=== PATIENT | male | born 1945 | race Caucasian/White ===

== ENCOUNTER 2017-04-10 13:54 | Inpatient (IN) | payer MEDICARE ==
[~2017-04-10] VITALS: Ht 175.3 cm; Wt 80.3 kg
--- NOTE | 2017-04-10 13:59 | Emergency Room Report ---
History of Present Illness General Chief Complaint: Dyspnea/Respdistress Source: Medical Record Present Illness HPI Patient has a history of liver and kidney transplant. Patient also has history of atrial fibrillation. Patient has history of diabetes and high blood pressure as well. Patient states that he hasn't been feeling well for the last couple days. He has had some cough but increasing shortness of breath some wheezing. He went to see his primary care physician and received albuterol treatments which did improve his breathing but causes heart rate to go up and him to have chest discomfort. Because of that he emesis contacted and patient was by her further evaluation. On arrival patient feels better and denies any definite chest pain but he still has very mild shortness of breath. Denies any leg pain leg swelling. States that he does not have a fever. No other complaints are noted. Symptoms noted to be moderate to severe when it occurred.No other modifying factors. No other associated signs and symptoms. No other complaints were noted. Allergies: Coded Allergies: IODINE (Verified Allergy, Unknown, 04/10/17) METHOCARBAMOL (Verified Allergy, Unknown, 04/10/17) Patient History Past Medical History: DM, HTN Past Surgical History: other - liver, kidney transplant Pertinent Family History: none Social History: Denies: smoking, alcohol use, drug use Reviewed Nursing Documentation: PMH: Agreed, PSxH: Agreed Nursing Documentation-PMH Hx Hypertension: Yes Hx Diabetes: Yes Review of Systems All Other Systems: negative except mentioned in HPI Physical Exam Vital Signs Date Time Temp Pulse Resp B/P (MAP) Pulse Ox O2 Delivery O2 Flow Rate FiO2 04/10/17 13:47 98.5 114 18 140/75 96 Room Air 98.4 Sp02 EP Interpretation: reviewed, normal General Appearance: alert, mild distress, other - anxious Head: atraumatic Eyes: bilateral eye normal inspection ENT: normal ENT inspection, hearing grossly normal, normal voice Neck: normal inspection, full range of motion, supple, no bony tend Respiratory: no respiratory distress, no retraction, wheezing - mild expiratory Cardiovascular #1: no edema, tachycardia, irregularly irregular Gastrointestinal: normal inspection, normal bowel sounds, non tender, soft, no guarding, no hernia Genitourinary: no CVA tenderness Musculoskeletal: normal inspection, back normal, normal range of motion Neurologic: normal inspection, alert, responsive, speech normal Psychiatric: normal inspection, judgement/insight normal, mood/affect normal Skin: normal inspection, normal color, no rash Medical Decision Making Diagnostic Impression: Primary Impression: CHF exacerbation Additional Impressions: Fluid overload Respiratory distress Atrial fibrillation ER Course Patient presents emergency department today complaining of shortness of breath. Patient differential considerations include acute arrhythmia, acute pneumonia acute CHF acute fluid overload just to name a few.Given the severity of the patient's presentation I felt this is a highly complex patient. This patient required extensive workup. Patient's laboratory workup shows evidence of CHF. Patient's chest ray confirms this. Patient was rate controlled. Patient was given Lasix for the elevated BNP and CHF. Patient will be admitted to telemetry for further treatment. Case was discussed with admitting physician. Labs Test 04/10/17 13:55 04/10/17 15:41 White Blood Count 9.2 K/UL (4.8-10.8) Red Blood Count 4.17 M/UL (4.70-6.10) Hemoglobin 13.4 G/DL (14.2-18.0) Hematocrit 41.5 % (42.0-52.0) Mean Corpuscular Volume 100 FL (80-99) Mean Corpuscular Hemoglobin 32.2 PG (27.0-31.0) Mean Corpuscular Hemoglobin Concent 32.3 G/DL (32.0-36.0) Red Cell Distribution Width 14.0 % (11.6-14.8) Platelet Count 198 K/UL (150-450) Mean Platelet Volume 8.0 FL (6.5-10.1) Neutrophils (%) (Auto) 73.4 % (45.0-75.0) Lymphocytes (%) (Auto) 13.1 % (20.0-45.0) Monocytes (%) (Auto) 10.4 % (1.0-10.0) Eosinophils (%) (Auto) 2.2 % (0.0-3.0) Basophils (%) (Auto) 0.8 % (0.0-2.0) Sodium Level 142 MMOL/L (136-145) Potassium Level 4.8 MMOL/L (3.5-5.1) Chloride Level 109 MMOL/L (98-107) Carbon Dioxide Level 25 MMOL/L (21-32) Anion Gap 8 mmol/L (5-15) Blood Urea Nitrogen 31 mg/dL (7-18) Creatinine 1.6 MG/DL (0.55-1.30) Estimat Glomerular Filtration Rate mL/min (>60) Glucose Level 132 MG/DL (74-106) Calcium Level 8.8 MG/DL (8.5-10.1) Total Bilirubin 0.7 MG/DL (0.2-1.0) Aspartate Amino Transf (AST/SGOT) 37 U/L (15-37) Alanine Aminotransferase (ALT/SGPT) 29 U/L (12-78) Alkaline Phosphatase 95 U/L (46-116) Total Creatine Kinase 218 U/L (26-308) Creatine Kinase MB 5.0 NG/ML (0.0-3.6) Creatine Kinase MB Relative Index 2.2 Troponin I 0.084 ng/mL (0.000-0.056) Pro-B-Type Natriuretic Peptide 63288 pg/mL (0-125) Total Protein 6.0 G/DL (6.4-8.2) Albumin 2.7 G/DL (3.4-5.0) Globulin 3.3 g/dL Albumin/Globulin Ratio 0.8 (1.0-2.7) Lipase 144 U/L (73-393) Urine Color Yellow Urine Appearance Slightly cloudy Urine pH 5 (4.5-8.0) Urine Specific [place] 1.020 (1.005-1.035) Urine Protein 4+ (NEGATIVE) Urine Glucose (UA) Negative (NEGATIVE) Urine Ketones Negative (NEGATIVE) Urine Occult Blood 1+ (NEGATIVE) Urine Nitrite Negative (NEGATIVE) Urine Bilirubin Negative (NEGATIVE) Urine Urobilinogen Normal MG/DL (0.0-1.0) Urine Leukocyte Esterase 1+ (NEGATIVE) Urine RBC 2-4 /HPF (0 - 0) Urine WBC 0-2 /HPF (0 - 0) Urine Squamous Epithelial Cells Occasional /LPF Urine Amorphous Sediment Few /LPF (NONE) Urine Bacteria Few /HPF (NONE) EKG Diagnostic Results Rate: tachycardiac Rhythm: other - a-fib Other Impression rbbb Rhythm Strip Diag. Results EP Interpretation: yes Rate: 115 Rhythm: no PVC's, other Chest X-Ray Diagnostic Results Chest X-Ray Diagnostic Results : Chest X-Ray Ordered: Yes # of Views/Limited/Complete: 1 View EP Interpretation: No Impression: Other - CHF Last Vital Signs Date Time Temp Pulse Resp B/P (MAP) Pulse Ox O2 Delivery O2 Flow Rate FiO2 04/10/17 13:47 98.5 114 18 140/75 96 Room Air 98.4 Status: improved Disposition: ADMITTED INPATIENT Condition: Serious HAY KEITA M.D. Apr 10, 2017 13:59
[2017-04-10 14:02] VITALS: BP 166/88
[2017-04-10 14:13] LABS: BASOPHILS % (AUTO) 0.8 % (0.0-2.0); EOSINOPHILS % (AUTO) 2.2 % (0.0-3.0); HEMATOCRIT 41.5 % (42.0-52.0); HEMOGLOBIN 13.4 G/DL (14.2-18.0); LYMPHOCYTES % (AUTO) 13.1 % (20.0-45.0); MEAN CORPUSCULAR VOLUME 100 FL (80-99); MONOCYTES % (AUTO) 10.4 % (1.0-10.0); NEUTROPHILS % (AUTO) 73.4 % (45.0-75.0); PLATELET COUNT 198 K/UL (150-450); RED BLOOD COUNT 4.17 M/UL (4.70-6.10); WHITE BLOOD COUNT 9.2 K/UL (4.8-10.8)
[2017-04-10] MEDS ORDERED: LEXAPRO10 MG ORAL (14:27)
[2017-04-10] MEDS ORDERED: RESTORIL15 MG ORAL (14:27)
[2017-04-10] MEDS ORDERED: PRADAXA150 MG ORAL (14:27)
[2017-04-10] MEDS ORDERED: DIGOXIN125 MCG ORAL (14:27)
[2017-04-10] MEDS ORDERED: ULORIC40 MG ORAL (14:27)
[2017-04-10] MEDS ORDERED: HUMULIN N100 UNIT/1 SUBQ (14:27)
[2017-04-10] MEDS ORDERED: FIBER CHOICE1.5 GM PO (14:27)
[2017-04-10] MEDS ORDERED: SENNA-DOCUSATE1 EACH PO (14:27)
[2017-04-10] MEDS ORDERED: PRILOSEC10 M1 ORAL (14:27)
[2017-04-10] MEDS ORDERED: COLCRYS0.6 M1 PO (14:27)
[2017-04-10] MEDS ORDERED: VITAMIN D400 INTLU ORAL (14:27)
[2017-04-10] MEDS ORDERED: SIMETHICONE80 MG ORAL (14:27)
[2017-04-10] MEDS ORDERED: GABAPENTIN300 MG ORAL (14:27)
[2017-04-10] MEDS ORDERED: PROAIR HFA8.5 GM INH (14:27)
[2017-04-10] MEDS ORDERED: TORSEMIDE10 MG PO (14:27)
[2017-04-10] MEDS ORDERED: CELLCEPT500 MG ORAL (14:27)
[2017-04-10] MEDS ORDERED: NOVOLOG100 UNIT/4 SQ (14:27)
[2017-04-10 14:34] LABS: ANION GAP 8 mmol/L (5-15); BLOOD UREA NITROGEN 31 mg/dL (7-18); CALCIUM 8.8 MG/DL (8.5-10.1); CARBON DIOXIDE 25 MMOL/L (21-32); CHLORIDE 109 MMOL/L (98-107); CREATININE 1.6 MG/DL (0.55-1.30); POTASSIUM 4.8 MMOL/L (3.5-5.1); SODIUM 142 MMOL/L (136-145)
--- NOTE | 2017-04-10 14:42 | Diagnostic Imaging Report ---
Indication: Dyspnea Comparison: None A single view chest radiograph was obtained. Findings: Mild vascular congestion with cardiomegaly demonstrated. PICC line is in good position. Sternotomy noted. The hilar vessels are prominent bilaterally. A small right pleural effusion is suspected. IMPRESSION: CHF/interstitial edema. Right pleural effusion suspected
[2017-04-10 14:46] LABS: ALANINE AMINOTRANSFERASE 29 U/L (12-78); ALBUMIN 2.7 G/DL (3.4-5.0); ALBUMIN/GLOBULIN RATIO 0.8 (1.0-2.7); ALKALINE PHOSPHATASE 95 U/L (46-116); ASPARTATE AMINO TRANSFERASE 37 U/L (15-37); BILIRUBIN,TOTAL 0.7 MG/DL (0.2-1.0); CREATINE KINASE 218 U/L (26-308)
[2017-04-10 15:00] VITALS: BP 154/90
[2017-04-10 16:08] LABS: APPEARANCE,URINE SLIGHTLY CLOUDY; BILIRUBIN, URINE NEGATIVE (NEGATIVE); GLUCOSE, URINE (UA) NEGATIVE (NEGATIVE); KETONES,URINE NEGATIVE (NEGATIVE); LEUKOCYTE ESTERASE ,URINE 1+ (NEGATIVE); NITRITE,URINE NEGATIVE (NEGATIVE); PH,URINE 5 (4.5-8.0); PROTEIN,URINE 4+ (NEGATIVE); UROBILINOGEN,URINE NORMAL MG/DL (0.0-1.0)
[2017-04-10 16:13] LABS: COLOR,URINE YELLOW
[2017-04-10 16:30] VITALS: BP 156/88
[2017-04-10] MEDS ORDERED: Miralax 17gm pkt ORAL PRN (17:45)
[2017-04-10] MEDS ORDERED: Albuterol/Ipratropium 3ml neb HHN PRN (17:45)
[2017-04-10] MEDS ORDERED: Metoprolol 5mg/5ml Inj IVP SCH (18:45)
[2017-04-10 20:00] VITALS: BP 139/73
[2017-04-10 22:00] VITALS: BP 163/84
[2017-04-10] MEDS: Metoprolol Tartrate 50mg tab ORAL SCH (22:01)
[2017-04-10] MEDS: NovoLOG Insulin Flexpen SUBQ SCH (22:08)
--- NOTE | 2017-04-10 23:15 | Consultation ---
DATE OF CONSULTATION: 04/10/2017 CARDIOLOGY CONSULTATION CONSULTING PHYSICIAN: Edwardo Guerin M.D. REFERRING PHYSICIAN: Giacomo Snyder D.O. REASON FOR CONSULTATION: Management of atrial fibrillation with rapid ventricular response. HISTORY OF PRESENT ILLNESS: The patient is a very unfortunate 71-year-old gentleman, who presents to the hospital with complaints of chest pain as well as palpitation. He states that his heart has been out of rhythm. He was seen in the emergency department where his blood pressure was 140/75 mmHg and heart rate was 114. A 12-lead electrocardiogram was significant for atrial fibrillation with rapid ventricular response. The patient was admitted to the telemetry unit for further evaluation and management of this condition. Cardiology consultation was made at the request of Dr. Snyder. The patient's cardiac history is significant for history of aortic valve replacement and history of paroxysmal atrial fibrillation. He was scheduled at [facility] for SID and cardioversion, which was canceled as the patient was thought to be in paroxysmal atrial fibrillation. He was out of atrial fibrillation at the time of the procedure. He was started on Pradaxa 75 mg twice daily. His record shows that he is also on digoxin for rate control. He is regularly seen by Dr. Arreola in Nephrology. His primary unloader is Dr. Roy. PAST MEDICAL HISTORY: Significant for: 1. History of falls in the past leading to head trauma. 2. 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 3. History of sepsis. 4. History of renal transplant following years of hemodialysis. 5. History of hypertension. 6. History of paroxysmal atrial fibrillation. 7. History of gastroesophageal reflux disease. 8. History of congestive heart failure. 9. History of aortic valve replacement. 10. History of diabetes mellitus type 2. 11. History of hypogonadism. 12. History of gout. MEDICATIONS: At home including alprazolam 1 mg half a tablet at bedtime as needed, insulin NovoLog 5 units subcutaneously twice daily, dabigatran 75 mg p.o. twice daily, vitamin D3 2000 units by mouth daily, Uloric 40 mg once daily, colchicine 0.6 mg once daily, Humulin insulin 35 units after meals as directed, simethicone 80 mg once daily as needed, Fiber Choice one tablet as needed, Prograf two capsules twice daily, Rapaflo 8 mg one capsule every evening with dinner, torsemide 10 mg p.o. daily, CellCept 500 mg two tablets twice daily, digoxin 1.25 mg p.o. daily, triamcinolone cream, gabapentin 300 mg two capsules at bedtime, clonidine 0.2 mg one tablet three times daily, omeprazole 20 mg p.o. twice daily, senna one tablet p.o. at bedtime as needed for constipation, trazodone 0.5 mg at bedtime as needed for insomnia, Dilaudid 4 mg by mouth daily as needed for pain, Colace 100 mg p.o. twice daily, and AndroGel cream 1%. PAST SURGICAL HISTORY: 1. Kidney transplantation. 2. Renal transplantation. 3. AV shunt placement. 4. Aortic valve replacement. ALLERGIES: To iodine and methocarbamol. FAMILY HISTORY: No premature coronary artery disease in first-degree relatives. SOCIAL HISTORY: Denies any tobacco, alcohol, or illicit drug use. REVIEW OF SYSTEMS: HEENT: Denies any headache, diplopia, or blurred vision. CONSTITUTIONAL: Denies any fever, chills, night sweats, or weight loss. CARDIOVASCULAR: Complains of palpitation, heart flutter. Had also complained of progressive worsening of dyspnea on exertion. Denies any chest pain, lower extremity edema, or syncope. PULMONARY: Denies any cough, hemoptysis, or wheezing. GASTROINTESTINAL: Denies any nausea, vomiting, diarrhea, constipation, abdominal pain, or GI bleed. GENITOURINARY: Status post kidney transplant prior to that was on dialysis. NEUROLOGY: Denies any motor dysfunction, sensory deficit, or altered speech. PHYSICAL EXAMINATION: VITAL SIGNS: Blood pressure was 140/75, respirations 18, pulse of 114, temperature 98.5 degrees Fahrenheit, and O2 saturation 96% on room air. GENERAL: The patient is a very pleasant 71-year-old gentleman, in no apparent respiratory distress. Alert and oriented x4. HEENT: Atraumatic, normocephalic. Anicteric. Pupils are equal, round, and reactive to light and accommodation. Extraocular muscles intact. NECK: JVP is less than 5 cm. No carotid bruits. Carotid upstrokes 2+ bilaterally. CARDIOVASCULAR: Normal S1 and S2. Irregularly irregular rhythm. No murmurs, gallops, or rubs. PMI is at the fourth intercostal space at the midclavicular line. LUNGS: Clear to auscultation bilaterally. ABDOMEN: Soft, nontender, and nondistended. No hepatosplenomegaly. Positive bowel sounds. EXTREMITIES: No evidence of edema, clubbing, or cyanosis. LABORATORY AND DIAGNOSTIC DATA: Laboratory findings, sodium 142, potassium is 4.8, chloride 109, bicarbonate 25, BUN of 31, creatinine 1.6, glucose 132, and calcium is 8.8. Troponin I was 0.084. ProBNP was 21,359. WBC is 9.2, hemoglobin of 13.4, hematocrit of 41.5, and platelet count is 198,000. A 12-lead electrocardiogram shows there is atrial fibrillation, rate of 116 with right bundle-branch block, no ST-T wave abnormalities suggestive of ischemia, ST-segment depression downsloping in leads V2 and V3 may suggest RV strain, and QT prolongation with 522 milliseconds. Chest x-ray shows mild pulmonary vascular congestion, bilateral hilar vessel prominence, and possible small right pleural effusion. ASSESSMENT AND PLAN: The patient is a very unfortunate 71-year-old gentleman, seen in Cardiology consultation at the request of Dr. Snyder. 1. Atrial fibrillation with rapid ventricular response, this is paroxysmal. I would like to start the patient on metoprolol 5 mg intravenous push x1 dose to be repeated in five minutes if the heart rate still above 90 with a goal of keeping the heart rate around 60. We will continue with digoxin. We will obtain digoxin level to ensure that there is no digoxin toxicity. Given the patient's paroxysmal nature of atrial fibrillation, there is no need for SID and cardioversion. The patient may benefit from antiarrhythmic medication. Drug interaction needs to be taken into consideration in details as the patient on both CellCept and Prograf. 2. Status post aortic valve replacement. We will obtain 2D echocardiography for assessment of the bioprosthetic aortic valve. 3. History of hypertension. 4. History of diabetes mellitus. 5. We will continue with Pradaxa 75 mg twice daily for thromboembolic preventive measures. 6. Further therapeutic and diagnostic decision will be based on the results of the echocardiography and his response to above treatment. I would like to thank, Dr. Snyder, for the courtesy of this consultation. Edwardo Guerin M.D. DR: KLEVER JOB#: [id number] CC:
[2017-04-11] VITALS: BP 129/87
[2017-04-11 04:00] VITALS: BP 137/67
[2017-04-11] MEDS: NovoLOG Insulin Flexpen SUBQ SCH ×4 (06:30→21:10)
[2017-04-11 08:00] VITALS: BP 153/73
[2017-04-11 08:05] LABS: BASOPHILS % (AUTO) 0.9 % (0.0-2.0); EOSINOPHILS % (AUTO) 3.9 % (0.0-3.0); HEMATOCRIT 39.2 % (42.0-52.0); HEMOGLOBIN 13.1 G/DL (14.2-18.0); MEAN CORPUSCULAR VOLUME 100 FL (80-99); MONOCYTES % (AUTO) 13.6 % (1.0-10.0); NEUTROPHILS % (AUTO) 66.6 % (45.0-75.0); PLATELET COUNT 179 K/UL (150-450); RED BLOOD COUNT 3.92 M/UL (4.70-6.10); RED CELL DISTRIBUTION WIDTH 13.9 % (11.6-14.8); WHITE BLOOD COUNT 7.7 K/UL (4.8-10.8)
--- NOTE | 2017-04-11 08:30 | Consultation ---
History of Present Illness General Date patient seen: Apr 11, 2017 Time patient seen: 08:00 Chief Complaint: Dyspnea/Respdistress Referring physician: dr Snyder Reason for Consultation: cough, resp distree Present Illness HPI 71 y/old male with PMH of A fib, DM, HTN, liver and kidney transplant, had not been feeling well for the last couple days. He had had some cough and shortness of breath , some wheezing. He received albuterol treatment from PMD in the office which did improve his breathing but caused high heart rate and chest discomfort On arrival to ED patient felt better and denied any definite chest pain , but still had mild shortness of breath. Denied any leg pain or leg swelling. Denied fevers, chills VS with tachycardia, BP stable, afebrile CXR with evidence fo CHF elevated troponin -0.084 pro [id number] evidence of chronic kidney disease BUN-31, creat-1.6 ECG with A fib with RVR Allergies: Coded Allergies: IODINE (Verified Allergy, Unknown, 04/10/17) METHOCARBAMOL (Verified Allergy, Unknown, 04/10/17) Medication History Scheduled Albuterol Sulfate* (Proair Hfa*), 2 PUFFS INH Q6H, (Reported) Colchicine (Colcrys), 0.6 MG PO DAILY, (Reported) Dabigatran Etexilate Mesylate* (Pradaxa*), 75 MG ORAL EVERY 12 HOURS, (Reported) Digoxin* (Digoxin*), 125 MCG ORAL DAILY, (Reported) Escitalopram Oxalate* (Lexapro*), 10 MG ORAL DAILY, (Reported) Febuxostat (Uloric), 40 MG ORAL DAILY, (Reported) Gabapentin* (Gabapentin*), 300 MG ORAL BEDTIME, (Reported) Inulin (Fiber Choice), 1.5 GM PO DAILY, (Reported) Mycophenolate Mofetil (Cellcept), 1,000 MG ORAL EVERY 12 HOURS, (Reported) Omeprazole Magnesium (Prilosec), 20 MG ORAL BID, (Reported) Sennosides/Docusate Sodium (Senna-Docusate Sodium Tablet), 1 EACH PO HS, ( Reported) Torsemide* (Demadex*), 10 MG PO DAILY, (Reported) Vitamin D (Vitamin D3), 2,000 UNITS ORAL DAILY, (Reported) Scheduled PRN Simethicone* (Simethicone*), 80 MG ORAL Q8H PRN for GAS PAIN, (Reported) Temazepam* (Restoril*), 15 MG ORAL BEDTIME PRN for Insomnia, (Reported) Miscellaneous Medications Insulin Aspart (Novolog), 100 UNIT SQ, (Reported) Nph, Human Insulin Isophane (Humulin N), 0 SUBQ, (Reported) Patient History Healthcare decision maker N Resuscitation status Full Code Advanced Directive on File Review of Systems Constitutional: Reports: weakness Eye: Reports: no symptoms ENT: Reports: no symptoms Respiratory: Reports: shortness of breath - occsional Cardiovascular: Reports: see HPI Gastrointestinal: Reports: other - liver transplant Genitourinary: Reports: other - renal transplant Musculoskeletal: Reports: muscle pain Skin: Reports: dryness Psychiatric: Reports: no symptoms Neurological: Reports: no symptoms Endocrine: Reports: no symptoms Hematologic/Lymphatic: Reports: no symptoms Physical Exam General Appearance: no apparent distress, alert Lines, tubes and drains: peripheral HEENT: normocephalic, atraumatic, anicteric, mucous membranes moist, PERRL Neck: non-tender, supple Respiratory/Chest: lungs clear, no respiratory distress, no accessory muscle use Cardiovascular/Chest: normal rate, irregularly irregular - A fib Abdomen: normal bowel sounds, non tender, soft Extremities: normal range of motion, non-tender, no calf tenderness Skin Exam: warm/dry Neurologic: alert, oriented x 3, responsive Musculoskeletal: normal muscle bulk Last 24 Hour Vital Signs Date Time Temp Pulse Resp B/P (MAP) Pulse Ox O2 Delivery O2 Flow Rate FiO2 04/11/17 06:53 83 18 Room Air 04/11/17 04:00 90 04/11/17 04:00 97.7 90 18 137/67 93 Room Air 97.7 04/11/17 00:00 97.2 85 22 129/87 92 Room Air 97.2 04/11/17 00:00 85 04/10/17 22:01 113 156/118 04/10/17 20:07 113 18 Room Air 04/10/17 20:00 97.3 118 20 139/73 96 Room Air 97.3 04/10/17 20:00 117 04/10/17 16:42 110 21 163/84 95 Room Air 04/10/17 16:30 98.0 113 20 156/88 97 Room Air 98.0 04/10/17 16:30 118 04/10/17 15:00 98.0 112 22 154/90 97 Room Air 98.0 04/10/17 14:08 27 04/10/17 14:02 98.0 110 18 166/88 96 Nasal Cannula 2.0 98.0 04/10/17 13:59 110 18 Nasal Cannula 2.0 04/10/17 13:47 98.5 114 18 140/75 96 Room Air 98.4 Intake and Output 04/10/17 04/11/17 19:00 07:00 Intake Total 60 ml 200 ml Output Total 250 ml Balance -190 ml 200 ml Intake Oral 60 ml 200 ml Output Urine Total 250 ml # Voids 2 Laboratory Tests Test 04/10/17 13:55 04/10/17 15:41 04/10/17 18:23 04/11/17 06:30 White Blood Count 9.2 K/UL (4.8-10.8) 7.7 K/UL (4.8-10.8) Red Blood Count 4.17 M/UL (4.70-6.10) L 3.92 M/UL (4.70-6.10) L Hemoglobin 13.4 G/DL (14.2-18.0) L 13.1 G/DL (14.2-18.0) L Hematocrit 41.5 % (42.0-52.0) L 39.2 % (42.0-52.0) L Mean Corpuscular Volume 100 FL (80-99) H 100 FL (80-99) H Mean Corpuscular Hemoglobin 32.2 PG (27.0-31.0) H 33.5 PG (27.0-31.0) H Mean Corpuscular Hemoglobin Concent 32.3 G/DL (32.0-36.0) 33.5 G/DL (32.0-36.0) Red Cell Distribution Width 14.0 % (11.6-14.8) 13.9 % (11.6-14.8) Platelet Count 198 K/UL (150-450) 179 K/UL (150-450) Mean Platelet Volume 8.0 FL (6.5-10.1) 7.3 FL (6.5-10.1) Neutrophils (%) (Auto) 73.4 % (45.0-75.0) 66.6 % (45.0-75.0) Lymphocytes (%) (Auto) 13.1 % (20.0-45.0) L 15.0 % (20.0-45.0) L Monocytes (%) (Auto) 10.4 % (1.0-10.0) H 13.6 % (1.0-10.0) H Eosinophils (%) (Auto) 2.2 % (0.0-3.0) 3.9 % (0.0-3.0) H Basophils (%) (Auto) 0.8 % (0.0-2.0) 0.9 % (0.0-2.0) Sodium Level 142 MMOL/L (136-145) Pending Potassium Level 4.8 MMOL/L (3.5-5.1) Pending Chloride Level 109 MMOL/L (98-107) H Pending Carbon Dioxide Level 25 MMOL/L (21-32) Pending Anion Gap 8 mmol/L (5-15) Blood Urea Nitrogen 31 mg/dL (7-18) H Pending Creatinine 1.6 MG/DL (0.55-1.30) H Pending Estimat Glomerular Filtration Rate mL/min (>60) Pending Glucose Level 132 MG/DL (74-106) H Pending Calcium Level 8.8 MG/DL (8.5-10.1) Pending Total Bilirubin 0.7 MG/DL (0.2-1.0) Pending Aspartate Amino Transf (AST/SGOT) 37 U/L (15-37) Pending Alanine Aminotransferase (ALT/SGPT) 29 U/L (12-78) Pending Alkaline Phosphatase 95 U/L (46-116) Pending Total Creatine Kinase 218 U/L (26-308) Creatine Kinase MB 5.0 NG/ML (0.0-3.6) H Creatine Kinase MB Relative Index 2.2 Troponin I 0.084 ng/mL (0.000-0.056) 0.045 ng/mL (0.000-0.056) Pending Pro-B-Type Natriuretic Peptide 93758 pg/mL (0-125) H Pending Total Protein 6.0 G/DL (6.4-8.2) L Pending Albumin 2.7 G/DL (3.4-5.0) L Pending Globulin 3.3 g/dL Pending Albumin/Globulin Ratio 0.8 (1.0-2.7) L Lipase 144 U/L (73-393) Urine Color Yellow Urine Appearance Slightly cloudy Urine pH 5 (4.5-8.0) Urine Specific [place] 1.020 (1.005-1.035) Urine Protein 4+ (NEGATIVE) H Urine Glucose (UA) Negative (NEGATIVE) Urine Ketones Negative (NEGATIVE) Urine Occult Blood 1+ (NEGATIVE) H Urine Nitrite Negative (NEGATIVE) Urine Bilirubin Negative (NEGATIVE) Urine Urobilinogen Normal MG/DL (0.0-1.0) Urine Leukocyte Esterase 1+ (NEGATIVE) H Urine RBC 2-4 /HPF (0 - 0) H Urine WBC 0-2 /HPF (0 - 0) Urine Squamous Epithelial Cells Occasional /LPF Urine Amorphous Sediment Few /LPF (NONE) H Urine Bacteria Few /HPF (NONE) Height (Feet): 5 Height (Inches): 9.00 Weight (Pounds): 140 Medications Current Medications Medications (Trade) Dose Ordered Sig/Uvaldo Route PRN Reason Start Time Stop Time Status Last Admin Dose Admin Acetaminophen (Tylenol) 650 mg Q4H PRN ORAL Fever 04/10/17 17:45 05/10/17 17:44 Albuterol/ Ipratropium (Albuterol/ Ipratropium) 3 ml EVERY 4 HOURS PRN HHN Shortness of Breath 04/10/17 17:45 04/15/17 17:44 Colchicine (Colchicine) 0.6 mg DAILY ORAL 04/11/17 09:00 05/11/17 08:59 Dabigatran (Pradaxa) 75 mg EVERY 12 HOURS ORAL 04/10/17 21:00 05/10/17 20:59 04/10/17 22:00 Dextrose (Dextrose 50%) STAT PRN IV Hypoglycemia 04/10/17 17:45 05/10/17 17:44 Digoxin (Lanoxin) 0.125 mg DAILY ORAL 04/11/17 09:00 05/11/17 08:59 Escitalopram Oxalate (Lexapro) 10 mg QHS ORAL 04/11/17 21:00 05/11/17 08:59 Furosemide (Lasix) 40 mg EVERY 8 HOURS IV 04/10/17 22:00 05/10/17 21:59 04/11/17 06:00 Gabapentin (Neurontin) 300 mg BEDTIME ORAL 04/10/17 21:00 05/10/17 20:59 04/10/17 22:01 Insulin Aspart (NovoLOG) BEFORE MEALS AND HS SUBQ 04/10/17 21:00 05/10/17 20:59 04/10/17 22:08 Metoprolol Tartrate (Lopressor) 50 mg Q12HR ORAL 04/10/17 21:00 05/10/17 20:59 04/10/17 22:01 Ondansetron HCl (Zofran) 4 mg Q6H PRN IVP Nausea & Vomiting 04/10/17 17:45 05/10/17 17:44 Polyethylene Glycol (Miralax) 17 gm DAILYPRN PRN ORAL Constipation 04/10/17 17:45 05/10/17 17:44 Temazepam (Restoril) 15 mg HSPRN PRN ORAL Insomnia 04/10/17 17:45 04/17/17 17:44 04/10/17 22:00 Torsemide (Demadex) 10 mg DAILY ORAL 04/11/17 09:00 05/11/17 08:59 Assessment/Plan Assessment/Plan ASSESSMENT acute resp distress A fib with RVR elevated troponin severe cardiomyopathy systolic and diastolic congestive heart failure HTN DM CKD RBBB s/p liver and kidney transplant PLAN OF CARE tele rate control with Digoxin and BB a/coag with Pradaxa, watch for any signs of bleeding diuresis, monitor volumes and cardiorenal parameters trend pro BNP and fup with CXR ECHO with EF 25% and RVSP of 29 , significant diastolic dysfunction, and moderate MR cardio follows medical management of SHF- pre cardio recs serial troponin venous Duplex O2 titrate pulm toilet nephro follows monitor renal parameters, correct lyts as needed, avoid nephrotoxics case discussed and evaluated by supervising physician Hope Calloway NP ([place]) Apr 11, 2017 08:30
[2017-04-11 08:37] LABS: ALANINE AMINOTRANSFERASE 22 U/L (12-78); ALBUMIN 2.3 G/DL (3.4-5.0); ALBUMIN/GLOBULIN RATIO 0.7 (1.0-2.7); ALKALINE PHOSPHATASE 79 U/L (46-116); ANION GAP 8 mmol/L (5-15); ASPARTATE AMINO TRANSFERASE 25 U/L (15-37); BILIRUBIN,TOTAL 0.8 MG/DL (0.2-1.0); BLOOD UREA NITROGEN 29 mg/dL (7-18); CALCIUM 8.6 MG/DL (8.5-10.1); CARBON DIOXIDE 29 MMOL/L (21-32); CHLORIDE 108 MMOL/L (98-107); CREATININE 1.5 MG/DL (0.55-1.30); POTASSIUM 4.2 MMOL/L (3.5-5.1); SODIUM 145 MMOL/L (136-145)
[2017-04-11] MEDS: Digoxin 0.125mg tab ORAL SCH (09:34)
[2017-04-11] MEDS: Torsemide 10mg tab ORAL SCH (09:34)
[2017-04-11] MEDS: Metoprolol Tartrate 50mg tab ORAL SCH ×2 (09:34→21:04)
[2017-04-11 12:00] VITALS: BP 145/83
--- NOTE | 2017-04-11 14:04 | General Progress Note ---
Progress Note Progress Note [id number] full consult dictated ELEAZAR NGO Apr 11, 2017 14:04
[2017-04-11 14:45] LABS: APPEARANCE,URINE CLEAR; BILIRUBIN, URINE NEGATIVE (NEGATIVE); COLOR,URINE PALE YELLOW; GLUCOSE, URINE (UA) NEGATIVE (NEGATIVE); KETONES,URINE NEGATIVE (NEGATIVE); LEUKOCYTE ESTERASE ,URINE NEGATIVE (NEGATIVE); NITRITE,URINE NEGATIVE (NEGATIVE); PH,URINE 5 (4.5-8.0); PROTEIN,URINE 2+ (NEGATIVE); UROBILINOGEN,URINE NORMAL MG/DL (0.0-1.0)
[2017-04-11 16:00] VITALS: BP 150/69
--- NOTE | 2017-04-11 16:30 | History and Physical Report ---
DATE OF ADMISSION: 04/10/2017 ATTENDING PHYSICIAN: Giacomo Snyder D.O. CONSULTANTS: 1. Edwardo Guerin M.D. 2. Christen Moraes M.D. 3. Regina Conner M.D. CHIEF COMPLAINT: Shortness of breath and congestive heart failure. BRIEF HISTORY: This is a 71-year-old male, who lives at home, presents with increased shortness of breath x2 weeks. He does have a history of hypertension, diabetes, and CHF and apparently is getting worse. The patient came into ER, diagnosed with the above, admitted to [facility] for further care. Currently calm in bed, slight shortness of breath. No complaint. REVIEW OF SYSTEMS: No chest pain. Slight shortness of breath. No nausea, vomiting, or diarrhea. PAST MEDICAL HISTORY: CHF, hypertension, and diabetes. PAST SURGICAL HISTORY: Liver transplant and kidney transplant. MEDICATIONS: , colchicine, digoxin, furosemide, gabapentin, insulin, metoprolol, and temazepam. ALLERGIES: Iodine and methocarbamol. SOCIAL HISTORY: No smoking. Occasional alcohol. No intravenous drug abuse. FAMILY HISTORY: Noncontributory. PHYSICAL EXAMINATION: GENERAL: Calm in bed, oriented x3, in no acute distress. VITAL SIGNS: Temperature is 96, pulse 102, respirations 18, blood pressure 153/73. CARDIOVASCULAR: No murmur. LUNGS: Poor air exchange. ABDOMEN: Bowel sounds distant. EXTREMITIES: No cyanosis or edema. NEUROLOGIC: The patient moves all extremities, but slightly weak. LABORATORY DATA: Hemoglobin 13, otherwise, CBC is normal. BMP shows chloride 108, BUN and creatinine 29 and 1.5, otherwise BMP is normal. Troponin 0.084 and 0.089. BNP is 18,131. Albumin 2.3. Urinalysis shows 1+ occult blood, 1+ leukocyte esterase. ASSESSMENT: 1. Shortness of breath. 2. Congestive heart failure exacerbation. 3. Hypertension. 4. Diabetes. 5. Urinary tract infection. 6. Hypoalbumin. PLAN: 1. Continue premedications. 2. O2, pulmonary treatment, and diuresis. 3. Antibiotic per Infectious Disease. 4. Blood pressure and blood sugar control. 5. Dietary followup. 6. OT, PT, and dietary evaluation. 7. CBC and BMP in the morning. Giacomo Snyder D.O. DR: Eitan JOB#: [id number] CC:
[2017-04-11 20:00] VITALS: BP 161/88
--- NOTE | 2017-04-11 22:18 | Cardiology Progress Note ---
Assessment/Plan Assessment/Plan 1. Paroxysmal atrial fibrillation with controlled ventricular response, switch to carvedilol, continue digoxin and Pradaxa 75 mg. 2. Dilated cardiomyopathy with LVEF ~20%, cannot rule out ischemia, continue guide line medical therapy at this time. 3. Status post aortic valve replacement. 4. History of hypertension. 5. History of diabetes mellitus. Subjective Cardiovascular: Reports: no symptoms, irregular heart rate Respiratory: Reports: no symptoms Gastrointestinal/Abdominal: Reports: no symptoms Genitourinary: Reports: no symptoms Subjective Atrial fibrillation at 97. Objective Last 24 Hour Vital Signs Date Time Temp Pulse Resp B/P (MAP) Pulse Ox O2 Delivery O2 Flow Rate FiO2 04/11/17 21:04 108 161/88 04/11/17 16:00 97 04/11/17 16:00 97.3 91 19 150/69 93 Room Air 97.3 91 04/11/17 12:00 96.3 89 19 145/83 95 Room Air 96.3 89 04/11/17 12:00 91 04/11/17 09:34 100 153/73 04/11/17 09:34 100 04/11/17 08:00 100 04/11/17 08:00 96.3 102 18 153/73 95 Room Air 96.3 04/11/17 06:53 83 18 Room Air 04/11/17 04:00 90 04/11/17 04:00 97.7 90 18 137/67 93 Room Air 97.7 04/11/17 00:00 97.2 85 22 129/87 92 Room Air 97.2 04/11/17 00:00 85 Intake and Output 04/10/17 04/11/17 19:00 07:00 Intake Total 60 ml 200 ml Output Total 250 ml Balance -190 ml 200 ml Intake Oral 60 ml 200 ml Output Urine Total 250 ml # Voids 2 2D Echo: EF ~25%,Global LV HK, Mild MR, Mild AR, RHONDA 1.6 cm2,Grade III LVDD, RVSP 29 Laboratory Tests Test 04/11/17 06:30 04/11/17 12:05 White Blood Count 7.7 K/UL (4.8-10.8) Red Blood Count 3.92 M/UL (4.70-6.10) L Hemoglobin 13.1 G/DL (14.2-18.0) L Hematocrit 39.2 % (42.0-52.0) L Mean Corpuscular Volume 100 FL (80-99) H Mean Corpuscular Hemoglobin 33.5 PG (27.0-31.0) H Mean Corpuscular Hemoglobin Concent 33.5 G/DL (32.0-36.0) Red Cell Distribution Width 13.9 % (11.6-14.8) Platelet Count 179 K/UL (150-450) Mean Platelet Volume 7.3 FL (6.5-10.1) Neutrophils (%) (Auto) 66.6 % (45.0-75.0) Lymphocytes (%) (Auto) 15.0 % (20.0-45.0) L Monocytes (%) (Auto) 13.6 % (1.0-10.0) H Eosinophils (%) (Auto) 3.9 % (0.0-3.0) H Basophils (%) (Auto) 0.9 % (0.0-2.0) Sodium Level 145 MMOL/L (136-145) Potassium Level 4.2 MMOL/L (3.5-5.1) Chloride Level 108 MMOL/L (98-107) H Carbon Dioxide Level 29 MMOL/L (21-32) Anion Gap 8 mmol/L (5-15) Blood Urea Nitrogen 29 mg/dL (7-18) H Creatinine 1.5 MG/DL (0.55-1.30) H Estimat Glomerular Filtration Rate mL/min (>60) Glucose Level 102 MG/DL (74-106) Calcium Level 8.6 MG/DL (8.5-10.1) Total Bilirubin 0.8 MG/DL (0.2-1.0) Aspartate Amino Transf (AST/SGOT) 25 U/L (15-37) Alanine Aminotransferase (ALT/SGPT) 22 U/L (12-78) Alkaline Phosphatase 79 U/L (46-116) Troponin I 0.089 ng/mL (0.000-0.056) Pro-B-Type Natriuretic Peptide 58337 pg/mL (0-125) H Total Protein 5.4 G/DL (6.4-8.2) L Albumin 2.3 G/DL (3.4-5.0) L Globulin 3.1 g/dL Albumin/Globulin Ratio 0.7 (1.0-2.7) L Urine Color Pale yellow Urine Appearance Clear Urine pH 5 (4.5-8.0) Urine Specific [place] 1.010 (1.005-1.035) Urine Protein 2+ (NEGATIVE) H Urine Glucose (UA) Negative (NEGATIVE) Urine Ketones Negative (NEGATIVE) Urine Occult Blood 1+ (NEGATIVE) H Urine Nitrite Negative (NEGATIVE) Urine Bilirubin Negative (NEGATIVE) Urine Urobilinogen Normal MG/DL (0.0-1.0) Urine Leukocyte Esterase Negative (NEGATIVE) Urine RBC 0-2 /HPF (0 - 0) H Urine WBC 0-2 /HPF (0 - 0) Urine Squamous Epithelial Cells Moderate /LPF (NONE/OCC) H Urine Bacteria Occasional /HPF (NONE) Urine Eosinophils None seen Urine Random Creatinine Pending Urine Random Microalbumin Pending Urine Random Total Protein 36 MG/DL (< 11.9) H Urine Random Sodium 118 mmol/L (20-110) H Urine Creatinine 12.5 MG/DL (30.0-125.0) L Urine Microalbumin/Creatinine Ratio Pending Objective GENERAL: The patient is a very pleasant 71-year-old gentleman, in no apparent respiratory distress. Alert and oriented x4. HEENT: Atraumatic, normocephalic. Anicteric. Pupils are equal, round, and reactive to light and accommodation. Extraocular muscles intact. NECK: JVP is less than 5 cm. No carotid bruits. Carotid upstrokes 2+ bilaterally. CARDIOVASCULAR: Normal S1 and S2. Irregularly irregular rhythm. No murmurs, gallops, or rubs. PMI is at the fourth intercostal space at the midclavicular line. LUNGS: Clear to auscultation bilaterally. ABDOMEN: Soft, nontender, and nondistended. No hepatosplenomegaly. Positive bowel sounds. EXTREMITIES: No evidence of edema, clubbing, or cyanosis. GERARDO CANCHOLA Apr 11, 2017 22:18
--- NOTE | 2017-04-11 22:30 | Consultation ---
DATE OF CONSULTATION: 04/11/2017 REASON FOR CONSULTATION: Renal and liver transplant. HISTORY OF PRESENT ILLNESS: The patient is a 71-year-old male with past medical history significant for history of hepatitis C. As a result of that, the patient required liver transplant. His first liver transplant was failed and the patient required liver and renal transplant. His baseline creatinine was 1.3. He has seen an outpatient pile driver operator barge mounted and his creatinine has been stable. The patient was found to have an atrial fibrillation and supposed to have SID and cardioversion at [facility], which was cancelled. The patient presented to [facility] with complaint of increasing of shortness of breath. In the ER, the patient found to be in atrial fibrillation at a rate of 117. The patient was started on Pradaxa. His creatinine found to be elevated more than his baseline to 1.6. I was called for management of renal disease and electrolyte imbalance. PAST MEDICAL HISTORY: Includin. History of end-stage renal disease, was on dialysis for one year. 2. History of liver and renal transplant due to hepatitis C. 3. History of sepsis. 4. History of hypertension. 5. History of atrial fibrillation. 6. History of gastroesophageal reflux disease. 7. History of congestive heart failure. 8. History of aortic valve replacement. 9. History of diabetes. 10. History of hypogonadism. 11. History of gout. MEDICATIONS: Home medications are includin. Alprazolam 1 mg half a tablet at bedtime. 2. Insulin NovoLog 5 units subcutaneously twice a day. 3. Dabigatran 75 mg by mouth twice a day. 4. Vitamin D one tablet p.o. daily. 5. Uloric 40 mg p.o. daily. 6. Colchicine 0.6 mg once a day. 7. Simethicone 80 milligram by mouth daily. 8. Torsemide 10 mg p.o. daily. 9. CellCept 500 mg p.o. twice a day. 10. Digoxin mg by mouth daily. 11. Carboplatin 300 mg at bedtime. 12. Clonidine 0.2 mg three times a day. 13. Omeprazole 20 mg daily. 14. Senna by mouth at bedtime. 15. Trazodone 0.5 mg p.o. as needed. 16. Dilaudid 4 mg by mouth as needed. 17. Colace 100 mg p.o. daily. 18. Prograf 1 mg by mouth twice a day. 19. Rapaflo 8 mg at night. 20. AndroGel cream 1%. 21. Triamcinolone cream as needed. PAST SURGICAL HISTORY: 1. History of liver and kidney transplant. 2. History of liver transplant. 3. History of AV fistula placement. 4. History of aortic valve replacement. ALLERGIES: The patient is allergic to methocarbamol. FAMILY HISTORY: Negative for history of premature heart disease. SOCIAL HISTORY: Denies any current history of tobacco, alcohol, or drug use. REVIEW OF SYSTEMS: GENERAL: He complained of generalized weakness. Denied any fever, chills, or night sweats. HEAD AND NECK: Denies any dysphagia, odynophagia, blurry vision, headache, or neck stiffness. PULMONARY: Mild shortness of breath. No cough. No sputum. CARDIOVASCULAR: Denies any chest pain, but had shortness of breath, [place]. Denies any palpitation. Denies any lower extremity swelling. GASTROINTESTINAL: Denies any nausea, vomiting. Had decreased appetite . GENITOURINARY: Denies any dysuria, frequency, or hematuria. MUSCULOSKELETAL: Complained of generalized weakness. Denies any localized weakness or numbness. PHYSICAL EXAMINATION: VITAL SIGNS: The patient has a temperature of 98 degrees, blood pressure of 140/70, pulse rate of 80, and respiratory rate of 18. HEAD AND NECK: No JVP. No LAD. No thyromegaly. Extraocular movements are intact. Pupils are reactive to light and accommodation. LUNGS: Clear to auscultation. CARDIAC: Regular rate and rhythm. S1 and S2. No murmur. No rub. ABDOMEN: Soft, nontender, and nondistended. EXTREMITIES: Trace edema. No clubbing. No cyanosis. NEUROLOGIC: Cranial nerves II through XII within normal limits. Upper and lower extremities are grossly intact. LABORATORY AND DIAGNOSTIC DATA: Lab values revealed WBC count of 7.7, hemoglobin of 13, hematocrit of 39, and platelet count of 179. Chemistry reveals sodium of 145, potassium 4.2, 108 chloride, 29 bicarbonate, BUN of 29, creatinine of 1.5, and glucose of 106. Calcium 8.6. AST of 25, ALT of 22, and alkaline phosphatase of 79. His troponin is mildly elevated at 0.089. BNP is 18,131. Total protein of 5.4. Albumin of 2.3. UA revealed specific gravity of 1.020, protein 4+, blood 1+, leukocyte esterase 1+, RBC of 2 to 4, and WBC 0 to 2. ASSESSMENT: 1. Acute on chronic renal failure. 2. Proteinuria. 3. Hematuria. 4. Urinary tract infection. 5. History of cadaveric renal transplant. 6. Atrial fibrillation with rapid ventricular response. PLAN: Plan for the patient to repeat the UA. Check the random urine protein creatinine ratio to calculate the proteinuria. Check the urine sodium and creatinine to calculate fractional excretion of sodium. I would do an ultrasound of the transplanted kidney. I will check the Prograf level. I would treat the patient definitely for the urinary tract infection and I would avoid any NSAID or nephrotoxics. Again, I would like to thank, Dr. Giacomo Snyder, for allowing me to participate in the care of this patient. Regina Conner M.D. DR: DILIP JOB#: [id number] CC:
--- NOTE | 2017-04-11 23:42 | Consultation ---
Consult Note Consult Note [id number] ARNOLD MARINO M.D. Apr 11, 2017 23:42
[2017-04-11] MEDS: Carvedilol 6.25mg Tab ORAL SCH (23:45)
[2017-04-12] VITALS (7 sets, daily range): BP systolic 122–156; BP diastolic 51–74
--- NOTE | 2017-04-12 03:45 | Consultation ---
DATE OF CONSULTATION: 04/12/2017 INFECTIOUS DISEASE CONSULTATION CONSULTING PHYSICIAN: Zac Romo M.D. REFERRING PHYSICIAN: Giacomo Snyder D.O. REASON FOR CONSULTATION: Evaluation of the patient for pneumonia and antibiotic management. HISTORY OF PRESENT ILLNESS: The patient is a 71-year-old male with multiple medical problems as listed below, who was admitted to this medical center due to shortness of breath and cough that has been worsening. The patient has history of liver and kidney transplant. Infectious Disease consultation has been requested for further evaluation of the patient's antibiotic management. PAST MEDICAL HISTORY: 1. Congestive heart failure. 2. Hypertension. 3. Diabetes. 4. Kidney and kidney transplant. ALLERGIES: Methocarbamol. MEDICATIONS: Levaquin. SOCIAL HISTORY: Negative for alcohol, drug abuse, or smoking. FAMILY HISTORY: Not contributing. REVIEW OF SYSTEMS: A 10-point review was done except what is mentioned has been negative. PHYSICAL EXAMINATION: VITAL SIGNS: Pulse 86, respiratory rate 18, and blood pressure 162/88. HEENT: No pale conjunctivae. No icterus. NECK: No lymphadenopathy. CHEST: Coarse breathing sounds. HEART: S1, S2. ABDOMEN: Soft. EXTREMITIES: No cyanosis at this time. NEUROLOGIC: Awake. LABORATORY DATA: White blood cells 7, hemoglobin 13, and platelets 179. UA unremarkable. BUN 29, creatinine 1.5. ALT, AST, and alkaline phosphatase unremarkable. Troponin 0.089. ASSESSMENT: The patient is a 71-year-old with: 1. Pneumonia versus congestive heart failure exacerbation. 2. Shortness of breath. 3. Afebrile. 4. Normal white blood cells. PLAN: 1. We will start the patient on Levaquin. 2. Monitor CBC. 3. Monitor BMP. 4. Monitor cultures (blood, sputum, and urine). 5. Monitor chest x-ray. 6. Based on the patient's clinical course and laboratories, we do further recommendations. Thank you, Dr. Giacomo Snyder, for allowing me to participate in the care of this patient. I will follow the patient with you during this hospitalization. Zac Romo M.D. DR: SUZANNE JOB#: [id number] CC:
[2017-04-12] MEDS: NovoLOG Insulin Flexpen SUBQ SCH ×4 (06:27→20:54)
[2017-04-12] MEDS: Torsemide 10mg tab ORAL SCH (08:38)
[2017-04-12] MEDS: Digoxin 0.125mg tab ORAL SCH (08:38)
[2017-04-12] MEDS: Carvedilol 6.25mg Tab ORAL SCH ×2 (08:38→20:45)
[2017-04-12 09:17] LABS: BASOPHILS % (AUTO) 0.8 % (0.0-2.0); EOSINOPHILS % (AUTO) 5.1 % (0.0-3.0); HEMATOCRIT 44.2 % (42.0-52.0); HEMOGLOBIN 14.6 G/DL (14.2-18.0); LYMPHOCYTES % (AUTO) 12.5 % (20.0-45.0); MEAN CORPUSCULAR VOLUME 99 FL (80-99); MONOCYTES % (AUTO) 10.8 % (1.0-10.0); NEUTROPHILS % (AUTO) 70.8 % (45.0-75.0); PLATELET COUNT 186 K/UL (150-450); RED BLOOD COUNT 4.47 M/UL (4.70-6.10); RED CELL DISTRIBUTION WIDTH 13.7 % (11.6-14.8); WHITE BLOOD COUNT 9.5 K/UL (4.8-10.8)
--- NOTE | 2017-04-12 09:17 | General Progress Note ---
Assessment/Plan Problem List: (1) SOB (shortness of breath) ICD Codes: R06.02 - Shortness of breath SNOMED: 850293667 (2) UTI (urinary tract infection) ICD Codes: N39.0 - Urinary tract infection, site not specified SNOMED: 77037758 (3) Diabetes ICD Codes: E11.9 - Type 2 diabetes mellitus without complications SNOMED: 34797713 (4) Hypoalbuminemia ICD Codes: E88.09 - Other disorders of plasma-protein metabolism, not elsewhere classified SNOMED: 587089351 (5) Respiratory distress ICD Codes: R06.03 - Acute respiratory distress SNOMED: 112627165 (6) CHF exacerbation ICD Codes: I50.9 - Heart failure, unspecified SNOMED: 96478650 Status: unchanged Assessment/Plan ot pt diet abx bp bs control cbc bmp am Subjective Constitutional: Reports: weakness Allergies: Coded Allergies: IODINE (Verified Allergy, Unknown, 04/10/17) METHOCARBAMOL (Verified Allergy, Unknown, 04/10/17) All Systems: reviewed and negative except above Subjective calm in bed Objective Last 24 Hour Vital Signs Date Time Temp Pulse Resp B/P (MAP) Pulse Ox O2 Delivery O2 Flow Rate FiO2 04/12/17 08:38 90 130/58 04/12/17 08:38 90 04/12/17 08:00 97.3 90 20 130/58 93 Room Air 97.3 04/12/17 04:00 91 04/12/17 04:00 97.9 105 19 122/51 94 Room Air 97.9 96 04/12/17 02:39 105 19 Room Air 21 04/12/17 00:00 91 04/12/17 00:00 97.7 105 17 126/53 94 Room Air 97.7 89 04/11/17 21:04 108 161/88 04/11/17 20:00 104 04/11/17 20:00 96.6 105 19 161/88 94 96.6 04/11/17 16:00 97 04/11/17 16:00 97.3 91 19 150/69 93 Room Air 97.3 91 04/11/17 12:00 96.3 89 19 145/83 95 Room Air 96.3 89 04/11/17 12:00 91 04/11/17 09:34 100 153/73 04/11/17 09:34 100 Intake and Output 04/11/17 04/12/17 19:00 07:00 Intake Total 502 ml 480 ml Output Total 600 ml 1400 ml Balance -98 ml -920 ml Intake Oral 352 ml 480 ml IV Total 150 ml Output Urine Total 600 ml 1400 ml # Voids 7 Laboratory Tests 04/11/17 12:05: Urine Color Pale yellow, Urine Appearance Clear, Urine pH 5, Urine Specific [place] 1.010, Urine Protein 2+H, Urine Glucose (UA) Negative, Urine Ketones Negative, Urine Occult Blood 1+H, Urine Nitrite Negative, Urine Bilirubin Negative, Urine Urobilinogen Normal, Urine Leukocyte Esterase Negative, Urine RBC 0-2H, Urine WBC 0-2, Urine Squamous Epithelial Cells ModerateH, Urine Bacteria Occasional, Urine Eosinophils None seen, Urine Random Creatinine [ Pending], Urine Random Microalbumin [Pending], Urine Random Total Protein 36H, Urine Random Sodium 118H, Urine Creatinine 12.5L, Urine Microalbumin/Creatinine Ratio [Pending] 04/11/17 23:58: Digoxin Level < 0.2L 04/12/17 07:50: White Blood Count [Pending], Red Blood Count [Pending], Hemoglobin [Pending], Hematocrit [Pending], Mean Corpuscular Volume [Pending], Mean Corpuscular Hemoglobin [Pending], Mean Corpuscular Hemoglobin Concent [Pending], Red Cell Distribution Width [Pending], Platelet Count [Pending], Mean Platelet Volume [ Pending], Neutrophils (%) (Auto) [Pending], Lymphocytes (%) (Auto) [Pending], Monocytes (%) (Auto) [Pending], Eosinophils (%) (Auto) [Pending], Basophils (%) (Auto) [Pending], Sodium Level [Pending], Potassium Level [Pending], Chloride Level [Pending], Carbon Dioxide Level [Pending], Blood Urea Nitrogen [Pending], Creatinine [Pending], Estimat Glomerular Filtration Rate [Pending], Glucose Level [Pending], Calcium Level [Pending] Height (Feet): 5 Height (Inches): 9.00 Weight (Pounds): 177 General Appearance: lethargic EENT: normal ENT inspection Neck: normal alignment Cardiovascular: normal peripheral pulses, normal rate, regular rhythm Respiratory/Chest: chest wall non-tender, lungs clear, normal breath sounds Abdomen: normal bowel sounds, non tender, soft Extremities: normal inspection Edema: no edema noted Arm (L), no edema noted Arm (R), no edema noted Leg (L), no edema noted Leg (R), no edema noted Pedal (L), no edema noted Pedal (R), no edema noted Generalized Neurologic: motor weakness Skin: normal pigmentation, warm/dry LEXY JO Apr 12, 2017 09:17
[2017-04-12 09:41] LABS: ANION GAP 11 mmol/L (5-15); BLOOD UREA NITROGEN 30 mg/dL (7-18); CALCIUM 8.3 MG/DL (8.5-10.1); CARBON DIOXIDE 28 MMOL/L (21-32); CHLORIDE 102 MMOL/L (98-107); CREATININE 1.4 MG/DL (0.55-1.30); POTASSIUM 3.7 MMOL/L (3.5-5.1); SODIUM 141 MMOL/L (136-145)
--- NOTE | 2017-04-12 12:15 | Diagnostic Imaging Report ---
Indication: Dyspnea Comparison: 04/10/2017 A single view chest radiograph was obtained. Findings: Right pleural effusion is present. Cardiomegaly is stable. Mild vascular congestion is stable. IMPRESSION: No casino change attendant the last day
--- NOTE | 2017-04-12 15:01 | Pulmonology Progress Note ---
Assessment/Plan Assessment/Plan ASSESSMENT acute resp distress A fib with RVR elevated troponin dilated cardiomyopathy systolic and diastolic congestive heart failure HTN DM CKD RBBB s/p liver and kidney transplant PLAN OF CARE tele rate control with Digoxin and BB a/coag with Pradaxa, watch for any signs of bleeding diuresis, monitor volumes and cardiorenal parameters trend pro BNP and fup with CXR ECHO with EF 25% and RVSP of 29 , significant diastolic dysfunction, and moderate MR cardio follows medical management of SHF- per cardio recs will eventually need stress test and likely AICD serial troponin venous Duplex O2 titrate pulm toilet empiric abx, ID follows repeat CXR this am and probably dc abx nephro follows monitor renal parameters, correct lytes as needed, avoid nephrotoxics discussed findings and care with patient's and two daughters at the bedside will need scripts for cardiac meds on dc case discussed and evaluated by supervising physician Subjective Allergies: Coded Allergies: IODINE (Verified Allergy, Unknown, 04/10/17) METHOCARBAMOL (Verified Allergy, Unknown, 04/10/17) Subjective denies chest araya, SOB Objective Last 24 Hour Vital Signs Date Time Temp Pulse Resp B/P (MAP) Pulse Ox O2 Delivery O2 Flow Rate FiO2 04/12/17 12:00 97.2 90 20 138/72 93 Room Air 97.2 04/12/17 08:38 90 130/58 04/12/17 08:38 90 04/12/17 08:00 96 04/12/17 08:00 97.3 90 20 130/58 93 Room Air 97.3 04/12/17 04:00 91 04/12/17 04:00 97.9 105 19 122/51 94 Room Air 97.9 96 04/12/17 02:39 105 19 Room Air 21 04/12/17 00:00 91 04/12/17 00:00 97.7 105 17 126/53 94 Room Air 97.7 89 04/11/17 21:04 108 161/88 04/11/17 20:00 104 04/11/17 20:00 96.6 105 19 161/88 94 96.6 04/11/17 16:00 97 04/11/17 16:00 97.3 91 19 150/69 93 Room Air 97.3 91 Intake and Output 3/3/18 3/4/18 19:00 07:00 Intake Total 502 ml 480 ml Output Total 600 ml 1400 ml Balance -98 ml -920 ml Intake Oral 352 ml 480 ml IV Total 150 ml Output Urine Total 600 ml 1400 ml # Voids 7 Objective General Appearance: no apparent distress, alert Lines, tubes and drains: peripheral HEENT: normocephalic, atraumatic, anicteric, mucous membranes moist, PERRL Neck: non-tender, supple Respiratory/Chest: lungs clear, no respiratory distress, no accessory muscle use Cardiovascular/Chest: normal rate, irregularly irregular - A fib Abdomen: normal bowel sounds, non tender, soft Extremities: normal range of motion, non-tender, no calf tenderness Skin Exam: warm/dry Neurologic: alert, oriented x 3, responsive Musculoskeletal: normal muscle bulk Microbiology Date/Time Source Procedure Growth Status 04/11/17 12:05 Urine,Clean Catch Urine Culture - Preliminary Resulted 04/10/17 18:58 Back Gram Stain - Final Resulted 04/10/17 18:58 Back Wound Culture - Preliminary NO GROWTH Resulted Laboratory Tests 04/11/17 23:58: Digoxin Level < 0.2L 04/12/17 07:50: White Blood Count 9.5, Red Blood Count 4.47L, Hemoglobin 14.6, Hematocrit 44.2, Mean Corpuscular Volume 99, Mean Corpuscular Hemoglobin 32.6H, Mean Corpuscular Hemoglobin Concent 33.0, Red Cell Distribution Width 13.7, Platelet Count 186, Mean Platelet Volume 8.1, Neutrophils (%) (Auto) 70.8, Lymphocytes (%) (Auto) 12.5L, Monocytes (%) (Auto) 10.8H, Eosinophils (%) (Auto) 5.1H, Basophils (%) ( Auto) 0.8, Sodium Level 141, Potassium Level 3.7, Chloride Level 102, Carbon Dioxide Level 28, Anion Gap 11, Blood Urea Nitrogen 30H, Creatinine 1.4H, Estimat Glomerular Filtration Rate , Glucose Level 99, Calcium Level 8.3L Current Medications Medications (Trade) Dose Ordered Sig/Uvaldo Route PRN Reason Start Time Stop Time Status Last Admin Dose Admin Acetaminophen (Tylenol) 650 mg Q4H PRN ORAL Fever 04/10/17 17:45 05/10/17 17:44 Albuterol/ Ipratropium (Albuterol/ Ipratropium) 3 ml EVERY 4 HOURS PRN HHN Shortness of Breath 04/10/17 17:45 04/15/17 17:44 Carvedilol (Coreg) 6.25 mg EVERY 12 HOURS ORAL 04/11/17 23:45 05/11/17 23:44 04/12/17 08:38 Colchicine (Colchicine) 0.6 mg DAILY ORAL 04/11/17 09:00 05/11/17 08:59 04/12/17 08:38 Dabigatran (Pradaxa) 75 mg EVERY 12 HOURS ORAL 04/10/17 21:00 05/10/17 20:59 04/12/17 08:38 Dextrose (Dextrose 50%) STAT PRN IV Hypoglycemia 04/10/17 17:45 05/10/17 17:44 Digoxin (Lanoxin) 0.125 mg DAILY ORAL 04/11/17 09:00 05/11/17 08:59 04/12/17 08:38 Escitalopram Oxalate (Lexapro) 10 mg QHS ORAL 04/11/17 21:00 05/11/17 08:59 04/11/17 21:03 Gabapentin (Neurontin) 300 mg BEDTIME ORAL 04/10/17 21:00 05/10/17 20:59 04/11/17 21:03 Insulin Aspart (NovoLOG) BEFORE MEALS AND HS SUBQ 04/10/17 21:00 05/10/17 20:59 04/12/17 11:54 Levofloxacin 150 ml @ 100 mls/hr Q24H IVPB 04/11/17 11:00 04/18/17 10:59 04/12/17 11:52 Lorazepam (Ativan) 1 mg Q6H PRN ORAL For Anxiety 04/12/17 04:45 04/19/17 04:44 Ondansetron HCl (Zofran) 4 mg Q6H PRN IVP Nausea & Vomiting 04/10/17 17:45 05/10/17 17:44 Polyethylene Glycol (Miralax) 17 gm DAILYPRN PRN ORAL Constipation 04/10/17 17:45 05/10/17 17:44 Temazepam (Restoril) 15 mg HSPRN PRN ORAL Insomnia 04/10/17 17:45 04/17/17 17:44 04/11/17 21:02 Torsemide (Demadex) 10 mg DAILY ORAL 04/11/17 09:00 05/11/17 08:59 04/12/17 08:38 Brodie ([facility])Hope NP Apr 12, 2017 15:00
--- NOTE | 2017-04-12 15:21 | Infectious Diseases Prog Note ---
Assessment/Plan Assessment/Plan ASSESSMENT: The patient is a 71-year-old with: Pneumonia versus congestive heart failure exacerbation. Shortness of breath. Afebrile. Normal white blood cells. History of end-stage renal disease, was on dialysis for one year. 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 twice a day. AND Prograf 1 mg by mouth twice a day HTN Atrial fibrillation GERD CHF History of aortic valve replacement DM History of gout PLAN: cont patient on Levaquin d# 2 / 5 Monitor CBC. Monitor BMP. Monitor cultures (blood, sputum, and urine). Monitor chest x-ray. Subjective Allergies: Coded Allergies: IODINE (Verified Allergy, Unknown, 04/10/17) METHOCARBAMOL (Verified Allergy, Unknown, 04/10/17) Objective Vital Signs Last 24 Hour Vital Signs Date Time Temp Pulse Resp B/P (MAP) Pulse Ox O2 Delivery O2 Flow Rate FiO2 04/12/17 12:00 97.2 90 20 138/72 93 Room Air 97.2 04/12/17 08:38 90 130/58 04/12/17 08:38 90 04/12/17 08:00 96 04/12/17 08:00 97.3 90 20 130/58 93 Room Air 97.3 04/12/17 04:00 91 04/12/17 04:00 97.9 105 19 122/51 94 Room Air 97.9 96 04/12/17 02:39 105 19 Room Air 21 04/12/17 00:00 91 04/12/17 00:00 97.7 105 17 126/53 94 Room Air 97.7 89 04/11/17 21:04 108 161/88 04/11/17 20:00 104 04/11/17 20:00 96.6 105 19 161/88 94 96.6 04/11/17 16:00 97 04/11/17 16:00 97.3 91 19 150/69 93 Room Air 97.3 91 Height (Feet): 5 Height (Inches): 9.00 Weight (Pounds): 177 Microbiology Date/Time Source Procedure Growth Status 04/11/17 12:05 Urine,Clean Catch Urine Culture - Preliminary Resulted 04/10/17 18:58 Back Gram Stain - Final Resulted 04/10/17 18:58 Back Wound Culture - Preliminary NO GROWTH Resulted Laboratory Tests Test 04/11/17 23:58 04/12/17 07:50 Digoxin Level < 0.2 NG/ML (0.5-2.0) L White Blood Count 9.5 K/UL (4.8-10.8) Red Blood Count 4.47 M/UL (4.70-6.10) L Hemoglobin 14.6 G/DL (14.2-18.0) Hematocrit 44.2 % (42.0-52.0) Mean Corpuscular Volume 99 FL (80-99) Mean Corpuscular Hemoglobin 32.6 PG (27.0-31.0) H Mean Corpuscular Hemoglobin Concent 33.0 G/DL (32.0-36.0) Red Cell Distribution Width 13.7 % (11.6-14.8) Platelet Count 186 K/UL (150-450) Mean Platelet Volume 8.1 FL (6.5-10.1) Neutrophils (%) (Auto) 70.8 % (45.0-75.0) Lymphocytes (%) (Auto) 12.5 % (20.0-45.0) L Monocytes (%) (Auto) 10.8 % (1.0-10.0) H Eosinophils (%) (Auto) 5.1 % (0.0-3.0) H Basophils (%) (Auto) 0.8 % (0.0-2.0) Sodium Level 141 MMOL/L (136-145) Potassium Level 3.7 MMOL/L (3.5-5.1) Chloride Level 102 MMOL/L (98-107) Carbon Dioxide Level 28 MMOL/L (21-32) Anion Gap 11 mmol/L (5-15) Blood Urea Nitrogen 30 mg/dL (7-18) H Creatinine 1.4 MG/DL (0.55-1.30) H Estimat Glomerular Filtration Rate mL/min (>60) Glucose Level 99 MG/DL (74-106) Calcium Level 8.3 MG/DL (8.5-10.1) L Current Medications Medications (Trade) Dose Ordered Sig/Uvaldo Route PRN Reason Start Time Stop Time Status Last Admin Dose Admin Acetaminophen (Tylenol) 650 mg Q4H PRN ORAL Fever 04/10/17 17:45 05/10/17 17:44 Albuterol/ Ipratropium (Albuterol/ Ipratropium) 3 ml EVERY 4 HOURS PRN HHN Shortness of Breath 04/10/17 17:45 04/15/17 17:44 Carvedilol (Coreg) 6.25 mg EVERY 12 HOURS ORAL 04/11/17 23:45 05/11/17 23:44 04/12/17 08:38 Colchicine (Colchicine) 0.6 mg DAILY ORAL 04/11/17 09:00 05/11/17 08:59 04/12/17 08:38 Dabigatran (Pradaxa) 75 mg EVERY 12 HOURS ORAL 04/10/17 21:00 05/10/17 20:59 04/12/17 08:38 Dextrose (Dextrose 50%) STAT PRN IV Hypoglycemia 04/10/17 17:45 05/10/17 17:44 Digoxin (Lanoxin) 0.125 mg DAILY ORAL 04/11/17 09:00 05/11/17 08:59 04/12/17 08:38 Escitalopram Oxalate (Lexapro) 10 mg QHS ORAL 04/11/17 21:00 05/11/17 08:59 04/11/17 21:03 Gabapentin (Neurontin) 300 mg BEDTIME ORAL 04/10/17 21:00 05/10/17 20:59 04/11/17 21:03 Insulin Aspart (NovoLOG) BEFORE MEALS AND HS SUBQ 04/10/17 21:00 05/10/17 20:59 04/12/17 11:54 Levofloxacin 150 ml @ 100 mls/hr Q24H IVPB 04/11/17 11:00 04/18/17 10:59 04/12/17 11:52 Lorazepam (Ativan) 1 mg Q6H PRN ORAL For Anxiety 04/12/17 04:45 04/19/17 04:44 Ondansetron HCl (Zofran) 4 mg Q6H PRN IVP Nausea & Vomiting 04/10/17 17:45 05/10/17 17:44 Polyethylene Glycol (Miralax) 17 gm DAILYPRN PRN ORAL Constipation 04/10/17 17:45 05/10/17 17:44 Temazepam (Restoril) 15 mg HSPRN PRN ORAL Insomnia 04/10/17 17:45 04/17/17 17:44 04/11/17 21:02 Torsemide (Demadex) 10 mg DAILY ORAL 04/11/17 09:00 05/11/17 08:59 04/12/17 08:38 ARNOLD MARINO M.D. Apr 12, 2017 15:21
--- NOTE | 2017-04-12 15:59 | Cardiology Report ---
APPROVED REPORT EXAM: Two-dimensional and M-mode echocardiogram with Doppler and color Doppler. INDICATION LV FUNCTION M-Mode DIMENSIONS IVSd1.9 (0.7-1.1cm)Left Atrium (MM)5.8 (1.6-4.0cm) LVDd4.3 (3.5-5.6cm)Aortic Root3.8 (2.0-3.7cm) PWd1.3 (0.7-1.1cm)Aortic Cusp Exc.1.3 (1.5-2.0cm) IVSs2.4 cm LVDs3.8 (2.5-4.0cm) PWs1.4 cm Mild Global left ventricular hypokinesis. Normal left ventricular chamber size . Left ventricular ejection fraction estimated to be 40 %. Mild left ventricular hypertrophy by 2-D. No evidence of pericardial effusion Mild bi-Atrial enlargements . Right ventricular chamber is within normal limits. Heavy Focal aortic valve sclerosis . Heavy Thickened mitral valve leaflets . Mitral annulus and aortic root calcification. Pulmonic valve not well visualized. Normal tricuspid valve structure. IVC at normal size with physiologic collapse. . A color flow and spectral Doppler study was performed and revealed: Mild aortic regurgitation. Peak aortic valve gradient of 20 mm Hg and a mean of 14 mmHg. Aortic valve area 1.6 cm2 calculated by continuity equation. Mild to moderate mitral regurgitation. Mitral inflow indicates restrictive pattern, implying severely elevated left atrial pressure (Grade III ). Mild tricuspid regurgitation. Tricuspid systolic velocities suggests peak right ventricular systolic pressure of 29 mmHg Mild Pulmonic regurgitation present.
--- NOTE | 2017-04-12 21:16 | Nephrology Progress Note ---
Assessment/Plan Assessment 1. Acute on chronic renal failure.improving (hx of renal transplant ) 2. Proteinuria.(with 3 gr of proteinuria) 3. Hematuria. 4. Urinary tract infection. 5. History of cadaveric renal transplant. 6. Atrial fibrillation with rapid ventricular response. Plan Plan to continue current meds monitoring renal function closely may need to start on DEEDEE when creatinine is stable avoid NSAID replace electrolyte as need it Subjective Constitutional: Reports: no symptoms HEENT: Reports: no symptoms Genitourinary: Reports: no symptoms Neurologic/Psychiatric: Reports: no symptoms Objective Objective Last 24 Hour Vital Signs Date Time Temp Pulse Resp B/P (MAP) Pulse Ox O2 Delivery O2 Flow Rate FiO2 04/12/17 20:45 93 156/74 04/12/17 20:31 Room Air 04/12/17 20:31 97.9 93 18 156/74 96 97.9 04/12/17 16:00 97.3 96 20 148/70 97 Room Air 97.3 04/12/17 16:00 107 04/12/17 12:00 97.2 90 20 138/72 93 Room Air 97.2 04/12/17 12:00 87 04/12/17 08:38 90 130/58 04/12/17 08:38 90 04/12/17 08:00 96 04/12/17 08:00 97.3 90 20 130/58 93 Room Air 97.3 04/12/17 04:00 91 04/12/17 04:00 97.9 105 19 122/51 94 Room Air 97.9 96 04/12/17 02:39 105 19 Room Air 21 04/12/17 00:00 91 04/12/17 00:00 97.7 105 17 126/53 94 Room Air 97.7 89 Intake and Output 04/11/17 04/12/17 19:00 07:00 Intake Total 502 ml 480 ml Output Total 600 ml 1400 ml Balance -98 ml -920 ml Intake Oral 352 ml 480 ml IV Total 150 ml Output Urine Total 600 ml 1400 ml # Voids 7 Laboratory Tests 04/11/17 23:58: Digoxin Level < 0.2L 04/12/17 07:50: White Blood Count 9.5, Red Blood Count 4.47L, Hemoglobin 14.6, Hematocrit 44.2, Mean Corpuscular Volume 99, Mean Corpuscular Hemoglobin 32.6H, Mean Corpuscular Hemoglobin Concent 33.0, Red Cell Distribution Width 13.7, Platelet Count 186, Mean Platelet Volume 8.1, Neutrophils (%) (Auto) 70.8, Lymphocytes (%) (Auto) 12.5L, Monocytes (%) (Auto) 10.8H, Eosinophils (%) (Auto) 5.1H, Basophils (%) ( Auto) 0.8, Sodium Level 141, Potassium Level 3.7, Chloride Level 102, Carbon Dioxide Level 28, Anion Gap 11, Blood Urea Nitrogen 30H, Creatinine 1.4H, Estimat Glomerular Filtration Rate , Glucose Level 99, Calcium Level 8.3L 04/12/17 17:30: Troponin I 0.074H Height (Feet): 5 Height (Inches): 9.00 Weight (Pounds): 177 Objective HEAD AND NECK: No JVP. No LAD. No thyromegaly. Extraocular movements are intact. Pupils are reactive to light and accommodation. LUNGS: Clear to auscultation. CARDIAC: Regular rate and rhythm. S1 and S2. No murmur. No rub. ABDOMEN: Soft, nontender, and nondistended. EXTREMITIES: Trace edema. No clubbing. No cyanosis. NEUROLOGIC: Cranial nerves II through XII within normal limits. Upper and lower extremities are grossly intact. ELEAZAR NGO Apr 12, 2017 21:16
[2017-04-12] MEDS: LORazepam 1mg tab ORAL PRN (22:38)
--- NOTE | 2017-04-12 23:45 | Consultation ---
DATE OF CONSULTATION: 04/12/2017 INITIAL PSYCHIATRIC CONSULTATION CONSULTING PHYSICIAN: Frnace Francisco M.D. REQUESTING PHYSICIAN: Giacomo Snyder D.O. HISTORY OF PRESENT ILLNESS: This is a 71-year-old male patient, who is admitted to the hospital. This patient was admitted to the hospital complaining of confusion, disorganized thought process, and mood lability worsened by the stress of his medical illness. That is why he does require acute psychiatric inpatient treatment at this time. He is very confused and disorganized. His mood is labile. He has no logical plan for his own self-care. The reason for his admission into the hospital into [place] is because of shortness of breath and congestive heart failure, but he does have a history of multiple other medical complications. He lives at home, but he has increased anxiety and depression worsened by the stress of his medical illness. That is why his attending physician has requested daily psychiatric consultation. MEDICAL HISTORY: Hypertension, diabetes, congestive heart failure, and shortness of breath. SUBSTANCE ABUSE HISTORY: Denies any recent drug and alcohol use. ALLERGIES: To iodine and methocarbamol. SOCIAL HISTORY: He lives at home with his family. Financially supported by [employer] and Medicare. PSYCHIATRIC HISTORY: Depression and generalized anxiety disorder. MENTAL STATUS EXAMINATION: The patient is a 71-year-old male. Appearance is disheveled. Attitude, irritable and agitated. Affect is guarded and restricted. Motor activity, psychomotor agitation. Mood is depressed. Intellect fair. Insight and judgment is fair. Denies suicidal or homicidal thoughts. Denies auditory or visual hallucinations or delusions. Orientation x3. DIAGNOSES: Major depressive disorder, mild recurrent, without psychotic features, rule out generalized anxiety disorder. Medical problems include congestive heart failure, gout, hypertension, and psychosocial stresses, financial. PLAN: For this patient, I am going to continue to treat this patient with Lexapro 10 mg at bedtime and also for anxiety, Neurontin at a dose of 300 mg p.o. at bedtime and also Ativan 1 mg q.6 h. p.r.n. anxiety and agitation. A 15-20 minutes supportive therapy provided. Encourage him to interact appropriately with staff. Chart was reviewed and discussed with staff. The patient was seen and assessed at bedside. He will continue to be followed by Psychiatry throughout his hospital course. I would like to thank Dr. Giacomo Snyder for this interesting consultation. [place] Francisco M.D. DR: ANISH JOB#: [id number] CC:
[2017-04-13 04:03] VITALS: BP 142/74
[2017-04-13] MEDS: NovoLOG Insulin Flexpen SUBQ SCH ×2 (06:33→12:07)
[2017-04-13 08:00] VITALS: BP 135/74
[2017-04-13] MEDS: Torsemide 10mg tab ORAL SCH (08:57)
[2017-04-13] MEDS: Carvedilol 6.25mg Tab ORAL SCH (08:57)
[2017-04-13] MEDS: LORazepam 1mg tab ORAL PRN (08:58)
[2017-04-13] MEDS: Digoxin 0.125mg tab ORAL SCH (08:58)
--- NOTE | 2017-04-13 09:00 | Nephrology Progress Note ---
Assessment/Plan Assessment 1. Acute on chronic renal failure.improving (hx of renal transplant )going back to his baseline 2. Proteinuria.(with 3 gr of proteinuria) 3. Hematuria. 4. Urinary tract infection. 5. History of cadaveric renal transplant. 6. Atrial fibrillation with rapid ventricular response. Plan Plan to continue current meds monitoring renal function closely may need to start on DEEDEE when creatinine is stable avoid NSAID replace electrolyte as need it Subjective Constitutional: Reports: no symptoms HEENT: Reports: no symptoms Genitourinary: Reports: no symptoms Neurologic/Psychiatric: Reports: no symptoms Subjective alert and awake denies any complaints Objective Objective Last 24 Hour Vital Signs Date Time Temp Pulse Resp B/P (MAP) Pulse Ox O2 Delivery O2 Flow Rate FiO2 04/13/17 04:13 96 20 Room Air 21 04/13/17 04:03 Room Air 04/13/17 04:03 97.4 96 20 142/74 97 97.4 04/13/17 04:00 86 04/13/17 00:00 91 04/12/17 23:46 Room Air 04/12/17 23:46 97.7 91 17 144/69 96 97.7 04/12/17 20:45 93 156/74 04/12/17 20:31 Room Air 04/12/17 20:31 97.9 93 18 156/74 96 97.9 04/12/17 20:00 91 04/12/17 16:00 97.3 96 20 148/70 97 Room Air 97.3 04/12/17 16:00 107 04/12/17 12:00 97.2 90 20 138/72 93 Room Air 97.2 04/12/17 12:00 87 Intake and Output 04/12/17 04/13/17 19:00 07:00 Intake Total 386 ml 596 ml Output Total 500 ml 400 ml Balance -114 ml 196 ml Intake Oral 236 ml 596 ml IV Total 150 ml Output Urine Total 500 ml 400 ml # Voids 1 Laboratory Tests 04/12/17 17:30: Troponin I 0.074H Height (Feet): 5 Height (Inches): 9.00 Weight (Pounds): 177 Objective HEAD AND NECK: No JVP. No LAD. No thyromegaly. Extraocular movements are intact. Pupils are reactive to light and accommodation. LUNGS: Clear to auscultation. CARDIAC: Regular rate and rhythm. S1 and S2. No murmur. No rub. ABDOMEN: Soft, nontender, and nondistended. EXTREMITIES: Trace edema. No clubbing. No cyanosis. NEUROLOGIC: Cranial nerves II through XII within normal limits. Upper and lower extremities are grossly intact. ELEAZAR NGO Apr 13, 2017 09:00
--- NOTE | 2017-04-13 09:13 | Cardiology Progress Note ---
Assessment/Plan Assessment/Plan 1. Paroxysmal atrial fibrillation with controlled ventricular response, increase carvedilol to 12.5 mg bid, continue digoxin and Pradaxa 75 mg. 2. Dilated cardiomyopathy with LVEF ~20%, cannot rule out ischemia, continue guide line medical therapy at this time. 3. Status post aortic valve replacement. 4. History of hypertension. 5. History of diabetes mellitus. 6. Slight elevation of troponin level likely due to atrial fibrillation. No ischemic features on the ECG. Subjective Subjective Atrial fibrillation at 94. Objective Last 24 Hour Vital Signs Date Time Temp Pulse Resp B/P (MAP) Pulse Ox O2 Delivery O2 Flow Rate FiO2 04/13/17 08:58 94 04/13/17 08:57 96 142/74 04/13/17 04:13 96 20 Room Air 21 04/13/17 04:03 Room Air 04/13/17 04:03 97.4 96 20 142/74 97 97.4 04/13/17 04:00 86 04/13/17 00:00 91 04/12/17 23:46 Room Air 04/12/17 23:46 97.7 91 17 144/69 96 97.7 04/12/17 20:45 93 156/74 04/12/17 20:31 Room Air 04/12/17 20:31 97.9 93 18 156/74 96 97.9 04/12/17 20:00 91 04/12/17 16:00 97.3 96 20 148/70 97 Room Air 97.3 04/12/17 16:00 107 04/12/17 12:00 97.2 90 20 138/72 93 Room Air 97.2 04/12/17 12:00 87 Intake and Output 04/12/17 04/13/17 19:00 07:00 Intake Total 386 ml 596 ml Output Total 500 ml 400 ml Balance -114 ml 196 ml Intake Oral 236 ml 596 ml IV Total 150 ml Output Urine Total 500 ml 400 ml # Voids 1 2D Echo: EF ~25%,Global LV HK, Mild MR, Mild AR, RHONDA 1.6 cm2,Grade III LVDD, RVSP 29 Laboratory Tests Test 04/12/17 17:30 Troponin I 0.074 ng/mL (0.000-0.056) Microbiology Date/Time Source Procedure Growth Status 04/11/17 11:30 Blood Blood Culture - Preliminary NO GROWTH AFTER 24 HOURS Resulted 04/11/17 11:25 Blood Blood Culture - Preliminary NO GROWTH AFTER 24 HOURS Resulted 04/11/17 12:05 Urine,Clean Catch Urine Culture - Preliminary Mixed Gram Positive Organism Resulted 04/10/17 18:58 Back Gram Stain - Final Resulted 3 18:58 Back Wound Culture - Preliminary NO GROWTH Resulted Objective GENERAL: The patient is a very pleasant 71-year-old gentleman, in no apparent respiratory distress. Alert and oriented x4. HEENT: Atraumatic, normocephalic. Anicteric. Pupils are equal, round, and reactive to light and accommodation. Extraocular muscles intact. NECK: JVP is less than 5 cm. No carotid bruits. Carotid upstrokes 2+ bilaterally. CARDIOVASCULAR: Normal S1 and S2. Irregularly irregular rhythm. No murmurs, gallops, or rubs. PMI is at the fourth intercostal space at the midclavicular line. LUNGS: Clear to auscultation bilaterally. ABDOMEN: Soft, nontender, and nondistended. No hepatosplenomegaly. Positive bowel sounds. EXTREMITIES: No evidence of edema, clubbing, or cyanosis. GERARDO CANCHOLA Apr 13, 2017 09:13
[2017-04-13 09:20] LABS: BASOPHILS % (AUTO) 0.9 % (0.0-2.0); EOSINOPHILS % (AUTO) 5.2 % (0.0-3.0); HEMATOCRIT 43.7 % (42.0-52.0); HEMOGLOBIN 14.4 G/DL (14.2-18.0); LYMPHOCYTES % (AUTO) 10.6 % (20.0-45.0); MEAN CORPUSCULAR VOLUME 99 FL (80-99); MONOCYTES % (AUTO) 11.8 % (1.0-10.0); NEUTROPHILS % (AUTO) 71.6 % (45.0-75.0); PLATELET COUNT 195 K/UL (150-450); RED BLOOD COUNT 4.43 M/UL (4.70-6.10); RED CELL DISTRIBUTION WIDTH 14.1 % (11.6-14.8); WHITE BLOOD COUNT 9.5 K/UL (4.8-10.8)
[2017-04-13 09:34] LABS: ANION GAP 7 mmol/L (5-15); BLOOD UREA NITROGEN 31 mg/dL (7-18); CARBON DIOXIDE 31 MMOL/L (21-32); CHLORIDE 104 MMOL/L (98-107); CREATININE 1.5 MG/DL (0.55-1.30); POTASSIUM 3.8 MMOL/L (3.5-5.1); SODIUM 142 MMOL/L (136-145)
[2017-04-13] MEDS ORDERED: Spironolactone 25mg tab ORAL SCH (10:00)
[2017-04-13 12:00] VITALS: BP 145/67
--- NOTE | 2017-04-13 12:46 | Diagnostic Imaging Report ---
Indication: Shortness of breath Technique: One view of the chest Comparison: 04/11/2017 Findings: The right hemidiaphragm is elevated, unchanged from previously. There is some associated right basilar atelectasis. Right arm PICC remains. There is some atelectasis in the left costophrenic sulcus. Left lung and pleural space otherwise clear. Impression: Elevated right hemidiaphragm, probably due to subpulmonic pleural effusion, unchanged Left lateral basilar atelectasis
--- NOTE | 2017-04-13 14:01 | Pulmonology Progress Note ---
Assessment/Plan Problems: (1) Respiratory distress (2) Atrial fibrillation (3) Anxiety (4) Diabetes (5) CHF exacerbation Assessment/Plan respiratory status improving titrate fio2 to pulse ox of 92% heart rate controlled cxr much clearer, from today Subjective ROS Limited/Unobtainable: No Constitutional: Reports: no symptoms HEENT: Repors: no symptoms Respiratory: Reports: no symptoms Cardiovascular: Reports: no symptoms Gastrointestinal/Abdominal: Reports: no symptoms Allergies: Coded Allergies: IODINE (Verified Allergy, Unknown, 04/10/17) METHOCARBAMOL (Verified Allergy, Unknown, 04/10/17) Objective Last 24 Hour Vital Signs Date Time Temp Pulse Resp B/P (MAP) Pulse Ox O2 Delivery O2 Flow Rate FiO2 04/13/17 12:00 97.5 89 18 145/67 96 Room Air 97.5 04/13/17 08:58 94 04/13/17 08:57 96 142/74 04/13/17 08:00 96 04/13/17 08:00 97.7 90 18 135/74 97 97.7 04/13/17 04:13 96 20 Room Air 21 04/13/17 04:03 Room Air 04/13/17 04:03 97.4 96 20 142/74 97 97.4 04/13/17 04:00 86 04/13/17 00:00 91 04/12/17 23:46 Room Air 04/12/17 23:46 97.7 91 17 144/69 96 97.7 04/12/17 20:45 93 156/74 04/12/17 20:31 Room Air 04/12/17 20:31 97.9 93 18 156/74 96 97.9 04/12/17 20:00 91 04/12/17 16:00 97.3 96 20 148/70 97 Room Air 97.3 04/12/17 16:00 107 Intake and Output 04/12/17 04/13/17 19:00 07:00 Intake Total 386 ml 596 ml Output Total 500 ml 400 ml Balance -114 ml 196 ml Intake Oral 236 ml 596 ml IV Total 150 ml Output Urine Total 500 ml 400 ml # Voids 1 General Appearance: WD/WN HEENT: normocephalic, atraumatic Respiratory/Chest: chest wall non-tender, lungs clear Cardiovascular: normal peripheral pulses, normal rate Abdomen: normal bowel sounds, soft, non tender, no organomegaly Genitourinary: normal external genitalia Extremities: no cyanosis Neurologic/Psychiatric: box lidder II-XII grossly normal Lymphatic: no neck adenopathy Microbiology Date/Time Source Procedure Growth Status 04/11/17 11:30 Blood Blood Culture - Preliminary NO GROWTH AFTER 24 HOURS Resulted 04/11/17 11:25 Blood Blood Culture - Preliminary NO GROWTH AFTER 24 HOURS Resulted 04/11/17 12:05 Urine,Clean Catch Urine Culture - Preliminary Mixed Gram Positive Organism Resulted 04/10/17 18:58 Back Gram Stain - Final Resulted 04/10/17 18:58 Back Wound Culture - Preliminary Resulted Laboratory Tests 04/12/17 17:30: Troponin I 0.074H 04/13/17 08:25: White Blood Count 9.5, Red Blood Count 4.43L, Hemoglobin 14.4, Hematocrit 43.7, Mean Corpuscular Volume 99, Mean Corpuscular Hemoglobin 32.5H, Mean Corpuscular Hemoglobin Concent 32.9, Red Cell Distribution Width 14.1, Platelet Count 195, Mean Platelet Volume 7.7, Neutrophils (%) (Auto) 71.6, Lymphocytes (%) (Auto) 10.6L, Monocytes (%) (Auto) 11.8H, Eosinophils (%) (Auto) 5.2H, Basophils (%) ( Auto) 0.9, Sodium Level 142, Potassium Level 3.8, Chloride Level 104, Carbon Dioxide Level 31, Anion Gap 7, Blood Urea Nitrogen 31H, Creatinine 1.5H, Estimat Glomerular Filtration Rate , Glucose Level 134H, Calcium Level 8.0L Current Medications Medications (Trade) Dose Ordered Sig/Uvaldo Route PRN Reason Start Time Stop Time Status Last Admin Dose Admin Acetaminophen (Tylenol) 650 mg Q4H PRN ORAL Fever 04/10/17 17:45 05/10/17 17:44 Albuterol/ Ipratropium (Albuterol/ Ipratropium) 3 ml EVERY 4 HOURS PRN HHN Shortness of Breath 04/10/17 17:45 04/15/17 17:44 Bisacodyl (Dulcolax) 10 mg BIDPRN PRN RECTAL Constipation 04/13/17 13:00 05/13/17 12:59 Carvedilol (Coreg) 12.5 mg EVERY 12 HOURS ORAL 04/13/17 21:00 05/13/17 20:59 Colchicine (Colchicine) 0.6 mg DAILY ORAL 04/11/17 09:00 05/11/17 08:59 04/13/17 08:58 Dabigatran (Pradaxa) 75 mg EVERY 12 HOURS ORAL 04/10/17 21:00 05/10/17 20:59 04/13/17 08:58 Dextrose (Dextrose 50%) STAT PRN IV Hypoglycemia 04/10/17 17:45 05/10/17 17:44 Digoxin (Lanoxin) 0.125 mg DAILY ORAL 04/11/17 09:00 05/11/17 08:59 04/13/17 08:58 Escitalopram Oxalate (Lexapro) 10 mg QHS ORAL 04/11/17 21:00 05/11/17 08:59 04/12/17 20:46 Gabapentin (Neurontin) 300 mg BEDTIME ORAL 04/10/17 21:00 05/10/17 20:59 04/12/17 20:46 Insulin Aspart (NovoLOG) BEFORE MEALS AND HS SUBQ 04/10/17 21:00 05/10/17 20:59 04/13/17 12:07 Levofloxacin 150 ml @ 100 mls/hr Q24H IVPB 04/11/17 11:00 04/18/17 10:59 04/13/17 10:35 Lorazepam (Ativan) 1 mg Q6H PRN ORAL For Anxiety 04/12/17 04:45 04/19/17 04:44 04/13/17 08:58 Ondansetron HCl (Zofran) 4 mg Q6H PRN IVP Nausea & Vomiting 04/10/17 17:45 05/10/17 17:44 Polyethylene Glycol (Miralax) 17 gm DAILYPRN PRN ORAL Constipation 04/10/17 17:45 05/10/17 17:44 04/12/17 16:46 Spironolactone (Aldactone) 25 mg DAILY ORAL 04/13/17 10:00 05/13/17 09:59 04/13/17 10:34 Temazepam (Restoril) 15 mg HSPRN PRN ORAL Insomnia 04/10/17 17:45 04/17/17 17:44 04/12/17 20:46 Torsemide (Demadex) 10 mg DAILY ORAL 04/11/17 09:00 05/11/17 08:59 04/13/17 08:57 HOLLY LINARES Apr 13, 2017 14:01
--- NOTE | 2017-04-13 14:04 | Cardiology Progress Note ---
Assessment/Plan Assessment/Plan 1. Persistent atrial fibrillation with controlled ventricular response, continue digoxin, carvedilol and Pradaxa. 2. Dilated cardiomyopathy with LVEF ~20%, cannot rule out ischemia, optimizing heart failure medication, Entresto as an outpatient. 3. Status post aortic valve replacement. 4. History of hypertension. 5. History of diabetes mellitus. 6. Slight elevation of troponin level likely due to atrial fibrillation. No ischemic features on the ECG. Clear from the cardiac standpoint for downgrading level of care. Subjective Subjective Atrial fibrillation with rate of 85 BPM.. Objective Last 24 Hour Vital Signs Date Time Temp Pulse Resp B/P (MAP) Pulse Ox O2 Delivery O2 Flow Rate FiO2 04/13/17 12:00 97.5 89 18 145/67 96 Room Air 97.5 04/13/17 08:58 94 04/13/17 08:57 96 142/74 04/13/17 08:00 96 04/13/17 08:00 97.7 90 18 135/74 97 97.7 04/13/17 04:13 96 20 Room Air 21 04/13/17 04:03 Room Air 04/13/17 04:03 97.4 96 20 142/74 97 97.4 04/13/17 04:00 86 04/13/17 00:00 91 04/12/17 23:46 Room Air 04/12/17 23:46 97.7 91 17 144/69 96 97.7 04/12/17 20:45 93 156/74 04/12/17 20:31 Room Air 04/12/17 20:31 97.9 93 18 156/74 96 97.9 04/12/17 20:00 91 04/12/17 16:00 97.3 96 20 148/70 97 Room Air 97.3 04/12/17 16:00 107 Intake and Output 04/12/17 04/13/17 19:00 07:00 Intake Total 386 ml 596 ml Output Total 500 ml 400 ml Balance -114 ml 196 ml Intake Oral 236 ml 596 ml IV Total 150 ml Output Urine Total 500 ml 400 ml # Voids 1 Laboratory Tests Test 04/12/17 17:30 04/13/17 08:25 Troponin I 0.074 ng/mL (0.000-0.056) White Blood Count 9.5 K/UL (4.8-10.8) Red Blood Count 4.43 M/UL (4.70-6.10) L Hemoglobin 14.4 G/DL (14.2-18.0) Hematocrit 43.7 % (42.0-52.0) Mean Corpuscular Volume 99 FL (80-99) Mean Corpuscular Hemoglobin 32.5 PG (27.0-31.0) H Mean Corpuscular Hemoglobin Concent 32.9 G/DL (32.0-36.0) Red Cell Distribution Width 14.1 % (11.6-14.8) Platelet Count 195 K/UL (150-450) Mean Platelet Volume 7.7 FL (6.5-10.1) Neutrophils (%) (Auto) 71.6 % (45.0-75.0) Lymphocytes (%) (Auto) 10.6 % (20.0-45.0) L Monocytes (%) (Auto) 11.8 % (1.0-10.0) H Eosinophils (%) (Auto) 5.2 % (0.0-3.0) H Basophils (%) (Auto) 0.9 % (0.0-2.0) Sodium Level 142 MMOL/L (136-145) Potassium Level 3.8 MMOL/L (3.5-5.1) Chloride Level 104 MMOL/L (98-107) Carbon Dioxide Level 31 MMOL/L (21-32) Anion Gap 7 mmol/L (5-15) Blood Urea Nitrogen 31 mg/dL (7-18) H Creatinine 1.5 MG/DL (0.55-1.30) H Estimat Glomerular Filtration Rate mL/min (>60) Glucose Level 134 MG/DL (74-106) H Calcium Level 8.0 MG/DL (8.5-10.1) L Microbiology Date/Time Source Procedure Growth Status 04/11/17 11:30 Blood Blood Culture - Preliminary NO GROWTH AFTER 24 HOURS Resulted 04/11/17 11:25 Blood Blood Culture - Preliminary NO GROWTH AFTER 24 HOURS Resulted 04/11/17 12:05 Urine,Clean Catch Urine Culture - Preliminary Mixed Gram Positive Organism Resulted 04/10/17 18:58 Back Gram Stain - Final Resulted 04/10/17 18:58 Back Wound Culture - Preliminary Resulted Objective GENERAL: The patient is a very pleasant 71-year-old gentleman, in no apparent respiratory distress. Alert and oriented x4. HEENT: Atraumatic, normocephalic. Anicteric. Pupils are equal, round, and reactive to light and accommodation. Extraocular muscles intact. NECK: JVP is less than 5 cm. No carotid bruits. Carotid upstrokes 2+ bilaterally. CARDIOVASCULAR: Normal S1 and S2. Irregularly irregular rhythm. No murmurs, gallops, or rubs. PMI is at the fourth intercostal space at the midclavicular line. LUNGS: Clear to auscultation bilaterally. ABDOMEN: Soft, nontender, and nondistended. No hepatosplenomegaly. Positive bowel sounds. EXTREMITIES: No evidence of edema, clubbing, or cyanosis. GERARDO CANCHOLA Apr 13, 2017 14:04
--- NOTE | 2017-04-13 14:10 | General Progress Note ---
Assessment/Plan Problem List: (1) SOB (shortness of breath) ICD Codes: R06.02 - Shortness of breath SNOMED: 015513612 (2) UTI (urinary tract infection) ICD Codes: N39.0 - Urinary tract infection, site not specified SNOMED: 19521701 (3) Diabetes ICD Codes: E11.9 - Type 2 diabetes mellitus without complications SNOMED: 24135395 (4) Hypoalbuminemia ICD Codes: E88.09 - Other disorders of plasma-protein metabolism, not elsewhere classified SNOMED: 280028292 (5) Respiratory distress ICD Codes: R06.03 - Acute respiratory distress SNOMED: 333613100 (6) CHF exacerbation ICD Codes: I50.9 - Heart failure, unspecified SNOMED: 36417429 Status: stable, progressing, tolerating diet Assessment/Plan ot pt diet abx bp bs control dc if clear Subjective Constitutional: Reports: weakness Allergies: Coded Allergies: IODINE (Verified Allergy, Unknown, 04/10/17) METHOCARBAMOL (Verified Allergy, Unknown, 04/10/17) All Systems: reviewed and negative except above Subjective calm in bed Objective Last 24 Hour Vital Signs Date Time Temp Pulse Resp B/P (MAP) Pulse Ox O2 Delivery O2 Flow Rate FiO2 04/13/17 12:00 97.5 89 18 145/67 96 Room Air 97.5 04/13/17 08:58 94 04/13/17 08:57 96 142/74 04/13/17 08:00 96 04/13/17 08:00 97.7 90 18 135/74 97 97.7 04/13/17 04:13 96 20 Room Air 21 04/13/17 04:03 Room Air 04/13/17 04:03 97.4 96 20 142/74 97 97.4 04/13/17 04:00 86 04/13/17 00:00 91 04/12/17 23:46 Room Air 04/12/17 23:46 97.7 91 17 144/69 96 97.7 04/12/17 20:45 93 156/74 04/12/17 20:31 Room Air 04/12/17 20:31 97.9 93 18 156/74 96 97.9 04/12/17 20:00 91 04/12/17 16:00 97.3 96 20 148/70 97 Room Air 97.3 04/12/17 16:00 107 Intake and Output 04/12/17 04/13/17 18:59 06:59 Intake Total 386 ml 596 ml Output Total 500 ml 400 ml Balance -114 ml 196 ml Intake Oral 236 ml 596 ml IV Total 150 ml Output Urine Total 500 ml 400 ml # Voids 1 Laboratory Tests 04/12/17 17:30: Troponin I 0.074H 04/13/17 08:25: White Blood Count 9.5, Red Blood Count 4.43L, Hemoglobin 14.4, Hematocrit 43.7, Mean Corpuscular Volume 99, Mean Corpuscular Hemoglobin 32.5H, Mean Corpuscular Hemoglobin Concent 32.9, Red Cell Distribution Width 14.1, Platelet Count 195, Mean Platelet Volume 7.7, Neutrophils (%) (Auto) 71.6, Lymphocytes (%) (Auto) 10.6L, Monocytes (%) (Auto) 11.8H, Eosinophils (%) (Auto) 5.2H, Basophils (%) ( Auto) 0.9, Sodium Level 142, Potassium Level 3.8, Chloride Level 104, Carbon Dioxide Level 31, Anion Gap 7, Blood Urea Nitrogen 31H, Creatinine 1.5H, Estimat Glomerular Filtration Rate , Glucose Level 134H, Calcium Level 8.0L Height (Feet): 5 Height (Inches): 9.00 Weight (Pounds): 177 General Appearance: lethargic EENT: normal ENT inspection Neck: normal alignment Cardiovascular: normal peripheral pulses, normal rate, regular rhythm Respiratory/Chest: chest wall non-tender, lungs clear, normal breath sounds Abdomen: normal bowel sounds, non tender, soft Extremities: normal inspection Edema: no edema noted Arm (L), no edema noted Arm (R), no edema noted Leg (L), no edema noted Leg (R), no edema noted Pedal (L), no edema noted Pedal (R), no edema noted Generalized Neurologic: motor weakness Skin: normal pigmentation, warm/dry LEXY JO Apr 13, 2017 14:10
--- NOTE | 2017-04-13 15:12 | Wound Care Consultation ---
Wound Assessment Wound Assessment #1: Wound Number: 1 Wound Present on Admission: Yes New Wound: No Status Change of Wound: No Wound Location Body Site Modif: right, lower Wound Location Body Site: leg - extending to dorsal foot Wound Type: other - scattered scabs and per patient self inflicted scratches. Bertrand Test: Does not Bertrand Wound Thickness: Partial Thickness Percent of Wound Overly/Red: 50 Percent of Wound Black/Brown: 50 Wound Drainage Description: Serosanguineous Wound Drainage Amount: Scant Wound Drainage Odor: None/Absent Tissue Surrounding Wound: Erythemic Wound General Appearance: Reddened, Blackened - scabs Wound Assessment #2: Wound Number: 2 Wound Present on Admission: Yes New Wound: No Status Change of Wound: No Wound Location Body Site Modif: left, lower Wound Location Body Site: leg - extending to dorsal foot Wound Type: other - scattered scabs with self inflicted scratches Bertrand Test: Does not Bertrand Wound Thickness: Partial Thickness Percent of Wound Overly/Red: 50 Percent of Wound Black/Brown: 50 Wound Drainage Description: Serosanguineous Wound Drainage Amount: Scant Wound Drainage Odor: None/Absent Tissue Surrounding Wound: Erythemic Wound General Appearance: Reddened, Blackened - scabs Wound Assessment #3: Wound Number: 3 Wound Present on Admission: Yes New Wound: No Status Change of Wound: No Wound Location Body Site Modif: left Wound Location Body Site: heel Wound Type: pressure ulcer Bertrand Test: Does not Bertrand Pressure Ulcer Stage: Unstageable Wound Thickness: Full Thickness Wound Length: 2.0 Wound Width: 2.0 Wound Depth: utd Percent of Wound Black/Brown: 100 - thick necrotic scab/tender Wound Drainage Amount: None Wound Drainage Odor: None/Absent Tissue Surrounding Wound: Erythemic Wound General Appearance: Blackened, Necrotic - necrotic scab over bony prominence Wound Comment #1 Left and right lower legs extending to dorsal feet scattered scabs /self inflicted scratches. #2 Left heel unstageable pressure ulcer. Recommedation -local wound care as ordered. -Keep clean and dry. -Turn and repsition. - pressure reducing mattress. -Heel protectors -Offload affected sites. -Assess and notify MD for any further change of condition to skin noted. per patient scattered scabs and scratches are self inflicted, asked patient if i was able to assess his posterior side of body refused per pt he doesnt have anything there explained risks and benefits. JALIL GOMEZ Apr 13, 2017 15:12
[2017-04-13] MEDS ORDERED: COREG12.5 MG ORAL (15:26)
[2017-04-13] MEDS ORDERED: Carvedilol 12.5mg tab ORAL SCH (21:00)
--- NOTE | 2017-04-13 21:00 | Progress Note ---
DATE: 04/13/2017 HISTORY: The patient is a 71-year-old male patient with acute coronary syndrome. The patient admitted to the hospital looking very confused, disorganized, mood labile, he has depression and anxiety that has been very high, worsened by stresses of medical illness, so his attending has requested daily psychiatric consultation. MENTAL STATUS EXAMINATION: The patient is a 71-year-old male with psychomotor retardation. Mood is depressed and anxious. Affect guarded and restricted. Intellect poor. Motor activity, psychomotor agitation. Insight and judgment poor. DIAGNOSES: 1. Major depressive disorder, mild, recurrent, without psychotic features. 2. Generalized anxiety disorder. PLAN: Treat him with Lexapro 10 mg at bedtime, Neurontin 300 mg at bedtime, but also treat this patient with Vistaril twice a day to reduce anxiety and agitation. Next week Vistaril 50 mg q.6 h. p.r.n. anxiety and agitation. About 15 to 20 minutes of supportive therapy provided. Seen and assessed at bedside. Chart is reviewed. Discussed with staff. Seen and assessed in his room. [place] Francisco M.D. DR: ANISH JOB#: [id number] CC:
--- NOTE | 2017-04-14 03:45 | Consultation ---
DATE OF CONSULTATION: 04/12/2017 PSYCHOTHERAPY CONSULTATION PROGRESS NOTE TREATING ATTENDING PHYSICIAN: Giacomo Snyder D.O. CONSULTING PHYSICIAN: Sarah Brower PsyD. HISTORY OF PRESENT ILLNESS: The patient is a 71-year-old male patient, who was brought in to the hospital for acute coronary syndrome. The patient was initially admitted to the hospital, was confused and disorganized. His mood was unstable. He is unable to care for his basic needs and for this reason, he is referred for psychotherapeutic services. When this clinician assessed the patient, the patient's mood has been labile. The patient has been very agitated, irritable, and helpless. No logical or viable plan for his self-care prior to hospitalization with stabilization of symptoms. The patient requires redirection and reality orientation and has been very helpless. There is no indication of auditory or visual hallucination. There is no indication of suicidal or homicidal thoughts of ideation at this time. PAST MEDICAL HISTORY: Includes history of congestive heart failure, diabetes, and hypertension. ALLERGIES: The patient is allergic to methocarbamol and iodine. SUBSTANCE ABUSE HISTORY: There is no indication of alcohol use, illicit substance use, or smoking cigarettes. PSYCHIATRIC HISTORY: The patient has a history of anxiety and depression. SOCIAL HISTORY: The patient is a 71-year-old male patient financially sustained through [employer]. MENTAL STATUS EXAMINATION: The patient is alert and oriented to person, place, and time. Mood is irritable. Affect is labile. Thought process, disorganized. Thought content, anxious, focused on anxiety. The patient has poor attention and concentration. DIAGNOSES: Major depressive disorder, recurrent, moderate without psychotic features and generalized anxiety disorder. PLAN: This clinician assessed this patient. Assessed the patient's mental status. Provided the patient with reality orientation, provided the patient with supportive psychotherapy. Encouraging the patient to participate in treatment milieu, working on increasing compliance with treatment coping skills. Continue with behavioral management. The clinician has reviewed the patient's chart and discussed the treatment with treatment team. Sarah Brower PsyD. DR: Jazz JOB#: [id number] CC:
--- NOTE | 2017-04-14 10:51 | Diagnostic Imaging Report ---
APPROVED REPORT CPT Code: 12514 Present Symptoms Comments: R/O DVT BILATERAL: Imaging reveals a patent deep venous system bilaterally. There is no evidence of thrombus within the femoral, popliteal or tibial segments. The greater saphenous veins are also within normal limits. Doppler indicates normal spontaneous flow within these segments.
--- NOTE | 2017-04-16 11:02 | Discharge Summary ---
Discharge Summary Hospital Course Date of Admission Apr 10, 2017 at 14:50 Date of Discharge Apr 13, 2017 at 17:03 Admitting Diagnosis Acute Coronary syndrome HPI Andrea Velásquez is a 71 year old male who was admitted on Apr 10, 2017 at 14:50 for Acute Coronary Syndrome Hospital Course dc summary #[id number] Discharge Medications Continued Medications: Carvedilol (Coreg) 12.5 Mg Tablet 12.5 MG ORAL EVERY 12 HOURS, TAB Colchicine (Colcrys) 0.6 Mg Tablet 0.6 MG PO DAILY, TAB Dabigatran Etexilate Mesylate* (Pradaxa*) 150 Mg Capsule 75 MG ORAL EVERY 12 HOURS, CAP Digoxin* (Digoxin*) 125 Mcg Tablet 125 MCG ORAL DAILY, TAB Escitalopram Oxalate* (Lexapro*) 10 Mg Tablet 10 MG ORAL DAILY, TAB Gabapentin* (Gabapentin*) 300 Mg Capsule 300 MG ORAL BEDTIME, CAP Torsemide* (Demadex*) 10 Mg Tablet 10 MG PO DAILY, TAB Discharge Condition Upon Discharge: stable Discharge Disposition Patient was discharged to Home with Home Health(06) Discharge Diagnoses: Brodie (Jaydon)Hope NP Apr 16, 2017 11:02
--- NOTE | 2017-04-16 22:15 | Discharge Summary 2 SIG ---
DATE OF ADMISSION: 04/10/2017 DATE OF DISCHARGE: 04/13/2017 REASON FOR ADMISSION: 71 years old male with past medical history of atrial fibrillation, diabetes, hypertension, liver and kidney transplant, had not been feeling well for the last couple of days. He developed cough and shortness of breath with some wheezing. He received albuterol treatment from his primary care provider in the office, which did improve his breathing, but caused him high heart rate and chest discomfort. On arrival to the emergency department, the patient felt better and denied any definite chest pain, but still had mild shortness of breath. He denied leg pain or leg swelling. No fever. No chills. Vital signs revealed tachycardia, the patient was afebrile with stable blood pressure. Chest x-ray revealed evidence of congestive heart failure. Elevated troponin- 0.084. Pro BNP- 21,359. Evidence of chronic kidney disease with BUN -31 and creatinine -1.6. EKG showed atrial fibrillation with rapid ventricular response. The patient was admitted with diagnoses of acute respiratory distress, atrial fibrillation with rapid ventricular response, elevated troponin, hypertension, diabetes, chronic kidney disease, right bundle-branch block, status post liver and kidney transplant. HOSPITAL COURSE: The patient admitted to the telemetry floor. Rate was controlled with digoxin and beta-edilberto. Cardiology consult was requested along with Pulmonology, ID, and Nephrology consults. Atrial fibrillation persist on the telemetry, but ventricular rate was controlled . Echocardiogram revealed ejection fraction of 25% and right ventricular systolic pressure of 29 with significant diastolic dysfunction and moderate mitral regurgitation. The patient was started on medical management of heart failure: beta-edilberto. Aldactone, digoxin, and Pradaxa (as anticoagulation for atrial fibrillation was continued). Recommended to start Entresto as outpatient after following up with accounts supervisor. The patient was diagnosed with dilated cardiomyopathy. Scrap Carrier could not rule out ischemia. Recommended stress test as an outpatient, Serial troponin were monitored. Serial troponin with minimal elevation, no peak no fidel. According to accounts supervisor, troponin elevation was likely secondary to atrial fibrillation. No ischemic changes on ECG. Stress test as outpatient was advised. Supplemental oxygen and pulmonary toilet provided as needed. Initially started ob empiric antibiotic for possible pneumonia, which subsequently stopped. Venous duplex bilateral lower extremities revealed no evidence of acute DVT. Followup chest x-ray revealed improvement in congestion. Creatinine remained in the baseline. Electrolytes were closely monitored and corrected as needed. Nephrotoxics were avoided. With diuresis, cardiorenal parameters and volumes were closely monitored. Lab Asst closely followed. Blood sugar was managed with sliding scale of insulin. The finding of the cardiomyopathy was new for this patient. The new findings were discussed extensively with the patient and the family and need to follow up with the accounts supervisor as outpatient. The patient eventually will need a stress test, and possibly ICD. The patient was stable for discharge home. FINAL DIAGNOSES: 1. Atrial fibrillation( persistent) with rapid ventricular response, resolved. 2. Dilated cardiomyopathy ( EF 25%), newly diagnosed . 3. Systolic and diastolic congestive heart failure. 4. Elevated troponin ( likely due to atrial fibrillation). 5. Acute respiratory distress (likely secondary to atrial fibrillation with rapid ventricular response and congestive heart failure exacerbation). 6. Status post aortic valve replacement. 7. Hypertension 8. Diabetes 9. Right bundle-branch block. 10. Chronic kidney disease. 11. History of liver and kidney transplant. DISCHARGE MEDICATIONS: See medication reconciliation list. DISCHARGE INSTRUCTIONS: The patient was discharged home with home health services. The patient to follow up with primary care provider and qm nurse with referral to accounts supervisor for outpatient workup. Giacomo Snyder D.O. Hope SchmidtEllis Island Immigrant HospitalViki N.PGareth DR: ISHA JOB#: [id number] CC: TAYLOR
--- NOTE | 2017-04-21 15:31 | Diagnostic Imaging Report ---
Indication: Acute renal failure, history of renal transplant Technique: Grayscale and duplex images of the kidneys, retroperitoneum, and bladder were obtained. Comparison: none Findings: Kidneys labeled right and left are scanned. No mention is made in the annotations of having scans of the transplanted kidney. It was requested a patient be rescanned, the patient was discharged prior to rescanning, so this exam is extremely limited Right kidney measures 8.9 cm in length. Left kidney measures 11.2 cm in length. Both kidneys, clinically the left, demonstrate increased echogenicity. No hydronephrosis. Of bilateral renal cysts. Normal inferior vena cava. Bladder is distended despite the presence of a Imranda catheter. Impression: Nondiagnostic for evaluation of transplant kidney as this apparently was not scanned and patient could not be successfully rescanned Negative for hydronephrosis of the galena kidneys Increased echogenicity of the galena kidneys, consistent with known history of chronic renal disease Incidental finding of bilateral renal cysts Distended bladder. Technologist reports presence of a Miranda catheter, although it is not visualized; if present, bladder is distended despite this.
== END 2017-04-13 17:03 | disposition home health service (06) | DRG 291 ==
LOC: EDBD 13:54 → EMR 14:25 → 2E 14:50 → EDBEDREQ 15:43 → 2E 04-11 19:33
DX: I13.0 Hypertensive heart and chronic kidney disease with heart failure and stage 1 through stage 4 chronic kidney disease, or unspecified chronic kidney disease (principal); I50.43 Acute on chronic combined systolic (congestive) and diastolic (congestive) heart failure; N17.9 Acute kidney failure, unspecified; R06.03 Acute respiratory distress; Z94.4 Liver transplant status; Z94.0 Kidney transplant status; N39.0 Urinary tract infection, site not specified; E11.22 Type 2 diabetes mellitus with diabetic chronic kidney disease; N18.9 Chronic kidney disease, unspecified; I48.0 Paroxysmal atrial fibrillation; I45.10 Unspecified right bundle-branch block; E11.9 Type 2 diabetes mellitus without complications; Z88.8 Allergy status to other drugs, medicaments and biological substances; I42.9 Cardiomyopathy, unspecified; Z86.19 Personal history of other infectious and parasitic diseases; K21.9 Gastro-esophageal reflux disease without esophagitis; Z79.4 Long term (current) use of insulin; F32.9 Major depressive disorder, single episode, unspecified; F41.1 Generalized anxiety disorder
CPT/HCPCS: 36415; 71045; 76770; 80048; 80053; 80162; 81001; 81003; 82043; 82044; 82550; 82553; 82570; 82962; 83690; 83880; 84300; 84484; 85025; 87040; 87070; 87086; 87205; 89050; 93005; 93306; 93970; 94664; 99285; J1815

== ENCOUNTER 2020-01-10 19:44 | Inpatient (IN) | payer MEDICARE ==
[~2020-01-10] VITALS: Ht 180.3 cm; Wt 59.6 kg
[~2020-01-10 19:44] MED LIST: CELLCEPT500 MG ORAL; COLCRYS0.6 M1 PO; COREG12.5 MG ORAL; DIGOXIN125 MCG ORAL; FIBER CHOICE1.5 GM PO; GABAPENTIN300 MG ORAL; HUMULIN N100 UNIT/1 SUBQ; LEXAPRO10 MG ORAL; NOVOLOG100 UNIT/4 SQ; PRADAXA150 MG ORAL; PRILOSEC10 M1 ORAL; PROAIR HFA8.5 GM INH; RESTORIL15 MG ORAL; SENNA-DOCUSATE1 EACH PO; SIMETHICONE80 MG ORAL; TORSEMIDE10 MG PO; ULORIC40 MG ORAL; VITAMIN D400 INTLU ORAL
--- NOTE | 2020-01-10 19:55 | NUR ---
ED Nurse Note: Patient taken to CT.
--- NOTE | 2020-01-10 20:07 | Emergency Room Report ---
History of Present Illness General Chief Complaint: Lower Extremity Injury Source: Patient, EMS Present Illness HPI Disclaimer: Please note that this report is being documented using DRAGON technology. This can lead to erroneous entry secondary to incorrect interpretation by the dictating instrument. HPI: 74-year-old male with history of atrial fibrillation on Eliquis, hypertension, diabetes, CKD, liver and kidney transplant presents from nursing facility for evaluation of femur fracture. The patient reportedly fell of his wheelchair yesterday onto his left side. Imaging of the left hip down to the left foot was obtained today showing acute comminuted and displaced intertrochanteric left femur fracture. No fracture identified in the knee, tibia, fibula or foot. No imaging of the head accompanies the patient. He believes he struck his head. He has an abrasion of the left ear. Denies headache, changes in vision, nausea, vomiting. He is a poor historian. Says pain right now is 5/10. Manageable and located over the left hip. PMH: Atrial fibrillation, hypertension, diabetes, CKD, liver and kidney transplant PSH: Liver and kidney transplant, aortic valve placement Allergies: Iodine, methocarbamol Social Hx: Denied Allergies: Coded Allergies: IODINE (Verified Allergy, Unknown, 04/10/17) METHOCARBAMOL (Verified Allergy, Unknown, 04/10/17) COVID-19 Screening Contact w/high risk pt: No Experienced COVID-19 symptoms?: No COVID-19 Testing performed RARE/ENDANGERED SPECIES SPECIALIST: No Nursing Documentation-PMH Hx Cardiac Problems: Yes - CHF, a-fib, gout Hx Hypertension: Yes Hx Diabetes: Yes Hx Cancer: No Hx Gastrointestinal Problems: Yes Hx Neurological Problems: Yes Hx Head Trauma: Yes Review of Systems All Other Systems: negative except mentioned in HPI Physical Exam Vital Signs Date Time Temp Pulse Resp B/P (MAP) Pulse Ox O2 Delivery O2 Flow Rate FiO2 01/10/20 19:40 98.2 68 16 112/64 (80) 98 Room Air General: Awake and alert, no acute distress HEENT: NC/AT. No scalp or face hematomas, lacerations or abrasions. EOMI. PERRLA. No tenderness over the mandible. Cardiovascular: Irregularly irregular rhythm. Normal rate. Resp: Normal work of breathing. No cough, wheezing or crackles appreciated Abdomen: Abdomen is soft, nondistended. Nontender Skin: Intact. Abrasion over the left earlobe. MSK: Normal tone and bulk. Deformity over the left pelvis. Tender palpation. Left leg is shortened Neuro: Awake and alert. At times responds appropriately but is a poor historian Medical Decision Making Diagnostic Impression: Primary Impression: Intertrochanteric fracture Additional Impressions: Fecal impaction CKD (chronic kidney disease) ER Course 74-year-old male on anticoagulants for atrial fibrillation presents after a fall yesterday. Diagnosed with intertrochanteric displaced left femur fracture by imaging. Will obtain CT head imaging giving the reported trauma. Will require preop work-up. CT scan of the head unremarkable for acute injury. CT scan of the pelvis confirms a comminuted intratrochanteric fracture. Fecal impaction also shown on CT. Patient be admitted to panel physician, Dr. Snyder. Orthopedic surgery consulted and requested an AP view of the pelvis and hip which was ordered. Laboratory Tests Test 01/10/20 20:20 White Blood Count 10.8 K/UL (4.8-10.8) Red Blood Count 2.57 M/UL (4.70-6.10) L Hemoglobin 8.1 G/DL (14.2-18.0) L Hematocrit 25.0 % (42.0-52.0) L Mean Corpuscular Volume 97 FL (80-99) Mean Corpuscular Hemoglobin 31.4 PG (27.0-31.0) H Mean Corpuscular Hemoglobin Concent 32.3 G/DL (32.0-36.0) Red Cell Distribution Width 14.1 % (11.6-14.8) Platelet Count 88 K/UL (150-450) L Mean Platelet Volume 7.6 FL (6.5-10.1) Neutrophils (%) (Auto) 73.7 % (45.0-75.0) Lymphocytes (%) (Auto) 15.4 % (20.0-45.0) L Monocytes (%) (Auto) 9.8 % (1.0-10.0) Eosinophils (%) (Auto) 0.6 % (0.0-3.0) Basophils (%) (Auto) 0.5 % (0.0-2.0) Prothrombin Time 14.7 SEC (9.30-11.50) H Prothrombin Time INR 1.4 (0.9-1.1) H Activated Partial Thromboplast Time 45 SEC (23-33) H Sodium Level 142 MMOL/L (136-145) Potassium Level 5.0 MMOL/L (3.5-5.1) Chloride Level 108 MMOL/L (98-107) H Carbon Dioxide Level 25 MMOL/L (21-32) Anion Gap 9 mmol/L (5-15) Blood Urea Nitrogen 54 mg/dL (7-18) H Creatinine 2.5 MG/DL (0.55-1.30) H Estimated Glomerular Filtration Rate 25.3 mL/min (>60) Glucose Level 191 MG/DL (74-106) H Calcium Level 8.6 MG/DL (8.5-10.1) Total Bilirubin 0.5 MG/DL (0.2-1.0) Aspartate Amino Transferase (AST) 36 U/L (15-37) Alanine Aminotransferase (ALT) 28 U/L (12-78) Alkaline Phosphatase 113 U/L (46-116) Troponin I 0.032 ng/mL (0.000-0.056) Total Protein 6.4 G/DL (6.4-8.2) Albumin 3.0 G/DL (3.4-5.0) L Globulin 3.4 g/dL Albumin/Globulin Ratio 0.9 (1.0-2.7) L Microbiology Date/Time Source Procedure Growth Status 01/10/20 20:04 Nasopharynx SARS-CoV-2 RdRp Gene Assay - Final Complete EKG Diagnostic Results Troponin ordered: Yes When was troponin ordered?: Jan 10, 2020 EKG Time: 20:18 Rate: normal Rhythm: NSR ST Segments: no acute changes Other Impression Sinus rhythm first-degree AV block however baseline difficult to interpret due to motion artifact. Right bundle branch block pattern V3, V4 Rhythm Strip Diag. Results Rhythm Strip Time: 20:18 EP Interpretation: yes Rate: 60s Rhythm: NSR, no PVC's, no ectopy Other X-Ray Diagnostic Results Other X-Ray Diagnostic Results : X-Ray ordered: And pelvis # of Views/Limited Vs Complete: Complete Indication: Pain Interpretation: no dislocation, no soft tissue swelling, other - Acute intertrochanteric fracture left femur Impression: Other - Acute intertrochanteric fracture left femur Electronically Signed by: Electronically signed by Dr. Blake Cárdenas MD CT/MRI/US Diagnostic Results CT/MRI/US Diagnostic Results : Impression CT HEAD IMPRESSION: 1. Age-related atrophy and small vessel disease of aging. 2. 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 3. No abnormal extra axial collection. 4. If there is concern for etiology such as early acute lacunar infarcts, magnetic resonance imaging of the brain with diffusion-weighted sequences should be performed for follow-up. Dictated By: Ariella Wells M.D. Electronically Signed By:Ariella Wells M.D. Signed Date/Time01/10/202028 IMPRESSION: 1. Comminuted intertrochanteric fracture of the proximal left femur with varus angulation. 2. Fecal impaction. Dictated By: Ariella Wells M.D. Electronically Signed By:Ariella Wells M.D. Signed Date/Time 01/10/202034 Last Vital Signs Date Time Temp Pulse Resp B/P (MAP) Pulse Ox O2 Delivery O2 Flow Rate FiO2 01/10/20 19:40 98.2 68 16 112/64 (80) 98 Room Air Disposition: ADMITTED INPATIENT Condition: Stable Blake Cárdenas MD Jan 10, 2020 20:07
--- NOTE | 2020-01-10 20:12 | NUR ---
NANCY [phone]
--- NOTE | 2020-01-10 20:29 | Diagnostic Imaging Report ---
EXAM: CT Head Without Intravenous Contrast CLINICAL HISTORY: INJ TECHNIQUE: Axial computed tomography images of the head/brain without intravenous contrast. CTDI is 53.4 mGy and DLP is 1077.8 mGy-cm. One or more of the following dose reduction techniques were used: automated exposure control, adjustment of the mA and/or kV according to patient size, use of iterative reconstruction technique. COMPARISON: No previous studies. FINDINGS: Brain: Area of chronic encephalomalacia posterior right frontal lobe. Small area of chronic encephalomalacia left frontal lobe posteriorly. No abnormal extra-axial collection. No hemorrhage. Ventricles: There is prominence of the ventricular system, cortical sulci, basilar cisterns, compatible with age related atrophy. Bones/joints: Calvarium is within normal limits. No acute fracture. Soft tissues: Unremarkable. Sinuses: Visualized sinuses are unremarkable. Mastoid air cells: Mastoid air cells are well pneumatized. IMPRESSION: 1. Age-related atrophy and small vessel disease of aging. 2. 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 3. No abnormal extra axial collection. 4. If there is concern for etiology such as early acute lacunar infarcts, magnetic resonance imaging of the brain with diffusion-weighted sequences should be performed for follow-up.
--- NOTE | 2020-01-10 20:30 | NUR ---
ED Nurse Note: Patient brought into ED by CHRISTIANE Wheatley from [facility] and care for femur fracture. Per patient, he states he fell out of his wheelchair at the facility. Facility had imaging done and noted he has a L femure fracture. Patient is unable to state if he hit his head or lost consciousness. He is awake and alert/verbally responsive and able to answer questions, but does have periods of confusion. Breathing is normal and unlabored. He reports severe pain in his bilat hip area. No cough, SOB, fever noted. Patient connected to equipment monitor phototypesetting. Safety measures in place. No open wound noted to either hip or head.
--- NOTE | 2020-01-10 20:35 | Diagnostic Imaging Report ---
EXAM: CT Left Lower Extremity Without Intravenous Contrast, Hip CLINICAL HISTORY: INJ TECHNIQUE: Axial computed tomography images of the left hip without intravenous contrast. CTDI is 5 mGy and DLP is 173.8 mGy-cm. One or more of the following dose reduction techniques were used: automated exposure control, adjustment of the mA and/or kV according to patient size, use of iterative reconstruction technique. COMPARISON: No previous studies for comparison. FINDINGS: Bones/joints: Moderate to severe osteoarthritic changes about the sacroiliac joints. Acute comminuted intertrochanteric fracture of the proximal left femur. The left hip joint is intact. Proximal left femur is unremarkable. Left superior and inferior pubic rami are unremarkable. The right superior and inferior pubic rami are unremarkable. The right hip joint is intact. No dislocation. Soft tissues: Soft tissue swelling and small hematomas about the fracture site proximal left femur. Vasculature: Atherosclerotic disease. Bowel: There is distention of the rectosigmoid with stool. The rectosigmoid measures 8.3 x 7.8 x 10.9 cm compatible with fecal impaction. Reproductive: Penile prosthesis is noted in place. IMPRESSION: 1. Comminuted intertrochanteric fracture of the proximal left femur with varus angulation. 2. Fecal impaction.
[2020-01-10] MEDS ORDERED: Morphine Sulfate 4mg/ml Inj (IV USE ONLY) IVP ONE (20:45)
[2020-01-10 20:55] LABS: HEMOGLOBIN 8.1 G/DL (14.2-18.0); MEAN CORPUSCULAR VOLUME 97 FL (80-99); PLATELET COUNT 88 K/UL (150-450); RED BLOOD COUNT 2.57 M/UL (4.70-6.10); RED CELL DISTRIBUTION WIDTH 14.1 % (11.6-14.8); WHITE BLOOD COUNT 10.8 K/UL (4.8-10.8)
[2020-01-10 20:56] LABS: BASOPHILS % (AUTO) 0.5 % (0.0-2.0); EOSINOPHILS % (AUTO) 0.6 % (0.0-3.0); LYMPHOCYTES % (AUTO) 15.4 % (20.0-45.0); MONOCYTES % (AUTO) 9.8 % (1.0-10.0); NEUTROPHILS % (AUTO) 73.7 % (45.0-75.0)
[2020-01-10 21:06] LABS: CALCIUM 8.6 MG/DL (8.5-10.1); CREATININE 2.5 MG/DL (0.55-1.30)
[2020-01-10 21:11] LABS: ALBUMIN/GLOBULIN RATIO 0.9 (1.0-2.7); BILIRUBIN,TOTAL 0.5 MG/DL (0.2-1.0)
[2020-01-10 21:16] LABS: INR 1.4 (0.9-1.1)
[2020-01-10 21:30] VITALS: BP 114/57
--- NOTE | 2020-01-10 22:00 | NUR ---
ED Nurse Note: Patient is resting in bed, no acute distress at this time. Breathing is normal. Patient repositioned for comfort.
[2020-01-10] MEDS ORDERED: AMLODIPINE BESYL5 MG ORAL (22:29)
[2020-01-10] MEDS ORDERED: CRESTOR10 M2 ORAL (22:29)
[2020-01-10] MEDS ORDERED: ELIQUIS5 MG ORAL (22:29)
[2020-01-10] MEDS ORDERED: ADALAT20 MG ORAL (22:29)
[2020-01-10] MEDS ORDERED: TEMAZEPAM30 MG ORAL (22:29)
[2020-01-10] MEDS ORDERED: LEXAPRO10 MG ORAL (22:29)
[2020-01-10] MEDS ORDERED: TACROLIMUS1 MG PO (22:29)
[2020-01-10] MEDS ORDERED: MYCOPHENOLATE500 MG PO (22:29)
[2020-01-10] MEDS ORDERED: HYDRALAZINE HCL25 M1 ORAL (22:29)
[2020-01-10] MEDS ORDERED: OLANZAPINE ODT10 MG PO (22:29)
[2020-01-10] MEDS ORDERED: Morphine Sulfate 2mg/ml Inj(IV/IM USE ONLY) IVP PRN (22:30)
[2020-01-10] MEDS ORDERED: Morphine Sulfate 4mg/ml Inj (IV USE ONLY) IVP PRN (22:30)
--- NOTE | 2020-01-10 22:30 | NUR ---
ED Nurse Note: Report given to MELODY Brian.
--- NOTE | 2020-01-10 22:38 | NUR ---
NURSE NOTES: Received telephone report from Ofelia OLIVER.
--- NOTE | 2020-01-10 22:40 | NUR ---
ED Nurse Note: Patient is stable for transfer to Med surg unit at this time. He is awake and alert, verbally responsive. No change in mental status. VSS. Patient taken to unit via gurney by tech. IV is patent and intact. No belongings noted. Family informed of patient admission to hospital. Transferred to MS unit w/o complication.
--- NOTE | 2020-01-10 22:43 | NUR ---
NURSE NOTES: Received patient from ER by suhail. A/O x4. Patient is on room air. Skin is intact. Sacral area is reddened. Applied optiform on sacral area and bilateral heels. Condom cath applied. Patient is on bedrest. No belongings. Oriented patient to hospital facility. IV is intact on right upper arm 20g. Bed low and locked. call light within reach. Will call Dr. Snyder for admission orders.
[2020-01-10 23:19] VITALS: BP 138/62
[2020-01-11 05:00] VITALS: BP 113/83
[2020-01-11] MEDS: D5 1/2NS 1,000 ML IV SCH ×2 (06:19→20:36)
[2020-01-11] MEDS: NovoLOG Insulin Flexpen SUBQ SCH ×4 (06:31→20:59)
--- NOTE | 2020-01-11 06:52 | NUR ---
NURSE HAND-OFF: Important Events on Shift: New admit Patient Status: Stable Diet: NPO Pending Orders: N/A Pending Results/Labs:N/A Pending MD notification: aware of Hgb and Plt. Latest Vital Signs: Temperature 98.4 , Pulse 76 , B/P 113 /83 , Respiratory Rate 16 , O2 SAT 93 , Room Air, O2 Flow Rate . Vital Sign Comment: Latest Willis Fall Score: 70 Fall Risk: High Risk Safety Measures: Call light Within Reach, Bed Alarm , Side Rails Side Rails x2, Bed position Low and Locked. Fall Precautions: Yellow Socks Patient Fall Education Report will be given to Maggie Malloy RN.
--- NOTE | 2020-01-11 07:02 | Consultation ---
History of Present Illness General Chief Complaint: Lower Extremity Injury Present Illness Allergies: Coded Allergies: IODINE (Verified Allergy, Unknown, 04/10/17) METHOCARBAMOL (Verified Allergy, Unknown, 04/10/17) Medication History Scheduled Albuterol Sulfate* (Proair Hfa*), 2 PUFFS INH Q6H, (Reported) Amlodipine Besylate* (Amlodipine Besylate*), 5 MG ORAL BID, (Reported) Apixaban (Eliquis*), 5 MG ORAL BID, (Reported) Carvedilol (Coreg), 12.5 MG ORAL EVERY 12 HOURS, (Reported) Escitalopram Oxalate* (Lexapro*), 10 MG ORAL DAILY, (Reported) Escitalopram Oxalate* (Lexapro*), 10 MG ORAL DAILY, (Reported) Hydralazine Hcl* (Hydralazine Hcl*), 25 MG ORAL BID, (Reported) Mycophenolate Mofetil (Mycophenolate Mofetil), 500 MG PO BID, (Reported) Nifedipine (Nifedipine*), 60 MG ORAL DAILY, (Reported) Olanzapine (Olanzapine Odt), 10 MG PO HS, (Reported) Rosuvastatin Calcium* (Crestor*), 10 MG ORAL HS, (Reported) Tacrolimus (Tacrolimus), 1 MG PO BID, (Reported) Temazepam* (Restoril*), 15 MG ORAL BEDTIME, (Reported) Vitamin D (Vitamin D3), 2,000 UNITS ORAL DAILY, (Reported) Scheduled PRN Temazepam* (Temazepam*), 15 MG ORAL BEDTIME PRN for Insomnia, (Reported) Discontinued Medications Colchicine (Colcrys), 0.6 MG PO DAILY, (Reported) Discontinued Reason: Pt stopped taking med Dabigatran Etexilate Mesylate* (Pradaxa*), 75 MG ORAL EVERY 12 HOURS, (Reported) Discontinued Reason: Pt stopped taking med Digoxin* (Digoxin*), 125 MCG ORAL DAILY, (Reported) Discontinued Reason: Pt stopped taking med Febuxostat (Uloric), 40 MG ORAL DAILY, (Reported) Discontinued Reason: Pt stopped taking med Gabapentin* (Gabapentin*), 300 MG ORAL BEDTIME, (Reported) Discontinued Reason: Pt stopped taking med Insulin Aspart (Novolog), 100 UNIT SQ, (Reported) Discontinued Reason: Pt stopped taking med Inulin (Fiber Choice), 1.5 GM PO DAILY, (Reported) Discontinued Reason: Pt stopped taking med Mycophenolate Mofetil (Cellcept), 1,000 MG ORAL EVERY 12 HOURS, (Reported) Discontinued Reason: Pt stopped taking med Nph, Human Insulin Isophane (Humulin N), 0 SUBQ, (Reported) Discontinued Reason: Pt stopped taking med Omeprazole Magnesium (Prilosec), 20 MG ORAL BID, (Reported) Discontinued Reason: Pt stopped taking med Sennosides/Docusate Sodium (Senna-Docusate Sodium Tablet), 1 EACH PO HS, (Reported) Discontinued Reason: Pt stopped taking med Simethicone* (Simethicone*), 80 MG ORAL Q8H PRN for GAS PAIN, (Reported) Discontinued Reason: Pt stopped taking med Torsemide* (Demadex*), 10 MG PO DAILY, (Reported) Discontinued Reason: Pt stopped taking med Patient History Healthcare decision maker Resuscitation status Advanced Directive on File Physical Exam Last 24 Hour Vital Signs Date Time Temp Pulse Resp B/P (MAP) Pulse Ox O2 Delivery O2 Flow Rate FiO2 01/11/20 05:00 98.4 16 113/83 (93) 93 01/10/20 23:19 97.1 76 18 138/62 (87) 98 01/10/20 23:18 Room Air 01/10/20 22:40 98.3 73 18 114/84 100 Room Air 01/10/20 22:40 70 18 Room Air 01/10/20 21:30 98.2 70 18 114/57 96 Room Air 01/10/20 21:08 98.2 01/10/20 19:40 98.2 68 16 112/64 (80) 98 Room Air Intake and Output 01/10/20 01/11/20 19:00 07:00 Intake Total 0 ml Balance 0 ml Intake Oral 0 ml # Voids 1 # Bowel Movements 1 Laboratory Tests Test 01/10/20 20:20 01/11/20 06:13 White Blood Count 10.8 K/UL (4.8-10.8) Red Blood Count 2.57 M/UL (4.70-6.10) L Hemoglobin 8.1 G/DL (14.2-18.0) L Hematocrit 25.0 % (42.0-52.0) L Mean Corpuscular Volume 97 FL (80-99) Mean Corpuscular Hemoglobin 31.4 PG (27.0-31.0) H Mean Corpuscular Hemoglobin Concent 32.3 G/DL (32.0-36.0) Red Cell Distribution Width 14.1 % (11.6-14.8) Platelet Count 88 K/UL (150-450) L Mean Platelet Volume 7.6 FL (6.5-10.1) Neutrophils (%) (Auto) 73.7 % (45.0-75.0) Lymphocytes (%) (Auto) 15.4 % (20.0-45.0) L Monocytes (%) (Auto) 9.8 % (1.0-10.0) Eosinophils (%) (Auto) 0.6 % (0.0-3.0) Basophils (%) (Auto) 0.5 % (0.0-2.0) Prothrombin Time 14.7 SEC (9.30-11.50) H Prothromb Time International Ratio 1.4 (0.9-1.1) H Activated Partial Thromboplast Time 45 SEC (23-33) H Sodium Level 142 MMOL/L (136-145) Potassium Level 5.0 MMOL/L (3.5-5.1) Chloride Level 108 MMOL/L (98-107) H Carbon Dioxide Level 25 MMOL/L (21-32) Anion Gap 9 mmol/L (5-15) Blood Urea Nitrogen 54 mg/dL (7-18) H Creatinine 2.5 MG/DL (0.55-1.30) H Estimat Glomerular Filtration Rate 25.3 mL/min (>60) Glucose Level 191 MG/DL (74-106) H Calcium Level 8.6 MG/DL (8.5-10.1) Total Bilirubin 0.5 MG/DL (0.2-1.0) Aspartate Amino Transf (AST/SGOT) 36 U/L (15-37) Alanine Aminotransferase (ALT/SGPT) 28 U/L (12-78) Alkaline Phosphatase 113 U/L (46-116) Troponin I 0.032 ng/mL (0.000-0.056) Total Protein 6.4 G/DL (6.4-8.2) Albumin 3.0 G/DL (3.4-5.0) L Globulin 3.4 g/dL Albumin/Globulin Ratio 0.9 (1.0-2.7) L POC Whole Blood Glucose 150 MG/DL (74-106) H Microbiology Date/Time Source Procedure Growth Status 01/10/20 21:30 Rectal Mucosa Received 01/10/20 20:04 Nasopharynx SARS-CoV-2 RdRp Gene Assay - Final Complete Height (Feet): 5 Height (Inches): 11.00 Weight (Pounds): 165 Medications Current Medications Medications (Trade) Dose Ordered Sig/Uvaldo Route PRN Reason Start Time Stop Time Status Last Admin Dose Admin Amlodipine Besylate (Norvasc) 5 mg BID@0900,2099 ORAL 01/11/20 09:00 02/10/20 08:59 Apixaban (Eliquis) 2.5 mg BID ORAL 01/11/20 09:00 04/10/20 08:59 Atorvastatin Calcium (Lipitor) 20 mg BEDTIME ORAL 01/11/20 21:00 04/10/20 20:59 Carvedilol (Coreg) 12.5 mg EVERY 12 HOURS ORAL 01/11/20 09:00 02/10/20 08:59 Dextrose (Dextrose 50%) 25 ml Q30M PRN IV Hypoglycemia 01/11/20 05:15 04/10/20 05:14 Dextrose (Dextrose 50%) 50 ml Q30M PRN IV Hypoglycemia 01/11/20 05:15 04/10/20 05:14 Dextrose/Sodium Chloride 1,000 ml @ 60 mls/hr [id number] IV 01/11/20 06:00 02/10/20 05:59 01/11/20 06:19 Escitalopram Oxalate (Lexapro) 10 mg DAILY ORAL 01/11/20 09:00 02/10/20 08:59 Hydralazine HCl (Apresoline) 25 mg BID@0900,2100 ORAL 01/11/20 09:00 04/10/20 08:59 Insulin Aspart (NovoLOG) BEFORE MEALS AND HS SUBQ 01/11/20 06:30 04/10/20 06:29 01/11/20 06:31 Morphine Sulfate (Morphine Sulfate) 2 mg Q4H PRN IVP For Pain (4-10) 01/11/20 05:15 01/18/20 05:14 Mycophenolate Mofetil (Cellcept) 500 mg BID ORAL 01/11/20 09:00 04/10/20 08:59 Non-Formulary Medication (Non-Formulary Med) 1 ea DAILY ORAL 01/11/20 09:00 02/10/20 08:59 UNV Olanzapine (ZyPREXA Zydis) 10 mg BEDTIME ORAL 01/11/20 21:00 02/25/20 20:59 Tacrolimus (Prograf) 1 mg BID ORAL 01/11/20 09:00 04/10/20 08:59 Temazepam (Restoril) 15 mg BEDTIME ORAL 01/11/20 21:00 01/18/20 20:59 Assessment/Plan Assessment/Plan: Hematology Consultation REQ MD: Giacomo Snyder DOS: 01/11/2020 RFC: Coagulopathy and Anemia HPI: 74-year-old male with history of atrial fibrillation on Eliquis, hypertension, diabetes, CKD, liver and kidney transplant presents from nursing facility for evaluation of femur fracture. The patient reportedly fell of his wheelchair yesterday onto his left side. Imaging of the left hip down to the left foot was obtained today showing acute comminuted and displaced intertrochanteric left femur fracture. No fracture identified in the knee, tibia, fibula or foot. No imaging of the head accompanies the patient. He believes he struck his head. He has an abrasion of the left ear. Denies headache, changes in vision, nausea, vomiting. He is a poor historian. Says pain right now is 5/10. Manageable and located over the left hip. PMH: Atrial fibrillation, hypertension, diabetes, CKD, liver and kidney transplant PSH: Liver and kidney transplant, aortic valve placement Allergies: Iodine, methocarbamol Social Hx: Denied Allergies: IODINE (Verified Allergy, Unknown, 04/10/17) METHOCARBAMOL (Verified Allergy, Unknown, 04/10/17) COVID-19 Screening Contact w/high risk pt: No Experienced COVID-19 symptoms?: No COVID-19 Testing performed HALL WORKER: No Nursing Documentation-PMH Hx Cardiac Problems: Yes - CHF, a-fib, gout Hx Hypertension: Yes Hx Diabetes: Yes Hx Cancer: No Hx Gastrointestinal Problems: Yes Hx Neurological Problems: Yes Hx Head Trauma: Yes Review of Systems All Other Systems: negative except mentioned in HPI Physical Exam General: Awake and alert, no acute distress HEENT: NC/AT. No scalp or face hematomas, lacerations or abrasions Cardiovascular: Irregularly irregular rhythm. Normal rate. Resp: Normal work of breathing. No cough, wheezing or crackles appreciated Abdomen: Abdomen is soft, nondistended. Nontender Skin: Intact. Abrasion over the left earlobe. MSK: Normal tone and bulk. Deformity over the left pelvis Neuro: Awake and alert. At times responds appropriately but is a poor historian Labs: reviewed Meds: noted Assessment and recs # Anemia r/o iron deficiency --> anemia panel has been noted, occult ordered --> no hemolysis is seen at this time --> transfuse as prn basis as needed --> hgb 8.2 # Coagulopathy consistent with liver disease --> us abd ordered # Hypercoag disorder was on anticoag before --> per cards, given potential surg coming up # Intertrochanteric fracture --> ortho consulted # Fecal impaction --> stool softeners # CKD (chronic kidney disease) --> per renal Appreciate consultation and dw Chuy Huff MD Jan 11, 2020 07:02
[2020-01-11 08:00] VITALS: BP 109/67
--- NOTE | 2020-01-11 08:08 | NUR ---
NURSE NOTES: Received report from MELODY Chery. Rounding done with outgoing nurse. Pt a/o x 4, confused. Pt is NPO for USG abd. Denies any pain at this time. Bed in lowest position, call light within reach. Will continue to monitor.
[2020-01-11] MEDS: Carvedilol 12.5mg tab ORAL SCH ×2 (09:00→20:41)
[2020-01-11] MEDS ORDERED: Heparin 5000 units/ml inj SUBQ SCH (09:00)
[2020-01-11] MEDS ORDERED: HydrALAZINE 25mg tab ORAL SCH (09:00)
--- NOTE | 2020-01-11 09:00 | NUR ---
NURSE NOTES: Verified for Nifedipine and amlodipine with Dr. Snyder. said that will use both of them. Spoke with Devang, Pharmacist.
--- NOTE | 2020-01-11 09:06 | NUR ---
PT NOTE Received MD order for PT evaluation. PT evaluation deferred until patient seen for ortho consult, will follow.
--- NOTE | 2020-01-11 09:10 | NUR ---
NURSE NOTES: Dr. Snyder ordered [facility](Medium) diet. Noted and carried out.
--- NOTE | 2020-01-11 09:40 | Consultation ---
Consult Note Consult Note 74 yo wheelchair bound, [facility] resident with fall from wheelchair sustaining badly comminuted left IT fx. PMH: CKD, A fib, HTN, DM, liver transplant, kidney transplant, aortic valve replacement currently anticoagulated on Eliquis Xray/CT: badly comminuted left hip IT fracture Assessment/Plan PE: Pt contracted with significant LE disuse atrophy Plan: Given pt's significant comorbid conditions and high surgical risk, would recommend transfer to a tertiary facility for higher level of care with a fellowship trained traumatologist to address hip fx. pt will likely be high risk post operatively as well from a medical standpoint and therefore needs higher level of care Yahaira Huynh Jan 11, 2020 09:40
[2020-01-11] MEDS: Mycophenolate 250mg cap ORAL SCH ×2 (09:45→17:54)
[2020-01-11] MEDS: Eliquis 2.5mg tablet ORAL SCH ×2 (09:46→17:54)
--- NOTE | 2020-01-11 09:59 | Consultation ---
Consult Note Consult Note I am asked to evaluate the patient at the request of for renal failure Chief Complaint: Lower Extremity Injurystrument. HPI: 74-year-old male with history of atrial fibrillation on Eliquis, hypertension, diabetes, CKD, liver and kidney transplant presents from nursing facility for evaluation of femur fracture. The patient reportedly fell of his wheelchair yesterday onto his left side. Imaging of the left hip down to the left foot was obtained today showing acute comminuted and displaced intertrochanteric left femur fracture. No fracture identified in the knee, tibia, fibula or foot. No imaging of the head accompanies the patient. He believes he struck his head. He has an abrasion of the left ear. Denies headache, changes in vision, nausea, vomiting. He is a poor historian. Says pain right now is 5/10. Manageable and located over the left hip. PMH: Atrial fibrillation, hypertension, diabetes, CKD, liver and kidney transplant PSH: Liver and kidney transplant, aortic valve placement Allergies: Iodine, methocarbamol Social Hx: Denied Allergies: Coded Allergies: IODINE (Verified Allergy, Unknown, 04/10/17) METHOCARBAMOL (Verified Allergy, Unknown, 04/10/17) COVID-19 Screening Contact w/high risk pt: No Experienced COVID-19 symptoms?: No COVID-19 Testing performed BRAKE LINER: No Hx Cardiac Problems: Yes - CHF, a-fib, gout Hx Hypertension: Yes Hx Diabetes: Yes Hx Gastrointestinal Problems: Yes Hx Neurological Problems: Yes Hx Head Trauma: Yes Vital Signs Date Time Temp Pulse Resp B/P (MAP) Pulse Ox O2 Delivery O2 Flow Rate FiO2 01/10/20 19:40 98.2 68 16 112/64 (80) 98 Room Air General: Awake and alert, no acute distress HEENT: NC/AT. No scalp or face hematomas, lacerations or abrasions. EOMI. PERRLA. No tenderness over the mandible. Cardiovascular: Irregularly irregular rhythm. Normal rate. Resp: Normal work of breathing. No cough, wheezing or crackles appreciated Abdomen: Abdomen is soft, nondistended. Nontender Skin: Intact. Abrasion over the left earlobe. MSK: Normal tone and bulk. Deformity over the left pelvis. Tender palpation. Left leg is shortened Neuro: Awake and alert. At times responds appropriately but is a poor historian Assessment/Plan Intertrochanteric fracture Fecal impaction CKD (chronic kidney disease) DM HTN Miranda Urine studies Anemia jacobs Adjust blood pressure medication avoid nephrotoxics 2D echocardiogram Kidney ultrasound Per orders Young Mcdonald MD Jan 11, 2020 09:59
[2020-01-11] MEDS ORDERED: HydrALAZINE 25mg tab ORAL PRN (10:00)
--- NOTE | 2020-01-11 10:30 | History and Physical Report ---
DATE OF ADMISSION: 01/10/2020 TIME SEEN: 01/11/2020 at 9 a.m. CONSULTANTS: 1. Michael Perea MD. 2. Dr. Jade. 3. Edwardo Wilhelm MD. 4. Moises Pratt MD. CHIEF COMPLAINT: Fall, left femur fracture. BRIEF HISTORY: This is a 74-year-old male from [facility]. He apparently had a fall yesterday, came to [facility], diagnosed with left femur fracture and admitted to medical floor. Currently, calm in bed, slightly confused, slight tremors, no complaint. REVIEW OF SYSTEMS: No chest pain. No shortness of breath. No nausea or vomiting. PAST MEDICAL HISTORY: Includes diabetes, anxiety, CKD as per chart. PAST SURGICAL HISTORY: Unknown. MEDICATIONS: Atorvastatin, temazepam, olanzapine, nifedipine, hydralazine, , carvedilol, apixaban, amlodipine, insulin. ALLERGIES: Iodine, methocarbamol. SOCIAL HISTORY: No smoking. Positive alcohol. No intravenous drug abuse. FAMILY HISTORY: Noncontributory. PHYSICAL EXAMINATION: GENERAL: Calm in bed, oriented x1, in no acute distress, slight tremors. VITAL SIGNS: Temperature is 98 degrees, pulse 81, respiratory rate 16, blood pressure 109/67. CARDIOVASCULAR: No murmur. LUNGS: Poor air exchange. ABDOMEN: Bowel sounds distant. EXTREMITIES: No cyanosis, clubbing, or edema. NEUROLOGIC: The patient moves all extremities, slightly weak. Bilateral hand slight tremors. LABORATORY AND DIAGNOSTIC DATA: Labs at this time show hemoglobin and hematocrit 8.1/25, platelets 88,000. BMP shows chloride 108, BUN and creatinine 54/2.5. INR is 1.4 and PTT 45. ASSESSMENT: 1. Left femur fracture status post fall. 2. Atrial fibrillation. 3. Renal failure. 4. Tremor. 5. Anemia. 6. Thrombocytopenia. 7. Diabetes. 8. Ascites. 9. CKD. PLAN: 1. Resume home medications. 2. Blood pressure, blood sugar, pain control. 3. Dietary followup. 4. We will add nephrology, Dr. Mcdonald. 5. PT and dietary evaluation. 6. CBC and BMP in the morning. Giacomo Snyder D.O. DR: Ariana JOB#: [id number] CC:
[2020-01-11 10:57] LABS: APPEARANCE,URINE CLOUDY; BILIRUBIN, URINE NEGATIVE (NEGATIVE); COLOR,URINE YELLOW; GLUCOSE, URINE (UA) NEGATIVE (NEGATIVE); KETONES,URINE NEGATIVE (NEGATIVE); LEUKOCYTE ESTERASE ,URINE 3+ (NEGATIVE); NITRITE,URINE POSITIVE (NEGATIVE); PH,URINE 5 (4.5-8.0); PROTEIN,URINE 3+ (NEGATIVE); UROBILINOGEN,URINE NORMAL MG/DL (0.0-1.0)
--- NOTE | 2020-01-11 11:01 | Consultation ---
DATE OF CONSULTATION: 01/11/2020 REASON FOR CONSULTATION: Consult was called by Dr. Giacomo Snyder for concerns of left hip fracture. HISTORY OF PRESENT ILLNESS: The patient is a 74-year-old wheelchair bound long term resident who had a fall from his wheelchair sustaining a badly comminuted left hip intertrochanteric fracture. Orthopedic consult was called to see him. PHYSICAL EXAMINATION: The patient was seen at bedside. He has significant bilateral lower extremity disuse atrophy. He is also contracted in the lower extremities. Any movement of the left leg causes him to have pain. PAST MEDICAL HISTORY: Chronic kidney disease, atrial fibrillation, hypertension, diabetes, prior liver transplant, prior kidney transplant, prior aortic valve replacement. The patient is currently on Eliquis. ALLERGIES: Iodine, methocarbamol. MEDICATIONS: See chart. IMAGING: Hip CT and pelvis x-rays are reviewed, left hip comminuted intertrochanteric fracture. IMPRESSION: Left hip comminuted intertrochanteric fracture in a very high risk patient with multiple comorbid conditions. DISCUSSION: At this time, I discussed with the patient and nursing my findings. The patient has a badly comminuted fracture and significant comorbid conditions making him very high risk for surgical intervention as well as postop care. He is currently anticoagulated on Eliquis and has anemia with chronic kidney disease and ongoing liver issues. Given his multiple comorbid conditions and the risky nature of the surgery and postoperative period, I would recommend that the patient be transferred to a tertiary facility for higher level of care. The patient requires a fellowship trained traumatologist to address the left hip concerns and certainly will need higher level of care from a medical standpoint given his significant comorbid conditions. We would recommend transfer care to tertiary center to receive treatment by the appropriate specialist including orthopedic Trauma specialist. This was discussed with Dr. Snyder and Patient brother who is a physician who agreed. Patient brother indicated that his preference is to transfer patient to [facility] due to the fact that he has had extensive treatment there in the past and his medical records and physicians are at [facility]. We asked Case management and Dr. Snyder to coordinate the transfer and I will be available to discuss the orthopedic care of the patient with the orthopedic specialists. Michael Perea M.D. Coni Comer DR: Ayde JOB#: [id number] CC: TAYLOR
[2020-01-11] MEDS: Docusate 100mg cap ORAL SCH ×2 (11:02→17:54)
[2020-01-11 11:13] LABS: HEMATOCRIT 23.7 % (42.0-52.0); HEMOGLOBIN 7.8 G/DL (14.2-18.0); MEAN CORPUSCULAR VOLUME 97 FL (80-99); PLATELET COUNT 104 K/UL (150-450); RED BLOOD COUNT 2.45 M/UL (4.70-6.10); RED CELL DISTRIBUTION WIDTH 14.1 % (11.6-14.8); WHITE BLOOD COUNT 10.4 K/UL (4.8-10.8)
[2020-01-11 11:36] LABS: CALCIUM 8.2 MG/DL (8.5-10.1); POTASSIUM 4.5 MMOL/L (3.5-5.1)
[2020-01-11 11:37] LABS: ALBUMIN 2.9 G/DL (3.4-5.0); BILIRUBIN,TOTAL 0.5 MG/DL (0.2-1.0); PHOSPHORUS 4.4 MG/DL (2.5-4.9)
[2020-01-11 11:45] LABS: LACTATE DEHYDROGENASE 302 U/L (81-234)
[2020-01-11 12:00] VITALS: BP 116/75
--- NOTE | 2020-01-11 12:21 | NUR ---
NURSE NOTES: Hgb is 7.[address] Jade. No new order.
[2020-01-11 12:39] LABS: % IRON SATURATION 7 % (15-50); IRON 13 ug/dL (50-175); TOTAL IRON BINDING CAPACITY 176 ug/dL (250-450)
--- NOTE | 2020-01-11 13:44 | NUR ---
CASE MANAGEMENT:INITIAL REVIEW 74 YR OLD MALE ANDREW FROM [facility] CC;LOWER EXTREMITY INJURY SI;LEFT FEMUR FRACTURE 98.3 73 18 114/57 96% ON RA H/H 8.1/25.0 PLT 88 BUN 54 CR 2.5 BG 191 ALB 3.0 PT 14.7 INR 1.4 APTT 45 UA+ PROTEIN, BLOOD, NITRITE, LEUKOCYTE ESTERASE, RBC, WBC, BACTERIA COVID RAPID ~ NEGATIVE HEAD CT ~ 1. Age-related atrophy and small vessel disease of aging. 2. 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 3. No abnormal extra axial collection. 4. If there is concern for etiology such as early acute lacunar infarcts, magnetic resonance imaging of the brain with diffusion-weighted sequences should be performed for follow-up. LT HIP CT ~ 1. Comminuted intertrochanteric fracture of the proximal left femur with varus angulation. 2. Fecal impaction. IS;MORPHINE SULFATE IV IVF NS ADMITTED TO MED SURG MED SURG STATUS
--- NOTE | 2020-01-11 15:05 | Cardiac Electrophysiology PN ---
Subjective Subjective [facility] records reviewed. S/P OLT 2005 S/P Liver/kidney tx 2008 S/P Aortic dissection repair and bioprosthetic AVR 06/2005 S/P Biotronic VVI Pacer 2018 Objective Last 24 Hour Vital Signs Date Time Temp Pulse Resp B/P (MAP) Pulse Ox O2 Delivery O2 Flow Rate FiO2 01/11/20 12:00 98.5 79 16 116/75 (89) 93 01/11/20 09:09 81 109/67 01/11/20 09:00 109/67 01/11/20 09:00 81 109/67 01/11/20 09:00 81 109/67 01/11/20 09:00 Room Air 01/11/20 08:00 98.4 81 16 109/67 (81) 96 01/11/20 05:00 98.4 16 113/83 (93) 93 01/10/20 23:19 97.1 76 18 138/62 (87) 98 01/10/20 23:18 Room Air 01/10/20 22:40 98.3 73 18 114/84 100 Room Air 01/10/20 22:40 70 18 Room Air 01/10/20 21:30 98.2 70 18 114/57 96 Room Air 01/10/20 21:08 98.2 01/10/20 19:40 98.2 68 16 112/64 (80) 98 Room Air Intake and Output 01/10/20 01/11/20 19:00 07:00 Intake Total 0 ml Balance 0 ml Intake Oral 0 ml # Voids 1 # Bowel Movements 1 Laboratory Tests Test 01/10/20 20:20 01/11/20 06:13 01/11/20 09:40 01/11/20 09:48 White Blood Count 10.8 K/UL (4.8-10.8) 10.4 K/UL (4.8-10.8) Red Blood Count 2.57 M/UL (4.70-6.10) L 2.45 M/UL (4.70-6.10) L Hemoglobin 8.1 G/DL (14.2-18.0) L 7.8 G/DL (14.2-18.0) L Hematocrit 25.0 % (42.0-52.0) L 23.7 % (42.0-52.0) L Mean Corpuscular Volume 97 FL (80-99) 97 FL (80-99) Mean Corpuscular Hemoglobin 31.4 PG (27.0-31.0) H 32.0 PG (27.0-31.0) H Mean Corpuscular Hemoglobin Concent 32.3 G/DL (32.0-36.0) 33.1 G/DL (32.0-36.0) Red Cell Distribution Width 14.1 % (11.6-14.8) 14.1 % (11.6-14.8) Platelet Count 88 K/UL (150-450) L 104 K/UL (150-450) L Mean Platelet Volume 7.6 FL (6.5-10.1) 8.4 FL (6.5-10.1) Neutrophils (%) (Auto) 73.7 % (45.0-75.0) % (45.0-75.0) Lymphocytes (%) (Auto) 15.4 % (20.0-45.0) L % (20.0-45.0) Monocytes (%) (Auto) 9.8 % (1.0-10.0) % (1.0-10.0) Eosinophils (%) (Auto) 0.6 % (0.0-3.0) % (0.0-3.0) Basophils (%) (Auto) 0.5 % (0.0-2.0) % (0.0-2.0) Prothrombin Time 14.7 SEC (9.30-11.50) H Prothromb Time International Ratio 1.4 (0.9-1.1) H Activated Partial Thromboplast Time 45 SEC (23-33) H Sodium Level 142 MMOL/L (136-145) 145 MMOL/L (136-145) Potassium Level 5.0 MMOL/L (3.5-5.1) 4.5 MMOL/L (3.5-5.1) Chloride Level 108 MMOL/L (98-107) H 111 MMOL/L (98-107) H Carbon Dioxide Level 25 MMOL/L (21-32) 23 MMOL/L (21-32) Anion Gap 9 mmol/L (5-15) 11 mmol/L (5-15) Blood Urea Nitrogen 54 mg/dL (7-18) H 59 mg/dL (7-18) H Creatinine 2.5 MG/DL (0.55-1.30) H 2.0 MG/DL (0.55-1.30) H Estimat Glomerular Filtration Rate 25.3 mL/min (>60) 32.7 mL/min (>60) Glucose Level 191 MG/DL (74-106) H 132 MG/DL (74-106) H Calcium Level 8.6 MG/DL (8.5-10.1) 8.2 MG/DL (8.5-10.1) L Total Bilirubin 0.5 MG/DL (0.2-1.0) 0.5 MG/DL (0.2-1.0) Aspartate Amino Transf (AST/SGOT) 36 U/L (15-37) 39 U/L (15-37) H Alanine Aminotransferase (ALT/SGPT) 28 U/L (12-78) 29 U/L (12-78) Alkaline Phosphatase 113 U/L (46-116) 105 U/L (46-116) Troponin I 0.032 ng/mL (0.000-0.056) Total Protein 6.4 G/DL (6.4-8.2) 5.8 G/DL (6.4-8.2) L Albumin 3.0 G/DL (3.4-5.0) L 2.9 G/DL (3.4-5.0) L Globulin 3.4 g/dL 2.9 g/dL Albumin/Globulin Ratio 0.9 (1.0-2.7) L 1.0 (1.0-2.7) POC Whole Blood Glucose 150 MG/DL (74-106) H Differential Total Cells Counted 100 Neutrophils % (Manual) 80 % (45-75) H Lymphocytes % (Manual) 10 % (20-45) L Monocytes % (Manual) 9 % (1-10) Eosinophils % (Manual) 1 % (0-3) Basophils % (Manual) 0 % (0-2) Band Neutrophils 0 % (0-8) Platelet Estimate Decreased L Platelet Morphology Normal Hypochromasia 1+ Anisocytosis 1+ Uric Acid 7.8 MG/DL (2.6-7.2) H Phosphorus Level 4.4 MG/DL (2.5-4.9) Magnesium Level 2.2 MG/DL (1.8-2.4) Reticulocyte Count 0.7 % (0.5-2.0) PTT Mixing Study Pending APTT Patient/Control Mix Pending Mix PTT Incubation Time Pending Mix PTT Normal/Saline 1:1 Immediate Pending Thrombin Time Normal Plasma Pending Hemoglobin A1c 5.8 % (4.3-6.0) Iron Level 13 ug/dL (50-175) L Total Iron Binding Capacity 176 ug/dL (250-450) L Percent Iron Saturation 7 % (15-50) L Unsaturated Iron Binding 163 ug/dL (112-346) Ferritin 386 NG/ML (8-388) Lactate Dehydrogenase 302 U/L (81-234) H Carcinoembryonic Antigen Pending Vitamin B12 Level 692 PG/ML (193-986) Folate 8.3 NG/ML (8.6-58.9) L Thyroid Stimulating Hormone (TSH) 3.254 uiU/mL (0.358-3.740) Test 01/11/20 10:30 01/11/20 11:50 Urine Color Yellow Urine Appearance Cloudy Urine pH 5 (4.5-8.0) Urine Specific Parsons 1.015 (1.005-1.035) Urine Protein 3+ (NEGATIVE) H Urine Glucose (UA) Negative (NEGATIVE) Urine Ketones Negative (NEGATIVE) Urine Blood 3+ (NEGATIVE) H Urine Nitrite Positive (NEGATIVE) H Urine Bilirubin Negative (NEGATIVE) Urine Urobilinogen Normal MG/DL (0.0-1.0) Urine Leukocyte Esterase 3+ (NEGATIVE) H Urine RBC 2-4 /HPF (0 - 0) H Urine WBC Tntc /HPF (0 - 0) H Urine Squamous Epithelial Cells Occasional /LPF Urine Bacteria Many /HPF (NONE) H Urine Random Sodium 18 mmol/L (20-110) L POC Whole Blood Glucose 168 MG/DL (74-106) H Microbiology Date/Time Source Procedure Growth Status 01/10/20 21:30 Rectal Mucosa Received 01/10/20 20:04 Nasopharynx SARS-CoV-2 RdRp Gene Assay - Final Complete Edwardo Wilhelm MD Jan 11, 2020 15:05
--- NOTE | 2020-01-11 15:16 | Diagnostic Imaging Report ---
Indication: Abdominal pain, abnormal renal function tests, anemia Technique: [place]-scale and duplex images of the upper abdomen were obtained Comparison: Renal ultrasound dated 04/11/2017 Findings: Exam is limited due to history of recent hip fracture, contracture, inability to mobilize, considerable overlying bowel gas Gallbladder is unremarkable, without stones, wall thickening, nor pericholecystic fluid. Images somewhat unusual in appearance, appearing considerably folded Sonographic Roque's sign is negative. Common bile duct measures 8 mm in diameter. No intrahepatic biliary ductal dilatation. Liver demonstrates normal echogenicity, no focal abnormality. It is reportedly a transplant liver Portal vein and hepatic veins are patent. Pancreas is obscured by bowel gas. The spleen is mildly enlarged, measuring 13.9 cm long axis dimension there is a left renal allograft. This measures 9.3 cm in length. The intrarenal arteries demonstrate somewhat low systolic velocities and elevated resistive indices which measured between 0.8 and 1. A stent is seen within the bladder. The [place] kidneys are atrophic and echogenic, both demonstrating cysts. An old right renal allograft is barely visible. Non-aneurysmal abdominal aorta . Impression: Unremarkable appearing transplant liver Negative for gallstones. There is mild ectasia of the common bile duct. This may be baseline for this patient or could indicate downstream obstruction. Correlate with liver function tests Mild splenomegaly High resistive indices and low intrarenal systolic velocities in left renal allograft. Intrinsic renal disease possible. Correlate with renal function tests Stent seen within the bladder. No definite allograft hydronephrosis Atrophic bilateral [place] kidneys and right old transplant Incidental finding of bilateral renal cysts
[2020-01-11 16:00] VITALS: BP 114/99
--- NOTE | 2020-01-11 16:15 | Consultation ---
DATE OF CONSULTATION: 01/11/2020 CARDIOLOGY CONSULTATION CONSULTING PHYSICIAN: Edwardo Wilhelm MD REFERRING PHYSICIAN: Gicaomo Snyder DO REASON FOR CONSULTATION: Management of hypertension, atrial fibrillation, and preoperative clearance. HISTORY OF PRESENT ILLNESS: Patient is a 74-year-old gentleman with history of hypertension, diabetes, chronic kidney disease as well as history of chronic atrial fibrillation on Eliquis as well as history of liver and kidney transplant, who was brought to nursing facility for evaluation of the femur fracture. Patient reported fell out of his wheelchair on his left side and imaging of left hip showed comminuted and displaced intertrochanteric left femur fracture. Patient also had abrasion of the left ear. Patient is a very poor historian admitted and a Cardiology consultation was obtained for further evaluation. REVIEW OF SYSTEMS: Negative other than what was mentioned in the history of present illness. PAST MEDICAL HISTORY: 1. Hypertension. 2. Atrial fibrillation. 3. Aortic valve replacement. 4. History of liver and kidney transplant. 5. History of pacemaker placement. PHYSICAL EXAMINATION: VITAL SIGNS: Show blood pressure of 116/75, pulse 79, respirations 18, temperature 98.5. HEAD AND NECK: Showed no JVD. LUNGS: Coarse rhonchi. CARDIOVASCULAR: Shows regular S1 and S2 with no gallop. Pacemaker is in left subclavian. The sternotomy scar is intact. ABDOMEN: Soft. EXTREMITIES: No pitting edema. Has left hip fracture. LABORATORY AND DIAGNOSTIC DATA: Labs show white count 10.4, hemoglobin 7.8, hematocrit of 23.2, and platelet count of 104. Sodium 135, potassium 4.4, BUN of , creatinine 2.0, glucose of 132. His first troponin is negative. ASSESSMENT AND PLAN: 1. Atrial fibrillation. The rate is currently controlled on Coreg 12.5 mg b.i.d. and is on anticoagulation with Eliquis 2.5 mg b.i.d. Decision for surgery has not been made yet, but when decision is made, Eliquis needs to be discontinued in preparation for surgery. 2. Hypertension, on Coreg 12.5 b.i.d. and Procardia XL 60 mg daily. 3. Hyperlipidemia, on Lipitor. 4. Status post pacemaker. Patient does not know the brand. There is no chest x-ray. We will try to find the brand of the pacemaker for interrogation. 5. Status post aortic valve replacement. 6. Status post liver and kidney transplant, on Prograf. 7. Diabetes, on insulin. 8. Left hip fracture. We will transfer the patient to telemetry. Get EKG and echocardiogram for further evaluation. I will try to obtain patient's records at [facility]. Thank you very much for allowing me to participate in the care of this patient. Please do not hesitate to contact me for any questions regarding my evaluation. Edwardo Wilhelm M.D. DR: LIVIER JOB#: [id number] CC:
--- NOTE | 2020-01-11 17:10 | NUR ---
NURSE NOTES: Patient a/o x 4, in bed rest. Rt upper arm IV is patent. Pt transferred to room 209-1 in stable condition. Report was given to KURT Sykes.
[2020-01-11 17:15] VITALS: BP 128/60
--- NOTE | 2020-01-11 17:15 | NUR ---
NURSE NOTES: RECEIVED PATIENT A/A/OX4, ABLE TO MAKE NEEDS KNOWN WITH HYPEREXTENSION OF THE NECK. ADMITTED DUE TO LEFT FEMUR FRACTURE. AWAITING FOR ORTHO TO EVAL PATIENT. PATIENT APPEARED TO BE CONGESTED. ORAL SUCTIONED RENDERED. KEPT HOB ELEVATED FOR ADEQUATE VENTILATION. WOUND PHOTO TAKEN ON SACRAL REDNESS AND TREATED. PERSONAL BELONGINGS NOTED. PIV PATENT AND INTACT. IVF INFUSING WELL. F/C PATENT AND DRAINS WITH YELLOW COLORED URINE. VSS TAKEN AND RECORDED. KEPT BED IN THE LOWEST POSITION. SIDERAILS ARE UPX3, CALL LIGHT IS WITHIN REACH. BED BRAKES AND LOCK ENGAGED. WILL CONT TO MONITOR.
--- NOTE | 2020-01-11 17:38 | Diagnostic Imaging Report ---
Indication: Pain, trauma Technique: 2 views of the left hip, one view the pelvis Comparison: none Findings: There is a comminuted left hip intertrochanteric fracture. This is angulated. There is a penile prosthesis. The right hip is intact. The pelvis is intact Impression: Positive for left hip intertrochanteric fracture
--- NOTE | 2020-01-11 19:29 | NUR ---
NURSE HAND-OFF REPORT: Important Events on Shift:[suctioned orally; wound care phot and treatment done; kept hob elevated. ] Patient Status: high risk for aspiration precaution] Diet: [ccho med] Pending Orders: [labs] Pending Results/Labs:[in am] Pending MD notification:[] Latest Vital Signs: Temperature 98.9 , Pulse 85 , B/P 128 /60 , Respiratory Rate 19 , O2 SAT 95 , Room Air, O2 Flow Rate . Vital Sign Comment: [] EKG Rhythm: Atrial Fibrillation Rhythm change?: MD Notified?: - MD Response: Latest Willis Fall Score: 70 Fall Risk: High Risk Safety Measures: Call light Within Reach, Bed Alarm Zone 2, Side Rails Side Rails x2, Bed position Low and Locked. Fall Precautions: Yellow Socks Patient Fall Education Report given to [yessenia].
--- NOTE | 2020-01-11 19:55 | NUR ---
NURSE NOTES: Patient received from Mony OLIVER. Patient is alert and oriented x2-3. No s/s of distress. c/o pain on the left femur area will reassess later on and give PRN pain medication. IV site patent and intact on rthe Right upper arm gauge 20 running D6 1/2 NS @ 75mls/hr. Miranda catheter patent and intact for retention, draining well to gravity. Saturating well on room air. Bed in lowest position and locked, bed alarm on. Call light and bedside table within reach. Will continue plan of care. Addendum: 01/12/20 at 0028 by Jay Garcia RN A&o x 3-4
[2020-01-11 20:00] VITALS: BP 129/64
[2020-01-11] MEDS: Morphine Sulfate 2mg/ml Inj(IV/IM USE ONLY) IVP PRN (20:23)
[2020-01-11] MEDS: Atorvastatin 20mg tab ORAL SCH (20:29)
[2020-01-11] MEDS ORDERED: ZyPREXA Zydis 10mg tab ORAL SCH (21:00)
[2020-01-11] MEDS ORDERED: D5 1/2NS 1000ml IV ONE (21:05)
--- NOTE | 2020-01-11 23:21 | Psychiatry Consultation ---
Psychiatry Consultation Psychiatry Consultation Chief Complaint: Lower Extremity Injury Allergies: Coded Allergies: IODINE (Verified Allergy, Unknown, 04/10/17) METHOCARBAMOL (Verified Allergy, Unknown, 04/10/17) Medication History Scheduled Albuterol Sulfate* (Proair Hfa*), 2 PUFFS INH Q6H, (Reported) Amlodipine Besylate* (Amlodipine Besylate*), 5 MG ORAL BID, (Reported) Apixaban (Eliquis*), 5 MG ORAL BID, (Reported) Carvedilol (Coreg), 12.5 MG ORAL EVERY 12 HOURS, (Reported) Escitalopram Oxalate* (Lexapro*), 10 MG ORAL DAILY, (Reported) Escitalopram Oxalate* (Lexapro*), 10 MG ORAL DAILY, (Reported) Hydralazine Hcl* (Hydralazine Hcl*), 25 MG ORAL BID, (Reported) Mycophenolate Mofetil (Mycophenolate Mofetil), 500 MG PO BID, (Reported) Nifedipine (Nifedipine*), 60 MG ORAL DAILY, (Reported) Olanzapine (Olanzapine Odt), 10 MG PO HS, (Reported) Rosuvastatin Calcium* (Crestor*), 10 MG ORAL HS, (Reported) Tacrolimus (Tacrolimus), 1 MG PO BID, (Reported) Temazepam* (Restoril*), 15 MG ORAL BEDTIME, (Reported) Vitamin D (Vitamin D3), 2,000 UNITS ORAL DAILY, (Reported) Scheduled PRN Temazepam* (Temazepam*), 15 MG ORAL BEDTIME PRN for Insomnia, (Reported) Discontinued Medications Colchicine (Colcrys), 0.6 MG PO DAILY, (Reported) Discontinued Reason: Pt stopped taking med Dabigatran Etexilate Mesylate* (Pradaxa*), 75 MG ORAL EVERY 12 HOURS, (Reported) Discontinued Reason: Pt stopped taking med Digoxin* (Digoxin*), 125 MCG ORAL DAILY, (Reported) Discontinued Reason: Pt stopped taking med Febuxostat (Uloric), 40 MG ORAL DAILY, (Reported) Discontinued Reason: Pt stopped taking med Gabapentin* (Gabapentin*), 300 MG ORAL BEDTIME, (Reported) Discontinued Reason: Pt stopped taking med Insulin Aspart (Novolog), 100 UNIT SQ, (Reported) Discontinued Reason: Pt stopped taking med Inulin (Fiber Choice), 1.5 GM PO DAILY, (Reported) Discontinued Reason: Pt stopped taking med Mycophenolate Mofetil (Cellcept), 1,000 MG ORAL EVERY 12 HOURS, (Reported) Discontinued Reason: Pt stopped taking med Nph, Human Insulin Isophane (Humulin N), 0 SUBQ, (Reported) Discontinued Reason: Pt stopped taking med Omeprazole Magnesium (Prilosec), 20 MG ORAL BID, (Reported) Discontinued Reason: Pt stopped taking med Sennosides/Docusate Sodium (Senna-Docusate Sodium Tablet), 1 EACH PO HS, (Reported) Discontinued Reason: Pt stopped taking med Simethicone* (Simethicone*), 80 MG ORAL Q8H PRN for GAS PAIN, (Reported) Discontinued Reason: Pt stopped taking med Torsemide* (Demadex*), 10 MG PO DAILY, (Reported) Discontinued Reason: Pt stopped taking med Objective Data Height (Feet): 5 Height (Inches): 11.00 Weight (Pounds): 165 Moises Pratt MD Jan 11, 2020 23:21
[2020-01-12] VITALS: BP 145/56
[2020-01-12 04:00] VITALS: BP 133/67
[2020-01-12] MEDS: NovoLOG Insulin Flexpen SUBQ SCH ×4 (05:55→22:21)
--- NOTE | 2020-01-12 06:30 | Hematology/Onc Progress Note ---
Assessment/Plan Assessment/Plan Assessment and recs # Anemia r/o iron deficiency --> anemia panel has been noted, occult ordered --> no hemolysis is seen at this time --> transfuse as prn basis as needed --> hgb 8.2-->7.8 --> anemia panel again reviewed # Coagulopathy consistent with liver disease, has a hx of liver transplant --> us abd ordered-->reviewed --> persistent elevated inr/ptt --> likely ffp and vit k pre surgery # Intertrochanteric fracture --> ortho consulted, will need tx to [facility] ([facility]) # Fecal impaction --> stool softeners # CKD (chronic kidney disease) --> per renal # Aortic valve replacement. --> eliquis before, now changed to lovenox # History of liver and kidney transplant. --> cellcept and prograf # History of pacemaker placement. -> lovenx 40mg sq ppx dose v full dose per cards Appreciate consultation and dw Rn Subjective Constitutional: Denies: no symptoms, chills, fever, malaise, weakness, other HEENT: Denies: no symptoms, eye pain, blurred vision, tearing, double vision, ear pain, ear discharge, nose pain, nose congestion, throat pain, throat swelling, mouth pain, mouth swelling, other Cardiovascular: Denies: no symptoms, chest pain, edema, irregular heart rate, lightheadedness, palpitations, syncope, other Respiratory: Denies: no symptoms, cough, shortness of breath, SOB with excertion, SOB at rest, sputum, wheezing, other Gastrointestinal/Abdominal: Denies: no symptoms, abdomen distended, abdominal pain, black stools, tarry stools, blood in stool, constipated, diarrhea, difficulty swallowing, nausea, poor appetite, poor fluid intake, rectal bleeding, vomiting, other Genitourinary: Denies: no symptoms, burning, discharge, frequency, flank pain, hematuria, incontinence, pain, urgency, other Endocrine: Denies: no symptoms, excessive sweating, flushing, intolerance to cold, intolerance to heat, increased hunger, increased thirst, increased urine, unexplained weight gain, unexplained weight loss, other Hematologic/Lymphatic: Denies: no symptoms, anemia, easy bleeding, easy bruising, adenopathy, other Allergies: Coded Allergies: IODINE (Verified Allergy, Unknown, 3/2/18) METHOCARBAMOL (Verified Allergy, Unknown, 04/10/17) Subjective 01/11 remains confused overnight, no bleeding, eliquis stopped, on lovenox now Objective Objective Current Medications Medications (Trade) Dose Ordered Sig/Uvaldo Route PRN Reason Start Time Stop Time Status Last Admin Dose Admin Apixaban (Eliquis) 2.5 mg BID ORAL 01/11/20 09:00 04/10/20 08:59 01/11/20 09:46 Atorvastatin Calcium (Lipitor) 20 mg BEDTIME ORAL 01/11/20 21:00 04/10/20 20:59 01/11/20 20:29 Carvedilol (Coreg) 12.5 mg EVERY 12 HOURS ORAL 01/11/20 09:00 02/10/20 08:59 01/11/20 20:41 Dextrose (Dextrose 50%) 25 ml Q30M PRN IV Hypoglycemia 01/11/20 05:15 04/10/20 05:14 Dextrose (Dextrose 50%) 50 ml Q30M PRN IV Hypoglycemia 01/11/20 05:15 04/10/20 05:14 Dextrose/Sodium Chloride 1,000 ml @ 75 mls/hr [id number] IV 01/11/20 06:00 02/10/20 05:59 01/11/20 20:36 Docusate Sodium (Colace) 100 mg TWICE A DAY ORAL 01/11/20 10:00 02/10/20 09:59 01/11/20 17:54 Escitalopram Oxalate (Lexapro) 10 mg DAILY ORAL 01/11/20 09:00 02/10/20 08:59 01/11/20 09:44 Folic Acid (Folate) 1 mg DAILY ORAL 01/11/20 13:30 02/10/20 13:29 01/11/20 13:43 Hydralazine HCl (Apresoline) 25 mg Q4H PRN ORAL bp over 160 syst 01/11/20 10:00 04/10/20 09:59 Insulin Aspart (NovoLOG) BEFORE MEALS AND HS SUBQ 01/11/20 06:30 04/10/20 06:29 01/12/20 05:55 Morphine Sulfate (Morphine Sulfate) 2 mg Q4H PRN IVP For Pain (4-10) 12/2/20 05:15 01/18/20 05:14 01/11/20 20:23 Mycophenolate Mofetil (Cellcept) 500 mg BID ORAL 01/11/20 09:00 04/10/20 08:59 01/11/20 17:54 Nifedipine (Procardia XL) 60 mg DAILY ORAL 01/11/20 09:09 02/10/20 09:08 Olanzapine (ZyPREXA Zydis) 10 mg BEDTIME ORAL 01/11/20 21:00 02/25/20 20:59 01/11/20 20:30 Pantoprazole (Protonix) 40 mg DAILY ORAL 01/11/20 10:00 02/10/20 09:59 01/11/20 11:02 Tacrolimus (Prograf) 1 mg BID ORAL 01/11/20 09:00 04/10/20 08:59 01/11/20 17:54 Temazepam (Restoril) 15 mg BEDTIME ORAL 01/11/20 21:00 01/18/20 20:59 01/11/20 20:29 Last 24 Hour Vital Signs Date Time Temp Pulse Resp B/P (MAP) Pulse Ox O2 Delivery O2 Flow Rate FiO2 01/12/20 04:00 72 01/12/20 00:00 78 01/12/20 00:00 98.1 78 24 145/56 (85) 97 01/11/20 21:00 Room Air 01/11/20 20:41 85 129/64 01/11/20 20:00 92 01/11/20 20:00 98.9 88 24 129/64 (85) 95 01/11/20 17:15 98.9 85 19 128/60 (82) 95 01/11/20 16:00 98.4 82 16 114/99 (104) 94 01/11/20 12:00 98.5 79 16 116/75 (89) 93 01/11/20 09:09 81 109/67 01/11/20 09:00 109/67 01/11/20 09:00 81 109/67 01/11/20 09:00 81 109/67 01/11/20 09:00 Room Air 01/11/20 08:00 98.4 81 16 109/67 (81) 96 01/11/20 05:00 98.4 16 113/83 (93) 93 12/1/20 23:19 97.1 76 18 138/62 (87) 98 01/10/20 23:18 Room Air 01/10/20 22:40 98.3 73 18 114/84 100 Room Air 01/10/20 22:40 70 18 Room Air 01/10/20 21:30 98.2 70 18 114/57 96 Room Air 01/10/20 21:08 98.2 01/10/20 19:40 98.2 68 16 112/64 (80) 98 Room Air Intake and Output 01/11/20 01/12/20 19:00 07:00 Intake Total 580 ml Output Total 300 ml Balance 280 ml Intake Oral 100 ml IV Total 480 ml Output Urine Total 300 ml Labs Test 01/10/20 20:20 01/11/20 06:13 01/11/20 09:40 01/11/20 09:48 White Blood Count 10.8 K/UL (4.8-10.8) 10.4 K/UL (4.8-10.8) Red Blood Count 2.57 M/UL (4.70-6.10) 2.45 M/UL (4.70-6.10) Hemoglobin 8.1 G/DL (14.2-18.0) 7.8 G/DL (14.2-18.0) Hematocrit 25.0 % (42.0-52.0) 23.7 % (42.0-52.0) Mean Corpuscular Volume 97 FL (80-99) 97 FL (80-99) Mean Corpuscular Hemoglobin 31.4 PG (27.0-31.0) 32.0 PG (27.0-31.0) Mean Corpuscular Hemoglobin Concent 32.3 G/DL (32.0-36.0) 33.1 G/DL (32.0-36.0) Red Cell Distribution Width 14.1 % (11.6-14.8) 14.1 % (11.6-14.8) Platelet Count 88 K/UL (150-450) 104 K/UL (150-450) Mean Platelet Volume 7.6 FL (6.5-10.1) 8.4 FL (6.5-10.1) Neutrophils (%) (Auto) 73.7 % (45.0-75.0) % (45.0-75.0) Lymphocytes (%) (Auto) 15.4 % (20.0-45.0) % (20.0-45.0) Monocytes (%) (Auto) 9.8 % (1.0-10.0) % (1.0-10.0) Eosinophils (%) (Auto) 0.6 % (0.0-3.0) % (0.0-3.0) Basophils (%) (Auto) 0.5 % (0.0-2.0) % (0.0-2.0) Prothrombin Time 14.7 SEC (9.30-11.50) Prothromb Time International Ratio 1.4 (0.9-1.1) Activated Partial Thromboplast Time 45 SEC (23-33) Sodium Level 142 MMOL/L (136-145) 145 MMOL/L (136-145) Potassium Level 5.0 MMOL/L (3.5-5.1) 4.5 MMOL/L (3.5-5.1) Chloride Level 108 MMOL/L (98-107) 111 MMOL/L (98-107) Carbon Dioxide Level 25 MMOL/L (21-32) 23 MMOL/L (21-32) Anion Gap 9 mmol/L (5-15) 11 mmol/L (5-15) Blood Urea Nitrogen 54 mg/dL (7-18) 59 mg/dL (7-18) Creatinine 2.5 MG/DL (0.55-1.30) 2.0 MG/DL (0.55-1.30) Estimat Glomerular Filtration Rate 25.3 mL/min (>60) 32.7 mL/min (>60) Glucose Level 191 MG/DL (74-106) 132 MG/DL (74-106) Calcium Level 8.6 MG/DL (8.5-10.1) 8.2 MG/DL (8.5-10.1) Total Bilirubin 0.5 MG/DL (0.2-1.0) 0.5 MG/DL (0.2-1.0) Aspartate Amino Transf (AST/SGOT) 36 U/L (15-37) 39 U/L (15-37) Alanine Aminotransferase (ALT/SGPT) 28 U/L (12-78) 29 U/L (12-78) Alkaline Phosphatase 113 U/L (46-116) 105 U/L (46-116) Troponin I 0.032 ng/mL (0.000-0.056) Total Protein 6.4 G/DL (6.4-8.2) 5.8 G/DL (6.4-8.2) Albumin 3.0 G/DL (3.4-5.0) 2.9 G/DL (3.4-5.0) Globulin 3.4 g/dL 2.9 g/dL Albumin/Globulin Ratio 0.9 (1.0-2.7) 1.0 (1.0-2.7) POC Whole Blood Glucose 150 MG/DL (74-106) Differential Total Cells Counted 100 Neutrophils % (Manual) 80 % (45-75) Lymphocytes % (Manual) 10 % (20-45) Monocytes % (Manual) 9 % (1-10) Eosinophils % (Manual) 1 % (0-3) Basophils % (Manual) 0 % (0-2) Band Neutrophils 0 % (0-8) Platelet Estimate Decreased Platelet Morphology Normal Hypochromasia 1+ Anisocytosis 1+ Uric Acid 7.8 MG/DL (2.6-7.2) Phosphorus Level 4.4 MG/DL (2.5-4.9) Magnesium Level 2.2 MG/DL (1.8-2.4) Reticulocyte Count 0.7 % (0.5-2.0) Hemoglobin A1c 5.8 % (4.3-6.0) Iron Level 13 ug/dL (50-175) Total Iron Binding Capacity 176 ug/dL (250-450) Percent Iron Saturation 7 % (15-50) Unsaturated Iron Binding 163 ug/dL (112-346) Ferritin 386 NG/ML (8-388) Lactate Dehydrogenase 302 U/L (81-234) Vitamin B12 Level 692 PG/ML (193-986) Folate 8.3 NG/ML (8.6-58.9) Thyroid Stimulating Hormone (TSH) 3.254 uiU/mL (0.358-3.740) Test 01/11/20 10:30 01/11/20 11:50 01/11/20 16:33 01/12/20 05:51 Urine Color Yellow Urine Appearance Cloudy Urine pH 5 (4.5-8.0) Urine Specific [place] 1.015 (1.005-1.035) Urine Protein 3+ (NEGATIVE) Urine Glucose (UA) Negative (NEGATIVE) Urine Ketones Negative (NEGATIVE) Urine Blood 3+ (NEGATIVE) Urine Nitrite Positive (NEGATIVE) Urine Bilirubin Negative (NEGATIVE) Urine Urobilinogen Normal MG/DL (0.0-1.0) Urine Leukocyte Esterase 3+ (NEGATIVE) Urine RBC 2-4 /HPF (0 - 0) Urine WBC Tntc /HPF (0 - 0) Urine Squamous Epithelial Cells Occasional /LPF Urine Bacteria Many /HPF (NONE) Urine Random Sodium 18 mmol/L (20-110) POC Whole Blood Glucose 168 MG/DL (74-106) 141 MG/DL (74-106) 226 MG/DL (74-106) Height (Feet): 5 Height (Inches): 11.00 Weight (Pounds): 165 Objective Physical Exam General: Awake and alert, no acute distress HEENT: NC/AT. No scalp or face hematomas, lacerations or abrasions Cardiovascular: Irregularly irregular rhythm. Normal rate. Resp: Normal work of breathing. No cough, wheezing or crackles appreciated Abdomen: Abdomen is soft, nondistended. Nontender Skin: Intact. Abrasion over the left earlobe. MSK: Normal tone and bulk. Deformity over the left pelvis Neuro: Awake and alert. At times responds appropriately but is a poor historian Chuy Jade MD Jan 12, 2020 06:30
--- NOTE | 2020-01-12 07:00 | NUR ---
NURSE NOTES: Notified Dr. Snyder and Dr. Madden for patient's latest H&H. Ordered for 2 units PRBCs.
[2020-01-12 07:17] LABS: HEMATOCRIT 19.9 % (42.0-52.0); MEAN CORPUSCULAR VOLUME 94 FL (80-99); PLATELET COUNT 95 K/UL (150-450); RED BLOOD COUNT 2.12 M/UL (4.70-6.10); RED CELL DISTRIBUTION WIDTH 15.9 % (11.6-14.8); WHITE BLOOD COUNT 6.6 K/UL (4.8-10.8)
[2020-01-12 07:21] LABS: HEMOGLOBIN 6.7 G/DL (14.2-18.0)
[2020-01-12 08:00] VITALS: BP 114/64
[2020-01-12 08:05] LABS: ALBUMIN 2.5 G/DL (3.4-5.0); ALBUMIN/GLOBULIN RATIO 0.8 (1.0-2.7); BILIRUBIN,TOTAL 0.4 MG/DL (0.2-1.0); CALCIUM 8.1 MG/DL (8.5-10.1); CREATININE 2.1 MG/DL (0.55-1.30); POTASSIUM 4.2 MMOL/L (3.5-5.1)
--- NOTE | 2020-01-12 08:13 | NUR ---
NURSE HAND-OFF REPORT: Important Events on Shift:[None] Patient Status: [FC] Diet: [[facility] MED] Pending Orders: [] Pending Results/Labs:[] Pending MD notification:[Notified Dr. Madden and Dr Snyder of patient's H&H] Latest Vital Signs: Temperature 98.0 , Pulse 70 , B/P 133 /67 , Respiratory Rate 24 , O2 SAT 97 , Room Air, O2 Flow Rate . Vital Sign Comment: [] EKG Rhythm: SR c BBB Rhythm change?: N MD Notified?: - MD Response: Latest Willis Fall Score: 70 Fall Risk: High Risk Safety Measures: Call light Within Reach, Bed Alarm Zone 2, Side Rails Side Rails x2, Bed position Low and Locked. Fall Precautions: Yellow Socks Patient Fall Education Report given to [Jesús RN].
[2020-01-12 08:24] LABS: PHOSPHORUS 3.9 MG/DL (2.5-4.9)
[2020-01-12] MEDS ORDERED: Enoxaparin 40mg Inj SUBQ SCH (09:00)
--- NOTE | 2020-01-12 09:00 | NUR ---
NURSE NOTES: Dr. Chuy Jade notified hemoglobin=6.7.
[2020-01-12] MEDS: Docusate 100mg cap ORAL SCH ×3 (09:49→18:44)
[2020-01-12] MEDS: Carvedilol 12.5mg tab ORAL SCH ×2 (09:49→21:48)
[2020-01-12] MEDS: Mycophenolate 250mg cap ORAL SCH ×2 (09:50→18:44)
[2020-01-12] MEDS: D5 1/2NS 1,000 ML IV SCH (09:50)
--- NOTE | 2020-01-12 10:05 | NUR ---
PT NOTE Per Shelly Woodall. "given his multiple comorbid conditions and the risky nature of the surgery and postoperative period, I would recommend that the patient be transferred to a tertiary facility for higher level of care." Will discharge patient from PT as surgery for hip fracture not scheduled at this time, Jesús OLIVER notified.
--- NOTE | 2020-01-12 10:19 | Nephrology Progress Note ---
Assessment/Plan Problem List: (1) CKD (chronic kidney disease) (2) Diabetes (3) SOB (shortness of breath) (4) Hypoalbuminemia (5) Fecal impaction (6) Intertrochanteric fracture Assessment Intertrochanteric fracture Fecal impaction CKD (chronic kidney disease) DM HTN Plan January 11: Patient due for transfusion 2 units of packed RBCs. Serum creatinine lowering. Will decrease IV fluid to 50 cc an hour. Continue to monitor renal parameters. Continue per consultants. Discussed with MELODY Espinosa. Previously: Miranda Urine studies Anemia jacobs Adjust blood pressure medication avoid nephrotoxics 2D echocardiogram Kidney ultrasound Per orders Subjective ROS Limited/Unobtainable: No Constitutional: Reports: malaise, weakness Objective Objective Last 24 Hour Vital Signs Date Time Temp Pulse Resp B/P (MAP) Pulse Ox O2 Delivery O2 Flow Rate FiO2 01/12/20 09:49 78 114/64 01/12/20 09:49 78 114/64 01/12/20 08:00 98.4 78 22 114/64 (81) 95 01/12/20 04:00 98.0 70 24 133/67 (89) 97 01/12/20 04:00 72 01/12/20 00:00 78 01/12/20 00:00 98.1 78 24 145/56 (85) 97 01/11/20 21:00 Room Air 01/11/20 20:41 85 129/64 01/11/20 20:00 92 01/11/20 20:00 98.9 88 24 129/64 (85) 95 01/11/20 17:15 98.9 85 19 128/60 (82) 95 01/11/20 16:00 98.4 82 16 114/99 (104) 94 01/11/20 12:00 98.5 79 16 116/75 (89) 93 Intake and Output 01/11/20 01/12/20 19:00 07:00 Intake Total 580 ml Output Total 300 ml 100 ml Balance 280 ml -100 ml Intake Oral 100 ml IV Total 480 ml Output Urine Total 300 ml 100 ml Current Medications Medications (Trade) Dose Ordered Sig/Uvaldo Route PRN Reason Start Time Stop Time Status Last Admin Dose Admin Atorvastatin Calcium (Lipitor) 20 mg BEDTIME ORAL 01/11/20 21:00 04/10/20 20:59 01/11/20 20:29 Carvedilol (Coreg) 12.5 mg EVERY 12 HOURS ORAL 01/11/20 09:00 02/10/20 08:59 01/12/20 09:49 Dextrose (Dextrose 50%) 25 ml Q30M PRN IV Hypoglycemia 01/11/20 05:15 04/10/20 05:14 Dextrose (Dextrose 50%) 50 ml Q30M PRN IV Hypoglycemia 01/11/20 05:15 04/10/20 05:14 Dextrose/Sodium Chloride 1,000 ml @ 75 mls/hr [id number] IV 01/11/20 06:00 02/10/20 05:59 01/12/20 09:50 Docusate Sodium (Colace) 100 mg TWICE A DAY ORAL 01/11/20 10:00 02/10/20 09:59 01/12/20 09:49 Enoxaparin Sodium (Lovenox) 40 mg DAILY SUBQ 01/12/20 09:00 04/11/20 08:59 UNV Escitalopram Oxalate (Lexapro) 10 mg DAILY ORAL 01/11/20 09:00 02/10/20 08:59 01/12/20 09:49 Folic Acid (Folate) 1 mg DAILY ORAL 01/11/20 13:30 02/10/20 13:29 01/12/20 09:50 Hydralazine HCl (Apresoline) 25 mg Q4H PRN ORAL bp over 160 syst 01/11/20 10:00 04/10/20 09:59 Insulin Aspart (NovoLOG) BEFORE MEALS AND HS SUBQ 01/11/20 06:30 04/10/20 06:29 01/12/20 05:55 Morphine Sulfate (Morphine Sulfate) 2 mg Q4H PRN IVP For Pain (4-10) 01/11/20 05:15 01/18/20 05:14 01/11/20 20:23 Mycophenolate Mofetil (Cellcept) 500 mg BID ORAL 01/11/20 09:00 04/10/20 08:59 01/12/20 09:50 Nifedipine (Procardia XL) 60 mg DAILY ORAL 01/11/20 09:09 02/10/20 09:08 01/12/20 09:49 Olanzapine (ZyPREXA Zydis) 10 mg BEDTIME ORAL 01/11/20 21:00 02/25/20 20:59 12/2/20 20:30 Pantoprazole (Protonix) 40 mg DAILY ORAL 01/11/20 10:00 02/10/20 09:59 01/12/20 09:49 Tacrolimus (Prograf) 1 mg BID ORAL 01/11/20 09:00 04/10/20 08:59 01/12/20 09:49 Temazepam (Restoril) 15 mg BEDTIME ORAL 01/11/20 21:00 01/18/20 20:59 01/11/20 20:29 Laboratory Tests 01/11/20 10:30: Urine Color Yellow, Urine Appearance Cloudy, Urine pH 5, Urine Specific [place] 1.015, Urine Protein 3+H, Urine Glucose (UA) Negative, Urine Ketones Negative, Urine Blood 3+H, Urine Nitrite PositiveH, Urine Bilirubin Negative, Urine Urobilinogen Normal, Urine Leukocyte Esterase 3+H, Urine RBC 2-4H, Urine WBC TntcH, Urine Squamous Epithelial Cells Occasional, Urine Bacteria ManyH, Urine Random Sodium 18L 01/11/20 11:50: POC Whole Blood Glucose 168H 01/11/20 16:33: POC Whole Blood Glucose 141H 01/12/20 05:51: POC Whole Blood Glucose 226H 01/12/20 06:30: White Blood Count 6.6, Red Blood Count 2.12L, Hemoglobin 6.7*L, Hematocrit 19.9L , Mean Corpuscular Volume 94, Mean Corpuscular Hemoglobin 31.8H, Mean Corpuscular Hemoglobin Concent 33.8, Red Cell Distribution Width 15.9H, Platelet Count 95L, Mean Platelet Volume 8.4, Neutrophils (%) (Auto) , Lymphocytes (%) (Auto) , Monocytes (%) (Auto) , Eosinophils (%) (Auto) , Basophils (%) (Auto) , Neutrophils % (Manual) [Pending], Lymphocytes % (Manual) [Pending], Platelet Estimate [Pending], Platelet Morphology [Pending], Sodium Level 144, Potassium Level 4.2, Chloride Level 112H, Carbon Dioxide Level 23, Anion Gap 9, Blood Urea Nitrogen 50H, Creatinine 2.1H, Estimat Glomerular Filtration Rate 30.9, Glucose Level 224H, Uric Acid 8.0H, Calcium Level 8.1L, Phosphorus Level 3.9, Magnesium Level 2.1, Total Bilirubin 0.4, Aspartate Amino Transf (AST/SGOT) 28, Alanine Aminotransferase (ALT/SGPT) 24, Alkaline Phosphatase 90, Troponin I 0.047, C- Reactive Protein, Quantitative 21.8H, Pro-B-Type Natriuretic Peptide 7508H, Total Protein 5.8L, Albumin 2.5L, Globulin 3.3, Albumin/Globulin Ratio 0.8L Height (Feet): 5 Height (Inches): 11.00 Weight (Pounds): 165 General Appearance: lethargic Cardiovascular: normal rate Respiratory/Chest: decreased breath sounds Abdomen: distended Young Mcdonald MD Jan 12, 2020 10:19
--- NOTE | 2020-01-12 11:23 | NUR ---
TRANSFER UPDATE A PHYSICIAN MUST CALL [facility] TO PLACE THE PATIENT ON THE LIST FOR TRANSFER [facility] T: [phone]
[2020-01-12 12:00] VITALS: BP 115/64
[2020-01-12] MEDS: Morphine Sulfate 2mg/ml Inj(IV/IM USE ONLY) IVP PRN (12:08)
--- NOTE | 2020-01-12 12:14 | NUR ---
[employer] DEVELOPER NOTE SW was informed by assigned RN that pt's wants pt's brother, Dr. Simba Velásquez [phone] to make medical decision/provide consent. SW and assigned RN met w/ pt, explaining the 's wish. PT reports having two adult children as well. Pt verbally provided consent that the team can release information to his brother, Dr. Velásquez and can also make decision for him. SW left a vm to the , Leslie Didier [phone] for call back to discuss healthcare POA document.
--- NOTE | 2020-01-12 12:34 | General Progress Note ---
Subjective Constitutional: Reports: weakness Allergies: Coded Allergies: IODINE (Verified Allergy, Unknown, 04/10/17) METHOCARBAMOL (Verified Allergy, Unknown, 04/10/17) All Systems: reviewed and negative except above Subjective sleepy calm Objective Last 24 Hour Vital Signs Date Time Temp Pulse Resp B/P (MAP) Pulse Ox O2 Delivery O2 Flow Rate FiO2 01/12/20 09:49 78 114/64 01/12/20 09:49 78 114/64 01/12/20 08:00 98.4 78 22 114/64 (81) 95 01/12/20 08:00 71 01/12/20 04:00 98.0 70 24 133/67 (89) 97 01/12/20 04:00 72 01/12/20 00:00 78 01/12/20 00:00 98.1 78 24 145/56 (85) 97 01/11/20 21:00 Room Air 01/11/20 20:41 85 129/64 01/11/20 20:00 92 01/11/20 20:00 98.9 88 24 129/64 (85) 95 01/11/20 17:15 98.9 85 19 128/60 (82) 95 01/11/20 16:00 98.4 82 16 114/99 (104) 94 Intake and Output 01/11/20 01/12/20 19:00 07:00 Intake Total 580 ml Output Total 300 ml 100 ml Balance 280 ml -100 ml Intake Oral 100 ml IV Total 480 ml Output Urine Total 300 ml 100 ml Laboratory Tests 01/11/20 16:33: POC Whole Blood Glucose 141H 01/12/20 05:51: POC Whole Blood Glucose 226H 01/12/20 06:30: White Blood Count 6.6, Red Blood Count 2.12L, Hemoglobin 6.7*L, Hematocrit 19.9L , Mean Corpuscular Volume 94, Mean Corpuscular Hemoglobin 31.8H, Mean Corpuscular Hemoglobin Concent 33.8, Red Cell Distribution Width 15.9H, Platelet Count 95L, Mean Platelet Volume 8.4, Neutrophils (%) (Auto) , Lymphocytes (%) (Auto) , Monocytes (%) (Auto) , Eosinophils (%) (Auto) , Basophils (%) (Auto) , Differential Total Cells Counted 100, Neutrophils % (Manual) 80H, Lymphocytes % (Manual) 11L, Monocytes % (Manual) 9, Eosinophils % (Manual) 0, Basophils % (Manual) 0, Band Neutrophils 0, Platelet Estimate DecreasedL, Platelet Morphology Normal, Hypochromasia 1+, Anisocytosis 1+, Sodium Level 144, Potassium Level 4.2, Chloride Level 112H, Carbon Dioxide Level 23, Anion Gap 9, Blood Urea Nitrogen 50H, Creatinine 2.1H, Estimat Glomerular Filtration Rate 30.9, Glucose Level 224H, Uric Acid 8.0H, Calcium Level 8.1L, Phosphorus Level 3.9, Magnesium Level 2.1, Total Bilirubin 0.4, Aspartate Amino Transf (AST/SGOT) 28, Alanine Aminotransferase (ALT/SGPT) 24, Alkaline Phosphatase 90, Troponin I 0.047, C-Reactive Protein, Quantitative 21.8H, Pro-B-Type Natriuretic Peptide 7508H, Total Protein 5.8L, Albumin 2.5L, Globulin 3.3, Albumin/Globulin Ratio 0.8L 01/12/20 11:53: POC Whole Blood Glucose 233H Height (Feet): 5 Height (Inches): 11.00 Weight (Pounds): 165 General Appearance: lethargic EENT: normal ENT inspection Neck: normal alignment Cardiovascular: normal peripheral pulses, normal rate, regular rhythm Respiratory/Chest: chest wall non-tender, lungs clear, normal breath sounds Abdomen: normal bowel sounds, non tender, soft Extremities: normal inspection Edema: no edema noted Arm (L), no edema noted Arm (R), no edema noted Leg (L), no edema noted Leg (R), no edema noted Pedal (L), no edema noted Pedal (R), no edema noted Generalized Neurologic: motor weakness Skin: normal pigmentation, warm/dry Assessment/Plan Problem List: (1) Anemia ICD Codes: D64.9 - Anemia, unspecified SNOMED: 431070515 (2) Renal failure ICD Codes: N19 - Unspecified kidney failure SNOMED: 41047679 (3) Afib ICD Codes: I48.91 - Unspecified atrial fibrillation SNOMED: 22245326 (4) Diabetes ICD Codes: E11.9 - Type 2 diabetes mellitus without complications SNOMED: 41716483 (5) Intertrochanteric fracture ICD Codes: S72.143A - Displaced intertrochanteric fracture of unspecified femur, initial encounter for closed fracture SNOMED: 855445482 Status: unchanged Assessment/Plan: pain control pt diet transuse prn ortho cardio f/u cbc bmp am transfer to Giacomo Iyer DO Jan 12, 2020 12:34
--- NOTE | 2020-01-12 12:51 | NUR ---
TRANSFER UPDATE CALLED [facility] AND THEY CONFIRMED PATIENT WAS ON THE LIST FOR TRANSFER [facility] HAS THE NUMBER TO OUR NURSES STATION AND WILL CALL WHEN BED AVAILABLE [facility] T: [phone]
--- NOTE | 2020-01-12 15:18 | Diagnostic Imaging Report ---
Indication: Cough, Status post pacemaker Technique: One view of the chest Comparison: 04/13/2017 Findings: Interim placement of a left chest in a focal pacemaker. No pneumothorax is noted. Median sternotomy sutures are again demonstrated. Interim placement of a percutaneous aortic valve. Right arm catheter is again demonstrated. There is better aeration of the right lung. There is some atelectasis at the left lung base. Impression: Left chest pacemaker in good position. No radiographically evident complication Left basilar atelectasis Other findings as noted
--- NOTE | 2020-01-12 15:21 | Cardiac Electrophysiology PN ---
Assessment/Plan Assessment/Plan 1. Atrial fibrillation. On Coreg 12.5 mg b.i.d. and is off anticoagulation (was on Eliquis 2.5 mg b.i.d) in preparation for surgery and severe anemia. 2. Hypertension, on Coreg 12.5 b.i.d. and Procardia XL 60 mg daily. 3. Hyperlipidemia, on Lipitor. 4. S/P Biotronic VVI Pacer 2017 5. S/P Aortic dissection repair and bioprosthetic AVR 06/2005 6. 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 Diabetes, on insulin. 8. Left hip fracture. Awaiting transfer to 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 Awaiting transfer to [facility] for surgery Objective Last 24 Hour Vital Signs Date Time Temp Pulse Resp B/P (MAP) Pulse Ox O2 Delivery O2 Flow Rate FiO2 01/12/20 13:38 Room Air 01/12/20 12:38 98.4 01/12/20 12:00 89 01/12/20 09:49 78 114/64 01/12/20 09:49 78 114/64 01/12/20 08:00 98.4 78 22 114/64 (81) 95 01/12/20 08:00 71 01/12/20 04:00 98.0 70 24 133/67 (89) 97 01/12/20 04:00 72 01/12/20 00:00 78 01/12/20 00:00 98.1 78 24 145/56 (85) 97 01/11/20 21:00 Room Air 01/11/20 20:41 85 129/64 01/11/20 20:00 92 01/11/20 20:00 98.9 88 24 129/64 (85) 95 01/11/20 17:15 98.9 85 19 128/60 (82) 95 01/11/20 16:00 98.4 82 16 114/99 (104) 94 Intake and Output 01/11/20 01/12/20 19:00 07:00 Intake Total 580 ml Output Total 300 ml 100 ml Balance 280 ml -100 ml Intake Oral 100 ml IV Total 480 ml Output Urine Total 300 ml 100 ml Laboratory Tests Test 01/11/20 16:33 01/12/20 05:51 01/12/20 06:30 01/12/20 11:53 POC Whole Blood Glucose 141 MG/DL (74-106) H 226 MG/DL (74-106) H 233 MG/DL (74-106) H White Blood Count 6.6 K/UL (4.8-10.8) Red Blood Count 2.12 M/UL (4.70-6.10) L Hemoglobin 6.7 G/DL (14.2-18.0) *L Hematocrit 19.9 % (42.0-52.0) L Mean Corpuscular Volume 94 FL (80-99) Mean Corpuscular Hemoglobin 31.8 PG (27.0-31.0) H Mean Corpuscular Hemoglobin Concent 33.8 G/DL (32.0-36.0) Red Cell Distribution Width 15.9 % (11.6-14.8) H Platelet Count 95 K/UL (150-450) L Mean Platelet Volume 8.4 FL (6.5-10.1) Neutrophils (%) (Auto) % (45.0-75.0) Lymphocytes (%) (Auto) % (20.0-45.0) Monocytes (%) (Auto) % (1.0-10.0) Eosinophils (%) (Auto) % (0.0-3.0) Basophils (%) (Auto) % (0.0-2.0) Differential Total Cells Counted 100 Neutrophils % (Manual) 80 % (45-75) H Lymphocytes % (Manual) 11 % (20-45) L Monocytes % (Manual) 9 % (1-10) Eosinophils % (Manual) 0 % (0-3) Basophils % (Manual) 0 % (0-2) Band Neutrophils 0 % (0-8) Platelet Estimate Decreased L Platelet Morphology Normal Hypochromasia 1+ Anisocytosis 1+ Sodium Level 144 MMOL/L (136-145) Potassium Level 4.2 MMOL/L (3.5-5.1) Chloride Level 112 MMOL/L (98-107) H Carbon Dioxide Level 23 MMOL/L (21-32) Anion Gap 9 mmol/L (5-15) Blood Urea Nitrogen 50 mg/dL (7-18) H Creatinine 2.1 MG/DL (0.55-1.30) H Estimat Glomerular Filtration Rate 30.9 mL/min (>60) Glucose Level 224 MG/DL (74-106) H Uric Acid 8.0 MG/DL (2.6-7.2) H Calcium Level 8.1 MG/DL (8.5-10.1) L Phosphorus Level 3.9 MG/DL (2.5-4.9) Magnesium Level 2.1 MG/DL (1.8-2.4) Total Bilirubin 0.4 MG/DL (0.2-1.0) Aspartate Amino Transf (AST/SGOT) 28 U/L (15-37) Alanine Aminotransferase (ALT/SGPT) 24 U/L (12-78) Alkaline Phosphatase 90 U/L (46-116) Troponin I 0.047 ng/mL (0.000-0.056) C-Reactive Protein, Quantitative 21.8 mg/dL (0.00-0.90) H Pro-B-Type Natriuretic Peptide 7508 pg/mL (0-125) H Total Protein 5.8 G/DL (6.4-8.2) L Albumin 2.5 G/DL (3.4-5.0) L Globulin 3.3 g/dL Albumin/Globulin Ratio 0.8 (1.0-2.7) L Microbiology Date/Time Source Procedure Growth Status 01/11/20 10:30 Urine,Clean Catch Urine Culture - Preliminary Gram Negative Vicente Resulted 01/10/20 21:30 Rectal Mucosa Received 01/10/20 21:30 Nasal Nares MRSA Culture - Final NO METHICILLIN RESISTANT STAPH AUREUS... Complete 01/10/20 20:04 Nasopharynx SARS-CoV-2 RdRp Gene Assay - Final Complete Objective HEAD AND NECK: no JVD. LUNGS: Coarse rhonchi. CARDIOVASCULAR: regular S1 and S2 with no gallop. Pacemaker is in left subclavian. The sternotomy scar is intact. ABDOMEN: Soft. EXTREMITIES: No pitting edema. Has left hip fracture. Edwardo Wilhelm MD Jan 12, 2020 15:21
[2020-01-12 16:00] VITALS: BP 139/65
[2020-01-12] MEDS ORDERED: NIFEDIPINE ER60 M3 ORAL (18:41)
[2020-01-12 20:00] VITALS: BP 124/77
--- NOTE | 2020-01-12 20:00 | NUR ---
NURSE NOTES: Notified Nnamdi of pt desatting and needing non-rebreather mask, HTN, and fever. Received new order for non-rebreather mask and tylenol. Will continue to monitor closely.
--- NOTE | 2020-01-12 20:18 | NUR ---
NURSE HAND-OFF REPORT: Important Events on Shift:Patient's hemoglobin=6/7. transfused 2 units PRBC's, blood pressure is now elevated, patient has a fever, patient's O2Sat went down to 81, called RT, patient placed with Venturi Mask at 30 percent, then to 40 percent, still low 90's, patient switched to non-rebreather mask, O2 Sat is 95%, notified Dr. Giacomo Snyder and Dr. Oswaldo Coto added as consult. Endorsing Marlys Brown RN, to call Dr. Oswaldo Coto, endorsed to ask for tylenol for fever with Dr. Giacomo Snyder, endorsing OB stool collection, no stool today. Patient still waiting for Bed at [facility] (for transfer). Leslie Velásquez () said that the brother Dr. Cottrell Didier could sign for consent and make medical decision. Contacted Chargem[employer] Analyst to begin Advance Directive process, Sports Editor came to room and we asked the patient if it was OK. Andrea Velásquez said, "Yes." Patient has a fever, endorsing Albertina Brown RN to call Dr. Giacomo Snyder for tylenol. Patient Status: Stable Diet: CCHO medium, 1:1, crush medications. Pending Orders: EKG, Albertina Brown RN will follow up. Pending Results/Labs:CBC, CMP, Mg. Phos., CRP, BNP. Pending MD notification:Dr. Oswaldo Coto to be contacted by Albertina Brown RN for update on respiratory history today. Latest Vital Signs: Temperature 98.7 , Pulse 82 , B/P 139 /65 , Respiratory Rate 20 , O2 SAT 97 , Room Air, O2 Flow Rate . Vital Sign Comment: Stable, elevated blood pressure, reported to Dr. Giacomo Snyder. EKG Rhythm: SR c BBB, 1AVB Rhythm change?: N MD Notified?: Y - MD Response: Latest Willis Fall Score: 70 Fall Risk: High Risk Safety Measures: Call light Within Reach, Bed Alarm Zone 2, Side Rails Side Rails x2, Bed position Low and Locked. Fall Precautions: Yellow Socks Patient Fall Education Report given to Albertina Brown RN.
[2020-01-12] MEDS: Benztropine 1mg tab ORAL SCH (21:45)
[2020-01-12] MEDS: ZyPREXA Zydis 5mg tab ORAL SCH (21:47)
[2020-01-12] MEDS: Atorvastatin 20mg tab ORAL SCH (21:49)
[2020-01-13] VITALS: BP 114/66
--- NOTE | 2020-01-13 | Consultation ---
DATE OF CONSULTATION: 01/12/2020 CONSULTING PHYSICIAN: Moises Pratt MD HISTORY OF PRESENT ILLNESS: Patient is a 74-year-old male with a history of multiple medical comorbidities, who has seen admitted due to left femur fracture. Patient has a history of anxiety disorder, dementia, diabetes, anemia, renal failure. Patient constantly attempting to come out of the bed and is confused and has episodes of agitation. PAST PSYCHIATRIC HISTORY: Anxiety disorder, dementia. PAST MEDICAL HISTORY: As above. ALLERGIES: No known drug allergies. SUBSTANCE ABUSE HISTORY: No known history of illicit drug use or alcohol. MENTAL STATUS EXAMINATION: Patient is alert, oriented times self, place. Some insight into the situation. He did not know the date. Mood is the agitated. Affect is blunted, congruent with mood. Thought process is concrete. Thought content, there is no suicidal or homicidal ideation. Cognition is impaired. Insight and judgment is impaired. ASSESSMENT: 1. Cognitive impairment. 2. Anxiety disorder. PLAN: 1. Continue to follow and readjust the medications. 2. Discussed with the nurse. Moises Prtat M.D. DR: CJ JOB#: [id number] CC:
[2020-01-13 04:00] VITALS: BP 124/83
[2020-01-13] MEDS: D5 1/2NS 1,000 ML IV SCH (05:01)
[2020-01-13] MEDS: NovoLOG Insulin Flexpen SUBQ SCH ×4 (06:35→21:53)
[2020-01-13 07:07] LABS: BASOPHILS % (AUTO) 0.5 % (0.0-2.0); EOSINOPHILS % (AUTO) 0.1 % (0.0-3.0); HEMATOCRIT 33.7 % (42.0-52.0); HEMOGLOBIN 11.1 G/DL (14.2-18.0); LYMPHOCYTES % (AUTO) 8.3 % (20.0-45.0); MEAN CORPUSCULAR VOLUME 94 FL (80-99); MONOCYTES % (AUTO) 6.6 % (1.0-10.0); NEUTROPHILS % (AUTO) 84.6 % (45.0-75.0); PLATELET COUNT 130 K/UL (150-450); RED BLOOD COUNT 3.57 M/UL (4.70-6.10); RED CELL DISTRIBUTION WIDTH 16.8 % (11.6-14.8); WHITE BLOOD COUNT 15.2 K/UL (4.8-10.8)
[2020-01-13 07:27] LABS: ALBUMIN 2.7 G/DL (3.4-5.0); ALBUMIN/GLOBULIN RATIO 0.7 (1.0-2.7); BILIRUBIN,TOTAL 0.8 MG/DL (0.2-1.0); CALCIUM 8.8 MG/DL (8.5-10.1); CREATININE 2.2 MG/DL (0.55-1.30); PHOSPHORUS 3.8 MG/DL (2.5-4.9); POTASSIUM 4.6 MMOL/L (3.5-5.1)
--- NOTE | 2020-01-13 07:31 | NUR ---
NURSE HAND-OFF REPORT: Important Events on Shift: Pt had sudden onset of Afib/ Aflutter sustained. Pt is asymptmatic. Will endorse to AM shift to notify MD. Patient Status: stable Diet: CCHO M, crush meds, 1:1 feed Pending Orders: EKG Pending Results/Labs: none Pending MD notification: afib/aflutter Latest Vital Signs: Temperature 97.7 , Pulse 95 , B/P 124 /83 , Respiratory Rate 22 , O2 SAT 95 , Non-Rebreather, O2 Flow Rate 10.0 . Vital Sign Comment: EKG Rhythm: Sinus Rhythm Rhythm change?: N MD Notified?: Y  Response: Latest Willis Fall Score: 85 Fall Risk: High Risk Safety Measures: Call light Within Reach, Bed Alarm Zone 2, Side Rails Side Rails x3, Bed position Low and Locked. Fall Precautions: YES Yellow Socks YES Patient Fall Education YES Report given to Vicenta Ho RN.
--- NOTE | 2020-01-13 07:48 | NUR ---
CASE MANAGEMENT:REVIEW 01/13/20 SI: AFIB. LT HIP FRACTURE *NEW RESPIRATORY DISTRESS 97.7 95 22 124/83 95% ON 10L NRB WBC+15.2 BUN+59 CR+2.2 BNP+58819 IS: COGENTIN PO QHS ZYPREXA PO QHS FOLATE PO QD PROTONIX PO QD PROCARDIA XL PO QD CELLCEPT PO BID PROGRAF PO BID LEXAPRO PO QD COREG PO Q12 IVF@50/HR IV MORPHINE Q4HRS PRN : TELEMETRY STATUS DCP: FROM [facility].....TRANSFER TO [facility] UNDER CARE OF DR GUARDADO PLAN: AWAITING TRANSFER TO [facility] FOR SURGERY BY DR GUARDADO TRANSFUSED YESTERDAY
[2020-01-13 08:00] VITALS: BP 100/69
--- NOTE | 2020-01-13 08:45 | Consultation ---
DATE OF CONSULTATION: 01/13/2020 PULMONARY CONSULTATION CONSULTING PHYSICIAN: Oswaldo Coto MD HISTORY OF PRESENT ILLNESS: This is a 74-year-old male with a history of hypertension, diabetes mellitus, CKD, and atrial fibrillation as well as a previous history of liver and kidney transplant, was brought to the hospital with a femur fracture. Patient apparently fell out of his wheelchair. He is a senior care resident. Patient is admitted to the hospital for management and care. Patient was found to have a left hip comminuted intertrochanteric fracture. He is noted to be a high risk for surgical intervention and he is currently also on Eliquis. He was seen by Orthopedics and a higher level of care transfer was recommended. Overnight, the patient was found to be hypoxic as well. This morning, he is noted to be on nonrebreather mask with 100% FiO2 saturating 97%. He has also been acutely anemic with a hemoglobin yesterday of 6.7 and a creatinine of 2.1 also noted. Patient underwent imaging studies and is noted to have left basilar atelectasis and a left pacemaker. REVIEW OF SYSTEMS: Unreliable. PAST MEDICAL HISTORY: Liver and kidney transplant, hypertension, diabetes mellitus, prior aortic valve replacement, permanent pacemaker, CKD, atrial fibrillation, acute anemia, hypertension, diabetes mellitus. CURRENT MEDICATIONS: Include Lipitor, Cogentin, Coreg, Colace, Lexapro, folic acid, morphine, CellCept. PHYSICAL EXAMINATION: GENERAL: Reveals a 74-year-old male. HEENT: Unremarkable. CHEST: Clear breath sounds bilaterally with few basilar crackles. HEART: Sounds are normal. ABDOMEN: Soft. VITAL SIGNS: Blood pressure is 114/60, heart rate 84, respirations 18, O2 saturation 99% on nonrebreather mask. LABORATORY DATA: Lab testing as discussed above. IMAGING: X-ray chest as discussed above. IMPRESSION: 1. Atelectasis. 2. Hypoxemia. 3. Anemia. 4. Hip fracture. 5. Liver and kidney transplant. 6. Immunosuppression. 7. Hypertension. 8. CKD. 9. Diabetes mellitus. DISCUSSION: The concern is that of a pulmonary embolism. Given his risk factors, I would order a V/Q scan as he cannot have a CT angio. We will recommend anticoagulation if cleared by Hematology. I note acute anemia as well. He may be a candidate for IVC filter if he is found to have a PE. We will follow carefully. Oswaldo Coto M.D. DR: MARIANA JOB#: [id number] CC:
--- NOTE | 2020-01-13 08:56 | NUR ---
NURSE NOTES: Report received from Letha Brown RN. Patient seen on rounds, awake and up in bed, on O2 at 10lpm via NRM with no signs of distress. Nurse reports patient had low grade fever last night, relieved with Tylenol. Also had 1 episode of Afib/Alutter, asymptomatic. Will notify Dr. Wilhelm. PIV on right upper arm patent and infusing IVF as ordered. Miranda secured and draining well. Bed low and locked, siderails up x2, call light placed within reach and instructed to call nurse for assistance. Will continue to monitor.
--- NOTE | 2020-01-13 09:00 | Hematology/Onc Progress Note ---
Assessment/Plan Assessment/Plan Assessment and recs # Anemia r/o iron deficiency --> anemia panel has been noted, occult ordered --> no hemolysis is seen at this time --> transfuse as prn basis as needed --> hgb 8.2-->7.8--.11 --> anemia panel again reviewed # Coagulopathy consistent with liver disease, has a hx of liver transplant --> us abd ordered-->reviewed --> persistent elevated inr/ptt --> likely ffp and vit k pre surgery # Leukocytosis is likely related to infection/trauma --> wbc 14 --> OFF abx # Intertrochanteric fracture --> ortho consulted, will need tx to [facility] ([facility]) # Fecal impaction --> stool softeners # CKD (chronic kidney disease) --> per renal # Aortic valve replacement. --> eliquis before, now changed to lovenox # History of liver and kidney transplant. --> cellcept and prograf # History of pacemaker placement. -> before lovenox-->Scds # Disop transfer to higher level of care Appreciate consultation and dw Rn Subjective Constitutional: Denies: no symptoms, chills, fever, malaise, weakness, other HEENT: Denies: no symptoms, eye pain, blurred vision, tearing, double vision, ear pain, ear discharge, nose pain, nose congestion, throat pain, throat swel ling, mouth pain, mouth swelling, other Respiratory: Denies: no symptoms, cough, shortness of breath, SOB with excertion, SOB at rest, sputum, wheezing, other Gastrointestinal/Abdominal: Denies: no symptoms, abdomen distended, abdominal pain, black stools, tarry stools, blood in stool, constipated, diarrhea, difficulty swallowing, nausea, poor appetite, poor fluid intake, rectal bleeding, vomiting, other Genitourinary: Denies: no symptoms, burning, discharge, frequency, flank pain, hematuria, incontinence, pain, urgency, other Endocrine: Denies: no symptoms, excessive sweating, flushing, intolerance to cold, intolerance to heat, increased hunger, increased thirst, increased urine, unexplained weight gain, unexplained weight loss, other Hematologic/Lymphatic: Denies: no symptoms, anemia, easy bleeding, easy bruising, adenopathy, other Allergies: Coded Allergies: IODINE (Verified Allergy, Unknown, 04/10/17) METHOCARBAMOL (Verified Allergy, Unknown, 04/10/17) Subjective 01/11 remains confused overnight, no bleeding, eliquis stopped, on lovenox now 01/12 is to get v/q scan, seen by pulm, hgb markedly improved, scds Objective Objective Current Medications Medications (Trade) Dose Ordered Sig/Uvaldo Route PRN Reason Start Time Stop Time Status Last Admin Dose Admin Acetaminophen (Tylenol) 650 mg Q4H PRN ORAL Mild Pain 0-4/Temp >100.4 01/13/20 07:15 02/12/20 07:14 Atorvastatin Calcium (Lipitor) 20 mg BEDTIME ORAL 01/11/20 21:00 04/10/20 20:59 01/12/20 21:49 Benztropine Mesylate (Cogentin) 1 mg BEDTIME ORAL 01/12/20 21:00 02/11/20 20:59 01/12/20 21:45 Carvedilol (Coreg) 12.5 mg EVERY 12 HOURS ORAL 01/11/20 09:00 02/10/20 08:59 01/12/20 21:48 Dextrose (Dextrose 50%) 25 ml Q30M PRN IV Hypoglycemia 01/11/20 05:15 04/10/20 05:14 Dextrose (Dextrose 50%) 50 ml Q30M PRN IV Hypoglycemia 01/11/20 05:15 04/10/20 05:14 Dextrose/Sodium Chloride 1,000 ml @ 50 mls/hr Q20H IV 01/11/20 06:00 02/10/20 05:59 01/13/20 05:01 Docusate Sodium (Colace) 100 mg TID ORAL 01/12/20 13:00 02/10/20 09:59 01/12/20 18:44 Escitalopram Oxalate (Lexapro) 10 mg DAILY ORAL 01/11/20 09:00 02/10/20 08:59 01/12/20 09:49 Folic Acid (Folate) 1 mg DAILY ORAL 01/11/20 13:30 02/10/20 13:29 01/12/20 09:50 Hydralazine HCl (Apresoline) 25 mg Q4H PRN ORAL bp over 160 syst 01/11/20 10:00 3/2/21 09:59 Insulin Aspart (NovoLOG) BEFORE MEALS AND HS SUBQ 01/11/20 06:30 04/10/20 06:29 01/13/20 06:35 Morphine Sulfate (Morphine Sulfate) 2 mg Q4H PRN IVP For Pain (4-10) 01/11/20 05:15 01/18/20 05:14 01/12/20 12:08 Mycophenolate Mofetil (Cellcept) 500 mg BID ORAL 01/11/20 09:00 04/10/20 08:59 01/12/20 18:44 Nifedipine (Procardia XL) 60 mg DAILY ORAL 01/11/20 09:09 02/10/20 09:08 01/12/20 09:49 Olanzapine (ZyPREXA Zydis) 15 mg BEDTIME ORAL 01/12/20 21:00 02/26/20 20:59 01/12/20 21:47 Pantoprazole (Protonix) 40 mg DAILY ORAL 01/11/20 10:00 02/10/20 09:59 01/12/20 09:49 Tacrolimus (Prograf) 1 mg BID ORAL 01/11/20 09:00 04/10/20 08:59 01/12/20 18:44 Temazepam (Restoril) 15 mg BEDTIME ORAL 01/11/20 21:00 01/18/20 20:59 01/12/20 21:49 Last 24 Hour Vital Signs Date Time Temp Pulse Resp B/P (MAP) Pulse Ox O2 Delivery O2 Flow Rate FiO2 01/13/20 04:00 87 01/13/20 04:00 97.7 95 22 124/83 (97) 95 01/13/20 00:00 89 01/13/20 00:00 98.1 82 20 114/66 (82) 99 01/12/20 21:48 87 124/77 01/12/20 21:00 Non-Rebreather 10.0 01/12/20 20:00 89 01/12/20 20:00 99.9 87 20 124/77 (93) 97 01/12/20 16:00 82 01/12/20 16:00 98.7 78 20 139/65 (89) 97 01/12/20 13:38 Room Air 01/12/20 12:38 98.4 01/12/20 12:00 98.1 87 21 115/64 (81) 96 01/12/20 12:00 89 01/12/20 09:49 78 114/64 01/12/20 09:49 78 114/64 01/12/20 09:00 Room Air 01/12/20 08:00 98.4 78 22 114/64 (81) 95 01/12/20 08:00 71 01/12/20 04:00 98.0 70 24 133/67 (89) 97 01/12/20 04:00 72 01/12/20 00:00 78 01/12/20 00:00 98.1 78 24 145/56 (85) 97 01/11/20 21:00 Room Air 01/11/20 20:41 85 129/64 01/11/20 20:00 92 01/11/20 20:00 98.9 88 24 129/64 (85) 95 01/11/20 17:15 98.9 85 19 128/60 (82) 95 01/11/20 16:00 98.4 82 16 114/99 (104) 94 01/11/20 12:00 98.5 79 16 116/75 (89) 93 01/11/20 09:09 81 109/67 01/11/20 09:00 109/67 01/11/20 09:00 81 109/67 01/11/20 09:00 81 109/67 01/11/20 09:00 Room Air Intake and Output 01/12/20 01/13/20 19:00 07:00 Intake Total 1208.33 ml 400 ml Output Total 750 ml 600 ml Balance 458.33 ml -200 ml Intake Oral 150 ml IV Total 558.33 ml Blood Product 500 ml Other 400 ml Output Urine Total 750 ml 600 ml Labs Test 01/10/20 20:20 01/11/20 06:13 01/11/20 09:40 01/11/20 09:48 White Blood Count 10.8 K/UL (4.8-10.8) 10.4 K/UL (4.8-10.8) Red Blood Count 2.57 M/UL (4.70-6.10) 2.45 M/UL (4.70-6.10) Hemoglobin 8.1 G/DL (14.2-18.0) 7.8 G/DL (14.2-18.0) Hematocrit 25.0 % (42.0-52.0) 23.7 % (42.0-52.0) Mean Corpuscular Volume 97 FL (80-99) 97 FL (80-99) Mean Corpuscular Hemoglobin 31.4 PG (27.0-31.0) 32.0 PG (27.0-31.0) Mean Corpuscular Hemoglobin Concent 32.3 G/DL (32.0-36.0) 33.1 G/DL (32.0-36.0) Red Cell Distribution Width 14.1 % (11.6-14.8) 14.1 % (11.6-14.8) Platelet Count 88 K/UL (150-450) 104 K/UL (150-450) Mean Platelet Volume 7.6 FL (6.5-10.1) 8.4 FL (6.5-10.1) Neutrophils (%) (Auto) 73.7 % (45.0-75.0) % (45.0-75.0) Lymphocytes (%) (Auto) 15.4 % (20.0-45.0) % (20.0-45.0) Monocytes (%) (Auto) 9.8 % (1.0-10.0) % (1.0-10.0) Eosinophils (%) (Auto) 0.6 % (0.0-3.0) % (0.0-3.0) Basophils (%) (Auto) 0.5 % (0.0-2.0) % (0.0-2.0) Prothrombin Time 14.7 SEC (9.30-11.50) Prothromb Time International Ratio 1.4 (0.9-1.1) Activated Partial Thromboplast Time 45 SEC (23-33) Sodium Level 142 MMOL/L (136-145) 145 MMOL/L (136-145) Potassium Level 5.0 MMOL/L (3.5-5.1) 4.5 MMOL/L (3.5-5.1) Chloride Level 108 MMOL/L (98-107) 111 MMOL/L (98-107) Carbon Dioxide Level 25 MMOL/L (21-32) 23 MMOL/L (21-32) Anion Gap 9 mmol/L (5-15) 11 mmol/L (5-15) Blood Urea Nitrogen 54 mg/dL (7-18) 59 mg/dL (7-18) Creatinine 2.5 MG/DL (0.55-1.30) 2.0 MG/DL (0.55-1.30) Estimat Glomerular Filtration Rate 25.3 mL/min (>60) 32.7 mL/min (>60) Glucose Level 191 MG/DL (74-106) 132 MG/DL (74-106) Calcium Level 8.6 MG/DL (8.5-10.1) 8.2 MG/DL (8.5-10.1) Total Bilirubin 0.5 MG/DL (0.2-1.0) 0.5 MG/DL (0.2-1.0) Aspartate Amino Transf (AST/SGOT) 36 U/L (15-37) 39 U/L (15-37) Alanine Aminotransferase (ALT/SGPT) 28 U/L (12-78) 29 U/L (12-78) Alkaline Phosphatase 113 U/L (46-116) 105 U/L (46-116) Troponin I 0.032 ng/mL (0.000-0.056) Total Protein 6.4 G/DL (6.4-8.2) 5.8 G/DL (6.4-8.2) Albumin 3.0 G/DL (3.4-5.0) 2.9 G/DL (3.4-5.0) Globulin 3.4 g/dL 2.9 g/dL Albumin/Globulin Ratio 0.9 (1.0-2.7) 1.0 (1.0-2.7) POC Whole Blood Glucose 150 MG/DL (74-106) Differential Total Cells Counted 100 Neutrophils % (Manual) 80 % (45-75) Lymphocytes % (Manual) 10 % (20-45) Monocytes % (Manual) 9 % (1-10) Eosinophils % (Manual) 1 % (0-3) Basophils % (Manual) 0 % (0-2) Band Neutrophils 0 % (0-8) Platelet Estimate Decreased Platelet Morphology Normal Hypochromasia 1+ Anisocytosis 1+ Uric Acid 7.8 MG/DL (2.6-7.2) Phosphorus Level 4.4 MG/DL (2.5-4.9) Magnesium Level 2.2 MG/DL (1.8-2.4) Reticulocyte Count 0.7 % (0.5-2.0) Hemoglobin A1c 5.8 % (4.3-6.0) Iron Level 13 ug/dL (50-175) Total Iron Binding Capacity 176 ug/dL (250-450) Percent Iron Saturation 7 % (15-50) Unsaturated Iron Binding 163 ug/dL (112-346) Ferritin 386 NG/ML (8-388) Lactate Dehydrogenase 302 U/L (81-234) Carcinoembryonic Antigen 2.7 ng/mL (0.0-4.7) Vitamin B12 Level 692 PG/ML (193-986) Folate 8.3 NG/ML (8.6-58.9) Thyroid Stimulating Hormone (TSH) 3.254 uiU/mL (0.358-3.740) Test 01/11/20 10:30 01/11/20 11:50 01/11/20 16:33 01/12/20 05:51 Urine Color Yellow Urine Appearance Cloudy Urine pH 5 (4.5-8.0) Urine Specific [place] 1.015 (1.005-1.035) Urine Protein 3+ (NEGATIVE) Urine Glucose (UA) Negative (NEGATIVE) Urine Ketones Negative (NEGATIVE) Urine Blood 3+ (NEGATIVE) Urine Nitrite Positive (NEGATIVE) Urine Bilirubin Negative (NEGATIVE) Urine Urobilinogen Normal MG/DL (0.0-1.0) Urine Leukocyte Esterase 3+ (NEGATIVE) Urine RBC 2-4 /HPF (0 - 0) Urine WBC Tntc /HPF (0 - 0) Urine Squamous Epithelial Cells Occasional /LPF Urine Bacteria Many /HPF (NONE) Urine Random Sodium 18 mmol/L (20-110) POC Whole Blood Glucose 168 MG/DL (74-106) 141 MG/DL (74-106) 226 MG/DL (74-106) Test 01/12/20 06:30 01/12/20 11:53 01/13/20 06:04 White Blood Count 6.6 K/UL (4.8-10.8) 15.2 K/UL (4.8-10.8) Red Blood Count 2.12 M/UL (4.70-6.10) 3.57 M/UL (4.70-6.10) Hemoglobin 6.7 G/DL (14.2-18.0) 11.1 G/DL (14.2-18.0) Hematocrit 19.9 % (42.0-52.0) 33.7 % (42.0-52.0) Mean Corpuscular Volume 94 FL (80-99) 94 FL (80-99) Mean Corpuscular Hemoglobin 31.8 PG (27.0-31.0) 31.2 PG (27.0-31.0) Mean Corpuscular Hemoglobin Concent 33.8 G/DL (32.0-36.0) 33.0 G/DL (32.0-36.0) Red Cell Distribution Width 15.9 % (11.6-14.8) 16.8 % (11.6-14.8) Platelet Count 95 K/UL (150-450) 130 K/UL (150-450) Mean Platelet Volume 8.4 FL (6.5-10.1) 8.4 FL (6.5-10.1) Neutrophils (%) (Auto) % (45.0-75.0) 84.6 % (45.0-75.0) Lymphocytes (%) (Auto) % (20.0-45.0) 8.3 % (20.0-45.0) Monocytes (%) (Auto) % (1.0-10.0) 6.6 % (1.0-10.0) Eosinophils (%) (Auto) % (0.0-3.0) 0.1 % (0.0-3.0) Basophils (%) (Auto) % (0.0-2.0) 0.5 % (0.0-2.0) Differential Total Cells Counted 100 Neutrophils % (Manual) 80 % (45-75) Lymphocytes % (Manual) 11 % (20-45) Monocytes % (Manual) 9 % (1-10) Eosinophils % (Manual) 0 % (0-3) Basophils % (Manual) 0 % (0-2) Band Neutrophils 0 % (0-8) Platelet Estimate Decreased Platelet Morphology Normal Hypochromasia 1+ Anisocytosis 1+ Sodium Level 144 MMOL/L (136-145) 146 MMOL/L (136-145) Potassium Level 4.2 MMOL/L (3.5-5.1) 4.6 MMOL/L (3.5-5.1) Chloride Level 112 MMOL/L (98-107) 112 MMOL/L (98-107) Carbon Dioxide Level 23 MMOL/L (21-32) 22 MMOL/L (21-32) Anion Gap 9 mmol/L (5-15) 12 mmol/L (5-15) Blood Urea Nitrogen 50 mg/dL (7-18) 59 mg/dL (7-18) Creatinine 2.1 MG/DL (0.55-1.30) 2.2 MG/DL (0.55-1.30) Estimat Glomerular Filtration Rate 30.9 mL/min (>60) 29.3 mL/min (>60) Glucose Level 224 MG/DL (74-106) 217 MG/DL (74-106) Uric Acid 8.0 MG/DL (2.6-7.2) Calcium Level 8.1 MG/DL (8.5-10.1) 8.8 MG/DL (8.5-10.1) Phosphorus Level 3.9 MG/DL (2.5-4.9) 3.8 MG/DL (2.5-4.9) Magnesium Level 2.1 MG/DL (1.8-2.4) 2.3 MG/DL (1.8-2.4) Total Bilirubin 0.4 MG/DL (0.2-1.0) 0.8 MG/DL (0.2-1.0) Aspartate Amino Transf (AST/SGOT) 28 U/L (15-37) 32 U/L (15-37) Alanine Aminotransferase (ALT/SGPT) 24 U/L (12-78) 23 U/L (12-78) Alkaline Phosphatase 90 U/L (46-116) 107 U/L (46-116) Troponin I 0.047 ng/mL (0.000-0.056) C-Reactive Protein, Quantitative 21.8 mg/dL (0.00-0.90) 23.8 mg/dL (0.00-0.90) Pro-B-Type Natriuretic Peptide 7508 pg/mL (0-125) 65300 pg/mL (0-125) Total Protein 5.8 G/DL (6.4-8.2) 6.5 G/DL (6.4-8.2) Albumin 2.5 G/DL (3.4-5.0) 2.7 G/DL (3.4-5.0) Globulin 3.3 g/dL 3.8 g/dL Albumin/Globulin Ratio 0.8 (1.0-2.7) 0.7 (1.0-2.7) POC Whole Blood Glucose 233 MG/DL (74-106) Height (Feet): 5 Height (Inches): 11.00 Weight (Pounds): 165 Objective Physical Exam General: Awake and alert, no acute distress HEENT: NC/AT. No scalp or face hematomas, lacerations or abrasions Cardiovascular: Irregularly irregular rhythm. Normal rate. Resp: Normal work of breathing. No cough, wheezing or crackles appreciated Abdomen: Abdomen is soft, nondistended. Nontender Skin: Intact. Abrasion over the left earlobe. MSK: Normal tone and bulk. Deformity over the left pelvis Neuro: Awake and alert. is a poor historian Chuy Jade MD Jan 13, 2020 09:00
--- NOTE | 2020-01-13 09:16 | General Progress Note ---
Subjective Constitutional: Reports: weakness Allergies: Coded Allergies: IODINE (Verified Allergy, Unknown, 04/10/17) METHOCARBAMOL (Verified Allergy, Unknown, 04/10/17) All Systems: reviewed and negative except above Subjective sleepy calm Objective Last 24 Hour Vital Signs Date Time Temp Pulse Resp B/P (MAP) Pulse Ox O2 Delivery O2 Flow Rate FiO2 01/13/20 04:00 87 01/13/20 04:00 97.7 95 22 124/83 (97) 95 01/13/20 00:00 89 01/13/20 00:00 98.1 82 20 114/66 (82) 99 01/12/20 21:48 87 124/77 01/12/20 21:00 Non-Rebreather 10.0 01/12/20 20:00 89 01/12/20 20:00 99.9 87 20 124/77 (93) 97 01/12/20 16:00 82 01/12/20 16:00 98.7 78 20 139/65 (89) 97 01/12/20 13:38 Room Air 01/12/20 12:38 98.4 01/12/20 12:00 98.1 87 21 115/64 (81) 96 01/12/20 12:00 89 01/12/20 09:49 78 114/64 01/12/20 09:49 78 114/64 Intake and Output 01/12/20 01/13/20 19:00 07:00 Intake Total 1208.33 ml 400 ml Output Total 750 ml 600 ml Balance 458.33 ml -200 ml Intake Oral 150 ml IV Total 558.33 ml Blood Product 500 ml Other 400 ml Output Urine Total 750 ml 600 ml Laboratory Tests 01/12/20 11:53: POC Whole Blood Glucose 233H 01/13/20 06:04: White Blood Count 15.2#H, Red Blood Count 3.57L, Hemoglobin 11.1#L, Hematocrit 33.7#L, Mean Corpuscular Volume 94, Mean Corpuscular Hemoglobin 31.2H, Mean Corpuscular Hemoglobin Concent 33.0, Red Cell Distribution Width 16.8H, Platelet Count 130L, Mean Platelet Volume 8.4, Neutrophils (%) (Auto) 84.6H, Lymphocytes (%) (Auto) 8.3L, Monocytes (%) (Auto) 6.6, Eosinophils (%) (Auto) 0.1, Basophils (%) (Auto) 0.5, Sodium Level 146H, Potassium Level 4.6, Chloride Level 112H, Carbon Dioxide Level 22, Anion Gap 12, Blood Urea Nitrogen 59H, Creatinine 2.2H, Estimat Glomerular Filtration Rate 29.3, Glucose Level 217H, Calcium Level 8.8, Phosphorus Level 3.8, Magnesium Level 2.3, Total Bilirubin 0.8, Aspartate Amino Transf (AST/SGOT) 32, Alanine Aminotransferase (ALT/SGPT) 23, Alkaline Phosphatase 107, C-Reactive Protein, Quantitative 23.8H, Pro-B-Type Natriuretic Peptide 61728S, Total Protein 6.5, Albumin 2.7L, Globulin 3.8, Albumin/Globulin Ratio 0.7L Height (Feet): 5 Height (Inches): 11.00 Weight (Pounds): 165 General Appearance: lethargic EENT: normal ENT inspection Neck: normal alignment Cardiovascular: normal peripheral pulses, normal rate, regular rhythm Respiratory/Chest: chest wall non-tender, lungs clear, normal breath sounds Abdomen: normal bowel sounds, non tender, soft Extremities: normal inspection Edema: no edema noted Arm (L), no edema noted Arm (R), no edema noted Leg (L), no edema noted Leg (R), no edema noted Pedal (L), no edema noted Pedal (R), no edema noted Generalized Neurologic: motor weakness Skin: normal pigmentation, warm/dry Assessment/Plan Problem List: (1) Anemia ICD Codes: D64.9 - Anemia, unspecified SNOMED: 832665556 (2) Renal failure ICD Codes: N19 - Unspecified kidney failure SNOMED: 25208489 (3) Afib ICD Codes: I48.91 - Unspecified atrial fibrillation SNOMED: 08425844 (4) Diabetes ICD Codes: E11.9 - Type 2 diabetes mellitus without complications SNOMED: 17572382 (5) Intertrochanteric fracture ICD Codes: S72.143A - Displaced intertrochanteric fracture of unspecified femur, initial encounter for closed fracture SNOMED: 188058004 Status: unchanged Assessment/Plan: pain control pt diet transuse prn ortho cardio f/u cbc bmp am id eval transfer to Giacomo Iyer DO Jan 13, 2020 09:16
--- NOTE | 2020-01-13 09:35 | Consultation ---
History of Present Illness General Date patient seen: Jan 13, 2020 Time patient seen: 12:30 Chief Complaint: Lower Extremity Injury Referring physician: Dr. Snyder Reason for Consultation: UTI Present Illness HPI 74yo M s/p OLT/DDRT who p/w fall, found to have L femur fracture, also with worsening leukocytosis and UTI for which ID is consulted. Pt is awake, slow to respond but interactive. Denies any fevers/chills. Reports ongoing abd pain, mild about the same as prior, not improving. No other pain. Can't really say how his breathing is. On NRB mask Miranda in place Allergies: Coded Allergies: IODINE (Verified Allergy, Unknown, 04/10/17) METHOCARBAMOL (Verified Allergy, Unknown, 04/10/17) Medication History Scheduled Amlodipine Besylate* (Amlodipine Besylate*), 5 MG ORAL BID, (Reported) Apixaban (Eliquis*), 5 MG ORAL BID, (Reported) Carvedilol (Coreg), 12.5 MG ORAL EVERY 12 HOURS, (Reported) Escitalopram Oxalate* (Lexapro*), 10 MG ORAL DAILY, (Reported) Hydralazine Hcl* (Hydralazine Hcl*), 25 MG ORAL BID, (Reported) Mycophenolate Mofetil (Mycophenolate Mofetil), 1,000 MG PO BID, (Reported) Nifedipine Er* (Nifedipine Er*), 60 MG ORAL DAILY, (Reported) Olanzapine (Olanzapine Odt), 10 MG PO HS, (Reported) Rosuvastatin Calcium* (Crestor*), 10 MG ORAL HS, (Reported) Tacrolimus (Tacrolimus), 1 MG PO BID, (Reported) Temazepam* (Restoril*), 15 MG ORAL BEDTIME, (Reported) Discontinued Medications Albuterol Sulfate* (Proair Hfa*), 2 PUFFS INH Q6H, (Reported) Discontinued Reason: Therapy completed Colchicine (Colcrys), 0.6 MG PO DAILY, (Reported) Discontinued Reason: Pt stopped taking med Dabigatran Etexilate Mesylate* (Pradaxa*), 75 MG ORAL EVERY 12 HOURS, (Reported) Discontinued Reason: Pt stopped taking med Digoxin* (Digoxin*), 125 MCG ORAL DAILY, (Reported) Discontinued Reason: Pt stopped taking med Febuxostat (Uloric), 40 MG ORAL DAILY, (Reported) Discontinued Reason: Pt stopped taking med Gabapentin* (Gabapentin*), 300 MG ORAL BEDTIME, (Reported) Discontinued Reason: Pt stopped taking med Insulin Aspart (Novolog), 100 UNIT SQ, (Reported) Discontinued Reason: Pt stopped taking med Inulin (Fiber Choice), 1.5 GM PO DAILY, (Reported) Discontinued Reason: Pt stopped taking med Mycophenolate Mofetil (Cellcept), 1,000 MG ORAL EVERY 12 HOURS, (Reported) Discontinued Reason: Pt stopped taking med Nifedipine (Nifedipine*), 60 MG ORAL DAILY, (Reported) Discontinued Reason: Prescription changed Nph, Human Insulin Isophane (Humulin N), 0 SUBQ, (Reported) Discontinued Reason: Pt stopped taking med Omeprazole Magnesium (Prilosec), 20 MG ORAL BID, (Reported) Discontinued Reason: Pt stopped taking med Sennosides/Docusate Sodium (Senna-Docusate Sodium Tablet), 1 EACH PO HS, (Reported) Discontinued Reason: Pt stopped taking med Simethicone* (Simethicone*), 80 MG ORAL Q8H PRN for GAS PAIN, (Reported) Discontinued Reason: Pt stopped taking med Torsemide* (Demadex*), 10 MG PO DAILY, (Reported) Discontinued Reason: Pt stopped taking med Vitamin D (Vitamin D3), 2,000 UNITS ORAL DAILY, (Reported) Discontinued Reason: Therapy completed Patient History Limited by: age, medical condition Healthcare decision maker Resuscitation status Advanced Directive on File Review of Systems ROS Narrative 10-point ROS neg except as noted in HPI Physical Exam Physical Exam Narrative Gen: NAD in bed HEENT: NCAT, EOMI, PERRL CV: RRR Pulm: Rhonchi BL anteriorly Abd: Soft, NTND Ext: No c/c/e Neuro: Awake, interactive Lines: Miranda Last 24 Hour Vital Signs Date Time Temp Pulse Resp B/P (MAP) Pulse Ox O2 Delivery O2 Flow Rate FiO2 01/13/20 04:00 87 01/13/20 04:00 97.7 95 22 124/83 (97) 95 01/13/20 00:00 89 01/13/20 00:00 98.1 82 20 114/66 (82) 99 01/12/20 21:48 87 124/77 01/12/20 21:00 Non-Rebreather 10.0 01/12/20 20:00 89 12/3/20 20:00 99.9 87 20 124/77 (93) 97 01/12/20 16:00 82 01/12/20 16:00 98.7 78 20 139/65 (89) 97 01/12/20 13:38 Room Air 01/12/20 12:38 98.4 01/12/20 12:00 98.1 87 21 115/64 (81) 96 01/12/20 12:00 89 01/12/20 09:49 78 114/64 01/12/20 09:49 78 114/64 Intake and Output 01/12/20 01/13/20 19:00 07:00 Intake Total 1208.33 ml 400 ml Output Total 750 ml 600 ml Balance 458.33 ml -200 ml Intake Oral 150 ml IV Total 558.33 ml Blood Product 500 ml Other 400 ml Output Urine Total 750 ml 600 ml Laboratory Tests Test 01/12/20 11:53 01/13/20 06:04 POC Whole Blood Glucose 233 MG/DL (74-106) H White Blood Count 15.2 K/UL (4.8-10.8) #H Red Blood Count 3.57 M/UL (4.70-6.10) L Hemoglobin 11.1 G/DL (14.2-18.0) #L Hematocrit 33.7 % (42.0-52.0) #L Mean Corpuscular Volume 94 FL (80-99) Mean Corpuscular Hemoglobin 31.2 PG (27.0-31.0) H Mean Corpuscular Hemoglobin Concent 33.0 G/DL (32.0-36.0) Red Cell Distribution Width 16.8 % (11.6-14.8) H Platelet Count 130 K/UL (150-450) L Mean Platelet Volume 8.4 FL (6.5-10.1) Neutrophils (%) (Auto) 84.6 % (45.0-75.0) H Lymphocytes (%) (Auto) 8.3 % (20.0-45.0) L Monocytes (%) (Auto) 6.6 % (1.0-10.0) Eosinophils (%) (Auto) 0.1 % (0.0-3.0) Basophils (%) (Auto) 0.5 % (0.0-2.0) Sodium Level 146 MMOL/L (136-145) H Potassium Level 4.6 MMOL/L (3.5-5.1) Chloride Level 112 MMOL/L (98-107) H Carbon Dioxide Level 22 MMOL/L (21-32) Anion Gap 12 mmol/L (5-15) Blood Urea Nitrogen 59 mg/dL (7-18) H Creatinine 2.2 MG/DL (0.55-1.30) H Estimat Glomerular Filtration Rate 29.3 mL/min (>60) Glucose Level 217 MG/DL (74-106) H Calcium Level 8.8 MG/DL (8.5-10.1) Phosphorus Level 3.8 MG/DL (2.5-4.9) Magnesium Level 2.3 MG/DL (1.8-2.4) Total Bilirubin 0.8 MG/DL (0.2-1.0) Aspartate Amino Transf (AST/SGOT) 32 U/L (15-37) Alanine Aminotransferase (ALT/SGPT) 23 U/L (12-78) Alkaline Phosphatase 107 U/L (46-116) C-Reactive Protein, Quantitative 23.8 mg/dL (0.00-0.90) H Pro-B-Type Natriuretic Peptide 89163 pg/mL (0-125) H Total Protein 6.5 G/DL (6.4-8.2) Albumin 2.7 G/DL (3.4-5.0) L Globulin 3.8 g/dL Albumin/Globulin Ratio 0.7 (1.0-2.7) L Height (Feet): 5 Height (Inches): 11.00 Weight (Pounds): 165 Medications Current Medications Medications (Trade) Dose Ordered Sig/Uvaldo Route PRN Reason Start Time Stop Time Status Last Admin Dose Admin Acetaminophen (Tylenol) 650 mg Q4H PRN ORAL Mild Pain 0-4/Temp >100.4 01/13/20 07:15 02/12/20 07:14 Atorvastatin Calcium (Lipitor) 20 mg BEDTIME ORAL 01/11/20 21:00 04/10/20 20:59 01/12/20 21:49 Benztropine Mesylate (Cogentin) 1 mg BEDTIME ORAL 01/12/20 21:00 02/11/20 20:59 01/12/20 21:45 Carvedilol (Coreg) 12.5 mg EVERY 12 HOURS ORAL 01/11/20 09:00 02/10/20 08:59 01/12/20 21:48 Dextrose (Dextrose 50%) 25 ml Q30M PRN IV Hypoglycemia 01/11/20 05:15 04/10/20 05:14 Dextrose (Dextrose 50%) 50 ml Q30M PRN IV Hypoglycemia 01/11/20 05:15 04/10/20 05:14 Dextrose/Sodium Chloride 1,000 ml @ 50 mls/hr Q20H IV 01/11/20 06:00 02/10/20 05:59 01/13/20 05:01 Docusate Sodium (Colace) 100 mg TID ORAL 01/12/20 13:00 02/10/20 09:59 01/12/20 18:44 Escitalopram Oxalate (Lexapro) 10 mg DAILY ORAL 01/11/20 09:00 02/10/20 08:59 01/12/20 09:49 Folic Acid (Folate) 1 mg DAILY ORAL 01/11/20 13:30 02/10/20 13:29 01/12/20 09:50 Hydralazine HCl (Apresoline) 25 mg Q4H PRN ORAL bp over 160 syst 01/11/20 10:00 04/10/20 09:59 Insulin Aspart (NovoLOG) BEFORE MEALS AND HS SUBQ 01/11/20 06:30 04/10/20 06:29 01/13/20 06:35 Morphine Sulfate (Morphine Sulfate) 2 mg Q4H PRN IVP For Pain (4-10) 01/11/20 05:15 01/18/20 05:14 01/12/20 12:08 Mycophenolate Mofetil (Cellcept) 500 mg BID ORAL 01/11/20 09:00 04/10/20 08:59 01/12/20 18:44 Nifedipine (Procardia XL) 60 mg DAILY ORAL 01/11/20 09:09 02/10/20 09:08 01/12/20 09:49 Olanzapine (ZyPREXA Zydis) 15 mg BEDTIME ORAL 01/12/20 21:00 02/26/20 20:59 01/12/20 21:47 Pantoprazole (Protonix) 40 mg DAILY ORAL 12/2/20 10:00 02/10/20 09:59 01/12/20 09:49 Tacrolimus (Prograf) 1 mg BID ORAL 01/11/20 09:00 04/10/20 08:59 01/12/20 18:44 Temazepam (Restoril) 15 mg BEDTIME ORAL 01/11/20 21:00 01/18/20 20:59 01/12/20 21:49 Assessment/Plan Assessment/Plan: 74yo M with: Afebrile Leukocytosis to 15 Lymphopenia UTI 2/2 E.coli and ESBL Proteus Hypoxia on NRB mask Pneumonia vs PE R/o COVID 01/09 Rapid COVID Ag neg MRSA nares neg 01/10 UA+, UCx +E.coli (araya-S) and ESBL Proteus mirabilis (S-bactrim) 01/11 CXR: Interim placement of a left chest in a focal pacemaker. No pneumothorax is noted. Median sternotomy sutures are again demonstrated. Interim placement of a percutaneous aortic valve. Right arm catheter is again demonstrated. There is better aeration of the right lung. There is some atelectasis at the left lung base. Impression: Left basilar atelectasis 01/12 COVID PCR ordered CKD, Cr 2.2 L femur fx 01/09 CT: 1. Comminuted intertrochanteric fracture of the proximal left femur with varus angulation. 2. Fecal impaction. Fecal impaction, noted on admission imaging S/p OLT, DDRT - on tacro, cellcept PMH: S/p AVR S/p PPM HTN DM2 Afib Plan: Start meropenem #1 for ESBL UTI, possible pna COVID PCR given hypoxia, lymphopenia and from SNF F/u V/Q scan to r/o PE Ensure ongoing stool output given fecal impaction on CT A/P from admission Trend WBC Trend resp status Monitor CBC/CMP Monitor temp curve, hemodynamics Monitor resp status D/w RN Thank you for this consult. [facility] will continue to follow. Margaret De Jesus M.D. Jan 13, 2020 09:35
[2020-01-13] MEDS: Carvedilol 12.5mg tab ORAL SCH ×2 (10:18→21:40)
[2020-01-13] MEDS: Mycophenolate 250mg cap ORAL SCH ×2 (10:18→17:50)
[2020-01-13] MEDS: Docusate 100mg cap ORAL SCH ×3 (10:18→17:50)
--- NOTE | 2020-01-13 10:47 | NUR ---
NURSE NOTES: Pt taken down to nuclear medicine for VQ scan. Off tele order entered.
[2020-01-13] MEDS: Meropenem 1 GM in NS 55 ML IVPB SCH ×2 (11:30→21:54)
[2020-01-13 12:00] VITALS: BP 105/65
--- NOTE | 2020-01-13 12:02 | Cardiology Report ---
APPROVED REPORT EXAM: Two-dimensional and M-mode echocardiogram with Doppler and color Doppler. INDICATION Congestive Heart Failure M-Mode DIMENSIONS IVSd1.3 (0.7-1.1cm)Left Atrium (MM)5.0 (1.6-4.0cm) LVDd3.0 (3.5-5.6cm)Aortic Root3.0 (2.0-3.7cm) PWd1.0 (0.7-1.1cm)Aortic Cusp Exc.1.5 (1.5-2.0cm) IVSs1.1 cm LVDs1.8 (2.5-4.0cm) PWs1.2 cm <Conclusion> Technically limited &difficult study due to poor acoustical windows & pts contracted arm. Normal left ventricular chamber size, systolic function and wall motion to extent visualized. Left ventricular ejection fraction estimated to be 55%. Mild ventricular hypertrophy by 2-D. Anterior Echo-free space, may be due to pericardial fat or effusion. Calcification of aortic valve with adequate cusp excursion, patient has history of heart surgery. Thickened mitral valve leaflets . Mitral annulus and aortic root calcification. Pulmonic valve not well visualized. Normal tricuspid valve structure. IVC not obtainable. Pacemaker wire present in the right side chambers. A color flow and spectral Doppler study was performed and revealed: No aortic regurgitation. Trace mitral regurgitation. Mild tricuspid regurgitation. Tricuspid systolic velocities suggests peak right ventricular systolic pressure of 21mmHg.
--- NOTE | 2020-01-13 12:59 | Cardiology Report ---
APPROVED REPORT EKG Measurement Heart [id number] <Conclusion> Sinus rhythm with 1st degree AV block Right bundle branch block Abnormal ECG
--- NOTE | 2020-01-13 13:19 | Nephrology Progress Note ---
Assessment/Plan Problem List: (1) CKD (chronic kidney disease) (2) Diabetes (3) SOB (shortness of breath) (4) Hypoalbuminemia (5) Fecal impaction (6) Intertrochanteric fracture Assessment Intertrochanteric fracture Fecal impaction CKD (chronic kidney disease) DM HTN Plan January 12: Patient transfused. Hemoglobin higher. Serum creatinine 2.2 unchanged. Continue per consultants. Remains stable from renal standpoint of view. January 11: Patient due for transfusion 2 units of packed RBCs. Serum creatinine lowering. Will decrease IV fluid to 50 cc an hour. Continue to monitor renal parameters. Continue per consultants. Discussed with MELODY Espinosa. Previously: Miranda Urine studies Anemia jacobs Adjust blood pressure medication avoid nephrotoxics 2D echocardiogram Kidney ultrasound Per orders Subjective ROS Limited/Unobtainable: Yes Objective Objective Last 24 Hour Vital Signs Date Time Temp Pulse Resp B/P (MAP) Pulse Ox O2 Delivery O2 Flow Rate FiO2 01/13/20 10:18 86 100/69 01/13/20 09:00 86 100/69 01/13/20 04:00 87 01/13/20 04:00 97.7 95 22 124/83 (97) 95 01/13/20 00:00 89 01/13/20 00:00 98.1 82 20 114/66 (82) 99 01/12/20 21:48 87 124/77 01/12/20 21:00 Non-Rebreather 10.0 01/12/20 20:00 89 01/12/20 20:00 99.9 87 20 124/77 (93) 97 01/12/20 16:00 82 01/12/20 16:00 98.7 78 20 139/65 (89) 97 01/12/20 13:38 Room Air Intake and Output 01/12/20 01/13/20 19:00 07:00 Intake Total 1208.33 ml 400 ml Output Total 750 ml 600 ml Balance 458.33 ml -200 ml Intake Oral 150 ml IV Total 558.33 ml Blood Product 500 ml Other 400 ml Output Urine Total 750 ml 600 ml Current Medications Medications (Trade) Dose Ordered Sig/Uvaldo Route PRN Reason Start Time Stop Time Status Last Admin Dose Admin Acetaminophen (Tylenol) 650 mg Q4H PRN ORAL Mild Pain 0-4/Temp >100.4 01/13/20 07:15 02/12/20 07:14 Atorvastatin Calcium (Lipitor) 20 mg BEDTIME ORAL 01/11/20 21:00 04/10/20 20:59 01/12/20 21:49 Benztropine Mesylate (Cogentin) 1 mg BEDTIME ORAL 01/12/20 21:00 02/11/20 20:59 01/12/20 21:45 Carvedilol (Coreg) 12.5 mg EVERY 12 HOURS ORAL 01/11/20 09:00 02/10/20 08:59 01/13/20 10:18 Dextrose (Dextrose 50%) 25 ml Q30M PRN IV Hypoglycemia 01/11/20 05:15 04/10/20 05:14 Dextrose (Dextrose 50%) 50 ml Q30M PRN IV Hypoglycemia 01/11/20 05:15 04/10/20 05:14 Dextrose/Sodium Chloride 1,000 ml @ 50 mls/hr Q20H IV 01/11/20 06:00 02/10/20 05:59 01/13/20 05:01 Docusate Sodium (Colace) 100 mg TID ORAL 01/12/20 13:00 02/10/20 09:59 01/13/20 12:27 Escitalopram Oxalate (Lexapro) 10 mg DAILY ORAL 01/11/20 09:00 02/10/20 08:59 01/13/20 10:17 Folic Acid (Folate) 1 mg DAILY ORAL 01/11/20 13:30 02/10/20 13:29 01/13/20 10:18 Hydralazine HCl (Apresoline) 25 mg Q4H PRN ORAL bp over 160 syst 01/11/20 10:00 04/10/20 09:59 Insulin Aspart (NovoLOG) BEFORE MEALS AND HS SUBQ 01/11/20 06:30 04/10/20 06:29 01/13/20 12:27 Meropenem 1 gm/ Sodium Chloride 55 ml @ 110 mls/hr Q12HR IVPB 01/13/20 10:30 01/18/20 10:29 01/13/20 11:30 Morphine Sulfate (Morphine Sulfate) 2 mg Q4H PRN IVP For Pain (4-10) 01/11/20 05:15 01/18/20 05:14 01/12/20 12:08 Mycophenolate Mofetil (Cellcept) 500 mg BID ORAL 01/11/20 09:00 04/10/20 08:59 01/13/20 10:18 Nifedipine (Procardia XL) 60 mg DAILY ORAL 01/11/20 09:09 02/10/20 09:08 01/12/20 09:49 Olanzapine (ZyPREXA Zydis) 15 mg BEDTIME ORAL 01/12/20 21:00 02/26/20 20:59 01/12/20 21:47 Pantoprazole (Protonix) 40 mg DAILY ORAL 01/11/20 10:00 02/10/20 09:59 01/13/20 10:18 Tacrolimus (Prograf) 1 mg BID ORAL 01/11/20 09:00 04/10/20 08:59 01/13/20 10:17 Temazepam (Restoril) 15 mg BEDTIME ORAL 01/11/20 21:00 01/18/20 20:59 01/12/20 21:49 Laboratory Tests 01/13/20 06:04: White Blood Count 15.2#H, Red Blood Count 3.57L, Hemoglobin 11.1#L, Hematocrit 33.7#L, Mean Corpuscular Volume 94, Mean Corpuscular Hemoglobin 31.2H, Mean Corpuscular Hemoglobin Concent 33.0, Red Cell Distribution Width 16.8H, Platelet Count 130L, Mean Platelet Volume 8.4, Neutrophils (%) (Auto) 84.6H, Lymphocytes (%) (Auto) 8.3L, Monocytes (%) (Auto) 6.6, Eosinophils (%) (Auto) 0.1, Basophils (%) (Auto) 0.5, Sodium Level 146H, Potassium Level 4.6, Chloride Level 112H, Carbon Dioxide Level 22, Anion Gap 12, Blood Urea Nitrogen 59H, Creatinine 2.2H, Estimat Glomerular Filtration Rate 29.3, Glucose Level 217H, Calcium Level 8.8, Phosphorus Level 3.8, Magnesium Level 2.3, Total Bilirubin 0.8, Aspartate Amino Transf (AST/SGOT) 32, Alanine Aminotransferase (ALT/SGPT) 23, Alkaline Phosphata se 107, C-Reactive Protein, Quantitative 23.8H, Pro-B-Type Natriuretic Peptide 41376P, Total Protein 6.5, Albumin 2.7L, Globulin 3.8, Albumin/Globulin Ratio 0.7L Height (Feet): 5 Height (Inches): 11.00 Weight (Pounds): 165 General Appearance: lethargic Cardiovascular: normal rate Respiratory/Chest: decreased breath sounds Abdomen: distended Young Mcdonald MD Jan 13, 2020 13:19
--- NOTE | 2020-01-13 13:52 | Cardiac Electrophysiology PN ---
Assessment/Plan Assessment/Plan 1. Atrial fibrillation. On Coreg 12.5 mg b.i.d. and is off anticoagulation (was on Eliquis 2.5 mg b.i.d) in preparation for surgery and severe anemia. 2. Hypertension, on Coreg 12.5 b.i.d. and Procardia XL 60 mg daily. 3. Hyperlipidemia, on Lipitor. 4. S/P Biotronic VVI Pacer 2017 5. S/P Aortic dissection repair and bioprosthetic AVR 06/2005 6. 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 Diabetes, on insulin. 8. Left hip fracture. Awaiting transfer to [facility] for surgery by Dr Escalante 9. Fever , Now is being ruled ouit fopr Covid by ID DW patients brother Dr. Tony in [place] at [phone] extensively Subjective Subjective S/P OLT 2005 S/P Liver/kidney tx 2008 S/P Aortic dissection repair and bioprosthetic AVR 06/2005 S/P Biotronic VVI Pacer 2017 S/P PRBC x2 for Hb 6.7 yesterday Awaiting transfer to [facility] for surgery Developed fever and now is being ruled out for COVID Objective Last 24 Hour Vital Signs Date Time Temp Pulse Resp B/P (MAP) Pulse Ox O2 Delivery O2 Flow Rate FiO2 01/13/20 10:18 86 100/69 01/13/20 09:00 86 100/69 01/13/20 04:00 87 01/13/20 04:00 97.7 95 22 124/83 (97) 95 01/13/20 00:00 89 01/13/20 00:00 98.1 82 20 114/66 (82) 99 01/12/20 21:48 87 124/77 01/12/20 21:00 Non-Rebreather 10.0 01/12/20 20:00 89 01/12/20 20:00 99.9 87 20 124/77 (93) 97 01/12/20 16:00 82 01/12/20 16:00 98.7 78 20 139/65 (89) 97 Intake and Output 0 01/12/20 01/13/20 19:00 07:00 Intake Total 1208.33 ml 400 ml Output Total 750 ml 600 ml Balance 458.33 ml -200 ml Intake Oral 150 ml IV Total 558.33 ml Blood Product 500 ml Other 400 ml Output Urine Total 750 ml 600 ml Laboratory Tests Test 01/13/20 06:04 White Blood Count 15.2 K/UL (4.8-10.8) #H Red Blood Count 3.57 M/UL (4.70-6.10) L Hemoglobin 11.1 G/DL (14.2-18.0) #L Hematocrit 33.7 % (42.0-52.0) #L Mean Corpuscular Volume 94 FL (80-99) Mean Corpuscular Hemoglobin 31.2 PG (27.0-31.0) H Mean Corpuscular Hemoglobin Concent 33.0 G/DL (32.0-36.0) Red Cell Distribution Width 16.8 % (11.6-14.8) H Platelet Count 130 K/UL (150-450) L Mean Platelet Volume 8.4 FL (6.5-10.1) Neutrophils (%) (Auto) 84.6 % (45.0-75.0) H Lymphocytes (%) (Auto) 8.3 % (20.0-45.0) L Monocytes (%) (Auto) 6.6 % (1.0-10.0) Eosinophils (%) (Auto) 0.1 % (0.0-3.0) Basophils (%) (Auto) 0.5 % (0.0-2.0) Sodium Level 146 MMOL/L (136-145) H Potassium Level 4.6 MMOL/L (3.5-5.1) Chloride Level 112 MMOL/L (98-107) H Carbon Dioxide Level 22 MMOL/L (21-32) Anion Gap 12 mmol/L (5-15) Blood Urea Nitrogen 59 mg/dL (7-18) H Creatinine 2.2 MG/DL (0.55-1.30) H Estimat Glomerular Filtration Rate 29.3 mL/min (>60) Glucose Level 217 MG/DL (74-106) H Calcium Level 8.8 MG/DL (8.5-10.1) Phosphorus Level 3.8 MG/DL (2.5-4.9) Magnesium Level 2.3 MG/DL (1.8-2.4) Total Bilirubin 0.8 MG/DL (0.2-1.0) Aspartate Amino Transf (AST/SGOT) 32 U/L (15-37) Alanine Aminotransferase (ALT/SGPT) 23 U/L (12-78) Alkaline Phosphatase 107 U/L (46-116) C-Reactive Protein, Quantitative 23.8 mg/dL (0.00-0.90) H Pro-B-Type Natriuretic Peptide 12474 pg/mL (0-125) H Total Protein 6.5 G/DL (6.4-8.2) Albumin 2.7 G/DL (3.4-5.0) L Globulin 3.8 g/dL Albumin/Globulin Ratio 0.7 (1.0-2.7) L Microbiology Date/Time Source Procedure Growth Status 01/11/20 10:30 Urine,Clean Catch Urine Culture - Preliminary Escherichia Coli Proteus Mirabilis Resulted 01/10/20 21:30 Rectum - Final NO CARBAPENEM-RESISTANT ENTEROBACTERI... Complete 01/10/20 21:30 Rectal Mucosa VRE Culture - Final NO VANCOMYCIN RESISTANT ENTEROCOCCUS ... Complete 01/10/20 21:30 Nasal Nares MRSA Culture - Final NO METHICILLIN RESISTANT STAPH AUREUS... Complete 01/10/20 20:04 Nasopharynx SARS-CoV-2 RdRp Gene Assay - Final Complete Objective HEAD AND NECK: no JVD. LUNGS: Coarse rhonchi. CARDIOVASCULAR: regular S1 and S2 with no gallop. Pacemaker is in left subclavian. The sternotomy scar is intact. ABDOMEN: Soft. EXTREMITIES: No pitting edema. Has left hip fracture. Edwardo Wilhelm MD Jan 13, 2020 13:52
--- NOTE | 2020-01-13 14:55 | NUR ---
NURSE NOTES: Covid swab done on right nares and specimen sent down to lab.
[2020-01-13 16:00] VITALS: BP 110/68
--- NOTE | 2020-01-13 16:07 | NUR ---
TRANSFER UPDATE RECEIVED CALL FROM EUGENE WITH [facility] STATING PATIENT HAS BEEN ACCEPTED AND THEY HAVE A BED HOWEVER THEY NEED TO WAIT FOR MD TO MD CONVERSATION BEFORE THEY WILL GIVE US THE ROOM NUMBER [facility] HAS REACHED OUT TO SANDRO LINN MD TO MD CONVERSATION ONCE CONVERSATION HAS TAKEN PLACE SHAMAARS WITH CALL THE TELEMETRY NURSES STATION AND PROVIDE ALL NECESSARY INFORMATION NURSING IS TO CALL [facility] AND ARRANGE TRANSPORTATION [facility] T: [phone]
--- NOTE | 2020-01-13 16:16 | Diagnostic Imaging Report ---
Indications: Shortness of breath Technique: IV administration 0.5 mCi 99m technetium macroaggregated albumin. Images obtained over the lungs in multiple projections. Aerosol images not obtained, due to patient being COVID positive. Images obtained over the lungs in multiple projections Comparison: Reference made to chest radiograph dated 01/12/2020 Findings: Tracer distribution is heterogeneous, but no definite segmental or subsegmental perfusion defects are demonstrated. Impression: Unable to assign probability, due to lack of aerosol images. However, ventilation images demonstrate no findings suspicious for pulmonary embolus
--- NOTE | 2020-01-13 16:43 | NUR ---
STEEL CONSTRUCTION WORKER NOTES RECEIVE A CALL FROM BREANNA FROM THE TRANSFER CENTER AT [facility], PT ACCEPTED TO [address] [facility] ROOM [id number].ACCEPTING , DR. ELIZABETH CAARBALLO. NURSE TO CALL REPORT TO [phone] @ [phone]. NURSE MADE AWARE.
[2020-01-13] MEDS ORDERED: LIPITOR20 MG ORAL (17:14)
[2020-01-13] MEDS ORDERED: TYLENOL325 MG ORAL (17:14)
[2020-01-13] MEDS ORDERED: BENZTROPINE MESY1 MG ORAL (17:15)
[2020-01-13] MEDS ORDERED: FOLIC ACID1 MG ORAL (17:16)
[2020-01-13] MEDS ORDERED: HYDRALAZINE HCL25 M1 ORAL (17:17)
[2020-01-13] MEDS ORDERED: CELLCEPT500 MG ORAL (17:18)
[2020-01-13] MEDS ORDERED: MERREM1 GM IV (17:19)
[2020-01-13] MEDS ORDERED: ZYPREXA10 MG ORAL (17:19)
[2020-01-13] MEDS ORDERED: PROTONIX40 MG ORAL (17:20)
[2020-01-13] MEDS ORDERED: MORPHINE SU2 MG/1 M2 IV (17:21)
[2020-01-13] MEDS ORDERED: INSULIN AS100 UNIT/3 SQ (17:22)
[2020-01-13] MEDS ORDERED: [UNRECOGNIZED DRUG - OTHER] IV (17:26)
[2020-01-13] MEDS ORDERED: DOCUSATE SODIU100 MG ORAL (17:26)
[2020-01-13] MEDS ORDERED: DEXTROSE 50%-WA50 M1 IV ×2 (17:28→17:29)
--- NOTE | 2020-01-13 17:45 | NUR ---
NURSE NOTES: Transportation arranged with [facility] for transfer to [facility]. ETA 6:45 PM per Mario Alberto.
--- NOTE | 2020-01-13 18:20 | NUR ---
NURSE NOTES: Spoke with Ja from [facility] would like to hold transfer for now due to patient's increased oxygen requirements. Notified rifle case repairer, will notify Dr. Snyder.
--- NOTE | 2020-01-13 19:38 | NUR ---
NURSE HAND-OFF REPORT: Important Events on Shift: Dr. Snyder notified of urine culture results, and episode of low grade fever. ID consult ordered. IV Merrem started. Transfer to [facility] on hold due to increased oxygen requirements, case mngr, charge nurse and MD notified. Respiratory therapist called to reassess. Patient Status: Pending transfer Diet: CCHO med Pending Orders: N Pending Results/Labs: N Pending MD notification:N Latest Vital Signs: Temperature 99.0 , Pulse 94 , B/P 110 /68 , Respiratory Rate 22 , O2 SAT 99 , Non-Rebreather, O2 Flow Rate 15.0 . Vital Sign Comment: EKG Rhythm: Afib w/ BBB Rhythm change?: N MD Notified?: Y -Dr. angeline FERNANDO Response: Latest Willis Fall Score: 85 Fall Risk: High Risk Safety Measures: Call light Within Reach, Bed Alarm Zone 2, Side Rails Side Rails x3, Bed position Low and Locked. Fall Precautions: Yellow Socks Patient Fall Education Report given to Alayna OLIVER.
--- NOTE | 2020-01-13 19:40 | NUR ---
NURSE NOTES: Patient received from MELODY Yadav. Patient is A/O x 2. Patient is noted to have a pacemaker on his left upper chest. Patient is currently on nonrebreather at 15 L satting at 94% with no signs of acute respiratory distress noted. Patient has a govea catheter 16 chinese, patent and well draining. Patient has a right 20 gauge on his upper arm, patent and flushed. Patient has no complaints as of the moment. Bed is in lowest position, call light within reach. Will continue to monitor.
[2020-01-13 20:00] VITALS: BP 130/78
--- NOTE | 2020-01-13 20:18 | Psychiatric Progress Note ---
Psychiatry Progress Note Psychiatry Progress Note Medications Current Medications Medications (Trade) Dose Ordered Sig/Uvaldo Route PRN Reason Start Time Stop Time Status Last Admin Dose Admin Acetaminophen (Tylenol) 650 mg Q4H PRN ORAL Mild Pain 0-4/Temp >100.4 01/13/20 07:15 02/12/20 07:14 Atorvastatin Calcium (Lipitor) 20 mg BEDTIME ORAL 01/11/20 21:00 04/10/20 20:59 01/12/20 21:49 Benztropine Mesylate (Cogentin) 1 mg BEDTIME ORAL 01/12/20 21:00 02/11/20 20:59 01/12/20 21:45 Carvedilol (Coreg) 12.5 mg EVERY 12 HOURS ORAL 01/11/20 09:00 02/10/20 08:59 01/13/20 10:18 Dextrose (Dextrose 50%) 25 ml Q30M PRN IV Hypoglycemia 01/11/20 05:15 04/10/20 05:14 Dextrose (Dextrose 50%) 50 ml Q30M PRN IV Hypoglycemia 01/11/20 05:15 04/10/20 05:14 Dextrose/Sodium Chloride 1,000 ml @ 50 mls/hr Q20H IV 01/11/20 06:00 02/10/20 05:59 01/13/20 05:01 Docusate Sodium (Colace) 100 mg TID ORAL 01/12/20 13:00 02/10/20 09:59 01/13/20 17:50 Escitalopram Oxalate (Lexapro) 10 mg DAILY ORAL 01/11/20 09:00 02/10/20 08:59 01/13/20 10:17 Folic Acid (Folate) 1 mg DAILY ORAL 01/11/20 13:30 02/10/20 13:29 01/13/20 10:18 Hydralazine HCl (Apresoline) 25 mg Q4H PRN ORAL bp over 160 syst 01/11/20 10:00 04/10/20 09:59 Insulin Aspart (NovoLOG) BEFORE MEALS AND HS SUBQ 01/11/20 06:30 04/10/20 06:29 01/13/20 17:48 Meropenem 1 gm/ Sodium Chloride 55 ml @ 110 mls/hr Q12HR IVPB 01/13/20 10:30 01/18/20 10:29 01/13/20 11:30 Morphine Sulfate (Morphine Sulfate) 2 mg Q4H PRN IVP For Pain (4-10) 01/11/20 05:15 01/18/20 05:14 01/12/20 12:08 Mycophenolate Mofetil (Cellcept) 500 mg BID ORAL 01/11/20 09:00 04/10/20 08:59 01/13/20 17:50 Nifedipine (Procardia XL) 60 mg DAILY ORAL 01/11/20 09:09 02/10/20 09:08 01/12/20 09:49 Olanzapine (ZyPREXA Zydis) 15 mg BEDTIME ORAL 01/12/20 21:00 02/26/20 20:59 01/12/20 21:47 Pantoprazole (Protonix) 40 mg DAILY ORAL 01/11/20 10:00 02/10/20 09:59 01/13/20 10:18 Tacrolimus (Prograf) 1 mg BID ORAL 01/11/20 09:00 04/10/20 08:59 01/13/20 17:51 Temazepam (Restoril) 15 mg BEDTIME ORAL 01/11/20 21:00 01/18/20 20:59 01/12/20 21:49 Neurological/Psychiatric: Reports: anxiety, depressed, emotional problems Allergies: Coded Allergies: IODINE (Verified Allergy, Unknown, 04/10/17) METHOCARBAMOL (Verified Allergy, Unknown, 04/10/17) Objective Data Height (Feet): 5 Height (Inches): 11.00 Weight (Pounds): 165 General Appearance: alert, agitated Additional Comments: anxiety, difficulty sleeping, hopelessness. PAST PSYCHIATRIC HISTORY: Anxiety disorder. PAST MEDICAL HISTORY: As above. MENTAL STATUS EXAMINATION: Patient is awake, oriented to self, place, . Mood is anxious. Affect is blunted, congruent with mood. Thought process is concrete. Thought content, no suicidal or homicidal ideation. Cognition is intact. Insight and judgment is fair. ASSESSMENT: 1. Anxiety disorder. 2. Cognitive impairment. PLAN: 1. We will start the patient on Remeron. 2. Provide the patient with reality orientation. Discussed with the nurse. Assessment/Plan Status: unchanged Moises Pratt MD Jan 13, 2020 20:18
[2020-01-13] MEDS: Atorvastatin 20mg tab ORAL SCH (21:39)
[2020-01-13] MEDS: Benztropine 1mg tab ORAL SCH (21:40)
[2020-01-13] MEDS: ZyPREXA Zydis 5mg tab ORAL SCH (21:54)
[2020-01-14] VITALS: BP 102/69
[2020-01-14] MEDS: D5 1/2NS 1,000 ML IV SCH (01:47)
[2020-01-14 04:00] VITALS: BP 118/74
[2020-01-14] MEDS: NovoLOG Insulin Flexpen SUBQ SCH ×4 (07:14→21:00)
--- NOTE | 2020-01-14 07:15 | NUR ---
NURSE HAND-OFF REPORT: Important Events on Shift:[Patient positive for ESBL in urine. Notified Dr. Landa. Patient desaturate when non-rebreather is off] Patient Status: [Stable] Diet: [CCHO Medium] Pending Orders: [] Pending Results/Labs:[] Pending MD notification:[] Latest Vital Signs: Temperature 97.7 , Pulse 93 , B/P 118 /74 , Respiratory Rate 28 , O2 SAT 100 , Non-Rebreather, O2 Flow Rate 15.0 . Vital Sign Comment: [] EKG Rhythm: Afib/Aflutter Rhythm change?: N MD Notified?: N -Dr. angeline FERNANDO Response: Latest Willis Fall Score: 85 Fall Risk: High Risk Safety Measures: Call light Within Reach, Bed Alarm Zone 2, Side Rails Side Rails x3, Bed position Low and Locked. Fall Precautions: Yellow Socks Patient Fall Education Report given to [MELODY Canales].
--- NOTE | 2020-01-14 07:16 | NUR ---
NURSE NOTES: Received hand-off report from Tulio Levine RN. Patient noncompliant with nonrebreather and needs constant supervision and reinforcement. Will titrate oxygen for pending discharge, currently at 14L oxygen. Able to answer yes and no questions, alert and oriented x3. Bed in lowest and locked position, bed alarm on, cardiac rn on.
[2020-01-14 07:32] LABS: BASOPHILS % (AUTO) 0.5 % (0.0-2.0); EOSINOPHILS % (AUTO) 0.1 % (0.0-3.0); HEMATOCRIT 28.6 % (42.0-52.0); HEMOGLOBIN 9.5 G/DL (14.2-18.0); LYMPHOCYTES % (AUTO) 9.9 % (20.0-45.0); MEAN CORPUSCULAR VOLUME 93 FL (80-99); MONOCYTES % (AUTO) 7.3 % (1.0-10.0); NEUTROPHILS % (AUTO) 82.1 % (45.0-75.0); PLATELET COUNT 108 K/UL (150-450); RED BLOOD COUNT 3.08 M/UL (4.70-6.10); RED CELL DISTRIBUTION WIDTH 16.7 % (11.6-14.8); WHITE BLOOD COUNT 10.9 K/UL (4.8-10.8)
--- NOTE | 2020-01-14 07:32 | NUR ---
RD ASSESSMENT & RECOMMENDATIONS SEE CARE ACTIVITY FOR COMPLETE ASSESSMENT DAILY ESTIMATED NEEDS: Needs based on cardiac, pulmonary, wasting (60kg) 25-35 kcals/kg 6595-7489 total kcals 1-1.5 g protein/kg 60-90 g total protein Per MD mL/kg total fluid mLs NUTRITION DIAGNOSIS: Altered nutrition related lab values r/t CKD, cardiac hx, h/o DM as evidenced by elev creat (2.2), elev BNP (79711), elev BGs (217, 224) CURRENT DIET:CCHO MED PO DIET RECOMMENDATIONS: Liberalized regular w/ poor PO (Texture per [employer]) ADDITIONAL RECOMMENDATIONS: 1) Daily calibrated bedscale wts 2) Monitor PO intake and tolerance: many refusing meals, now on NRB mask 3) Glucerna BID for now, monitor tolerance/acceptance, increase as needed 4) WC eval for sacral wound photo add MVI x 1 5) Consider appetite stimulant w/ consistently poor PO
[2020-01-14 07:55] LABS: ALBUMIN 2.4 G/DL (3.4-5.0); ALBUMIN/GLOBULIN RATIO 0.6 (1.0-2.7); BILIRUBIN,TOTAL 0.7 MG/DL (0.2-1.0); CALCIUM 8.9 MG/DL (8.5-10.1); CREATININE 2.3 MG/DL (0.55-1.30); POTASSIUM 4.1 MMOL/L (3.5-5.1)
[2020-01-14 08:00] VITALS: BP 116/64
[2020-01-14 08:05] LABS: PHOSPHORUS 3.9 MG/DL (2.5-4.9)
[2020-01-14] MEDS: Meropenem 1 GM in NS 55 ML IVPB SCH ×2 (09:26→21:10)
[2020-01-14] MEDS: Docusate 100mg cap ORAL SCH ×3 (09:27→18:29)
[2020-01-14] MEDS: Mycophenolate 250mg cap ORAL SCH ×2 (09:27→18:29)
[2020-01-14] MEDS: Carvedilol 12.5mg tab ORAL SCH ×2 (10:05→21:00)
--- NOTE | 2020-01-14 10:06 | General Progress Note ---
Subjective Constitutional: Reports: weakness Respiratory: Reports: shortness of breath Allergies: Coded Allergies: IODINE (Verified Allergy, Unknown, 04/10/17) METHOCARBAMOL (Verified Allergy, Unknown, 04/10/17) All Systems: reviewed and negative except above Subjective o2mask sleepy calm Objective Last 24 Hour Vital Signs Date Time Temp Pulse Resp B/P (MAP) Pulse Ox O2 Delivery O2 Flow Rate FiO2 01/14/20 09:27 86 116/64 01/14/20 08:00 97.2 86 20 116/64 (81) 98 01/14/20 04:00 97.7 94 28 118/74 (89) 100 01/14/20 04:00 93 01/14/20 00:00 99.0 90 26 102/69 (80) 100 01/14/20 00:00 90 01/13/20 21:40 89 130/78 01/13/20 21:00 Non-Rebreather 15.0 01/13/20 20:00 99.3 89 24 130/78 (95) 100 01/13/20 20:00 84 01/13/20 19:08 99 Non-Rebreather 15.0 100 01/13/20 16:00 94 01/13/20 16:00 99.0 93 22 110/68 (82) 93 01/13/20 12:00 104 01/13/20 12:00 99.5 88 24 105/65 (78) 90 01/13/20 10:18 86 100/69 Intake and Output 01/13/20 01/14/20 19:00 07:00 Intake Total 200 ml Output Total 800 ml 500 ml Balance -600 ml -500 ml Intake Oral 200 ml Output Urine Total 800 ml 500 ml # Bowel Movements 1 1 Laboratory Tests 01/13/20 16:00: Stool Occult Blood Negative 01/13/20 21:36: POC Whole Blood Glucose [Pending] 01/14/20 07:11: White Blood Count 10.9H, Red Blood Count 3.08L, Hemoglobin 9.5L, Hematocrit 28.6L, Mean Corpuscular Volume 93, Mean Corpuscular Hemoglobin 30.8, Mean Corpuscular Hemoglobin Concent 33.2, Red Cell Distribution Width 16.7H, Platelet Count 108L, Mean Platelet Volume 7.5, Neutrophils (%) (Auto) 82.1H, Lymphocytes (%) (Auto) 9.9L, Monocytes (%) (Auto) 7.3, Eosinophils (%) (Auto) 0.1, Basophils (%) (Auto) 0.5, Sodium Level 150H, Potassium Level 4.1, Chloride Level 116H, Carbon Dioxide Level 21, Anion Gap 13, Blood Urea Nitrogen 67H, Creatinine 2.3H, Estimat Glomerular Filtration Rate 27.9, Glucose Level 236H, Calcium Level 8.9, Phosphorus Level 3.9, Magnesium Level 2.4, Total Bilirubin 0.7, Aspartate Amino Transf (AST/SGOT) 33, Alanine Aminotransferase (ALT/SGPT) 22, Alkaline Phosphatase 97, C-Reactive Protein, Quantitative 32.4H, Total Protein 6.1L, Albumin 2.4L, Globulin 3.7, Albumin/Globulin Ratio 0.6L Height (Feet): 5 Height (Inches): 11.00 Weight (Pounds): 165 General Appearance: lethargic EENT: normal ENT inspection Neck: normal alignment Cardiovascular: normal peripheral pulses, normal rate, regular rhythm Respiratory/Chest: chest wall non-tender, lungs clear, normal breath sounds Abdomen: normal bowel sounds, non tender, soft Extremities: normal inspection Edema: no edema noted Arm (L), no edema noted Arm (R), no edema noted Leg (L), no edema noted Leg (R), no edema noted Pedal (L), no edema noted Pedal (R), no edema noted Generalized Neurologic: motor weakness Skin: normal pigmentation, warm/dry Assessment/Plan Problem List: (1) Anemia ICD Codes: D64.9 - Anemia, unspecified SNOMED: 890413559 (2) Renal failure ICD Codes: N19 - Unspecified kidney failure SNOMED: 14193302 (3) Afib ICD Codes: I48.91 - Unspecified atrial fibrillation SNOMED: 02961412 (4) Diabetes ICD Codes: E11.9 - Type 2 diabetes mellitus without complications SNOMED: 38017325 (5) Intertrochanteric fracture ICD Codes: S72.143A - Displaced intertrochanteric fracture of unspecified femur, initial encounter for closed fracture SNOMED: 301240490 Status: unchanged Assessment/Plan: pain control pt diet transuse prn ortho cardio f/u cbc bmp am id eval transfer to Giacomo Iyer DO Jan 14, 2020 10:06
[2020-01-14 12:00] VITALS: BP 122/79
--- NOTE | 2020-01-14 12:59 | NUR ---
NURSE NOTES: Per [facility] will not accept patient if on current oxygen amount.
--- NOTE | 2020-01-14 14:01 | Pulmonology Progress Note ---
Subjective ROS Limited/Unobtainable: Yes Interval Events: Switched from non-rebreather to Venturi mask Allergies: Coded Allergies: IODINE (Verified Allergy, Unknown, 04/10/17) METHOCARBAMOL (Verified Allergy, Unknown, 04/10/17) All Systems: reviewed and negative except above Objective Last 24 Hour Vital Signs Date Time Temp Pulse Resp B/P (MAP) Pulse Ox O2 Delivery O2 Flow Rate FiO2 01/14/20 10:05 90 129/83 01/14/20 09:27 86 116/64 01/14/20 09:00 Non-Rebreather 15.0 01/14/20 08:00 97.2 86 20 116/64 (81) 98 01/14/20 08:00 93 01/14/20 04:00 97.7 94 28 118/74 (89) 100 01/14/20 04:00 93 01/14/20 00:00 99.0 90 26 102/69 (80) 100 01/14/20 00:00 90 01/13/20 21:40 89 130/78 01/13/20 21:00 Non-Rebreather 15.0 01/13/20 20:00 99.3 89 24 130/78 (95) 100 01/13/20 20:00 84 01/13/20 19:08 99 Non-Rebreather 15.0 100 01/13/20 16:00 94 01/13/20 16:00 99.0 93 22 110/68 (82) 93 Intake and Output 01/13/20 01/14/20 19:00 07:00 Intake Total 200 ml Output Total 800 ml 500 ml Balance -600 ml -500 ml Intake Oral 200 ml Output Urine Total 800 ml 500 ml # Bowel Movements 1 1 Objective 01/14/2020 Pt lying in bed; lethargic General Appearance: no acute distress HEENT: normocephalic Respiratory: chest wall non-tender Cardiovascular: normal rate, regular rhythm Abdomen: distended Microbiology Date/Time Source Procedure Growth Status 01/13/20 14:46 Nasopharynx Coronavirus COVID-19 PCR ([facility]) - Final Complete Laboratory Tests 01/13/20 16:00: Stool Occult Blood Negative 01/13/20 21:36: POC Whole Blood Glucose [Pending] 01/14/20 07:11: White Blood Count 10.9H, Red Blood Count 3.08L, Hemoglobin 9.5L, Hematocrit 28.6L, Mean Corpuscular Volume 93, Mean Corpuscular Hemoglobin 30.8, Mean Corpuscular Hemoglobin Concent 33.2, Red Cell Distribution Width 16.7H, Platelet Count 108L, Mean Platelet Volume 7.5, Neutrophils (%) (Auto) 82.1H, Lymphocytes (%) (Auto) 9.9L, Monocytes (%) (Auto) 7.3, Eosinophils (%) (Auto) 0.1, Basophils (%) (Auto) 0.5, Sodium Level 150H, Potassium Level 4.1, Chloride Level 116H, Carbon Dioxide Level 21, Anion Gap 13, Blood Urea Nitrogen 67H, Creatinine 2.3H, Estimat Glomerular Filtration Rate 27.9, Glucose Level 236H, Calcium Level 8.9, Phosphorus Level 3.9, Magnesium Level 2.4, Total Bilirubin 0.7, Aspartate Amino Transf (AST/SGOT) 33, Alanine Aminotransferase (ALT/SGPT) 22, Alkaline Phosphatase 97, C-Reactive Protein, Quantitative 32.4H, Total Protein 6.1L, Albumin 2.4L, Globulin 3.7, Albumin/Globulin Ratio 0.6L Current Medications Medications (Trade) Dose Ordered Sig/Uvaldo Route PRN Reason Start Time Stop Time Status Last Admin Dose Admin Acetaminophen (Tylenol) 650 mg Q4H PRN ORAL Mild Pain 0-4/Temp >100.4 01/13/20 07:15 02/12/20 07:14 Atorvastatin Calcium (Lipitor) 20 mg BEDTIME ORAL 01/11/20 21:00 04/10/20 20:59 01/13/20 21:39 Benztropine Mesylate (Cogentin) 1 mg BEDTIME ORAL 01/12/20 21:00 02/11/20 20:59 01/13/20 21:40 Carvedilol (Coreg) 12.5 mg EVERY 12 HOURS ORAL 01/11/20 09:00 02/10/20 08:59 01/14/20 10:05 Dextrose (Dextrose 50%) 25 ml Q30M PRN IV Hypoglycemia 01/11/20 05:15 04/10/20 05:14 Dextrose (Dextrose 50%) 50 ml Q30M PRN IV Hypoglycemia 01/11/20 05:15 04/10/20 05:14 Docusate Sodium (Colace) 100 mg TID ORAL 01/12/20 13:00 02/10/20 09:59 01/14/20 13:09 Escitalopram Oxalate (Lexapro) 10 mg DAILY ORAL 01/11/20 09:00 02/10/20 08:59 01/14/20 09:27 Folic Acid (Folate) 1 mg DAILY ORAL 01/11/20 13:30 02/10/20 13:29 01/14/20 09:27 Hydralazine HCl (Apresoline) 25 mg Q4H PRN ORAL bp over 160 syst 01/11/20 10:00 04/10/20 09:59 Insulin Aspart (NovoLOG) BEFORE MEALS AND HS SUBQ 01/11/20 06:30 04/10/20 06:29 01/14/20 11:59 Meropenem 1 gm/ Sodium Chloride 55 ml @ 110 mls/hr Q12HR IVPB 01/13/20 10:30 01/18/20 10:29 01/14/20 09:26 Morphine Sulfate (Morphine Sulfate) 2 mg Q4H PRN IVP For Pain (4-10) 01/11/20 05:15 01/18/20 05:14 01/12/20 12:08 Mycophenolate Mofetil (Cellcept) 500 mg BID ORAL 01/11/20 09:00 04/10/20 08:59 01/14/20 09:27 Nifedipine (Procardia XL) 60 mg DAILY ORAL 01/11/20 09:09 02/10/20 09:08 01/14/20 09:27 Olanzapine (ZyPREXA Zydis) 15 mg BEDTIME ORAL 01/12/20 21:00 02/26/20 20:59 01/13/20 21:54 Pantoprazole (Protonix) 40 mg DAILY ORAL 01/11/20 10:00 02/10/20 09:59 01/14/20 09:27 Sodium Chloride 1,000 ml @ 50 mls/hr Q20H IV 01/14/20 09:30 02/13/20 09:29 01/14/20 09:28 Tacrolimus (Prograf) 1 mg BID ORAL 01/11/20 09:00 04/10/20 08:59 01/14/20 09:27 Temazepam (Restoril) 15 mg BEDTIME ORAL 01/11/20 21:00 12/9/20 20:59 01/13/20 21:39 Assessment/Plan Assessment/Plan 1. Atelectasis. - CXR 01/12/2020 shows left basilar atelectasis 2. Hypoxemia. - Switched to Venturi mask 10 lpm; currently saturating 97% - Titrate down further to keep saturations greater than 92% - Once pt on low flow oxygen, [facility] will accept transport 3. Anemia. - Hgb 11.1 -> 9.5 - s/p transfusion 4. Hip fracture. 5. Liver and kidney transplant. 6. Immunosuppression. 7. Hypertension. 8. CKD. - Na 150 - BUN 67 - Cr 2.3 - management per renal 9. Diabetes mellitus. 10. Concern for PE - V/Q scan 01/13/2020 no suspicion for PE - May be a candidate for IVC filter if found to have a PE We will follow carefully. The care for this patient was discussed with my supervising physician Seen and examined by Dr. Coto as well Time spent for this case was approximately 31 minutes Karan Swan Jan 14, 2020 14:01
--- NOTE | 2020-01-14 14:13 | Nephrology Progress Note ---
Assessment/Plan Problem List: (1) CKD (chronic kidney disease) (2) Diabetes (3) SOB (shortness of breath) (4) Hypoalbuminemia (5) Fecal impaction (6) Intertrochanteric fracture Assessment Intertrochanteric fracture Fecal impaction CKD (chronic kidney disease) DM HTN Plan January 13: Labs reviewed. Serum creatinine 2.3. IV changed to half-normal saline 50 cc an hour. Continue monitor renal parameters. Continue per consultants. January 12: Patient transfused. Hemoglobin higher. Serum creatinine 2.2 unchanged. Continue per consultants. Remains stable from renal standpoint of view. January 11: Patient due for transfusion 2 units of packed RBCs. Serum creatinine lowering. Will decrease IV fluid to 50 cc an hour. Continue to monitor renal parameters. Continue per consultants. Discussed with MELODY Espinosa. Previously: [facility] Urine studies Anemia jacobs Adjust blood pressure medication avoid nephrotoxics 2D echocardiogram Kidney ultrasound Per orders Subjective ROS Limited/Unobtainable: Yes Objective Objective Last 24 Hour Vital Signs Date Time Temp Pulse Resp B/P (MAP) Pulse Ox O2 Delivery O2 Flow Rate FiO2 01/14/20 12:00 94 01/14/20 10:05 90 129/83 01/14/20 09:27 86 116/64 01/14/20 09:00 Non-Rebreather 15.0 01/14/20 08:00 97.2 86 20 116/64 (81) 98 01/14/20 08:00 93 01/14/20 04:00 97.7 94 28 118/74 (89) 100 01/14/20 04:00 93 01/14/20 00:00 99.0 90 26 102/69 (80) 100 01/14/20 00:00 90 01/13/20 21:40 89 130/78 01/13/20 21:00 Non-Rebreather 15.0 01/13/20 20:00 99.3 89 24 130/78 (95) 100 01/13/20 20:00 84 01/13/20 19:08 99 Non-Rebreather 15.0 100 01/13/20 16:00 94 01/13/20 16:00 99.0 93 22 110/68 (82) 93 Intake and Output 01/13/20 01/14/20 19:00 07:00 Intake Total 200 ml Output Total 800 ml 500 ml Balance -600 ml -500 ml Intake Oral 200 ml Output Urine Total 800 ml 500 ml # Bowel Movements 1 1 Current Medications Medications (Trade) Dose Ordered Sig/Uvaldo Route PRN Reason Start Time Stop Time Status Last Admin Dose Admin Acetaminophen (Tylenol) 650 mg Q4H PRN ORAL Mild Pain 0-4/Temp >100.4 01/13/20 07:15 02/12/20 07:14 Atorvastatin Calcium (Lipitor) 20 mg BEDTIME ORAL 01/11/20 21:00 04/10/20 20:59 01/13/20 21:39 Benztropine Mesylate (Cogentin) 1 mg BEDTIME ORAL 01/12/20 21:00 02/11/20 20:59 01/13/20 21:40 Carvedilol (Coreg) 12.5 mg EVERY 12 HOURS ORAL 01/11/20 09:00 02/10/20 08:59 01/14/20 10:05 Dextrose (Dextrose 50%) 25 ml Q30M PRN IV Hypoglycemia 01/11/20 05:15 04/10/20 05:14 Dextrose (Dextrose 50%) 50 ml Q30M PRN IV Hypoglycemia 01/11/20 05:15 04/10/20 05:14 Docusate Sodium (Colace) 100 mg TID ORAL 01/12/20 13:00 02/10/20 09:59 01/14/20 13:09 Escitalopram Oxalate (Lexapro) 10 mg DAILY ORAL 01/11/20 09:00 02/10/20 08:59 01/14/20 09:27 Folic Acid (Folate) 1 mg DAILY ORAL 01/11/20 13:30 02/10/20 13:29 01/14/20 09:27 Hydralazine HCl (Apresoline) 25 mg Q4H PRN ORAL bp over 160 syst 01/11/20 10:00 04/10/20 09:59 Insulin Aspart (NovoLOG) BEFORE MEALS AND HS SUBQ 01/11/20 06:30 04/10/20 06:29 01/14/20 11:59 Meropenem 1 gm/ Sodium Chloride 55 ml @ 110 mls/hr Q12HR IVPB 01/13/20 10:30 01/18/20 10:29 01/14/20 09:26 Morphine Sulfate (Morphine Sulfate) 2 mg Q4H PRN IVP For Pain (4-10) 01/11/20 05:15 01/18/20 05:14 01/12/20 12:08 Mycophenolate Mofetil (Cellcept) 500 mg BID ORAL 01/11/20 09:00 04/10/20 08:59 01/14/20 09:27 Nifedipine (Procardia XL) 60 mg DAILY ORAL 01/11/20 09:09 02/10/20 09:08 01/14/20 09:27 Olanzapine (ZyPREXA Zydis) 15 mg BEDTIME ORAL 01/12/20 21:00 02/26/20 20:59 01/13/20 21:54 Pantoprazole (Protonix) 40 mg DAILY ORAL 01/11/20 10:00 02/10/20 09:59 01/14/20 09:27 Sodium Chloride 1,000 ml @ 50 mls/hr Q20H IV 01/14/20 09:30 02/13/20 09:29 01/14/20 09:28 Tacrolimus (Prograf) 1 mg BID ORAL 01/11/20 09:00 04/10/20 08:59 01/14/20 09:27 Temazepam (Restoril) 15 mg BEDTIME ORAL 01/11/20 21:00 01/18/20 20:59 01/13/20 21:39 Laboratory Tests 01/13/20 16:00: Stool Occult Blood Negative 01/13/20 21:36: POC Whole Blood Glucose [Pending] 01/14/20 07:11: White Blood Count 10.9H, Red Blood Count 3.08L, Hemoglobin 9.5L, Hematocrit 28.6L, Mean Corpuscular Volume 93, Mean Corpuscular Hemoglobin 30.8, Mean Corpuscular Hemoglobin Concent 33.2, Red Cell Distribution Width 16.7H, Platelet Count 108L, Mean Platelet Volume 7.5, Neutrophils (%) (Auto) 82.1H, Lymphocytes (%) (Auto) 9.9L, Monocytes (%) (Auto) 7.3, Eosinophils (%) (Auto) 0.1, Basophils (%) (Auto) 0.5, Sodium Level 150H, Potassium Level 4.1, Chloride Level 116H, Carbon Dioxide Level 21, Anion Gap 13, Blood Urea Nitrogen 67H, Creatinine 2.3H, Estimat Glomerular Filtration Rate 27.9, Glucose Level 236H, Calcium Level 8.9, Phosphorus Level 3.9, Magnesium Level 2.4, Total Bilirubin 0.7, Aspartate Amino Transf (AST/SGOT) 33, Alanine Aminotransferase (ALT/SGPT) 22, Alkaline Phosphatase 97, C-Reactive Protein, Quantitative 32.4H, Total Protein 6.1L, Albumin 2.4L, Globulin 3.7, Albumin/Globulin Ratio 0.6L Height (Feet): 5 Height (Inches): 11.00 Weight (Pounds): 165 General Appearance: no apparent distress, lethargic Cardiovascular: normal rate Respiratory/Chest: decreased breath sounds Abdomen: distended Young Mcdonald MD Jan 14, 2020 14:13
--- NOTE | 2020-01-14 14:16 | Infectious Diseases Prog Note ---
Assessment/Plan 74yo M with: Afebrile Leukocytosis to 15; SP Lymphopenia UTI 2/2 E.coli and ESBL Proteus Hypoxia on NRB mask Pneumonia vs PE COVID neg x2 VAQ scan: Unable to assign probability, due to lack of aerosol images. However,ventilation images demonstrate no findings suspicious for pulmonary embolus 01/12 COVID PCR neg 01/09 Rapid COVID PCR neg MRSA nares neg 01/10 UA+, UCx +E.coli (araya-S) and ESBL Proteus mirabilis (S-bactrim) 01/11 CXR: Interim placement of a left chest in a focal pacemaker. No pneumothorax is noted. Median sternotomy sutures are again demonstrated. Interim placement of a percutaneous aortic valve. Right arm catheter is again demonstrated. There is better aeration of the right lung. There is some atelectasis at the left lung base. Impression: Left basilar atelectasis 01/12 COVID PCR ordered CKD, Cr 2.2 L femur fx 01/09 CT: 1. Comminuted intertrochanteric fracture of the proximal left femur with varus angulation. 2. Fecal impaction. Fecal impaction, noted on admission imaging S/p OLT, DDRT - on tacro, cellcept PMH: S/p AVR S/p PPM HTN DM2 Afib Plan: Start meropenem #2 for ESBL UTI, possible pna COVID PCR given hypoxia, lymphopenia and from SNF F/u V/Q scan to r/o PE Ensure ongoing stool output given fecal impaction on CT A/P from admission Trend WBC Trend resp status Monitor CBC/CMP Monitor temp curve, hemodynamics Monitor resp status D/w RN Thank you for this consult. [facility] will continue to follow. Subjective Allergies: Coded Allergies: IODINE (Verified Allergy, Unknown, 04/10/17) METHOCARBAMOL (Verified Allergy, Unknown, 04/10/17) afebrile now on NRB 15L leukocytosis resolved Objective Last 24 Hour Vital Signs Date Time Temp Pulse Resp B/P (MAP) Pulse Ox O2 Delivery O2 Flow Rate FiO2 01/14/20 12:00 94 01/14/20 10:05 90 129/83 01/14/20 09:27 86 116/64 01/14/20 09:00 Non-Rebreather 15.0 01/14/20 08:00 97.2 86 20 116/64 (81) 98 01/14/20 08:00 93 01/14/20 04:00 97.7 94 28 118/74 (89) 100 01/14/20 04:00 93 01/14/20 00:00 99.0 90 26 102/69 (80) 100 01/14/20 00:00 90 01/13/20 21:40 89 130/78 01/13/20 21:00 Non-Rebreather 15.0 01/13/20 20:00 99.3 89 24 130/78 (95) 100 01/13/20 20:00 84 01/13/20 19:08 99 Non-Rebreather 15.0 100 01/13/20 16:00 94 01/13/20 16:00 99.0 93 22 110/68 (82) 93 Height (Feet): 5 Height (Inches): 11.00 Weight (Pounds): 165 Gen: NAD in bed HEENT: NCAT, EOMI, PERRL CV: RRR Pulm: Rhonchi BL anteriorly Abd: Soft, NTND Ext: No c/c/e Neuro: Awake, interactive Lines: Miranda Microbiology Date/Time Source Procedure Growth Status 01/13/20 14:46 Nasopharynx Coronavirus COVID-19 PCR ([facility]) - Final Complete Laboratory Tests Test 01/13/20 16:00 01/13/20 21:36 01/14/20 07:11 Stool Occult Blood Negative (NEGATIVE) POC Whole Blood Glucose Pending White Blood Count 10.9 K/UL (4.8-10.8) H Red Blood Count 3.08 M/UL (4.70-6.10) L Hemoglobin 9.5 G/DL (14.2-18.0) L Hematocrit 28.6 % (42.0-52.0) L Mean Corpuscular Volume 93 FL (80-99) Mean Corpuscular Hemoglobin 30.8 PG (27.0-31.0) Mean Corpuscular Hemoglobin Concent 33.2 G/DL (32.0-36.0) Red Cell Distribution Width 16.7 % (11.6-14.8) H Platelet Count 108 K/UL (150-450) L Mean Platelet Volume 7.5 FL (6.5-10.1) Neutrophils (%) (Auto) 82.1 % (45.0-75.0) H Lymphocytes (%) (Auto) 9.9 % (20.0-45.0) L Monocytes (%) (Auto) 7.3 % (1.0-10.0) Eosinophils (%) (Auto) 0.1 % (0.0-3.0) Basophils (%) (Auto) 0.5 % (0.0-2.0) Sodium Level 150 MMOL/L (136-145) H Potassium Level 4.1 MMOL/L (3.5-5.1) Chloride Level 116 MMOL/L (98-107) H Carbon Dioxide Level 21 MMOL/L (21-32) Anion Gap 13 mmol/L (5-15) Blood Urea Nitrogen 67 mg/dL (7-18) H Creatinine 2.3 MG/DL (0.55-1.30) H Estimat Glomerular Filtration Rate 27.9 mL/min (>60) Glucose Level 236 MG/DL (74-106) H Calcium Level 8.9 MG/DL (8.5-10.1) Phosphorus Level 3.9 MG/DL (2.5-4.9) Magnesium Level 2.4 MG/DL (1.8-2.4) Total Bilirubin 0.7 MG/DL (0.2-1.0) Aspartate Amino Transf (AST/SGOT) 33 U/L (15-37) Alanine Aminotransferase (ALT/SGPT) 22 U/L (12-78) Alkaline Phosphatase 97 U/L (46-116) C-Reactive Protein, Quantitative 32.4 mg/dL (0.00-0.90) H Total Protein 6.1 G/DL (6.4-8.2) L Albumin 2.4 G/DL (3.4-5.0) L Globulin 3.7 g/dL Albumin/Globulin Ratio 0.6 (1.0-2.7) L Current Medications Medications (Trade) Dose Ordered Sig/Uvaldo Route PRN Reason Start Time Stop Time Status Last Admin Dose Admin Acetaminophen (Tylenol) 650 mg Q4H PRN ORAL Mild Pain 0-4/Temp >100.4 01/13/20 07:15 02/12/20 07:14 Atorvastatin Calcium (Lipitor) 20 mg BEDTIME ORAL 01/11/20 21:00 04/10/20 20:59 01/13/20 21:39 Benztropine Mesylate (Cogentin) 1 mg BEDTIME ORAL 01/12/20 21:00 02/11/20 20:59 01/13/20 21:40 Carvedilol (Coreg) 12.5 mg EVERY 12 HOURS ORAL 01/11/20 09:00 02/10/20 08:59 01/14/20 10:05 Dextrose (Dextrose 50%) 25 ml Q30M PRN IV Hypoglycemia 01/11/20 05:15 04/10/20 05:14 Dextrose (Dextrose 50%) 50 ml Q30M PRN IV Hypoglycemia 01/11/20 05:15 04/10/20 05:14 Docusate Sodium (Colace) 100 mg TID ORAL 01/12/20 13:00 02/10/20 09:59 01/14/20 13:09 Escitalopram Oxalate (Lexapro) 10 mg DAILY ORAL 01/11/20 09:00 02/10/20 08:59 01/14/20 09:27 Folic Acid (Folate) 1 mg DAILY ORAL 01/11/20 13:30 02/10/20 13:29 01/14/20 09:27 Hydralazine HCl (Apresoline) 25 mg Q4H PRN ORAL bp over 160 syst 01/11/20 10:00 04/10/20 09:59 Insulin Aspart (NovoLOG) BEFORE MEALS AND HS SUBQ 01/11/20 06:30 04/10/20 06:29 01/14/20 11:59 Meropenem 1 gm/ Sodium Chloride 55 ml @ 110 mls/hr Q12HR IVPB 01/13/20 10:30 01/18/20 10:29 01/14/20 09:26 Morphine Sulfate (Morphine Sulfate) 2 mg Q4H PRN IVP For Pain (4-10) 01/11/20 05:15 01/18/20 05:14 01/12/20 12:08 Mycophenolate Mofetil (Cellcept) 500 mg BID ORAL 01/11/20 09:00 04/10/20 08:59 01/14/20 09:27 Nifedipine (Procardia XL) 60 mg DAILY ORAL 01/11/20 09:09 02/10/20 09:08 01/14/20 09:27 Olanzapine (ZyPREXA Zydis) 15 mg BEDTIME ORAL 01/12/20 21:00 02/26/20 20:59 01/13/20 21:54 Pantoprazole (Protonix) 40 mg DAILY ORAL 01/11/20 10:00 02/10/20 09:59 01/14/20 09:27 Sodium Chloride 1,000 ml @ 50 mls/hr Q20H IV 01/14/20 09:30 02/13/20 09:29 01/14/20 09:28 Tacrolimus (Prograf) 1 mg BID ORAL 01/11/20 09:00 04/10/20 08:59 01/14/20 09:27 Temazepam (Restoril) 15 mg BEDTIME ORAL 01/11/20 21:00 01/18/20 20:59 01/13/20 21:39 Geovanna Purcell M.D. Jan 14, 2020 14:16
--- NOTE | 2020-01-14 15:44 | NUR ---
NURSE NOTES: Per Dr. Coto, [facility] will not take patient with the amount of oxygen he is on (6L venturi mask). Needs to be on lower oxygen.
[2020-01-14 16:00] VITALS: BP 135/87
--- NOTE | 2020-01-14 17:35 | Cardiac Electrophysiology PN ---
Assessment/Plan Assessment/Plan 1. Atrial fibrillation. On Coreg 12.5 mg b.i.d. and is off anticoagulation (was on Eliquis 2.5 mg b.i.d) for surgery and severe anemia. 2. Hypertension, on Coreg 12.5 b.i.d. and Procardia XL 60 mg daily. 3. Hyperlipidemia, on Lipitor. 4. S/P Biotronic VVI Pacer 2017 5. S/P Aortic dissection repair and bioprosthetic AVR 06/2005 6. 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 Diabetes, on insulin. 8. Left hip fracture. Awaiting transfer to [facility] for surgery by Dr Escalante 9. Fever , Now is being ruled ouit for Covid by ID On 6 liter Venturi Mask DW patients brother Dr. Tony in [place] at [phone] Subjective Subjective S/P OLT 2005 S/P Liver/kidney tx 2008 S/P Aortic dissection repair and bioprosthetic AVR 06/2005 S/P Biotronic VVI Pacer 2017 S/P PRBC x2 for Hb 6.7 Awaiting transfer to [facility] for surgery Developed fever and is being ruled out for COVID On 6 liter Venturi Mask Objective Last 24 Hour Vital Signs Date Time Temp Pulse Resp B/P (MAP) Pulse Ox O2 Delivery O2 Flow Rate FiO2 01/14/20 16:00 98 01/14/20 12:00 97.7 94 22 122/79 (93) 99 01/14/20 12:00 94 01/14/20 10:05 90 129/83 01/14/20 09:27 86 116/64 01/14/20 09:00 Non-Rebreather 15.0 01/14/20 08:00 97.2 86 20 116/64 (81) 98 01/14/20 08:00 93 01/14/20 04:00 97.7 94 28 118/74 (89) 100 01/14/20 04:00 93 01/14/20 00:00 99.0 90 26 102/69 (80) 100 01/14/20 00:00 90 01/13/20 21:40 89 130/78 01/13/20 21:00 Non-Rebreather 15.0 01/13/20 20:00 99.3 89 24 130/78 (95) 100 01/13/20 20:00 84 01/13/20 19:08 99 Non-Rebreather 15.0 100 Intake and Output 01/13/20 01/14/20 19:00 07:00 Intake Total 200 ml Output Total 800 ml 500 ml Balance -600 ml -500 ml Intake Oral 200 ml Output Urine Total 800 ml 500 ml # Bowel Movements 1 1 Laboratory Tests Test 01/13/20 21:36 01/14/20 07:11 POC Whole Blood Glucose Pending White Blood Count 10.9 K/UL (4.8-10.8) H Red Blood Count 3.08 M/UL (4.70-6.10) L Hemoglobin 9.5 G/DL (14.2-18.0) L Hematocrit 28.6 % (42.0-52.0) L Mean Corpuscular Volume 93 FL (80-99) Mean Corpuscular Hemoglobin 30.8 PG (27.0-31.0) Mean Corpuscular Hemoglobin Concent 33.2 G/DL (32.0-36.0) Red Cell Distribution Width 16.7 % (11.6-14.8) H Platelet Count 108 K/UL (150-450) L Mean Platelet Volume 7.5 FL (6.5-10.1) Neutrophils (%) (Auto) 82.1 % (45.0-75.0) H Lymphocytes (%) (Auto) 9.9 % (20.0-45.0) L Monocytes (%) (Auto) 7.3 % (1.0-10.0) Eosinophils (%) (Auto) 0.1 % (0.0-3.0) Basophils (%) (Auto) 0.5 % (0.0-2.0) Sodium Level 150 MMOL/L (136-145) H Potassium Level 4.1 MMOL/L (3.5-5.1) Chloride Level 116 MMOL/L (98-107) H Carbon Dioxide Level 21 MMOL/L (21-32) Anion Gap 13 mmol/L (5-15) Blood Urea Nitrogen 67 mg/dL (7-18) H Creatinine 2.3 MG/DL (0.55-1.30) H Estimat Glomerular Filtration Rate 27.9 mL/min (>60) Glucose Level 236 MG/DL (74-106) H Calcium Level 8.9 MG/DL (8.5-10.1) Phosphorus Level 3.9 MG/DL (2.5-4.9) Magnesium Level 2.4 MG/DL (1.8-2.4) Total Bilirubin 0.7 MG/DL (0.2-1.0) Aspartate Amino Transf (AST/SGOT) 33 U/L (15-37) Alanine Aminotransferase (ALT/SGPT) 22 U/L (12-78) Alkaline Phosphatase 97 U/L (46-116) C-Reactive Protein, Quantitative 32.4 mg/dL (0.00-0.90) H Total Protein 6.1 G/DL (6.4-8.2) L Albumin 2.4 G/DL (3.4-5.0) L Globulin 3.7 g/dL Albumin/Globulin Ratio 0.6 (1.0-2.7) L Microbiology Date/Time Source Procedure Growth Status 01/13/20 14:46 Nasopharynx Coronavirus COVID-19 PCR ([facility]) - Final Complete Objective HEAD AND NECK: no JVD. LUNGS: Coarse rhonchi. CARDIOVASCULAR: regular S1 and S2 with no gallop. Pacemaker is in left subclavian. The sternotomy scar is intact. ABDOMEN: Soft. EXTREMITIES: No pitting edema. Has left hip fracture. Edwardo Wilhelm MD Jan 14, 2020 17:35
--- NOTE | 2020-01-14 19:15 | NUR ---
NURSE HAND-OFF REPORT: Important Events on Shift: Weaning oxygen down with RT for tete to [facility], Dr. Snyder and Dr. Coto aware of instability and Dr. Coto stated that he is not fit for transfer in current condition Patient Status: full code Diet: CCHO medium Pending Orders: [] Pending Results/Labs:[] Pending MD notification:[] Latest Vital Signs: Temperature 97.9 , Pulse 86 , B/P 135 /87 , Respiratory Rate 20 , O2 SAT 98 , Non-Rebreather, O2 Flow Rate 15.0 . Vital Sign Comment: [] EKG Rhythm: Atrial Fibrillation Rhythm change?: N Notified?: N -Dr. angeline FERNANDO Response: Latest Willis Fall Score: 85 Fall Risk: High Risk Safety Measures: Call light Within Reach, Bed Alarm Zone 2, Side Rails Side Rails x3, Bed position Low and Locked. Fall Precautions: Yellow Socks Patient Fall Education Report given to Calvin Flores RN.
--- NOTE | 2020-01-14 19:20 | NUR ---
NURSE NOTES: Pt received from MELODY Canales. Pt is sleeping in bed and shows no signs of pain. Pt is bedbound due to weakness and A/Ox1 to self. Pt has govea catheter 16fr patent and draining well to gravity. Pt has cardiac monitoring Afib and asymptomatic; MD is aware as pt baseline. Pt has Ventauri mask 6LPM breathing shallow and sating well. Pt has sacral discoloration and wound care plan is active. Pt has APOLINAR 20G D51/2NS 50ml/hr patent and draining well to gravity. Bed is locked in lowest position and call light is within reach. Will continue to monitor.
[2020-01-14 20:00] VITALS: BP 158/79
[2020-01-14] MEDS: ZyPREXA Zydis 5mg tab ORAL SCH (21:00)
[2020-01-14] MEDS: Atorvastatin 20mg tab ORAL SCH (21:00)
[2020-01-14] MEDS: Benztropine 1mg tab ORAL SCH (21:00)
[2020-01-14] MEDS: Morphine Sulfate 2mg/ml Inj(IV/IM USE ONLY) IVP PRN (21:10)
[2020-01-15] VITALS: BP 112/52
--- NOTE | 2020-01-15 00:40 | NUR ---
NURSE NOTES: Pt weaned down to Ventauri 3LPM 28%FiO2 per Jesús RT. Pt sating 96% and breathing pattern unchanged. Will continue to monitor.
[2020-01-15] MEDS: Morphine Sulfate 2mg/ml Inj(IV/IM USE ONLY) IVP PRN (03:26)
[2020-01-15 04:00] VITALS: BP 108/57
[2020-01-15] MEDS: NovoLOG Insulin Flexpen SUBQ SCH ×4 (05:34→22:06)
--- NOTE | 2020-01-15 05:48 | NUR ---
NURSE NOTES: Pt weaned down to 2LPM NC breathing pattern unchanged. Pt is sating 97%. Will continue to monitor.
[2020-01-15 06:00] LABS: BASOPHILS % (AUTO) 0.3 % (0.0-2.0); EOSINOPHILS % (AUTO) 0.6 % (0.0-3.0); HEMATOCRIT 27.7 % (42.0-52.0); LYMPHOCYTES % (AUTO) 13.4 % (20.0-45.0); MEAN CORPUSCULAR VOLUME 95 FL (80-99); NEUTROPHILS % (AUTO) 78.6 % (45.0-75.0); PLATELET COUNT 102 K/UL (150-450); RED BLOOD COUNT 2.92 M/UL (4.70-6.10); RED CELL DISTRIBUTION WIDTH 16.3 % (11.6-14.8); WHITE BLOOD COUNT 8.5 K/UL (4.8-10.8)
--- NOTE | 2020-01-15 06:21 | NUR ---
NURSE HAND-OFF REPORT: Important Events on Shift:Pt weaned off Ventauri Mask to NC 2LPM. Pt received prn pain medication. Patient Status: Stable and sating well Diet: CCHo medium Pending Orders: Pending Results/Labs:AM Labs Pending notification: Latest Vital Signs: Temperature 98.4 , Pulse 97 , B/P 108 /57 , Respiratory Rate 24 , O2 SAT 97 , Venturi Mask, O2 Flow Rate 6.0 . Vital Sign Comment: VSS EKG Rhythm: Atrial Fibrillation Rhythm change?: N Notified?: N -Dr. angeline FERNANDO Response: Latest Willis Fall Score: 85 Fall Risk: High Risk Safety Measures: Call light Within Reach, Bed Alarm Zone 2, Side Rails Side Rails x3, Bed position Low and Locked. Fall Precautions: Yellow Socks Patient Fall Education Report given to MELODY Espinosa.
--- NOTE | 2020-01-15 06:34 | Hematology/Onc Progress Note ---
Assessment/Plan Assessment/Plan Assessment and recs # Anemia r/o iron deficiency --> anemia panel has been noted, occult ordered --> no hemolysis is seen at this time --> transfuse as prn basis as needed --> hgb 8.2-->7.8--.11-->9.5 --> anemia panel again reviewed # Coagulopathy consistent with liver disease, has a hx of liver transplant --> us abd ordered-->reviewed --> persistent elevated inr/ptt --> likely ffp and vit k pre surgery # Leukocytosis is likely related to infection/trauma --> wbc 14->10 --> OFF abx-->rashid # Thrombocytopenia with hx lover disease -> plt 108 # Intertrochanteric fracture --> ortho consulted, will need tx to [facility]) # Fecal impaction --> stool softeners # CKD (chronic kidney disease) --> per renal # Aortic valve replacement. --> eliquis before, now changed to lovenox # History of liver and kidney transplant. --> cellcept and prograf # History of pacemaker placement. -> before lovenox-->Scds # Disop transfer to higher level of care Appreciate consultation and tony Rn Subjective Constitutional: Denies: no symptoms, chills, fever, malaise, weakness, other HEENT: Denies: no symptoms, eye pain, blurred vision, tearing, double vision, ear pain, ear discharge, nose pain, nose congestion, throat pain, throat swelling, mouth pain, mouth swelling, other Cardiovascular: Denies: no symptoms, chest pain, edema, irregular heart rate, lightheadedness, palpitations, syncope, other Respiratory: Denies: no symptoms, cough, shortness of breath, SOB with excertion, SOB at rest, sputum, wheezing, other Gastrointestinal/Abdominal: Denies: no symptoms, abdomen distended, abdominal pain, black stools, tarry stools, blood in stool, constipated, diarrhea, difficulty swallowing, nausea, poor appetite, poor fluid intake, rectal bleeding, vomiting, other Neurologic/Psychiatric: Denies: no symptoms, anxiety, depressed, emotional prob lems, headache, numbness, paresthesia, pre-existing deficit, seizure, tingling, tremors, weakness, other Endocrine: Denies: no symptoms, excessive sweating, flushing, intolerance to cold, intolerance to heat, increased hunger, increased thirst, increased urine, unexplained weight gain, unexplained weight loss, other Allergies: Coded Allergies: IODINE (Verified Allergy, Unknown, 04/10/17) METHOCARBAMOL (Verified Allergy, Unknown, 04/10/17) Subjective 01/11 remains confused overnight, no bleeding, eliquis stopped, on lovenox now 01/12 is to get v/q scan, seen by pulm, hgb markedly improved, scds 01/13 labs reviewed, meds noted, no bleeding, hgb remains low, hgb 9.5, off anticoag Objective Objective Current Medications Medications (Trade) Dose Ordered Sig/Uvaldo Route PRN Reason Start Time Stop Time Status Last Admin Dose Admin Acetaminophen (Tylenol) 650 mg Q4H PRN ORAL Mild Pain 0-4/Temp >100.4 01/13/20 07:15 02/12/20 07:14 Atorvastatin Calcium (Lipitor) 20 mg BEDTIME ORAL 01/11/20 21:00 04/10/20 20:59 01/14/20 21:00 Benztropine Mesylate (Cogentin) 1 mg BEDTIME ORAL 01/12/20 21:00 02/11/20 20:59 01/14/20 21:00 Carvedilol (Coreg) 12.5 mg EVERY 12 HOURS ORAL 01/11/20 09:00 02/10/20 08:59 01/14/20 21:00 Dextrose (Dextrose 50%) 25 ml Q30M PRN IV Hypoglycemia 01/11/20 05:15 04/10/20 05:14 Dextrose (Dextrose 50%) 50 ml Q30M PRN IV Hypoglycemia 01/11/20 05:15 04/10/20 05:14 Docusate Sodium (Colace) 100 mg TID ORAL 01/12/20 13:00 02/10/20 09:59 01/14/20 18:29 Escitalopram Oxalate (Lexapro) 10 mg DAILY ORAL 01/11/20 09:00 02/10/20 08:59 01/14/20 09:27 Folic Acid (Folate) 1 mg DAILY ORAL 01/11/20 13:30 02/10/20 13:29 01/14/20 09:27 Hydralazine HCl (Apresoline) 25 mg Q4H PRN ORAL bp over 160 syst 01/11/20 10:00 04/10/20 09:59 Insulin Aspart (NovoLOG) BEFORE MEALS AND HS SUBQ 01/11/20 06:30 04/10/20 06:29 01/15/20 05:34 Meropenem 1 gm/ Sodium Chloride 55 ml @ 110 mls/hr Q12HR IVPB 01/13/20 10:30 01/18/20 10:29 01/14/20 21:10 Morphine Sulfate (Morphine Sulfate) 2 mg Q4H PRN IVP For Pain (4-10) 01/11/20 05:15 01/18/20 05:14 01/15/20 03:26 Mycophenolate Mofetil (Cellcept) 500 mg BID ORAL 01/11/20 09:00 04/10/20 08:59 01/14/20 18:29 Nifedipine (Procardia XL) 60 mg DAILY ORAL 01/11/20 09:09 02/10/20 09:08 01/14/20 09:27 Olanzapine (ZyPREXA Zydis) 15 mg BEDTIME ORAL 01/12/20 21:00 02/26/20 20:59 01/14/20 21:00 Pantoprazole (Protonix) 40 mg DAILY ORAL 01/11/20 10:00 02/10/20 09:59 01/14/20 09:27 Sodium Chloride 1,000 ml @ 50 mls/hr Q20H IV 01/14/20 09:30 02/13/20 09:29 01/15/20 05:34 Tacrolimus (Prograf) 1 mg BID ORAL 01/11/20 09:00 04/10/20 08:59 01/14/20 18:29 Temazepam (Restoril) 15 mg BEDTIME ORAL 01/11/20 21:00 01/18/20 20:59 01/14/20 21:00 Last 24 Hour Vital Signs Date Time Temp Pulse Resp B/P (MAP) Pulse Ox O2 Delivery O2 Flow Rate FiO2 01/15/20 04:00 97 01/15/20 04:00 98.4 91 24 108/57 (74) 97 01/15/20 00:00 92 01/15/20 00:00 98.4 98 24 112/52 (72) 99 01/14/20 21:00 Venturi Mask 6.0 12/5/20 21:00 98 158/79 01/14/20 20:00 98.8 98 24 158/79 (105) 97 01/14/20 20:00 101 01/14/20 16:00 97.9 86 20 135/87 (103) 98 01/14/20 16:00 98 01/14/20 12:00 97.7 94 22 122/79 (93) 99 01/14/20 12:00 94 01/14/20 10:05 90 129/83 01/14/20 09:27 86 116/64 01/14/20 09:00 Non-Rebreather 15.0 01/14/20 08:00 97.2 86 20 116/64 (81) 98 01/14/20 08:00 93 01/14/20 04:00 97.7 94 28 118/74 (89) 100 01/14/20 04:00 93 01/14/20 00:00 99.0 90 26 102/69 (80) 100 01/14/20 00:00 90 01/13/20 21:40 89 130/78 01/13/20 21:00 Non-Rebreather 15.0 01/13/20 20:00 99.3 89 24 130/78 (95) 100 01/13/20 20:00 84 01/13/20 19:08 99 Non-Rebreather 15.0 100 01/13/20 16:00 94 01/13/20 16:00 99.0 93 22 110/68 (82) 93 01/13/20 12:00 104 01/13/20 12:00 99.5 88 24 105/65 (78) 90 01/13/20 10:18 86 100/69 01/13/20 09:00 Non-Rebreather 10.0 01/13/20 09:00 86 100/69 01/13/20 08:00 89 01/13/20 08:00 99.9 86 22 100/69 (79) 90 Intake and Output 01/14/20 01/15/20 19:00 07:00 Output Total 300 ml 300 ml Balance -300 ml -300 ml Output Urine Total 300 ml 300 ml Labs Test 01/12/20 11:53 01/13/20 06:04 01/13/20 16:00 01/13/20 21:36 POC Whole Blood Glucose 233 MG/DL (74-106) White Blood Count 15.2 K/UL (4.8-10.8) Red Blood Count 3.57 M/UL (4.70-6.10) Hemoglobin 11.1 G/DL (14.2-18.0) Hematocrit 33.7 % (42.0-52.0) Mean Corpuscular Volume 94 FL (80-99) Mean Corpuscular Hemoglobin 31.2 PG (27.0-31.0) Mean Corpuscular Hemoglobin Concent 33.0 G/DL (32.0-36.0) Red Cell Distribution Width 16.8 % (11.6-14.8) Platelet Count 130 K/UL (150-450) Mean Platelet Volume 8.4 FL (6.5-10.1) Neutrophils (%) (Auto) 84.6 % (45.0-75.0) Lymphocytes (%) (Auto) 8.3 % (20.0-45.0) Monocytes (%) (Auto) 6.6 % (1.0-10.0) Eosinophils (%) (Auto) 0.1 % (0.0-3.0) Basophils (%) (Auto) 0.5 % (0.0-2.0) Sodium Level 146 MMOL/L (136-145) Potassium Level 4.6 MMOL/L (3.5-5.1) Chloride Level 112 MMOL/L (98-107) Carbon Dioxide Level 22 MMOL/L (21-32) Anion Gap 12 mmol/L (5-15) Blood Urea Nitrogen 59 mg/dL (7-18) Creatinine 2.2 MG/DL (0.55-1.30) Estimat Glomerular Filtration Rate 29.3 mL/min (>60) Glucose Level 217 MG/DL (74-106) Calcium Level 8.8 MG/DL (8.5-10.1) Phosphorus Level 3.8 MG/DL (2.5-4.9) Magnesium Level 2.3 MG/DL (1.8-2.4) Total Bilirubin 0.8 MG/DL (0.2-1.0) Aspartate Amino Transf (AST/SGOT) 32 U/L (15-37) Alanine Aminotransferase (ALT/SGPT) 23 U/L (12-78) Alkaline Phosphatase 107 U/L (46-116) C-Reactive Protein, Quantitative 23.8 mg/dL (0.00-0.90) Pro-B-Type Natriuretic Peptide 34926 pg/mL (0-125) Total Protein 6.5 G/DL (6.4-8.2) Albumin 2.7 G/DL (3.4-5.0) Globulin 3.8 g/dL Albumin/Globulin Ratio 0.7 (1.0-2.7) Stool Occult Blood Negative (NEGATIVE) Test 01/14/20 07:11 01/14/20 21:17 01/15/20 04:30 01/15/20 05:27 White Blood Count 10.9 K/UL (4.8-10.8) Red Blood Count 3.08 M/UL (4.70-6.10) Hemoglobin 9.5 G/DL (14.2-18.0) Hematocrit 28.6 % (42.0-52.0) Mean Corpuscular Volume 93 FL (80-99) Mean Corpuscular Hemoglobin 30.8 PG (27.0-31.0) Mean Corpuscular Hemoglobin Concent 33.2 G/DL (32.0-36.0) Red Cell Distribution Width 16.7 % (11.6-14.8) Platelet Count 108 K/UL (150-450) Mean Platelet Volume 7.5 FL (6.5-10.1) Neutrophils (%) (Auto) 82.1 % (45.0-75.0) Lymphocytes (%) (Auto) 9.9 % (20.0-45.0) Monocytes (%) (Auto) 7.3 % (1.0-10.0) Eosinophils (%) (Auto) 0.1 % (0.0-3.0) Basophils (%) (Auto) 0.5 % (0.0-2.0) Sodium Level 150 MMOL/L (136-145) Potassium Level 4.1 MMOL/L (3.5-5.1) Chloride Level 116 MMOL/L (98-107) Carbon Dioxide Level 21 MMOL/L (21-32) Anion Gap 13 mmol/L (5-15) Blood Urea Nitrogen 67 mg/dL (7-18) Creatinine 2.3 MG/DL (0.55-1.30) Estimat Glomerular Filtration Rate 27.9 mL/min (>60) Glucose Level 236 MG/DL (74-106) Calcium Level 8.9 MG/DL (8.5-10.1) Phosphorus Level 3.9 MG/DL (2.5-4.9) Magnesium Level 2.4 MG/DL (1.8-2.4) Total Bilirubin 0.7 MG/DL (0.2-1.0) Aspartate Amino Transf (AST/SGOT) 33 U/L (15-37) Alanine Aminotransferase (ALT/SGPT) 22 U/L (12-78) Alkaline Phosphatase 97 U/L (46-116) C-Reactive Protein, Quantitative 32.4 mg/dL (0.00-0.90) Total Protein 6.1 G/DL (6.4-8.2) Albumin 2.4 G/DL (3.4-5.0) Globulin 3.7 g/dL Albumin/Globulin Ratio 0.6 (1.0-2.7) POC Whole Blood Glucose 165 MG/DL (74-106) Height (Feet): 5 Height (Inches): 11.00 Weight (Pounds): 165 Objective Physical Exam General: Awake and alert, no acute distress HEENT: NC/AT. No scalp or face hematomas, lacerations or abrasions Cardiovascular: Irregularly irregular rhythm. Normal rate. Resp: Normal work of breathing. No cough, wheezing or crackles appreciated Abdomen: Abdomen is soft, nondistended. Nontender Skin: Intact. Abrasion over the left earlobe. MSK: Normal tone and bulk. Deformity over the left pelvis Neuro: Awake and alert. is a poor historian Chuy Jade MD Jan 15, 2020 06:34
[2020-01-15 06:35] LABS: ALBUMIN 2.1 G/DL (3.4-5.0); ALBUMIN/GLOBULIN RATIO 0.6 (1.0-2.7); BILIRUBIN,TOTAL 0.6 MG/DL (0.2-1.0); CALCIUM 7.4 MG/DL (8.5-10.1); CREATININE 2.2 MG/DL (0.55-1.30); PHOSPHORUS 3.6 MG/DL (2.5-4.9); POTASSIUM 4.8 MMOL/L (3.5-5.1)
--- NOTE | 2020-01-15 07:23 | NUR ---
NURSE NOTES: Patient sitting up in bed in semi-Sal's position, awake and alert to name, verbally responsive, on 2 liters oxygen per nasal cannula saturating at 99%, side rails up x 3, bed in lowest position, call light within reach, wheels locked, pain treated with morphine, no c/o pain at this time, Miranda Catheter in place, IV in right upper arm in place, wound care completed for today, breakfast at bedside, in no apparent distress. Addendum: 01/15/20 at 9327 by DB BUTLER RN Received report from Gurinder Hall.
[2020-01-15 08:00] VITALS: BP 147/82
[2020-01-15] MEDS: Mycophenolate 250mg cap ORAL SCH ×2 (08:56→17:18)
[2020-01-15] MEDS: Carvedilol 12.5mg tab ORAL SCH ×2 (08:57→22:00)
[2020-01-15] MEDS: Docusate 100mg cap ORAL SCH ×3 (08:57→18:20)
--- NOTE | 2020-01-15 09:01 | General Progress Note ---
Subjective Constitutional: Reports: weakness Allergies: Coded Allergies: IODINE (Verified Allergy, Unknown, 04/10/17) METHOCARBAMOL (Verified Allergy, Unknown, 04/10/17) All Systems: reviewed and negative except above Subjective o2 nc sleepy calm Objective Last 24 Hour Vital Signs Date Time Temp Pulse Resp B/P (MAP) Pulse Ox O2 Delivery O2 Flow Rate FiO2 01/15/20 08:57 93 147/82 01/15/20 08:56 93 147/82 01/15/20 08:00 98.4 102 22 147/82 (103) 98 01/15/20 08:00 93 01/15/20 04:00 97 01/15/20 04:00 98.4 91 24 108/57 (74) 97 01/15/20 00:00 92 01/15/20 00:00 98.4 98 24 112/52 (72) 99 01/14/20 21:00 Venturi Mask 6.0 01/14/20 21:00 98 158/79 01/14/20 20:00 98.8 98 24 158/79 (105) 97 01/14/20 20:00 101 01/14/20 16:00 97.9 86 20 135/87 (103) 98 01/14/20 16:00 98 01/14/20 12:00 97.7 94 22 122/79 (93) 99 01/14/20 12:00 94 01/14/20 10:05 90 129/83 01/14/20 09:27 86 116/64 l Intake and Output 01/14/20 01/15/20 19:00 07:00 Intake Total 50 ml Output Total 300 ml 300 ml Balance -300 ml -250 ml IV Total 50 ml Output Urine Total 300 ml 300 ml Laboratory Tests 01/14/20 21:17: POC Whole Blood Glucose 165H 01/15/20 04:30: White Blood Count 8.5, Red Blood Count 2.92L, Hemoglobin 9.0L, Hematocrit 27.7L, Mean Corpuscular Volume 95, Mean Corpuscular Hemoglobin 30.7, Mean Corpuscular Hemoglobin Concent 32.4, Red Cell Distribution Width 16.3H, Platelet Count 102L, Mean Platelet Volume 8.1, Neutrophils (%) (Auto) 78.6H, Lymphocytes (%) (Auto) 13.4L, Monocytes (%) (Auto) 7.0, Eosinophils (%) (Auto) 0.6, Basophils (%) (Auto) 0.3, Sodium Level 151H, Potassium Level 4.8, Chloride Level 119H, Carbon Dioxide Level 17L, Anion Gap 15, Blood Urea Nitrogen 71H, Creatinine 2.2H, Estimat Glomerular Filtration Rate 29.3, Glucose Level 148H, Calcium Level 7.4L, Phosphorus Level 3.6, Magnesium Level 2.7H, Total Bilirubin 0.6, Aspartate Amino Transf (AST/SGOT) 52H, Alanine Aminotransferase (ALT/SGPT) 36, Alkaline Phosphatase 91, Total Protein 5.5L, Albumin 2.1L, Globulin 3.4, Albumin/Globulin Ratio 0.6L 01/15/20 05:27: POC Whole Blood Glucose [Pending] Height (Feet): 5 Height (Inches): 11.00 Weight (Pounds): 165 General Appearance: lethargic EENT: normal ENT inspection Neck: normal alignment Cardiovascular: normal peripheral pulses, normal rate, regular rhythm Respiratory/Chest: chest wall non-tender, lungs clear, normal breath sounds Abdomen: normal bowel sounds, non tender, soft Extremities: normal inspection Edema: no edema noted Arm (L), no edema noted Arm (R), no edema noted Leg (L), no edema noted Leg (R), no edema noted Pedal (L), no edema noted Pedal (R), no edema noted Generalized Neurologic: motor weakness Skin: normal pigmentation, warm/dry Assessment/Plan Problem List: (1) Anemia ICD Codes: D64.9 - Anemia, unspecified SNOMED: 528769231 (2) Renal failure ICD Codes: N19 - Unspecified kidney failure SNOMED: 78859321 (3) Afib ICD Codes: I48.91 - Unspecified atrial fibrillation SNOMED: 59605764 (4) Diabetes ICD Codes: E11.9 - Type 2 diabetes mellitus without complications SNOMED: 67500930 (5) Intertrochanteric fracture ICD Codes: S72.143A - Displaced intertrochanteric fracture of unspecified femur, initial encounter for closed fracture SNOMED: 877791567 Status: unchanged Assessment/Plan: pain control pt diet transuse prn ortho cardio f/u cbc bmp am id eval transfer to Giacomo Iyer DO Jan 15, 2020 09:01
[2020-01-15] MEDS: Meropenem 1 GM in NS 55 ML IVPB SCH ×2 (09:10→22:05)
[2020-01-15] MEDS ORDERED: Tubing IV Secondary IV ONE (09:26)
[2020-01-15] MEDS ORDERED: D5W 275ml ONE (09:26)
[2020-01-15 11:07] LABS: APTT 1:1 NORMAL PLASMA 30.2 sec (22.9-30.2); APTT 1:1NP MIX 60M INCUBATION 32.8 sec (22.9-30.2); APTT 1:1NP MIX CONTROL 32.2 sec (22.9-30.2)
--- NOTE | 2020-01-15 11:44 | NUR ---
NURSE NOTES: Left message with Phyllis at Dr. Geovanna Purcell's office notifying that patient's 2019 Coronavirus PCR test came back negative.
--- NOTE | 2020-01-15 11:56 | Nephrology Progress Note ---
Assessment/Plan Problem List: (1) CKD (chronic kidney disease) (2) Diabetes (3) SOB (shortness of breath) (4) Hypoalbuminemia (5) Fecal impaction (6) Intertrochanteric fracture Assessment Intertrochanteric fracture Fecal impaction CKD (chronic kidney disease) DM HTN Plan January 14: Labs reviewed. Serum creatinine stable 2.2. Serum sodium slightly elevated. Changed IV from half-normal saline to D5W. Continue to monitor blood sugar. Continue to monitor electrolytes and renal parameters. Continue per consultants. January 13: Labs reviewed. Serum creatinine 2.3. IV changed to half-normal saline 50 cc an hour. Continue monitor renal parameters. Continue per consultants. January 12: Patient transfused. Hemoglobin higher. Serum creatinine 2.2 unchanged. Continue per consultants. Remains stable from renal standpoint of view. January 11: Patient due for transfusion 2 units of packed RBCs. Serum creatinine lowering. Will decrease IV fluid to 50 cc an hour. Continue to monitor renal parameters. Continue per consultants. Discussed with MELODY Espinosa. Previously: Miranda Urine studies Anemia jacobs Adjust blood pressure medication avoid nephrotoxics 2D echocardiogram Kidney ultrasound Per orders Subjective ROS Limited/Unobtainable: Yes Objective Objective Last 24 Hour Vital Signs Date Time Temp Pulse Resp B/P (MAP) Pulse Ox O2 Delivery O2 Flow Rate FiO2 01/15/20 09:00 Nasal Cannula 2.0 01/15/20 08:57 93 147/82 01/15/20 08:56 93 147/82 01/15/20 08:00 98.4 102 22 147/82 (103) 98 01/15/20 08:00 93 01/15/20 04:00 97 01/15/20 04:00 98.4 91 24 108/57 (74) 97 01/15/20 00:00 92 01/15/20 00:00 98.4 98 24 112/52 (72) 99 01/14/20 21:00 Venturi Mask 6.0 01/14/20 21:00 98 158/79 01/14/20 20:00 98.8 98 24 158/79 (105) 97 01/14/20 20:00 101 01/14/20 16:00 97.9 86 20 135/87 (103) 98 01/14/20 16:00 98 01/14/20 12:00 97.7 94 22 122/79 (93) 99 01/14/20 12:00 94 Intake and Output 01/14/20 01/15/20 18:59 06:59 Output Total 300 ml 300 ml Balance -300 ml -300 ml Output Urine Total 300 ml 300 ml Current Medications Medications (Trade) Dose Ordered Sig/Uvaldo Route PRN Reason Start Time Stop Time Status Last Admin Dose Admin Acetaminophen (Tylenol) 650 mg Q4H PRN ORAL Mild Pain 0-4/Temp >100.4 01/13/20 07:15 02/12/20 07:14 Atorvastatin Calcium (Lipitor) 20 mg BEDTIME ORAL 01/11/20 21:00 04/10/20 20:59 01/14/20 21:00 Benztropine Mesylate (Cogentin) 1 mg BEDTIME ORAL 01/12/20 21:00 02/11/20 20:59 01/14/20 21:00 Carvedilol (Coreg) 12.5 mg EVERY 12 HOURS ORAL 01/11/20 09:00 02/10/20 08:59 01/15/20 08:57 Dextrose (Dextrose 50%) 25 ml Q30M PRN IV Hypoglycemia 01/11/20 05:15 04/10/20 05:14 Dextrose (Dextrose 50%) 50 ml Q30M PRN IV Hypoglycemia 01/11/20 05:15 04/10/20 05:14 Docusate Sodium (Colace) 100 mg TID ORAL 01/12/20 13:00 02/10/20 09:59 01/15/20 08:57 Escitalopram Oxalate (Lexapro) 10 mg DAILY ORAL 01/11/20 09:00 02/10/20 08:59 01/15/20 08:56 Folic Acid (Folate) 1 mg DAILY ORAL 01/11/20 13:30 02/10/20 13:29 01/15/20 08:57 Hydralazine HCl (Apresoline) 25 mg Q4H PRN ORAL bp over 160 syst 01/11/20 10:00 04/10/20 09:59 Insulin Aspart (NovoLOG) BEFORE MEALS AND HS SUBQ 01/11/20 06:30 04/10/20 06:29 01/15/20 05:34 Meropenem 1 gm/ Sodium Chloride 55 ml @ 110 mls/hr Q12HR IVPB 01/13/20 10:30 01/18/20 10:29 01/15/20 09:10 Morphine Sulfate (Morphine Sulfate) 2 mg Q4H PRN IVP For Pain (4-10) 01/11/20 05:15 01/18/20 05:14 01/15/20 03:26 Mycophenolate Mofetil (Cellcept) 500 mg BID ORAL 01/11/20 09:00 04/10/20 08:59 01/15/20 08:56 Nifedipine (Procardia XL) 60 mg DAILY ORAL 01/11/20 09:09 02/10/20 09:08 01/15/20 08:56 Olanzapine (ZyPREXA Zydis) 15 mg BEDTIME ORAL 01/12/20 21:00 02/26/20 20:59 01/14/20 21:00 Pantoprazole (Protonix) 40 mg DAILY ORAL 01/11/20 10:00 02/10/20 09:59 01/15/20 08:57 Sodium Chloride 1,000 ml @ 50 mls/hr Q20H IV 01/14/20 09:30 02/13/20 09:29 01/15/20 05:34 Tacrolimus (Prograf) 1 mg BID ORAL 01/11/20 09:00 04/10/20 08:59 01/15/20 08:57 Temazepam (Restoril) 15 mg BEDTIME ORAL 01/11/20 21:00 01/18/20 20:59 01/14/20 21:00 Laboratory Tests 01/14/20 21:17: POC Whole Blood Glucose 165H 01/15/20 04:30: White Blood Count 8.5, Red Blood Count 2.92L, Hemoglobin 9.0L, Hematocrit 27.7L, Mean Corpuscular Volume 95, Mean Corpuscular Hemoglobin 30.7, Mean Corpuscular Hemoglobin Concent 32.4, Red Cell Distribution Width 16.3H, Platelet Count 102L, Mean Platelet Volume 8.1, Neutrophils (%) (Auto) 78.6H, Lymphocytes (%) (Auto) 13.4L, Monocytes (%) (Auto) 7.0, Eosinophils (%) (Auto) 0.6, Basophils (%) (Auto) 0.3, Sodium Level 151H, Potassium Level 4.8, Chloride Level 119H, Carbon Dioxide Level 17L, Anion Gap 15, Blood Urea Nitrogen 71H, Creatinine 2.2H, Estimat Glomerular Filtration Rate 29.3, Glucose Level 148H, Calcium Level 7.4L, Phosphorus Level 3.6, Magnesium Level 2.7H, Total Bilirubin 0.6, Aspartate Amino Transf (AST/SGOT) 52H, Alanine Aminotransferase (ALT/SGPT) 36, Alkaline Phosphatase 91, Total Protein 5.5L, Albumin 2.1L, Globulin 3.4, Albumin/Globulin Ratio 0.6L 01/15/20 05:27: POC Whole Blood Glucose [Pending] Height (Feet): 5 Height (Inches): 11.00 Weight (Pounds): 165 General Appearance: no apparent distress Cardiovascular: tachycardia Respiratory/Chest: decreased breath sounds Abdomen: distended Young Mcdonald MD Jan 15, 2020 11:56
[2020-01-15 12:00] VITALS: BP 101/47
--- NOTE | 2020-01-15 12:47 | Pulmonology Progress Note ---
Subjective ROS Limited/Unobtainable: Yes Interval Events: Currently on nonrebreather mask Allergies: Coded Allergies: IODINE (Verified Allergy, Unknown, 04/10/17) METHOCARBAMOL (Verified Allergy, Unknown, 04/10/17) All Systems: reviewed and negative except above Objective Last 24 Hour Vital Signs Date Time Temp Pulse Resp B/P (MAP) Pulse Ox O2 Delivery O2 Flow Rate FiO2 01/15/20 12:00 98.1 86 20 101/47 (65) 96 01/15/20 09:00 Nasal Cannula 2.0 01/15/20 08:57 93 147/82 01/15/20 08:56 93 147/82 01/15/20 08:00 98.4 102 22 147/82 (103) 98 01/15/20 08:00 93 01/15/20 04:00 97 01/15/20 04:00 98.4 91 24 108/57 (74) 97 01/15/20 00:00 92 01/15/20 00:00 98.4 98 24 112/52 (72) 99 01/14/20 21:00 Venturi Mask 6.0 01/14/20 21:00 98 158/79 01/14/20 20:00 98.8 98 24 158/79 (105) 97 01/14/20 20:00 101 01/14/20 16:00 97.9 86 20 135/87 (103) 98 01/14/20 16:00 98 Intake and Output 01/14/20 01/15/20 19:00 07:00 Intake Total 50 ml Output Total 300 ml 300 ml Balance -300 ml -250 ml IV Total 50 ml Output Urine Total 300 ml 300 ml Objective 01/15/2020 Pt with respiratory therapists in room. Currently on non rebreather 99% sao2 General Appearance: no acute distress HEENT: normocephalic Respiratory: chest wall non-tender Cardiovascular: normal rate, regular rhythm Abdomen: distended Microbiology Date/Time Source Procedure Growth Status 01/13/20 14:46 Nasopharynx Coronavirus COVID-19 PCR ([facility]) - Final Complete Laboratory Tests 01/14/20 21:17: POC Whole Blood Glucose 165H 01/15/20 04:30: White Blood Count 8.5, Red Blood Count 2.92L, Hemoglobin 9.0L, Hematocrit 27.7L, Mean Corpuscular Volume 95, Mean Corpuscular Hemoglobin 30.7, Mean Corpuscular Hemoglobin Concent 32.4, Red Cell Distribution Width 16.3H, Platelet Count 102L, Mean Platelet Volume 8.1, Neutrophils (%) (Auto) 78.6H, Lymphocytes (%) (Auto) 13.4L, Monocytes (%) (Auto) 7.0, Eosinophils (%) (Auto) 0.6, Basophils (%) (Auto) 0.3, Sodium Level 151H, Potassium Level 4.8, Chloride Level 119H, Carbon Dioxide Level 17L, Anion Gap 15, Blood Urea Nitrogen 71H, Creatinine 2.2H, Estimat Glomerular Filtration Rate 29.3, Glucose Level 148H, Calcium Level 7.4L, Phosphorus Level 3.6, Magnesium Level 2.7H, Total Bilirubin 0.6, Aspartate Amino Transf (AST/SGOT) 52H, Alanine Aminotransferase (ALT/SGPT) 36, Alkaline Phosphatase 91, Total Protein 5.5L, Albumin 2.1L, Globulin 3.4, Albumin/Globulin Ratio 0.6L 01/15/20 05:27: POC Whole Blood Glucose [Pending] Current Medications Medications (Trade) Dose Ordered Sig/Uvaldo Route PRN Reason Start Time Stop Time Status Last Admin Dose Admin Acetaminophen (Tylenol) 650 mg Q4H PRN ORAL Mild Pain 0-4/Temp >100.4 01/13/20 07:15 02/12/20 07:14 Atorvastatin Calcium (Lipitor) 20 mg BEDTIME ORAL 01/11/20 21:00 04/10/20 20:59 01/14/20 21:00 Benztropine Mesylate (Cogentin) 1 mg BEDTIME ORAL 01/12/20 21:00 02/11/20 20:59 01/14/20 21:00 Carvedilol (Coreg) 12.5 mg EVERY 12 HOURS ORAL 01/11/20 09:00 02/10/20 08:59 01/15/20 08:57 Dextrose 1,000 ml @ 50 mls/hr Q20H IV 01/15/20 12:00 02/14/20 11:59 01/15/20 12:03 Dextrose (Dextrose 50%) 25 ml Q30M PRN IV Hypoglycemia 01/11/20 05:15 04/10/20 05:14 Dextrose (Dextrose 50%) 50 ml Q30M PRN IV Hypoglycemia 01/11/20 05:15 04/10/20 05:14 Docusate Sodium (Colace) 100 mg TID ORAL 01/12/20 13:00 02/10/20 09:59 01/15/20 08:57 Escitalopram Oxalate (Lexapro) 10 mg DAILY ORAL 01/11/20 09:00 02/10/20 08:59 01/15/20 08:56 Folic Acid (Folate) 1 mg DAILY ORAL 01/11/20 13:30 02/10/20 13:29 01/15/20 08:57 Hydralazine HCl (Apresoline) 25 mg Q4H PRN ORAL bp over 160 syst 01/11/20 10:00 04/10/20 09:59 Insulin Aspart (NovoLOG) BEFORE MEALS AND HS SUBQ 01/11/20 06:30 04/10/20 06:29 01/15/20 12:01 Meropenem 1 gm/ Sodium Chloride 55 ml @ 110 mls/hr Q12HR IVPB 01/13/20 10:30 01/18/20 10:29 01/15/20 09:10 Morphine Sulfate (Morphine Sulfate) 2 mg Q4H PRN IVP For Pain (4-10) 01/11/20 05:15 01/18/20 05:14 01/15/20 03:26 Mycophenolate Mofetil (Cellcept) 500 mg BID ORAL 01/11/20 09:00 04/10/20 08:59 01/15/20 08:56 Nifedipine (Procardia XL) 60 mg DAILY ORAL 01/11/20 09:09 02/10/20 09:08 01/15/20 08:56 Olanzapine (ZyPREXA Zydis) 15 mg BEDTIME ORAL 01/12/20 21:00 02/26/20 20:59 01/14/20 21:00 Pantoprazole (Protonix) 40 mg DAILY ORAL 01/11/20 10:00 02/10/20 09:59 01/15/20 08:57 Tacrolimus (Prograf) 1 mg BID ORAL 01/11/20 09:00 04/10/20 08:59 01/15/20 08:57 Temazepam (Restoril) 15 mg BEDTIME ORAL 01/11/20 21:00 01/18/20 20:59 01/14/20 21:00 Assessment/Plan Assessment/Plan 1. Atelectasis. - CXR 01/12/2020 shows left basilar atelectasis 2. Hypoxemia. - s/p Venturi mask 10 lpm - s/p nasal canula- however currently on low flow O2 - Once pt on low flow oxygen, [facility] will accept transport 3. Anemia. - Hgb 11.1 -> 9.5 -> 9.0 - s/p transfusion 4. Hip fracture. 5. Liver and kidney transplant. 6. Immunosuppression. 7. Hypertension. 8. CKD. - Na 150 -> 151 - BUN 67 - Cr 2.3 -> 2.2 - management per renal 9. Diabetes mellitus. 10. Concern for PE - V/Q scan 01/13/2020 low suspicion for PE I will follow carefully. The care for this patient was discussed with my supervising physician The history of Andrea Velásquez has been reviewed and management options for him have been examined and discussed by Oswaldo Coto. I have personally examined and interviewed the patient. Time spent for this case was approximately 31 minutes Karan Swan Jan 15, 2020 12:47 Oswaldo Coto MD Jan 15, 2020 16:41
[2020-01-15 16:00] VITALS: BP 152/60
--- NOTE | 2020-01-15 18:43 | NUR ---
NURSE HAND-OFF REPORT: Important Events on Shift: Patient had to be placed back on non-rebreather due to oxygen at 81, patient had fever of 102.6, treated with Tylenol 650 mg., reassessment temperature=98.2. Patient has a low appetite. Perhaps an appetite stimulant may be suggested to MD. Family notified regarding placement on non-rebrather. Patient removed from droplet/contact isolation per Dr. Geovanna Purcell, remains on contact isolation due to ESBL Urine. OB stool still needed. Patient Status: Stable Diet: CCHO medium, crush meds. Poor appetite. Ate approximately 10% of meals. Pending Orders: OB stool Pending Results/Labs:am labs, 01/16/20, CBC, BMP Pending MD notification:N/A Latest Vital Signs: Temperature 98.2 , Pulse 97 , B/P 152 /60 , Respiratory Rate 20 , O2 SAT 100 , Nasal Cannula, O2 Flow Rate 2.0 . Vital Sign Comment: Stable EKG Rhythm: Afib with BBB Rhythm change?: N MD Notified?: N -Dr. angeline FERNANDO Response: Latest Willis Fall Score: 85 Fall Risk: High Risk Safety Measures: Call light Within Reach, Bed Alarm Zone 2, Side Rails Side Rails x3, Bed position Low and Locked. Fall Precautions: Yellow Socks Patient Fall Education Report to given to Greg Owen RN upon arrival.
--- NOTE | 2020-01-15 19:30 | NUR ---
NURSE NOTES: Receive a report from MELODY Espinosa. Round is done. Pt is asleep, removed non-breather mask himself, spo2 98% on high-folwer's position. Reapply the mask. Will call RT for adjusting Oxygen level. Noted eye opening by voice but looking weak. No acute distress noted. Denies pain. Sediment urine is drained via govea catheter. On IV ATB. Call light within reach. Will continue to monitor.
[2020-01-15 20:00] VITALS: BP 107/60
--- NOTE | 2020-01-15 20:12 | Cardiac Electrophysiology PN ---
Assessment/Plan Assessment/Plan 1. Atrial fibrillation. On Coreg 12.5 mg b.i.d. and off anticoagulation (was on Eliquis 2.5 mg b.i.d) for surgery and severe anemia. 2. Hypertension, on Coreg 12.5 b.i.d. and Procardia XL 60 mg daily. 3. Hyperlipidemia, on Lipitor. 4. S/P Biotronic VVI Pacer 2017 5. S/P Aortic dissection repair and bioprosthetic AVR 06/2005 6. 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 Diabetes, on insulin. 8. Left hip fracture. Awaiting transfer to [facility] for surgery by Dr Escalante 9. Fever , ruled out for Covid by ID. On Meropenem 10. 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 In flutter with controlled rate Objective Last 24 Hour Vital Signs Date Time Temp Pulse Resp B/P (MAP) Pulse Ox O2 Delivery O2 Flow Rate FiO2 01/15/20 19:22 100 Non-Rebreather 15.0 100 01/15/20 17:50 98.2 01/15/20 16:00 97 01/15/20 16:00 98.1 98 20 152/60 (90) 100 01/15/20 12:00 91 01/15/20 12:00 98.1 86 20 101/47 (65) 96 01/15/20 09:00 Nasal Cannula 2.0 01/15/20 08:57 93 147/82 01/15/20 08:56 93 147/82 01/15/20 08:00 98.4 102 22 147/82 (103) 98 01/15/20 08:00 93 01/15/20 04:00 97 01/15/20 04:00 98.4 91 24 108/57 (74) 97 01/15/20 00:00 92 01/15/20 00:00 98.4 98 24 112/52 (72) 99 01/14/20 21:00 Venturi Mask 6.0 01/14/20 21:00 98 158/79 Intake and Output 01/14/20 01/15/20 19:00 07:00 Intake Total 50 ml Output Total 300 ml 300 ml Balance -300 ml -250 ml IV Total 50 ml Output Urine Total 300 ml 300 ml Laboratory Tests Test 01/14/20 21:17 01/15/20 04:30 01/15/20 05:27 01/15/20 16:13 POC Whole Blood Glucose 165 MG/DL (74-106) H Pending 176 MG/DL (74-106) H White Blood Count 8.5 K/UL (4.8-10.8) Red Blood Count 2.92 M/UL (4.70-6.10) L Hemoglobin 9.0 G/DL (14.2-18.0) L Hematocrit 27.7 % (42.0-52.0) L Mean Corpuscular Volume 95 FL (80-99) Mean Corpuscular Hemoglobin 30.7 PG (27.0-31.0) Mean Corpuscular Hemoglobin Concent 32.4 G/DL (32.0-36.0) Red Cell Distribution Width 16.3 % (11.6-14.8) H Platelet Count 102 K/UL (150-450) L Mean Platelet Volume 8.1 FL (6.5-10.1) Neutrophils (%) (Auto) 78.6 % (45.0-75.0) H Lymphocytes (%) (Auto) 13.4 % (20.0-45.0) L Monocytes (%) (Auto) 7.0 % (1.0-10.0) Eosinophils (%) (Auto) 0.6 % (0.0-3.0) Basophils (%) (Auto) 0.3 % (0.0-2.0) Sodium Level 151 MMOL/L (136-145) H Potassium Level 4.8 MMOL/L (3.5-5.1) Chloride Level 119 MMOL/L (98-107) H Carbon Dioxide Level 17 MMOL/L (21-32) L Anion Gap 15 mmol/L (5-15) Blood Urea Nitrogen 71 mg/dL (7-18) H Creatinine 2.2 MG/DL (0.55-1.30) H Estimat Glomerular Filtration Rate 29.3 mL/min (>60) Glucose Level 148 MG/DL (74-106) H Calcium Level 7.4 MG/DL (8.5-10.1) L Phosphorus Level 3.6 MG/DL (2.5-4.9) Magnesium Level 2.7 MG/DL (1.8-2.4) H Total Bilirubin 0.6 MG/DL (0.2-1.0) Aspartate Amino Transf (AST/SGOT) 52 U/L (15-37) H Alanine Aminotransferase (ALT/SGPT) 36 U/L (12-78) Alkaline Phosphatase 91 U/L (46-116) Total Protein 5.5 G/DL (6.4-8.2) L Albumin 2.1 G/DL (3.4-5.0) L Globulin 3.4 g/dL Albumin/Globulin Ratio 0.6 (1.0-2.7) L Microbiology Date/Time Source Procedure Growth Status 01/13/20 14:46 Nasopharynx Coronavirus COVID-19 PCR ([facility]) - Final Complete Objective HEAD AND NECK: no JVD. LUNGS: Coarse rhonchi. CARDIOVASCULAR: regular S1 and S2 with no gallop. Pacemaker is in left subclavian. The sternotomy scar is intact. ABDOMEN: Soft. EXTREMITIES: No pitting edema. Has left hip fracture. Edwardo Wilhelm MD Jan 15, 2020 20:12
--- NOTE | 2020-01-15 21:40 | NUR ---
NURSE NOTES: Change to Ventri-mask 40% 8L. Will continue to monitor Spo2 level. Pt feeling hungry. Provide late dinner, 1:1 feeder. Noted cough with regular water and provide thicken water. BT:99.5. No shivering but mild coldness. Will continue to monitor.
[2020-01-15] MEDS: ZyPREXA Zydis 5mg tab ORAL SCH (22:22)
[2020-01-15] MEDS: Benztropine 1mg tab ORAL SCH (22:23)
[2020-01-15] MEDS: Atorvastatin 20mg tab ORAL SCH (22:23)
[2020-01-16] VITALS: BP 95/56
--- NOTE | 2020-01-16 01:30 | NUR ---
NURSE NOTES: Receive a call from Transportation center from [facility] and update pt's condition. Will be continued to follow up.
--- NOTE | 2020-01-16 03:30 | NUR ---
NURSE NOTES: After lower the Vertri-mask 30% with 4L Oxygen, spo2 maintains as 96%. Switch to O2 3L NC. No acute respiratory distress noted but intermittent cough with phlegm. Encourage coughing and sputum out. Will continue to monitor.
[2020-01-16 04:00] VITALS: BP 123/71
--- NOTE | 2020-01-16 04:00 | NUR ---
NURSE NOTES: Wound dressing on sacrum done with Triad and Opticform. Position change on right side and supine d/t left hip fx. Will continue to monitor.
[2020-01-16] MEDS: NovoLOG Insulin Flexpen SUBQ SCH ×2 (06:26→11:45)
--- NOTE | 2020-01-16 07:30 | NUR ---
NURSE HAND-OFF REPORT: Important Events on Shift: Tapering Oxygen from non-breather to O2 3L NC Patient Status: [stable] Diet: [CCHO M easy chew] Pending Orders: [] Pending Results/Labs:[] Pending MD notification:[] Latest Vital Signs: Temperature 97.9 , Pulse 97 , B/P 123 /71 , Respiratory Rate 26 , O2 SAT 96 , Nasal Cannula, O2 Flow Rate 3.0 . Vital Sign Comment: [] EKG Rhythm: Atrial Fibrillation Rhythm change?: N MD Notified?: N -Dr. angeline FERNANDO Response: Latest Willis Fall Score: 85 Fall Risk: High Risk Safety Measures: Call light Within Reach, Bed Alarm Zone 1, Side Rails Side Rails x3, Bed position Low and Locked. Fall Precautions: Yellow Socks Patient Fall Education Report given to MELODY Nevarez. Round is done.
[2020-01-16 08:00] VITALS: BP 143/76
--- NOTE | 2020-01-16 08:19 | NUR ---
NURSE NOTES: Received patient report from MELODY Garza. Patient shows no signs of distress or pain at the time. Patient is on 4L nasal canula saturating at 97% with no signs of respiratory distress at the time. IV intact and patent. Running DW @ 50 cc/hr. Miranda Catheter intact and patent. Bed is in the lowest position, call light is within reach, side rails up x3 will continue to monitor.
--- NOTE | 2020-01-16 08:32 | Infectious Diseases Prog Note ---
Assessment/Plan 74yo M with: Afebrile Leukocytosis to 15; SP Lymphopenia UTI 2/2 E.coli and ESBL Proteus Hypoxia on NRB mask Pneumonia vs PE COVID neg x2 01/09 Rapid COVID PCR neg MRSA nares neg 01/10 UA+, UCx +E.coli (araya-S) and ESBL Proteus mirabilis (S-bactrim) 01/11 CXR: Interim placement of a left chest in a focal pacemaker. No pneumothorax is noted. Median sternotomy sutures are again demonstrated. Interim placement of a percutaneous aortic valve. Right arm catheter is again demonstrated. There is better aeration of the right lung. There is some atelectasis at the left lung base. Impression: Left basilar atelectasis 01/12 COVID PCR neg 01/12 V/Q scan: Unable to assign probability, due to lack of aerosol images. However, ventilation images demonstrate no findings suspicious for pulmonary embolus CKD, Cr 2.2 L femur fx 01/09 CT: 1. Comminuted intertrochanteric fracture of the proximal left femur with varus angulation. 2. Fecal impaction. Fecal impaction, noted on admission imaging S/p OLT, DDRT - on tacro, cellcept PMH: S/p AVR S/p PPM HTN DM2 Afib Plan: Cont meropenem #4/ for ESBL UTI, possible pna Check BCx given fever Ensure ongoing stool output given fecal impaction on CT A/P from admission Trend WBC Trend resp status Monitor CBC/CMP Monitor temp curve, hemodynamics Monitor resp status D/w RN Thank you for this consult. [facility] will continue to follow. Subjective Allergies: Coded Allergies: IODINE (Verified Allergy, Unknown, 04/10/17) METHOCARBAMOL (Verified Allergy, Unknown, 04/10/17) AF WBC 8.5 yesterday, improving to 6.1 today COVID neg NAD in bed Currently febrile to 100.6, lower BP Waiting on bed at [facility] for surgery Objective Last 24 Hour Vital Signs Date Time Temp Pulse Resp B/P (MAP) Pulse Ox O2 Delivery O2 Flow Rate FiO2 01/16/20 04:00 93 01/16/20 04:00 97.9 97 26 123/71 (88) 96 01/16/20 04:00 Nasal Cannula 3.0 01/16/20 00:00 98.2 100 26 95/56 (69) 99 01/16/20 00:00 95 01/15/20 22:00 93 94/54 01/15/20 22:00 Venturi Mask 8.0 01/15/20 21:50 96 Venturi Mask 8.0 40 01/15/20 21:00 Non-Rebreather 15.0 01/15/20 20:00 102 01/15/20 20:00 99.5 102 26 107/60 (76) 99 01/15/20 19:22 100 Non-Rebreather 15.0 100 01/15/20 17:50 98.2 01/15/20 16:00 97 01/15/20 16:00 98.1 98 20 152/60 (90) 100 01/15/20 12:00 91 01/15/20 12:00 98.1 86 20 101/47 (65) 96 01/15/20 09:00 Nasal Cannula 2.0 01/15/20 08:57 93 147/82 01/15/20 08:56 93 147/82 Height (Feet): 5 Height (Inches): 11.00 Weight (Pounds): 165 Gen: NAD in bed HEENT: NCAT CV: RRR Pulm: CTAB Abd: Soft, NTND Ext: No c/c/e Neuro: Awake but not very interactive Microbiology Date/Time Source Procedure Growth Status 01/13/20 14:46 Nasopharynx Coronavirus COVID-19 PCR ([facility]) - Final Complete Laboratory Tests Test 01/15/20 11:58 01/15/20 16:13 01/15/20 20:52 01/16/20 05:56 POC Whole Blood Glucose Pending 176 MG/DL (74-106) H 183 MG/DL (74-106) H 209 MG/DL (74-106) H Current Medications Medications (Trade) Dose Ordered Sig/Uvaldo Route PRN Reason Start Time Stop Time Status Last Admin Dose Admin Acetaminophen (Tylenol) 650 mg Q4H PRN ORAL Mild Pain 0-4/Temp >100.4 01/13/20 07:15 02/12/20 07:14 01/15/20 17:20 Atorvastatin Calcium (Lipitor) 20 mg BEDTIME ORAL 01/11/20 21:00 04/10/20 20:59 01/15/20 22:23 Benztropine Mesylate (Cogentin) 1 mg BEDTIME ORAL 01/12/20 21:00 02/11/20 20:59 01/15/20 22:23 Carvedilol (Coreg) 12.5 mg EVERY 12 HOURS ORAL 01/11/20 09:00 02/10/20 08:59 01/15/20 08:57 Dextrose 1,000 ml @ 50 mls/hr Q20H IV 01/15/20 12:00 02/14/20 11:59 01/15/20 12:03 Dextrose (Dextrose 50%) 25 ml Q30M PRN IV Hypoglycemia 01/11/20 05:15 04/10/20 05:14 Dextrose (Dextrose 50%) 50 ml Q30M PRN IV Hypoglycemia 01/11/20 05:15 04/10/20 05:14 Docusate Sodium (Colace) 100 mg TID ORAL 01/12/20 13:00 02/10/20 09:59 01/15/20 18:20 Escitalopram Oxalate (Lexapro) 10 mg DAILY ORAL 01/11/20 09:00 02/10/20 08:59 01/15/20 08:56 Folic Acid (Folate) 1 mg DAILY ORAL 01/11/20 13:30 02/10/20 13:29 01/15/20 08:57 Hydralazine HCl (Apresoline) 25 mg Q4H PRN ORAL bp over 160 syst 01/11/20 10:00 04/10/20 09:59 Insulin Aspart (NovoLOG) BEFORE MEALS AND HS SUBQ 01/11/20 06:30 04/10/20 06:29 01/16/20 06:26 Meropenem 1 gm/ Sodium Chloride 55 ml @ 110 mls/hr Q12HR IVPB 01/13/20 10:30 01/18/20 10:29 01/15/20 22:05 Morphine Sulfate (Morphine Sulfate) 2 mg Q4H PRN IVP For Pain (4-10) 01/11/20 05:15 01/18/20 05:14 01/15/20 03:26 Mycophenolate Mofetil (Cellcept) 500 mg BID ORAL 01/11/20 09:00 04/10/20 08:59 01/15/20 17:18 Nifedipine (Procardia XL) 60 mg DAILY ORAL 01/11/20 09:09 02/10/20 09:08 01/15/20 08:56 Olanzapine (ZyPREXA Zydis) 15 mg BEDTIME ORAL 01/12/20 21:00 02/26/20 20:59 01/15/20 22:22 Pantoprazole (Protonix) 40 mg DAILY ORAL 01/11/20 10:00 02/10/20 09:59 01/15/20 08:57 Tacrolimus (Prograf) 1 mg BID ORAL 01/11/20 09:00 04/10/20 08:59 01/15/20 17:18 Temazepam (Restoril) 15 mg BEDTIME ORAL 01/11/20 21:00 01/18/20 20:59 01/15/20 22:23 Margaret De Jesus M.D. Jan 16, 2020 08:32
--- NOTE | 2020-01-16 08:58 | Cardiac Electrophysiology PN ---
Assessment/Plan Assessment/Plan 1. Atrial fibrillation. On Coreg 12.5 mg b.i.d. and off anticoagulation (was on Eliquis 2.5 mg b.i.d) for surgery and severe anemia. 2. Hypertension, on Coreg 12.5 b.i.d. and Procardia XL 60 mg daily. 3. Hyperlipidemia, on Lipitor. 4. S/P Biotronic VVI Pacer 2017 5. S/P Aortic dissection repair and bioprosthetic AVR 06/2005 6. 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 Diabetes, on insulin. 8. Left hip fracture. Awaiting transfer to [facility] for surgery by Dr Escalante 9. Fever , ruled out for Covid by ID. On Meropenem 10. Respiratory failure, on 4 liter NC DW RN Subjective Subjective S/P OLT 2005 S/P Liver/kidney tx 2008 S/P Aortic dissection repair and bioprosthetic AVR 06/2005 S/P Biotronic VVI Pacer 2017 S/P PRBC x2 for Hb 6.7 Awaiting transfer to [facility] for surgery pending respiratory stability Ruled out for COVID RN at bedside. In flutter with controlled rate On 4 liter nasal cannula Objective Last 24 Hour Vital Signs Date Time Temp Pulse Resp B/P (MAP) Pulse Ox O2 Delivery O2 Flow Rate FiO2 01/16/20 04:00 93 01/16/20 04:00 97.9 97 26 123/71 (88) 96 01/16/20 04:00 Nasal Cannula 3.0 01/16/20 00:00 98.2 100 26 95/56 (69) 99 01/16/20 00:00 95 01/15/20 22:00 93 94/54 01/15/20 22:00 Venturi Mask 8.0 01/15/20 21:50 96 Venturi Mask 8.0 40 01/15/20 21:00 Non-Rebreather 15.0 01/15/20 20:00 102 01/15/20 20:00 99.5 102 26 107/60 (76) 99 01/15/20 19:22 100 Non-Rebreather 15.0 100 01/15/20 17:50 98.2 01/15/20 16:00 97 01/15/20 16:00 98.1 98 20 152/60 (90) 100 01/15/20 12:00 91 01/15/20 12:00 98.1 86 20 101/47 (65) 96 01/15/20 09:00 Nasal Cannula 2.0 01/15/20 08:57 93 147/82 Intake and Output 01/15/20 01/16/20 19:00 07:00 Intake Total 1072 ml 300 ml Output Total 600 ml 500 ml Balance 472 ml -200 ml IV Total 1072 ml 300 ml Output Urine Total 600 ml 500 ml # Voids 1 1 Laboratory Tests Test 01/15/20 11:58 01/15/20 16:13 01/15/20 20:52 01/16/20 05:56 POC Whole Blood Glucose Pending 176 MG/DL (74-106) H 183 MG/DL (74-106) H 209 MG/DL (74-106) H Microbiology Date/Time Source Procedure Growth Status 01/13/20 14:46 Nasopharynx Coronavirus COVID-19 PCR ([facility]) - Final Complete Objective HEAD AND NECK: no JVD. LUNGS: Coarse rhonchi. CARDIOVASCULAR: regular S1 and S2 with no gallop. Pacemaker is in left subclavian. The sternotomy scar is intact. ABDOMEN: Soft. EXTREMITIES: No pitting edema. Has left hip fracture. Edwardo Wilhelm MD Jan 16, 2020 08:58
--- NOTE | 2020-01-16 09:03 | NUR ---
TRANSFER UPDATE TRANSFER TO [facility] WAS HELD ON THURSDAY D/T UNSTABLE RESPIRATORY STATUS CALLED [facility] TRANSFER CTR THIS MORNING AND UPDATED ROBBY THAT PATIENT IS NOW ON A NASAL CANNULA PER ROBBY PATIENT IS ON THE LIST FOR TRANSFER BUT THERE BED CAPACITY IS CRITICAL AT THIS TIME AND HE IS NOT SURE WHEN A BED WOULD BE AVAILABLE [facility] TRANSF[facility] T; [phone]
--- NOTE | 2020-01-16 09:28 | General Progress Note ---
Subjective Constitutional: Reports: weakness Allergies: Coded Allergies: IODINE (Verified Allergy, Unknown, 04/10/17) METHOCARBAMOL (Verified Allergy, Unknown, 04/10/17) All Systems: reviewed and negative except above Subjective o2 nc sleepy calm Objective Last 24 Hour Vital Signs Date Time Temp Pulse Resp B/P (MAP) Pulse Ox O2 Delivery O2 Flow Rate FiO2 01/16/20 04:00 93 01/16/20 04:00 97.9 97 26 123/71 (88) 96 01/16/20 04:00 Nasal Cannula 3.0 01/16/20 00:00 98.2 100 26 95/56 (69) 99 01/16/20 00:00 95 01/15/20 22:00 93 94/54 01/15/20 22:00 Venturi Mask 8.0 01/15/20 21:50 96 Venturi Mask 8.0 40 01/15/20 21:00 Non-Rebreather 15.0 01/15/20 20:00 102 01/15/20 20:00 99.5 102 26 107/60 (76) 99 01/15/20 19:22 100 Non-Rebreather 15.0 100 01/15/20 17:50 98.2 01/15/20 16:00 97 01/15/20 16:00 98.1 98 20 152/60 (90) 100 01/15/20 12:00 91 01/15/20 12:00 98.1 86 20 101/47 (65) 96 Intake and Output 01/15/20 01/16/20 19:00 07:00 Intake Total 1072 ml 300 ml Output Total 600 ml 500 ml Balance 472 ml -200 ml IV Total 1072 ml 300 ml Output Urine Total 600 ml 500 ml # Voids 1 1 Laboratory Tests 01/15/20 11:58: POC Whole Blood Glucose [Pending] 01/15/20 16:13: POC Whole Blood Glucose 176H 01/15/20 20:52: POC Whole Blood Glucose 183H 01/16/20 05:56: POC Whole Blood Glucose 209H Height (Feet): 5 Height (Inches): 11.00 Weight (Pounds): 165 General Appearance: lethargic EENT: normal ENT inspection Neck: normal alignment Cardiovascular: normal peripheral pulses, normal rate, regular rhythm Respiratory/Chest: chest wall non-tender, lungs clear, normal breath sounds Abdomen: normal bowel sounds, non tender, soft Extremities: normal inspection Edema: no edema noted Arm (L), no edema noted Arm (R), no edema noted Leg (L), no edema noted Leg (R), no edema noted Pedal (L), no edema noted Pedal (R), no edema noted Generalized Neurologic: motor weakness Skin: normal pigmentation, warm/dry Assessment/Plan Problem List: (1) Anemia ICD Codes: D64.9 - Anemia, unspecified SNOMED: 806394635 (2) Renal failure ICD Codes: N19 - Unspecified kidney failure SNOMED: 32905510 (3) Afib ICD Codes: I48.91 - Unspecified atrial fibrillation SNOMED: 52326147 (4) Diabetes ICD Codes: E11.9 - Type 2 diabetes mellitus without complications SNOMED: 73928296 (5) Intertrochanteric fracture ICD Codes: S72.143A - Displaced intertrochanteric fracture of unspecified femur, initial encounter for closed fracture SNOMED: 204455860 Status: unchanged Assessment/Plan: o2 pulm tx pain control pt diet ortho cardio f/u cbc bmp am id eval transfer to Giacomo Iyer DO Jan 16, 2020 09:28
[2020-01-16] MEDS: Docusate 100mg cap ORAL SCH ×2 (10:07→13:06)
[2020-01-16] MEDS: Meropenem 1 GM in NS 55 ML IVPB SCH (10:07)
[2020-01-16] MEDS: Mycophenolate 250mg cap ORAL SCH (10:08)
[2020-01-16] MEDS: Carvedilol 12.5mg tab ORAL SCH (10:09)
[2020-01-16 10:44] LABS: BASOPHILS % (AUTO) 0.7 % (0.0-2.0); EOSINOPHILS % (AUTO) 0.8 % (0.0-3.0); HEMATOCRIT 28.6 % (42.0-52.0); HEMOGLOBIN 9.3 G/DL (14.2-18.0); LYMPHOCYTES % (AUTO) 14.2 % (20.0-45.0); MEAN CORPUSCULAR VOLUME 93 FL (80-99); MONOCYTES % (AUTO) 9.5 % (1.0-10.0); NEUTROPHILS % (AUTO) 74.8 % (45.0-75.0); PLATELET COUNT 124 K/UL (150-450); RED BLOOD COUNT 3.07 M/UL (4.70-6.10); WHITE BLOOD COUNT 6.1 K/UL (4.8-10.8)
[2020-01-16 11:40] LABS: ALANINE AMINOTRANSFERASE 38 U/L (12-78); ALBUMIN 2.1 G/DL (3.4-5.0); ALBUMIN/GLOBULIN RATIO 0.6 (1.0-2.7); ALKALINE PHOSPHATASE 93 U/L (46-116); ASPARTATE AMINO TRANSFERASE 45 U/L (15-37); BILIRUBIN,TOTAL 0.7 MG/DL (0.2-1.0); BLOOD UREA NITROGEN 81 mg/dL (7-18); CALCIUM 8.5 MG/DL (8.5-10.1); CARBON DIOXIDE 20 MMOL/L (21-32); CREATININE 2.4 MG/DL (0.55-1.30); PHOSPHORUS 3.7 MG/DL (2.5-4.9)
[2020-01-16 11:51] LABS: CHLORIDE 119 MMOL/L (98-107); POTASSIUM 4.3 MMOL/L (3.5-5.1); SODIUM 151 MMOL/L (136-145)
[2020-01-16 12:00] VITALS: BP 103/79
--- NOTE | 2020-01-16 12:04 | NUR ---
CASE MANAGEMENT:REVIEW 01/16/20 SI: AFIB. LT HIP FRACTURE. E COLI UTI 99.0 98 20 143/76 96% ON 3L/NC H/H-9.3/28.6 PLT-124 NA+151 BUN+81 CR+2.4 IS: IV MEROPENEM Q12 COGENTIN PO QHS ZYPREXA PO QHS FOLATE PO QD PROTONIX PO QD PROCARDIA XL PO QD CELLCEPT PO BID PROGRAF PO BID LEXAPRO PO QD COREG PO Q12 IVF@50/HR IV MORPHINE Q4HRS PRN : TELEMETRY STATUS DCP: FROM [facility] PLAN: AWAITING TRANSFER TO [facility] FOR SURGERY BY DR GUARDADO
--- NOTE | 2020-01-16 13:57 | Nephrology Progress Note ---
Assessment/Plan Problem List: (1) CKD (chronic kidney disease) Assessment: Status post kidney and liver transplant. (2) Diabetes (3) SOB (shortness of breath) (4) Hypoalbuminemia (5) Fecal impaction (6) Intertrochanteric fracture Assessment Intertrochanteric fracture Fecal impaction CKD (chronic kidney disease) DM HTN Plan January 15: Labs reviewed. Serum creatinine 2.4. Serum sodium elevated. Increase D5W to 75 cc an hour. Continue rest. Continue per consultants. January 14: Labs reviewed. Serum creatinine stable 2.2. Serum sodium slightly elevated. Changed IV from half-normal saline to D5W. Continue to monitor blood sugar. Continue to monitor electrolytes and renal parameters. Continue per consultants. January 13: Labs reviewed. Serum creatinine 2.3. IV changed to half-normal saline 50 cc an hour. Continue monitor renal parameters. Continue per consultants. January 12: Patient transfused. Hemoglobin higher. Serum creatinine 2.2 unchanged. Continue per consultants. Remains stable from renal standpoint of view. January 11: Patient due for transfusion 2 units of packed RBCs. Serum creatinine lowering. Will decrease IV fluid to 50 cc an hour. Continue to monitor renal parameters. Continue per consultants. Discussed with MELODY Espinosa. Previously: Miranda Urine studies Anemia jacobs Adjust blood pressure medication avoid nephrotoxics 2D echocardiogram Kidney ultrasound Per orders Subjective ROS Limited/Unobtainable: Yes Objective Objective Last 24 Hour Vital Signs Date Time Temp Pulse Resp B/P (MAP) Pulse Ox O2 Delivery O2 Flow Rate FiO2 01/16/20 12:14 98.2 01/16/20 12:00 100.6 87 19 103/79 (87) 95 01/16/20 10:09 98 143/76 01/16/20 10:08 98 143/76 01/16/20 09:00 Nasal Cannula 3.0 01/16/20 08:00 99.0 98 20 143/76 (98) 96 01/16/20 08:00 94 01/16/20 04:00 93 01/16/20 04:00 97.9 97 26 123/71 (88) 96 01/16/20 04:00 Nasal Cannula 3.0 01/16/20 00:00 98.2 100 26 95/56 (69) 99 01/16/20 00:00 95 01/15/20 22:00 93 94/54 01/15/20 22:00 Venturi Mask 8.0 01/15/20 21:50 96 Venturi Mask 8.0 40 01/15/20 21:00 Non-Rebreather 15.0 01/15/20 20:00 102 01/15/20 20:00 99.5 102 26 107/60 (76) 99 01/15/20 19:22 100 Non-Rebreather 15.0 100 01/15/20 17:50 98.2 01/15/20 16:00 97 01/15/20 16:00 98.1 98 20 152/60 (90) 100 Intake and Output 01/15/20 01/16/20 19:00 07:00 Intake Total 1072 ml 300 ml Output Total 600 ml 500 ml Balance 472 ml -200 ml IV Total 1072 ml 300 ml Output Urine Total 600 ml 500 ml # Voids 1 1 Current Medications Medications (Trade) Dose Ordered Sig/Uvaldo Route PRN Reason Start Time Stop Time Status Last Admin Dose Admin Acetaminophen (Tylenol) 650 mg Q4H PRN ORAL Mild Pain 0-4/Temp >100.4 01/13/20 07:15 02/12/20 07:14 01/16/20 11:44 Atorvastatin Calcium (Lipitor) 20 mg BEDTIME ORAL 01/11/20 21:00 04/10/20 20:59 01/15/20 22:23 Benztropine Mesylate (Cogentin) 1 mg BEDTIME ORAL 01/12/20 21:00 02/11/20 20:59 01/15/20 22:23 Carvedilol (Coreg) 12.5 mg EVERY 12 HOURS ORAL 01/11/20 09:00 02/10/20 08:59 01/16/20 10:09 Dextrose 1,000 ml @ 50 mls/hr Q20H IV 01/15/20 12:00 02/14/20 11:59 01/16/20 08:40 Dextrose (Dextrose 50%) 25 ml Q30M PRN IV Hypoglycemia 01/11/20 05:15 04/10/20 05:14 Dextrose (Dextrose 50%) 50 ml Q30M PRN IV Hypoglycemia 01/11/20 05:15 04/10/20 05:14 Docusate Sodium (Colace) 100 mg TID ORAL 01/12/20 13:00 02/10/20 09:59 01/16/20 13:06 Escitalopram Oxalate (Lexapro) 10 mg DAILY ORAL 01/11/20 09:00 02/10/20 08:59 01/16/20 10:09 Folic Acid (Folate) 1 mg DAILY ORAL 01/11/20 13:30 02/10/20 13:29 01/16/20 10:09 Hydralazine HCl (Apresoline) 25 mg Q4H PRN ORAL bp over 160 syst 01/11/20 10:00 04/10/20 09:59 Insulin Aspart (NovoLOG) BEFORE MEALS AND HS SUBQ 01/11/20 06:30 04/10/20 06:29 01/16/20 11:45 Meropenem 1 gm/ Sodium Chloride 55 ml @ 110 mls/hr Q12HR IVPB 01/13/20 10:30 01/18/20 10:29 01/16/20 10:07 Morphine Sulfate (Morphine Sulfate) 2 mg Q4H PRN IVP For Pain (4-10) 01/11/20 05:15 01/18/20 05:14 01/15/20 03:26 Mycophenolate Mofetil (Cellcept) 500 mg BID ORAL 01/11/20 09:00 04/10/20 08:59 01/16/20 10:08 Nifedipine (Procardia XL) 60 mg DAILY ORAL 01/11/20 09:09 02/10/20 09:08 01/16/20 10:08 Olanzapine (ZyPREXA Zydis) 15 mg BEDTIME ORAL 01/12/20 21:00 02/26/20 20:59 01/15/20 22:22 Pantoprazole (Protonix) 40 mg DAILY ORAL 01/11/20 10:00 02/10/20 09:59 01/16/20 10:07 Tacrolimus (Prograf) 1 mg BID ORAL 01/11/20 09:00 04/10/20 08:59 01/16/20 10:07 Temazepam (Restoril) 15 mg BEDTIME ORAL 01/11/20 21:00 01/18/20 20:59 01/15/20 22:23 Laboratory Tests 01/15/20 16:13: POC Whole Blood Glucose 176H 01/15/20 20:52: POC Whole Blood Glucose 183H 01/16/20 05:56: POC Whole Blood Glucose 209H 01/16/20 09:25: White Blood Count 6.1, Red Blood Count 3.07L, Hemoglobin 9.3L, Hematocrit 28.6L, Mean Corpuscular Volume 93, Mean Corpuscular Hemoglobin 30.1, Mean Corpuscular Hemoglobin Concent 32.3, Red Cell Distribution Width 17.0H, Platelet Count 124L, Mean Platelet Volume 8.4, Neutrophils (%) (Auto) 74.8, Lymphocytes (%) (Auto) 14.2L, Monocytes (%) (Auto) 9.5, Eosinophils (%) (Auto) 0.8, Basophils (%) (Auto) 0.7, Sodium Level 151H, Potassium Level 4.3, Chloride Level 119H, Carbon Dioxide Level 20L, Blood Urea Nitrogen 81H, Creatinine 2.4H, Estimat Glomerular Filtration Rate 26.5, Glucose Level 209H, Calcium Level 8.5, Phosphorus Level 3.7, Magnesium Level 2.9H, Total Bilirubin 0.7, Aspartate Amino Transf (AST/SGOT) 45H, Alanine Aminotransferase (ALT/SGPT) 38, Alkaline Phosphatase 93, Total Protein 5.7L, Albumin 2.1L, Globulin 3.6, Albumin/Globulin Ratio 0.6L 01/16/20 11:42: POC Whole Blood Glucose 203H Height (Feet): 5 Height (Inches): 11.00 Weight (Pounds): 165 General Appearance: no apparent distress, lethargic Cardiovascular: tachycardia Respiratory/Chest: decreased breath sounds Abdomen: distended Young Mcdonald MD Jan 16, 2020 13:57
--- NOTE | 2020-01-16 15:10 | NUR ---
TRANSFER UPDATE RECEIVED CALL FROM ROBBY AT [facility] PATIENT HAS BEEN ACCEPTED IS GOING TO [facility] [address] T: [phone] FOR NURSE TO NURSE REPORT TO BE DONE 30 MINUTES PRIOR TO LEAVING [facility] HAS BEEN ARRANGED FOR 1630 [employer] ENTIRE CHART NEEDS TO BE COPIED AND ALL IMAGING NEEDS TO BE PLACED ON DISC
[2020-01-16 16:00] VITALS: BP 101/47
--- NOTE | 2020-01-16 16:22 | NUR ---
NURSE NOTES: Report given to MELODY Dietz from [facility]. History reviewed with nurse, ESBL in urine , A fib w/ BBB, Pacemaker on L upper chest. Miranda was asked to keep in place and IV as well. Sacral stage 2 and bilateral heel redness reported. Labs reviewed. Told nurse patient had fever 100.6 but with tylenol went down to 97.3.
--- NOTE | 2020-01-16 16:24 | Pulmonology Progress Note ---
Subjective ROS Limited/Unobtainable: Yes Interval Events: none new Allergies: Coded Allergies: IODINE (Verified Allergy, Unknown, 04/10/17) METHOCARBAMOL (Verified Allergy, Unknown, 04/10/17) All Systems: reviewed and negative except above Objective Last 24 Hour Vital Signs Date Time Temp Pulse Resp B/P (MAP) Pulse Ox O2 Delivery O2 Flow Rate FiO2 01/16/20 16:09 97.3 01/16/20 16:00 100.0 66 18 101/47 (65) 97 01/16/20 12:14 98.2 01/16/20 12:00 100.6 87 19 103/79 (87) 95 01/16/20 12:00 91 01/16/20 10:09 98 143/76 01/16/20 10:08 98 143/76 01/16/20 09:00 Nasal Cannula 3.0 01/16/20 08:00 99.0 98 20 143/76 (98) 96 01/16/20 08:00 94 01/16/20 04:00 93 01/16/20 04:00 97.9 97 26 123/71 (88) 96 01/16/20 04:00 Nasal Cannula 3.0 01/16/20 00:00 98.2 100 26 95/56 (69) 99 01/16/20 00:00 95 01/15/20 22:00 93 94/54 01/15/20 22:00 Venturi Mask 8.0 01/15/20 21:50 96 Venturi Mask 8.0 40 01/15/20 21:00 Non-Rebreather 15.0 01/15/20 20:00 102 01/15/20 20:00 99.5 102 26 107/60 (76) 99 01/15/20 19:22 100 Non-Rebreather 15.0 100 01/15/20 17:50 98.2 Intake and Output 01/15/20 01/16/20 19:00 07:00 Intake Total 1072 ml 300 ml Output Total 600 ml 500 ml Balance 472 ml -200 ml IV Total 1072 ml 300 ml Output Urine Total 600 ml 500 ml # Voids 1 1 Objective 01/16/2020 currently saturating 95%on 3 lpm NC; transfer scheduled to [facility] at 1630 General Appearance: no acute distress HEENT: normocephalic Respiratory: chest wall non-tender Cardiovascular: normal rate, regular rhythm Abdomen: distended Laboratory Tests 01/15/20 20:52: POC Whole Blood Glucose 183H 01/16/20 05:56: POC Whole Blood Glucose 209H 01/16/20 09:25: White Blood Count 6.1, Red Blood Count 3.07L, Hemoglobin 9.3L, Hematocrit 28.6L, Mean Corpuscular Volume 93, Mean Corpuscular Hemoglobin 30.1, Mean Corpuscular Hemoglobin Concent 32.3, Red Cell Distribution Width 17.0H, Platelet Count 124L, Mean Platelet Volume 8.4, Neutrophils (%) (Auto) 74.8, Lymphocytes (%) (Auto) 14 .2L, Monocytes (%) (Auto) 9.5, Eosinophils (%) (Auto) 0.8, Basophils (%) (Auto) 0.7, Sodium Level 151H, Potassium Level 4.3, Chloride Level 119H, Carbon Dioxide Level 20L, Blood Urea Nitrogen 81H, Creatinine 2.4H, Estimat Glomerular Filtration Rate 26.5, Glucose Level 209H, Calcium Level 8.5, Phosphorus Level 3.7, Magnesium Level 2.9H, Total Bilirubin 0.7, Aspartate Amino Transf (AST/SGOT) 45H, Alanine Aminotransferase (ALT/SGPT) 38, Alkaline Phosphatase 93, Total Protein 5.7L, Albumin 2.1L, Globulin 3.6, Albumin/Globulin Ratio 0.6L 01/16/20 11:42: POC Whole Blood Glucose 203H Current Medications Medications (Trade) Dose Ordered Sig/Uvaldo Route PRN Reason Start Time Stop Time Status Last Admin Dose Admin Acetaminophen (Tylenol) 650 mg Q4H PRN ORAL Mild Pain 0-4/Temp >100.4 01/13/20 07:15 02/12/20 07:14 01/16/20 15:39 Atorvastatin Calcium (Lipitor) 20 mg BEDTIME ORAL 01/11/20 21:00 04/10/20 20:59 01/15/20 22:23 Benztropine Mesylate (Cogentin) 1 mg BEDTIME ORAL 01/12/20 21:00 02/11/20 20:59 01/15/20 22:23 Carvedilol (Coreg) 12.5 mg EVERY 12 HOURS ORAL 01/11/20 09:00 02/10/20 08:59 12/7/20 10:09 Dextrose 1,000 ml @ 75 mls/hr [id number] IV 01/15/20 12:00 02/14/20 11:59 01/16/20 08:40 Dextrose (Dextrose 50%) 25 ml Q30M PRN IV Hypoglycemia 01/11/20 05:15 04/10/20 05:14 Dextrose (Dextrose 50%) 50 ml Q30M PRN IV Hypoglycemia 01/11/20 05:15 04/10/20 05:14 Docusate Sodium (Colace) 100 mg TID ORAL 01/12/20 13:00 02/10/20 09:59 01/16/20 13:06 Escitalopram Oxalate (Lexapro) 10 mg DAILY ORAL 01/11/20 09:00 02/10/20 08:59 01/16/20 10:09 Folic Acid (Folate) 1 mg DAILY ORAL 01/11/20 13:30 02/10/20 13:29 01/16/20 10:09 Hydralazine HCl (Apresoline) 25 mg Q4H PRN ORAL bp over 160 syst 01/11/20 10:00 04/10/20 09:59 Insulin Aspart (NovoLOG) BEFORE MEALS AND HS SUBQ 01/11/20 06:30 04/10/20 06:29 01/16/20 11:45 Meropenem 1 gm/ Sodium Chloride 55 ml @ 110 mls/hr Q12HR IVPB 01/13/20 10:30 01/18/20 10:29 01/16/20 10:07 Morphine Sulfate (Morphine Sulfate) 2 mg Q4H PRN IVP For Pain (4-10) 01/11/20 05:15 01/18/20 05:14 01/15/20 03:26 Mycophenolate Mofetil (Cellcept) 500 mg BID ORAL 01/11/20 09:00 04/10/20 08:59 01/16/20 10:08 Nifedipine (Procardia XL) 60 mg DAILY ORAL 01/11/20 09:09 02/10/20 09:08 01/16/20 10:08 Olanzapine (ZyPREXA Zydis) 15 mg BEDTIME ORAL 01/12/20 21:00 02/26/20 20:59 01/15/20 22:22 Pantoprazole (Protonix) 40 mg DAILY ORAL 01/11/20 10:00 02/10/20 09:59 01/16/20 10:07 Tacrolimus (Prograf) 1 mg BID ORAL 01/11/20 09:00 04/10/20 08:59 01/16/20 10:07 Temazepam (Restoril) 15 mg BEDTIME ORAL 01/11/20 21:00 01/18/20 20:59 01/15/20 22:23 Assessment/Plan Assessment/Plan 1. Atelectasis. - CXR 01/12/2020 shows left basilar atelectasis 2. Hypoxemia. - currently saturating 95% on 3 lpm NC 3. Anemia. - Hgb 11.1 -> 9.5 -> 9.0 -> 9.3 - s/p transfusion 4. Hip fracture. 5. Liver and kidney transplant. 6. Immunosuppression. 7. Hypertension. 8. CKD. - management per renal 9. Diabetes mellitus. 10. Concern for PE - V/Q scan 01/13/2020 no suspicion for PE - May be a candidate for IVC filter if found to have a PE transfer to [facility] scheduled a 1630 today The history of Andrea Velásquez has been reviewed and management options for him have been examined and discussed by Oswaldo Coto. I have personally examined and interviewed the patient. The care for this patient was discussed with my supervising physician Time spent for this case was approximately 31 minutes Karan Swan Jan 16, 2020 16:24 Oswaldo Coto MD Jan 16, 2020 17:17
--- NOTE | 2020-01-16 17:10 | NUR ---
NURSE NOTES: Patient taken by ambulance. Patient cleaned and skin pictures taken. Patient showed no signs of respiratory distress. IV and floey intact and patent. compliance monitor taken off. Report given. Karey West brother was informed.
--- NOTE | 2020-01-16 23:05 | Psychiatric Progress Note ---
Psychiatry Progress Note Psychiatry Progress Note Neurological/Psychiatric: Reports: anxiety, depressed; Denies: no symptoms, emotional problems, headache, numbness, paresthesia, pre-existing deficit, seizure, tingling, tremors, weakness, other Allergies: Coded Allergies: IODINE (Verified Allergy, Unknown, 04/10/17) METHOCARBAMOL (Verified Allergy, Unknown, 04/10/17) Objective Data Height (Feet): 5 Height (Inches): 11.00 Weight (Pounds): 165 General Appearance: no apparent distress, lethargic Additional Comments: anxiety, difficulty sleeping, hopelessness. PAST PSYCHIATRIC HISTORY: Anxiety disorder. PAST MEDICAL HISTORY: As above. MENTAL STATUS EXAMINATION: Patient is awake, oriented to self, place, . Mood is anxious. Affect is blunted, congruent with mood. Thought process is concrete. Thought content, no suicidal or homicidal ideation. Cognition is intact. Insight and judgment is fair. ASSESSMENT: 1. Anxiety disorder. 2. Cognitive impairment. PLAN: 1. We will start the patient on Remeron. 2. Provide the patient with reality orientation. Discussed with the nurse. Assessment/Plan Status: unchanged Moises Pratt MD Jan 16, 2020 23:05
--- NOTE | 2020-01-18 10:52 | Discharge Summary ---
Discharge Summary Discharge Summary _ DATE OF ADMISSION: 01/10/2020 DATE OF DISCHARGE: 01/16/2020 DISCHARGED BY: Dr. Snyder REASON FOR ADMISSION: 74 years old male with past medical history of hypertension, diabetes mellitus, CHF, atrial fibrillation, gout, chronic kidney disease, status post liver and ki dney transplant, presented from the [facility] facility for evaluation of femur fracture. Patient reportedly fell from the wheelchair on his left side a day prior to presentation. Imaging of the left hip down to the left foot were obtained at the facility and showed acute comminuted and displaced intertrochanteric left femur fracture. Patient reported that he struck his head. He had abrasion on the left ear. He denied headache , changes in vision. No nausea and vomiting. Upon evaluation in ED vital signs were stable. Laboratory work-up revealed no leukocytosis , hemoglobin 8.1, hematocrit 25, platelet count 88. Stable electrolytes . BUN 54 , creatinine 2.5 Glucose 181. Stable LFT. Troponin 0.032. EKG revealed sinus rhythm no acute ischemic changes. Albumin 3.0. Rapid COVID-[address] of the head revealed no acute intracranial pathology ; age-related atrophy and small vessel disease of aging was noted. X-ray of the bilateral hip and pelvis revealed left hip intertrochanteric fracture. CT of the left hip revealed comminuted intertrochanteric fracture of the proximal left femur with varus angulation. In the emergency department patient received analgesic . Orthopedic surgeon consulted, and patient subsequently admitted to telemetry floor for further management. CONSULTANTS: office clerk assistant Dr. Saenz orthopedic surgeon Dr. Perea pulmonary Dr. Coto ID specialist Dr. De Jesus yarn tester Dr. Mcdonald dive master/oncologist Dr. Jade psychiatrist [facility]: Patient admitted to telemetry floor. Orthopedic surgeon seen and evaluated patient . Patient was a very high risk patient . Given multiply comorbidities and the risky nature of the surgery and postoperative recovery, surgeon recommended transfer patient to a tertiary care facility for a higher level of care. Meantime pain management was addressed. Patient was hydrated. Renal parameters and electrolytes were closely monitored , electrolytes corrected as needed , nephrotoxic's were avoided . Creatinine remained at baseline ; prior to transfer 2.4 . All electrolytes corrected. Abdominal ultrasound revealed unremarkably appearing transplanted liver. No evidence of gallstones. Mild splenomegaly. High resistance indices and low intrarenal systolic velocity in the left renal allograft. Intrinsic renal disease possible. Atrophic bilateral [place] kidney and right old transplant. No definite allograft hydronephrosis. Stent seen within the bladder. Volumes were closely monitored. Echocardiogram demonstrated preserved ejection fraction 55%. No evidence of wall motion abnormality. Repeated troponin was negative . EKG revealed no acute ischemic changes. Rate was controlled with beta-edilberto. Patient was off anticoagulation for surgery as well as the severe anemia. Blood pressure was managed with beta-edilberto and Procardia. Statin continued. Supplemental oxygen provided and titrated to keep pulse oximetry above 92% . Pulmonary toilet provided as needed Chest x-ray revealed left basilar atelectasis. There was a concern for possible PE. VQ scan ventilation imaging demonstrated no findings suspicious for pulmonary emboli. Patient was able to be weaned from a nonrebreather and Venturi mask down to nasal cannula with low flow oxygen. Pulse oximetry remained stable. Antibiotic provided as per ID specialist recommendation. Rapid COVID-19 was negative. Urine culture revealed E. coli and Proteus ESBL. Prior to transfer to [facility] Covid by PCR was done and was negative. ID recommended continue meropenem for total of 7 days . Pain management was addressed . Bowel regimen instituted . Supportive care provided. Reality orientation provided . patient started on Remeron. Patient was stable for transfer to a higher level of care for further management. FINAL DIAGNOSES: Acute hypoxemic respiratory failure , requiring nonrebreather mask -resolved Comminuted intertrochanteric fracture of the proximal left femur with varus angulation E. coli and Proteus ESBL UTI Possible pneumonia Chronic kidney disease Atrial fibrillation Hypertension Hyperlipidemia Status post Biotronik pacemaker, 2018 History of aortic dissection repair and bioprosthetic AVR 2006 History of OLT 2006 , and liver and kidney transplant 2009 Diabetes mellitus Fecal impaction Anxiety disorder DISCHARGE MEDICATIONS: See Medication Reconciliation list. DISCHARGE INSTRUCTIONS: Patient was transferred to a higher level of care hospital / [facility] for further management I have been assigned to dictate discharge summary for this account. I was not involved in the patient's management. Hope Calloway NP Jan 18, 2020 10:52
== END 2020-01-16 16:50 | DRG 535 ==
LOC: EDBD 19:44 → EMR 19:55 → 3E 20:35 → EDBEDREQ 21:30 → 2E 01-11 17:50
PROC: 30233N1 Transfusion of Nonautologous Red Blood Cells into Peripheral Vein, Percutaneous Approach (ICD-10-PCS; principal; 2020-01-12)
DX: S72.142A Displaced intertrochanteric fracture of left femur, initial encounter for closed fracture (principal); J18.9 Pneumonia, unspecified organism; J96.01 Acute respiratory failure with hypoxia; Z94.4 Liver transplant status; Z94.0 Kidney transplant status; I13.0 Hypertensive heart and chronic kidney disease with heart failure and stage 1 through stage 4 chronic kidney disease, or unspecified chronic kidney disease; N39.0 Urinary tract infection, site not specified; Z16.12 Extended spectrum beta lactamase (ESBL) resistance; J98.11 Atelectasis; D68.4 Acquired coagulation factor deficiency; W05.0XXA Fall from non-moving wheelchair, initial encounter; Y92.099 Unspecified place in other non-institutional residence as the place of occurrence of the external cause; N18.9 Chronic kidney disease, unspecified; K56.41 Fecal impaction; Z79.01 Long term (current) use of anticoagulants; I48.91 Unspecified atrial fibrillation; D69.6 Thrombocytopenia, unspecified; E11.22 Type 2 diabetes mellitus with diabetic chronic kidney disease; I50.9 Heart failure, unspecified; M10.9 Gout, unspecified; B96.20 Unspecified Escherichia coli [E. coli] as the cause of diseases classified elsewhere; B96.4 Proteus (mirabilis) (morganii) as the cause of diseases classified elsewhere; E78.5 Hyperlipidemia, unspecified; Z95.0 Presence of cardiac pacemaker; F41.9 Anxiety disorder, unspecified; Z88.8 Allergy status to other drugs, medicaments and biological substances; F03.90 Unspecified dementia, unspecified severity, without behavioral disturbance, psychotic disturbance, mood disturbance, and anxiety; D64.9 Anemia, unspecified; E88.09 Other disorders of plasma-protein metabolism, not elsewhere classified; Z95.2 Presence of prosthetic heart valve
CPT/HCPCS: 36415; 70450; 71045; 73521; 76700; 78580; 80053; 81001; 82270; 82378; 82607; 82728; 82746; 82962; 83036; 83540; 83550; 83615; 83735; 83880; 84100; 84300; 84443; 84484; 84550; 85007; 85025; 85044; 85610; 85730; 86140; 86850; 86900; 86901; 86920; 87081; 87086; 87181; 93005; 93306; 96374; 99285; J1815; U0002